=== PATIENT | male | born 1955 | race Caucasian/White ===

== ENCOUNTER 2016-12-28 14:21 | Emergency (ER) | payer OTHER, MEDICARE ==
[~2016-12-28] VITALS: Ht 177.8 cm; Wt 127.0 kg
[2016-12-28] MEDS ORDERED: HYCODAN/HYDROMET5 ML PO (16:47)
[2016-12-28] MEDS ORDERED: VIBRAMYCIN100 MG PO (16:47)
[2016-12-28] MEDS ORDERED: MUCINEX1200 M1 PO (16:48)
[2016-12-28] MEDS ORDERED: ZOFRAN ODT4 MG SL (16:51)
== END 2016-12-28 17:02 | disposition home or self-care (01) ==
LOC: ED 14:21
DX: J01.90 Acute sinusitis, unspecified (principal); J40 Bronchitis, not specified as acute or chronic; F17.200 Nicotine dependence, unspecified, uncomplicated; J44.9 Chronic obstructive pulmonary disease, unspecified; I25.2 Old myocardial infarction; Z95.5 Presence of coronary angioplasty implant and graft

== ENCOUNTER 2017-03-11 13:45 | Emergency (ER) | payer OTHER, MEDICARE ==
[~2017-03-11] VITALS: Ht 182.8 cm; Wt 145.1 kg
[~2017-03-11 13:45] MED LIST: HYCODAN/HYDROMET5 ML PO; MUCINEX1200 M1 PO; VIBRAMYCIN100 MG PO; ZOFRAN ODT4 MG SL
[2017-03-11 14:01] LABS: ABG BASE EXCESS -1.3 mmol/L (-2.0-2.0); ABG CO2 CONTENT 23.9 mmol/L (23-27); ABG HCO3 22.7 mmol/l (22-26); ABG TEMPERATURE 97.5 F (98.0-99.0); ARTERIAL BLOOD GAS PH 7.405 (7.35-7.45); ARTERIAL BLOOD GAS PO2 81.5 mmHg (80-90)
[2017-03-11] MEDS ORDERED: TOPROL XL100 MG PO (14:08)
[2017-03-11] MEDS ORDERED: ATORVASTATIN CA20 M1 PO (14:08)
[2017-03-11] MEDS ORDERED: TAMSULOSIN HCL0.4 MG PO (14:09)
[2017-03-11] MEDS ORDERED: OMEPRAZOLE20 M2 PO (14:09)
[2017-03-11] MEDS ORDERED: ZESTRIL40 MG PO (14:09)
[2017-03-11] MEDS ORDERED: NATURE'S BLEND F1 MG PO (14:10)
[2017-03-11] MEDS ORDERED: B12100 MC1 PO (14:10)
[2017-03-11] MEDS ORDERED: MULTI VITAMINS1 TAB PO (14:10)
[2017-03-11 14:11] LABS: BASO % 0.3 % (0.0-1.0); EOS # 0.2 10*3/uL (0.0-0.4); EOS % 1.9 % (1.0-4.0); HEMATOCRIT 41.1 % (42.0-52.0); LYMPH # 2.5 10*3/uL (1.3-4.4); LYMPH % 29.2 % (27.0-41.0); MEAN CELL VOLUME 93.8 fl (80.0-94.0); MEAN CORPUSCULAR HGB CONC 34.1 g/dl (33.0-37.0); MEAN PLATELET VOLUME 8.9 fl (9.6-12.3); MONO # 0.9 10*3/uL (0.1-1.0); MONO % 10.2 % (3.0-9.0); NEUT % 57.9 % (47.0-73.0); PLATELET COUNT AUTOMATED 472 10*3/uL (130-400); RED BLOOD COUNT 4.38 10*6/uL (4.50-5.90); RED CELL DISTRI WIDTH 13.2 % (0-14.5); WHITE BLOOD COUNT 8.6 10*3/uL (4.8-10.8)
[2017-03-11] MEDS ORDERED: ASPIR LOW81 MG PO (14:11)
[2017-03-11] MEDS ORDERED: SINGULAIR10 M1 PO (14:11)
[2017-03-11] MEDS ORDERED: TRAZODONE50 MG PO (14:11)
[2017-03-11 14:32] LABS: TROPONIN I < 0.015 ng/ml (<0.045)
[2017-03-11 14:35] LABS: INTERNATIONAL NORM RATIO 0.9 (2.0-3.5)
[2017-03-11 14:45] LABS: ALKALINE PHOSPHATASE 72 U/L (45-117); BILIRUBIN, TOTAL 0.2 mg/dl (0.2-1.0); BUN 7 mg/dl (7-24); CARBON DIOXIDE 25 mmol/L (21-32); CHLORIDE 94 mmol/L (98-107); EST GLOM FILT AFRICAN AMERICAN > 60 ml/min; GLUCOSE 102 mg/dL (65-99); MAGNESIUM 1.8 mg/dL (1.5-2.1); POTASSIUM 4.4 mmol/L (3.5-5.1); SGOT/AST 24 IU/L (3-35); SGPT/ALT 32 U/L (12-78); SODIUM 129 mmol/L (136-145); TOTAL PROTEIN 6.4 gm/dL (6.4-8.2)
[2017-03-11 14:48] LABS: C-REACTIVE PROTEIN < 0.29 MG/DL (0-0.3)
== END 2017-03-11 15:32 | disposition short-term general hospital (02) ==
LOC: ED 13:45
PROVIDERS: Emergency Medicine
DX: I21.3 ST elevation (STEMI) myocardial infarction of unspecified site (principal); R50.9 Fever, unspecified; J44.9 Chronic obstructive pulmonary disease, unspecified; M54.2 Cervicalgia; Z95.5 Presence of coronary angioplasty implant and graft; Z79.82 Long term (current) use of aspirin; F17.200 Nicotine dependence, unspecified, uncomplicated

== ENCOUNTER 2017-09-09 20:19 | Inpatient (IN) | payer MEDICARE, MEDICAID ==
[~2017-09-09] VITALS: Ht 177.8 cm; Wt 113.6 kg
[~2017-09-09 20:19] MED LIST changes: +ASPIR LOW81 MG PO; +ATORVASTATIN CA20 M1 PO; +B12100 MC1 PO; +MULTI VITAMINS1 TAB PO; +NATURE'S BLEND F1 MG PO; +OMEPRAZOLE20 M2 PO; +SINGULAIR10 M1 PO; +TAMSULOSIN HCL0.4 MG PO; +TOPROL XL100 MG PO; +TRAZODONE50 MG PO; +ZESTRIL40 MG PO
[2017-09-09 20:22] VITALS: BP 130/64
[2017-09-09] MEDS ORDERED: NEURONTIN300 MG PO (20:32)
[2017-09-09] MEDS ORDERED: DEPAKOTE DR500 MG PO (20:33)
[2017-09-09] MEDS ORDERED: LIPITOR80 MG PO (20:34)
[2017-09-09] MEDS ORDERED: THIAMINE HCL100 MG PO (20:34)
[2017-09-09 21:04] LABS: BASO # 0.1 10*3/uL (0.0-0.1); BASO % 0.7 % (0.0-1.0); EOS # 0.4 10*3/uL (0.0-0.4); EOS % 5.1 % (1.0-4.0); HEMATOCRIT 39.5 % (42.0-52.0); HEMOGLOBIN 13.8 g/dl (14.0-18.0); LYMPH # 2.1 10*3/uL (1.3-4.4); LYMPH % 27.6 % (27.0-41.0); MEAN CELL VOLUME 89.4 fl (80.0-94.0); MEAN CORPUSCULAR HGB 31.2 pg (27.0-31.0); MEAN CORPUSCULAR HGB CONC 34.9 g/dl (33.0-37.0); MEAN PLATELET VOLUME 9.3 fl (9.6-12.3); MONO # 1.1 10*3/uL (0.1-1.0); MONO % 14.1 % (3.0-9.0); NEUT % 52.2 % (47.0-73.0); PLATELET COUNT AUTOMATED 259 10*3/uL (130-400); RED BLOOD COUNT 4.42 10*6/uL (4.50-5.90); RED CELL DISTRI WIDTH 13.9 % (0-14.5); WHITE BLOOD COUNT 7.6 10*3/uL (4.8-10.8)
[2017-09-09 21:20] LABS: ALBUMIN 3.5 gm/dl (3.1-4.5); ALKALINE PHOSPHATASE 91 U/L (45-117); BUN 10 mg/dl (7-24); CHLORIDE 95 mmol/L (98-107); CREATININE 1.24 mg/dL (0.70-1.30); LIPASE 120 U/L (73-393); SGOT/AST 22 IU/L (3-35); SGPT/ALT 26 U/L (12-78); SODIUM 129 mmol/L (136-145); TOTAL PROTEIN 6.8 gm/dL (6.4-8.2)
[2017-09-09 21:21] LABS: TROPONIN I < 0.015 ng/ml (<0.045)
[2017-09-09 21:26] LABS: ETHYL ALCOHOL < 3.0 mg/dl (<3)
[2017-09-09 23:00] VITALS: BP 137/78
[2017-09-10] VITALS: BP 153/96
[2017-09-10 04:00] VITALS: BP 126/73
[2017-09-10 05:19] LABS: BASO % 0.6 % (0.0-1.0); EOS # 0.4 10*3/uL (0.0-0.4); EOS % 5.4 % (1.0-4.0); HEMATOCRIT 37.8 % (42.0-52.0); HEMOGLOBIN 12.8 g/dl (14.0-18.0); LYMPH # 1.7 10*3/uL (1.3-4.4); LYMPH % 26.1 % (27.0-41.0); MEAN CELL VOLUME 90.6 fl (80.0-94.0); MEAN CORPUSCULAR HGB 30.7 pg (27.0-31.0); MEAN CORPUSCULAR HGB CONC 33.9 g/dl (33.0-37.0); MEAN PLATELET VOLUME 9.3 fl (9.6-12.3); MONO % 14.7 % (3.0-9.0); NEUT # 3.5 10*3/uL (2.3-7.9); PLATELET COUNT AUTOMATED 226 10*3/uL (130-400); RED BLOOD COUNT 4.17 10*6/uL (4.50-5.90); WHITE BLOOD COUNT 6.7 10*3/uL (4.8-10.8)
[2017-09-10 05:37] LABS: ALBUMIN 3.2 gm/dl (3.1-4.5); BUN 8 mg/dl (7-24); CHLORIDE 99 mmol/L (98-107); CHOLESTEROL 103 mg/dL (<200); CREATININE 0.99 mg/dL (0.70-1.30); PHOSPHOROUS 3.6 mg/dL (2.5-4.9); POTASSIUM 4.1 mmol/L (3.5-5.1); SGOT/AST 19 IU/L (3-35); SGPT/ALT 22 U/L (12-78); SODIUM 133 mmol/L (136-145); TRIGLYCERIDES 130 mg/dl (<150); VLDL CHOLESTEROL 26 mg/dL (6-40)
[2017-09-10 05:39] LABS: ALKALINE PHOSPHATASE 78 U/L (45-117); HDL CHOLESTEROL 41 mg/dl (40-60); LDL CHOLESTEROL 36 mg/dL (9-159); TOTAL PROTEIN 5.9 gm/dL (6.4-8.2)
[2017-09-10 08:00] VITALS: BP 127/74
[2017-09-10 08:05] LABS: VITAMIN D, 25-HYDROXY 23.4 ng/mL (30-100)
[2017-09-10 11:30] LABS: URINE AMPHETAMINES < 1000 (1000ng/ml); URINE BARBITURATES < 200 (200ng/ml); URINE BENZODIAZEPINES < 200 (200ng/ml); URINE CANNABINOIDS (THC) < 50 (50ng/ml); URINE COCAINE > 300 (300ng/ml); URINE METHADONE < 300 (300ng/ml); URINE OPIATES < 300 (300ng/ml)
[2017-09-10 11:34] LABS: URINE PHENCYCLIDINE < 25 (25ng/ml)
[2017-09-10 12:00] VITALS: BP 99/62
[2017-09-10 16:00] VITALS: BP 109/71
[2017-09-10 20:00] VITALS: BP 106/67
[2017-09-11] VITALS: BP 139/69
[2017-09-11 04:00] VITALS: BP 137/60
[2017-09-11 05:33] LABS: ALBUMIN 2.9 gm/dl (3.1-4.5); BUN 10 mg/dl (7-24); CHLORIDE 108 mmol/L (98-107); LIPASE 132 U/L (73-393); POTASSIUM 4.4 mmol/L (3.5-5.1); SGOT/AST 14 IU/L (3-35); SODIUM 142 mmol/L (136-145)
[2017-09-11 05:37] LABS: ALKALINE PHOSPHATASE 73 U/L (45-117); CREATININE 0.99 mg/dL (0.70-1.30); PHOSPHOROUS 3.9 mg/dL (2.5-4.9); SGPT/ALT 21 U/L (12-78); TOTAL PROTEIN 5.6 gm/dL (6.4-8.2)
[2017-09-11 06:22] LABS: BASO % 0.5 % (0.0-1.0); EOS # 0.4 10*3/uL (0.0-0.4); EOS % 5.8 % (1.0-4.0); HEMATOCRIT 36.8 % (42.0-52.0); HEMOGLOBIN 12.4 g/dl (14.0-18.0); MEAN CORPUSCULAR HGB CONC 33.7 g/dl (33.0-37.0); MEAN PLATELET VOLUME 10.1 fl (9.6-12.3); MONO # 0.8 10*3/uL (0.1-1.0); MONO % 12.7 % (3.0-9.0); NEUT # 3.3 10*3/uL (2.3-7.9); NEUT % 50.8 % (47.0-73.0); PLATELET COUNT AUTOMATED 239 10*3/uL (130-400); RED BLOOD COUNT 3.87 10*6/uL (4.50-5.90); RED CELL DISTRI WIDTH 14.6 % (0-14.5); WHITE BLOOD COUNT 6.5 10*3/uL (4.8-10.8)
[2017-09-11 06:26] LABS: MEAN CELL VOLUME 95.1 fl (80.0-94.0)
[2017-09-11 08:00] VITALS: BP 138/70
[2017-09-11] MEDS ORDERED: PEPCID20 MG PO (11:52)
[2017-09-11] MEDS ORDERED: ZOFRAN ODT4 MG SL (11:52)
[2017-09-11 12:00] VITALS: BP 136/72
== END 2017-09-11 13:58 | disposition home or self-care (01) | DRG 897 ==
LOC: ED 20:19 → ICCU 22:31 → EDHOLD 22:31 → ICCU 22:34
PROVIDERS: Emergency Medicine; Hospitalist; Student in an Organized Health Care Education/Training Program
DX: F10.239 Alcohol dependence with withdrawal, unspecified (principal); E87.2 Acidosis; E87.8 Other disorders of electrolyte and fluid balance, not elsewhere classified; E44.0 Moderate protein-calorie malnutrition; E87.1 Hypo-osmolality and hyponatremia; G62.9 Polyneuropathy, unspecified; D64.9 Anemia, unspecified; K21.9 Gastro-esophageal reflux disease without esophagitis; N40.0 Benign prostatic hyperplasia without lower urinary tract symptoms; J44.9 Chronic obstructive pulmonary disease, unspecified; E78.2 Mixed hyperlipidemia; I25.10 Atherosclerotic heart disease of native coronary artery without angina pectoris; I10 Essential (primary) hypertension; R79.89 Other specified abnormal findings of blood chemistry; F31.9 Bipolar disorder, unspecified; Z79.82 Long term (current) use of aspirin; Z68.35 Body mass index [BMI] 35.0-35.9, adult; Z98.52 Vasectomy status; Z95.5 Presence of coronary angioplasty implant and graft; Z79.899 Other long term (current) drug therapy; Z71.6 Tobacco abuse counseling; F17.210 Nicotine dependence, cigarettes, uncomplicated; Z85.46 Personal history of malignant neoplasm of prostate; I25.2 Old myocardial infarction; Z66 Do not resuscitate; Z51.5 Encounter for palliative care

== ENCOUNTER → 2017-10-08 | Outpatient (CLI) | payer OTHER ==
[~2017-10-08] MED LIST changes: +DEPAKOTE DR500 MG PO; +LIPITOR80 MG PO; +NEURONTIN300 MG PO; +PEPCID20 MG PO; +THIAMINE HCL100 MG PO
== END | disposition home or self-care (01) ==
LOC: RAD 10:54
DX: M17.12 Unilateral primary osteoarthritis, left knee (principal); M17.11 Unilateral primary osteoarthritis, right knee

== ENCOUNTER 2017-11-19 10:29 | Inpatient (IN) | payer MEDICARE, MEDICAID ==
[~2017-11-19] VITALS: Ht 177.8 cm; Wt 128.8 kg
[~2017-11-19 10:29] MED LIST changes: +LOPRESSOR25 MG PO; -TOPROL XL100 MG PO
[2017-11-19 10:41] VITALS: BP 105/66
[2017-11-19 10:50] LABS: BASO # 0.1 10*3/uL (0.0-0.1); BASO % 0.4 % (0.0-1.0); EOS # 0.7 10*3/uL (0.0-0.4); EOS % 5.7 % (1.0-4.0); HEMATOCRIT 33.9 % (42.0-52.0); HEMOGLOBIN 11.5 g/dl (14.0-18.0); LYMPH # 2.8 10*3/uL (1.3-4.4); LYMPH % 23.5 % (27.0-41.0); MEAN CELL VOLUME 93.9 fl (80.0-94.0); MEAN CORPUSCULAR HGB 31.9 pg (27.0-31.0); MEAN CORPUSCULAR HGB CONC 33.9 g/dl (33.0-37.0); MEAN PLATELET VOLUME 8.3 fl (9.6-12.3); MONO # 1.4 10*3/uL (0.1-1.0); MONO % 11.7 % (3.0-9.0); NEUT # 6.9 10*3/uL (2.3-7.9); NEUT % 58.2 % (47.0-73.0); PLATELET COUNT AUTOMATED 230 10*3/uL (130-400); RED BLOOD COUNT 3.61 10*6/uL (4.50-5.90); RED CELL DISTRI WIDTH 13.4 % (0-14.5); WHITE BLOOD COUNT 11.9 10*3/uL (4.8-10.8)
[2017-11-19 11:06] LABS: ALBUMIN 3.1 gm/dl (3.1-4.5); ALKALINE PHOSPHATASE 109 U/L (45-117); BUN 9 mg/dl (7-24); CHLORIDE 94 mmol/L (98-107); CREATININE 0.97 mg/dL (0.70-1.30); SGOT/AST 22 IU/L (3-35); SGPT/ALT 23 U/L (12-78); SODIUM 130 mmol/L (136-145); TOTAL PROTEIN 6.6 gm/dL (6.4-8.2)
[2017-11-19 11:07] LABS: ACT PARTIAL THROMBO TIME 25.2 SECONDS (20.8-31.5); INTERNATIONAL NORM RATIO 0.9 (2.0-3.5)
[2017-11-19 11:14] LABS: TROPONIN I < 0.015 ng/ml (<0.045)
[2017-11-19 11:19] LABS: BILIRUBIN NEGATIVE (NEGATIVE); BLOOD NEGATIVE (NEGATIVE); CLARITY SL CLOUDY (CLEAR); COLOR YELLOW (YELLOW); GLUCOSE NEGATIVE (NEGATIVE); KETONE NEGATIVE (NEGATIVE); LEUKO ESTERASE NEGATIVE (NEGATIVE); NITRITE NEGATIVE (NEGATIVE); PH 5.5 (5.0-9.0); SPECIFIC GRAVITY <= 1.005 (1.005-1.030); UROBILINOGEN 0.2 E.U./dl (0.2-1.0)
[2017-11-19 11:37] LABS: BACTERIA 1+; RBC 0-2 rbc/hpf (0-2); WBC 0-2 wbc/hpf (0-5)
[2017-11-19 12:06] LABS: URINE AMPHETAMINES < 1000 (1000ng/ml); URINE BARBITURATES < 200 (200ng/ml); URINE BENZODIAZEPINES < 200 (200ng/ml); URINE CANNABINOIDS (THC) < 50 (50ng/ml); URINE COCAINE < 300 (300ng/ml); URINE METHADONE < 300 (300ng/ml); URINE OPIATES < 300 (300ng/ml); URINE PHENCYCLIDINE < 25 (25ng/ml)
[2017-11-19] MEDS ORDERED: MELATONIN3 MG PO (14:06)
[2017-11-19] MEDS ORDERED: CYMBALTA30 MG PO (14:06)
[2017-11-19] MEDS ORDERED: CLARITIN10 MG PO (14:09)
[2017-11-19 14:10] VITALS: BP 131/85
[2017-11-19 14:13] VITALS: BP 101/67
[2017-11-19] MEDS ORDERED: MULTIPLE VITAM1 EAC1 PO (15:46)
[2017-11-19 16:00] VITALS: BP 128/80
[2017-11-19 20:05] VITALS: BP 117/49
[2017-11-20] VITALS: BP 150/54
[2017-11-20 08:00] VITALS: BP 148/71
[2017-11-20 08:08] LABS: HEMATOCRIT 36.6 % (42.0-52.0); HEMOGLOBIN 12.2 g/dl (14.0-18.0); MEAN CELL VOLUME 94.3 fl (80.0-94.0); MEAN CORPUSCULAR HGB 31.4 pg (27.0-31.0); MEAN CORPUSCULAR HGB CONC 33.3 g/dl (33.0-37.0); MEAN PLATELET VOLUME 9.5 fl (9.6-12.3); PLATELET COUNT AUTOMATED 285 10*3/uL (130-400); RED BLOOD COUNT 3.88 10*6/uL (4.50-5.90); RED CELL DISTRI WIDTH 13.7 % (0-14.5); WHITE BLOOD COUNT 12.2 10*3/uL (4.8-10.8)
[2017-11-20 08:28] LABS: PLATELET SUFFICIENCY NORMAL (NORMAL); TOTAL CELLS COUNTED 100 #CELLS
[2017-11-20 08:30] LABS: BUN 11 mg/dl (7-24); CHLORIDE 99 mmol/L (98-107); CHOLESTEROL 146 mg/dL (<200); CREATININE 1.19 mg/dL (0.70-1.30); FREE T4 0.93 ng/dl (0.76-1.46); PHOSPHOROUS 3.7 mg/dL (2.5-4.9); POTASSIUM 4.1 mmol/L (3.5-5.1); SGOT/AST 20 IU/L (3-35); SGPT/ALT 23 U/L (12-78); SODIUM 136 mmol/L (136-145); TRIGLYCERIDES 60 mg/dl (<150); VLDL CHOLESTEROL 12 mg/dL (6-40)
[2017-11-20 08:34] LABS: ALKALINE PHOSPHATASE 100 U/L (45-117); HDL CHOLESTEROL 53 mg/dl (40-60); LDL CHOLESTEROL 81 mg/dL (9-159); THYROID STIM HORMONE (HS) 0.222 uIU/ml (0.358-4.75); TOTAL PROTEIN 6.7 gm/dL (6.4-8.2)
[2017-11-20 08:52] LABS: VITAMIN D, 25-HYDROXY 22.6 ng/mL (30-100)
[2017-11-20 12:00] VITALS: BP 144/72
[2017-11-20 16:00] VITALS: BP 123/51
[2017-11-20 20:00] VITALS: BP 135/59
[2017-11-21] VITALS: BP 135/64
[2017-11-21 06:38] LABS: HEMATOCRIT 34.2 % (42.0-52.0); HEMOGLOBIN 11.3 g/dl (14.0-18.0); MEAN CELL VOLUME 95.5 fl (80.0-94.0); MEAN CORPUSCULAR HGB 31.6 pg (27.0-31.0); MEAN PLATELET VOLUME 9.3 fl (9.6-12.3); PLATELET COUNT AUTOMATED 313 10*3/uL (130-400); RED BLOOD COUNT 3.58 10*6/uL (4.50-5.90); RED CELL DISTRI WIDTH 14.2 % (0-14.5); WHITE BLOOD COUNT 19.1 10*3/uL (4.8-10.8)
[2017-11-21 07:37] LABS: PLATELET SUFFICIENCY NORMAL (NORMAL); TOTAL CELLS COUNTED 100 #CELLS
[2017-11-21 08:00] VITALS: BP 128/82
[2017-11-21] MEDS ORDERED: HYDROCODONE-AC1 EAC1 PO (10:57)
[2017-11-21] MEDS ORDERED: LEVAQUIN500 M2 PO (10:57)
[2017-11-21] MEDS ORDERED: PREDNISONE50 MG PO (10:57)
[2017-11-21] MEDS ORDERED: VITAMIN D31000 UNIT PO (10:57)
[2017-11-21 12:00] VITALS: BP 139/60
== END 2017-11-21 13:50 | disposition home or self-care (01) | DRG 871 ==
LOC: ED 10:29 → EDHOLD 13:31 → 4E 13:31
PROVIDERS: Emergency Medicine; Internal Medicine Hospice and Palliative Medicine
DX: A41.9 Sepsis, unspecified organism (principal); J18.9 Pneumonia, unspecified organism; E87.8 Other disorders of electrolyte and fluid balance, not elsewhere classified; E44.0 Moderate protein-calorie malnutrition; E87.1 Hypo-osmolality and hyponatremia; E66.01 Morbid (severe) obesity due to excess calories; S30.1XXA Contusion of abdominal wall, initial encounter; D64.9 Anemia, unspecified; J44.0 Chronic obstructive pulmonary disease with (acute) lower respiratory infection; Z68.41 Body mass index [BMI] 40.0-44.9, adult; J44.1 Chronic obstructive pulmonary disease with (acute) exacerbation; G62.9 Polyneuropathy, unspecified; D72.810 Lymphocytopenia; F10.220 Alcohol dependence with intoxication, uncomplicated; Z66 Do not resuscitate; Z51.5 Encounter for palliative care; R65.20 Severe sepsis without septic shock; T14.8XXA Other injury of unspecified body region, initial encounter; I71.4 Abdominal aortic aneurysm, without rupture; K57.30 Diverticulosis of large intestine without perforation or abscess without bleeding; F17.210 Nicotine dependence, cigarettes, uncomplicated; R07.89 Other chest pain; I25.119 Atherosclerotic heart disease of native coronary artery with unspecified angina pectoris; I10 Essential (primary) hypertension; E78.2 Mixed hyperlipidemia; K21.9 Gastro-esophageal reflux disease without esophagitis; N40.0 Benign prostatic hyperplasia without lower urinary tract symptoms; D32.9 Benign neoplasm of meninges, unspecified; R73.03 Prediabetes; E55.9 Vitamin D deficiency, unspecified; X58.XXXA Exposure to other specified factors, initial encounter; Y93.89 Activity, other specified; Y92.89 Other specified places as the place of occurrence of the external cause; Y99.8 Other external cause status; I25.2 Old myocardial infarction; Z85.46 Personal history of malignant neoplasm of prostate; Z98.61 Coronary angioplasty status; Z98.52 Vasectomy status; Z79.899 Other long term (current) drug therapy; Z71.6 Tobacco abuse counseling; Z79.82 Long term (current) use of aspirin

== ENCOUNTER → 2018-05-06 | Outpatient (CLI) | payer MEDICARE, MEDICAID ==
[~2018-05-06] MED LIST changes: +ASPIR 8181 MG PO; +AUGMENTIN 500500 MG PO; +B-121000 MCG PO; +CLARITIN10 MG PO; +COREG3.125 MG PO; +CYMBALTA30 MG PO; +DOXYCYCLINE100 M3 PO; +Flonase 0.05% 120 Me NAS; +GABAPENTIN TAB600 MG PO; +GLUCOSAMINE H1500 MG PO; +HYDRALAZINE HYD50 MG PO; +HYDROCODONE-AC1 EAC1 PO; +KLOR-CON M1010 ME1 PO; +LASIX20 MG PO; +LEVAQUIN500 M2 PO; +LEVAQUIN750 M1 PO; +LISINOPRIL40 MG PO; +LYRICA150 M1 PO; +MELATONIN3 MG PO; +METOPROLOL TART50 M1 PO; +MULTIPLE VITAM1 EAC1 PO; +MULTIVITAMINS1 EAC5 PO; +NATURE'S BLEND100 M2 PO; +NICOTINE PATCH1 EAC2 TD; +NORCO 10-325 T1 EACH PO; +PREDNISONE10 MG PO; +PREDNISONE50 MG PO; +PROAIR HFA8.5 GM INH; +TOPCARE OMEPRAZ20 MG PO; +VITAMIN D-32000 UNIT PO; +VITAMIN D31000 UNIT PO; +VITAMIN D32000 UNI1 PO; +WALKER; +Zestril,Prinivi40 MG PO
[2018-05-06 16:36] LABS: BASO % 0.1 % (0.0-1.0); HEMATOCRIT 38.2 % (42.0-52.0); HEMOGLOBIN 12.8 g/dl (14.0-18.0); LYMPH # 0.6 10*3/uL (1.3-4.4); MEAN CELL VOLUME 94.1 fl (80.0-94.0); MEAN CORPUSCULAR HGB 31.5 pg (27.0-31.0); MEAN CORPUSCULAR HGB CONC 33.5 g/dl (33.0-37.0); MEAN PLATELET VOLUME 9.2 fl (9.6-12.3); MONO # 0.5 10*3/uL (0.1-1.0); MONO % 4.7 % (3.0-9.0); NEUT # 8.8 10*3/uL (2.3-7.9); NEUT % 88.7 % (47.0-73.0); PLATELET COUNT AUTOMATED 237 10*3/uL (130-400); RED BLOOD COUNT 4.06 10*6/uL (4.50-5.90); RED CELL DISTRI WIDTH 15.9 % (0-14.5)
== END | disposition home or self-care (01) ==
LOC: LAB 16:22
PROVIDERS: Family Medicine
DX: J40 Bronchitis, not specified as acute or chronic (principal); D72.829 Elevated white blood cell count, unspecified; S81.802A Unspecified open wound, left lower leg, initial encounter; F17.210 Nicotine dependence, cigarettes, uncomplicated; X58.XXXA Exposure to other specified factors, initial encounter; Y93.89 Activity, other specified; Y92.89 Other specified places as the place of occurrence of the external cause; Y99.8 Other external cause status

== ENCOUNTER 2018-05-10 13:19 | Emergency (ER) | payer MEDICARE ==
[~2018-05-10] VITALS: Ht 177.8 cm; Wt 99.8 kg
--- NOTE | ~2018-05-10 | EKG ---
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
--- NOTE | ~2018-05-10 | EKG ---
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
[~2018-05-10 13:19] MED LIST changes: -COREG3.125 MG PO; -GABAPENTIN TAB600 MG PO; -LEVAQUIN750 M1 PO; -LYRICA150 M1 PO; -NORCO 10-325 T1 EACH PO
[2018-05-10 14:13] LABS: BASO % 0.1 % (0.0-1.0); EOS # 0.1 10*3/uL (0.0-0.4); EOS % 0.6 % (1.0-4.0); HEMATOCRIT 36.9 % (42.0-52.0); HEMOGLOBIN 12.7 g/dl (14.0-18.0); LYMPH # 0.9 10*3/uL (1.3-4.4); MEAN CELL VOLUME 93.9 fl (80.0-94.0); MEAN CORPUSCULAR HGB 32.3 pg (27.0-31.0); MEAN CORPUSCULAR HGB CONC 34.4 g/dl (33.0-37.0); MEAN PLATELET VOLUME 8.9 fl (9.6-12.3); MONO # 0.7 10*3/uL (0.1-1.0); MONO % 4.7 % (3.0-9.0); NEUT # 13.3 10*3/uL (2.3-7.9); NEUT % 87.7 % (47.0-73.0); PLATELET COUNT AUTOMATED 236 10*3/uL (130-400); RED BLOOD COUNT 3.93 10*6/uL (4.50-5.90); RED CELL DISTRI WIDTH 15.8 % (0-14.5); WHITE BLOOD COUNT 15.2 10*3/uL (4.8-10.8)
[2018-05-10 14:18] LABS: ACT PARTIAL THROMBO TIME 19.5 SECONDS (20.8-31.5); INTERNATIONAL NORM RATIO 0.9 (2.0-3.5)
[2018-05-10 14:35] LABS: ALBUMIN 3.4 gm/dl (3.1-4.5); ALKALINE PHOSPHATASE 55 U/L (45-117); BUN 32 mg/dl (7-24); CHLORIDE 92 mmol/L (98-107); CREATININE 1.84 mg/dL (0.70-1.30); POTASSIUM 5.7 mmol/L (3.5-5.1); SGOT/AST 23 IU/L (3-35); SGPT/ALT 41 U/L (12-78); SODIUM 123 mmol/L (136-145); TOTAL PROTEIN 6.4 gm/dL (6.4-8.2)
[2018-05-10 14:48] LABS: TROPONIN I < 0.015 ng/ml (<0.045)
[2018-05-10 15:43] LABS: ABG HCO3 16.3 mmol/l (22-26); ABG O2 SATURATION 97.1 % (95-97); ARTERIAL BLOOD GAS PCO2 30.5 mmHg (35-45); ARTERIAL BLOOD GAS PH 7.346 (7.35-7.45); ARTERIAL BLOOD GAS PO2 89.4 mmHg (80-90)
[2018-08-11] MEDS ORDERED: COREG3.125 MG PO (16:17)
[2018-08-11] MEDS ORDERED: LYRICA150 M1 PO (16:18)
[2018-08-17] MEDS ORDERED: PREDNISONE10 MG PO (14:29)
[2018-08-17] MEDS ORDERED: HYDROCODONE-AC1 EAC1 PO (14:29)
[2018-08-17] MEDS ORDERED: LEVAQUIN750 M1 PO (14:29)
== END 2018-05-10 17:59 | disposition short-term general hospital (02) ==
LOC: ED 13:19
PROVIDERS: Emergency Medicine
DX: S37.009A Unspecified injury of unspecified kidney, initial encounter (principal); A41.9 Sepsis, unspecified organism; R65.21 Severe sepsis with septic shock; F10.129 Alcohol abuse with intoxication, unspecified; R00.1 Bradycardia, unspecified; E87.5 Hyperkalemia; E87.1 Hypo-osmolality and hyponatremia; I95.9 Hypotension, unspecified; J98.2 Interstitial emphysema; F19.10 Other psychoactive substance abuse, uncomplicated; I25.10 Atherosclerotic heart disease of native coronary artery without angina pectoris; J44.9 Chronic obstructive pulmonary disease, unspecified; I10 Essential (primary) hypertension; K21.9 Gastro-esophageal reflux disease without esophagitis; E78.2 Mixed hyperlipidemia; E66.01 Morbid (severe) obesity due to excess calories; I25.2 Old myocardial infarction; G62.9 Polyneuropathy, unspecified; F17.200 Nicotine dependence, unspecified, uncomplicated; Z79.899 Other long term (current) drug therapy; Z79.82 Long term (current) use of aspirin; Z98.890 Other specified postprocedural states; X58.XXXA Exposure to other specified factors, initial encounter; Y93.89 Activity, other specified; Y92.89 Other specified places as the place of occurrence of the external cause; Y99.8 Other external cause status

== ENCOUNTER 2018-06-30 08:05 | Emergency (ER) | payer MEDICARE ==
[~2018-06-30] VITALS: Ht 182.8 cm; Wt 136.1 kg
--- NOTE | ~2018-06-30 | EKG ---
[place], [place] ELECTROCARDIOGRAM REPORT NAME: RAFAEL RATLIFF UNIT #: [id number] ROOM: DOCTOR: JP DRAFT REPORT BIRTHDATE: [birth year] [facility] Test Date: 2018-06-30 Test Time: 08:52:58 Pat Name: RAFAEL RATLIFF Department: Room: Gender: Marzipan Molder: : 1955 Requested By: FRANC HARVEY Order Number: [id number] Reading MD: Lenny Jacob MD Measurements Intervals [place] Rate: 78 P: 31 MI: 148 QRS: 76 QRSD: 86 T: 71 QT: 380 QTc: 433 Interpretive Statements Sinus rhythm Atrial premature complex Probable left atrial enlargement ST elevation, consider inferior injury Baseline wander in lead(s) V2 Compared to ECG 05/10/2018 15:59:05 Atrial premature complex(es) now present Junctional rhythm no longer present T-wave abnormality no longer present ST (T wave) deviation still present Myocardial infarct finding still present Electronically Signed On 07-03-2018 12:05:58 PDT by Lenny Jacob MD CM:EKGRPT:ELECTROCARDIOGRAM REPORT [id number] 1205 FRANC TRAMMELL DRAFT REPORT FRANC HARVEY M.D.
[2018-06-30 08:45] LABS: BILIRUBIN NEGATIVE (NEGATIVE); BLOOD NEGATIVE (NEGATIVE); CLARITY SL CLOUDY (CLEAR); COLOR YELLOW (YELLOW); GLUCOSE NEGATIVE (NEGATIVE); KETONE NEGATIVE (NEGATIVE); LEUKO ESTERASE NEGATIVE (NEGATIVE); NITRITE NEGATIVE (NEGATIVE); PH 6.5 (5.0-9.0); SPECIFIC GRAVITY <= 1.005 (1.005-1.030); UROBILINOGEN 0.2 E.U./dl (0.2-1.0)
[2018-06-30 08:55] LABS: BASO % 0.4 % (0.0-1.0); EOS # 0.3 10*3/uL (0.0-0.4); EOS % 2.7 % (1.0-4.0); HEMATOCRIT 36.1 % (42.0-52.0); HEMOGLOBIN 12.3 g/dl (14.0-18.0); LYMPH # 1.4 10*3/uL (1.3-4.4); LYMPH % 13.9 % (27.0-41.0); MEAN CELL VOLUME 93.3 fl (80.0-94.0); MEAN CORPUSCULAR HGB 31.8 pg (27.0-31.0); MEAN CORPUSCULAR HGB CONC 34.1 g/dl (33.0-37.0); MEAN PLATELET VOLUME 8.6 fl (9.6-12.3); MONO # 1.1 10*3/uL (0.1-1.0); MONO % 10.6 % (3.0-9.0); NEUT # 7.2 10*3/uL (2.3-7.9); PLATELET COUNT AUTOMATED 324 10*3/uL (130-400); RED BLOOD COUNT 3.87 10*6/uL (4.50-5.90); RED CELL DISTRI WIDTH 13.7 % (0-14.5)
[2018-06-30 08:56] LABS: BACTERIA 1+; WBC 0-2 wbc/hpf (0-5)
[2018-06-30 09:12] LABS: ALBUMIN 3.5 gm/dl (3.1-4.5); ALKALINE PHOSPHATASE 93 U/L (45-117); BUN 5 mg/dl (7-24); CHLORIDE 95 mmol/L (98-107); CREATININE 0.92 mg/dL (0.70-1.30); POTASSIUM 4.2 mmol/L (3.5-5.1); SGOT/AST 13 IU/L (3-35); SGPT/ALT 17 U/L (12-78); SODIUM 130 mmol/L (136-145)
[2018-06-30 09:13] LABS: TROPONIN I < 0.015 ng/ml (<0.045)
[2018-06-30] MEDS ORDERED: NEURONTIN300 MG PO ×2 (11:58→12:07)
[2018-06-30] MEDS ORDERED: NORCO 10-325 T1 EACH PO (11:58)
[2018-08-11] MEDS ORDERED: COREG3.125 MG PO (16:17)
[2018-08-11] MEDS ORDERED: LYRICA150 M1 PO (16:18)
[2018-08-17] MEDS ORDERED: LEVAQUIN750 M1 PO (14:29)
[2018-08-17] MEDS ORDERED: PREDNISONE10 MG PO (14:29)
[2018-08-17] MEDS ORDERED: HYDROCODONE-AC1 EAC1 PO (14:29)
== END 2018-06-30 13:57 | disposition home or self-care (01) ==
LOC: ED 08:05
PROVIDERS: Emergency Medicine
DX: M54.6 Pain in thoracic spine (principal); M54.5 Low back pain; R10.11 Right upper quadrant pain; R10.12 Left upper quadrant pain; J44.9 Chronic obstructive pulmonary disease, unspecified; I10 Essential (primary) hypertension; I25.2 Old myocardial infarction; I25.10 Atherosclerotic heart disease of native coronary artery without angina pectoris; K21.9 Gastro-esophageal reflux disease without esophagitis; E78.2 Mixed hyperlipidemia; E66.01 Morbid (severe) obesity due to excess calories; G62.9 Polyneuropathy, unspecified; F17.210 Nicotine dependence, cigarettes, uncomplicated; Z79.2 Long term (current) use of antibiotics; Z79.899 Other long term (current) drug therapy; Z79.82 Long term (current) use of aspirin; Z98.890 Other specified postprocedural states

== ENCOUNTER → 2018-07-16 | Outpatient (CLI) | payer MEDICARE ==
[~2018-07-16] MED LIST changes: +COREG3.125 MG PO; +GABAPENTIN TAB600 MG PO; +LEVAQUIN750 M1 PO; +LYRICA150 M1 PO; +NORCO 10-325 T1 EACH PO
== END | disposition home or self-care (01) ==
LOC: RAD 13:21
DX: J44.9 Chronic obstructive pulmonary disease, unspecified (principal)

== ENCOUNTER 2018-07-20 02:03 | Inpatient (IN) | payer OTHER ==
[~2018-07-20] VITALS: Ht 177.8 cm; Wt 125.4 kg
[2018-07-20] VITALS (10 sets, daily range): BP systolic 125–201; BP diastolic 58–160
--- NOTE | ~2018-07-20 | EKG ---
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 Marketing: Twin Singh : 1955 Requested By: CHAVEZ TAVERA Order Number: [id number] Reading MD: Derek Lemons MD Measurements Intervals [place] Rate: 49 P: 41 MN: 120 QRS: 69 QRSD: 104 T: 67 QT: 411 QTc: 371 Interpretive Statements Sinus bradycardia Baseline wander in lead(s) V1 Mild ST elevation in multiple leads, possible early repolarization Compared to ECG 06/30/2018 08:52:58 Rate is slower Atrial premature complex(es) no longer present No other significant changes Electronically Signed On 07-20-2018 12:37:56 PST by Derek Lemons MD CM:EKGRPT:ELECTROCARDIOGRAM REPORT 1237 CHAVEZ ESTES DRAFT REPORT CHAVEZ TAVERA DO
[~2018-07-20 02:03] MED LIST changes: -COREG3.125 MG PO; -GABAPENTIN TAB600 MG PO; -LEVAQUIN750 M1 PO; -LYRICA150 M1 PO
[2018-07-20 02:18] LABS: ABG BASE EXCESS -6.2 mmol/L (-2.0-2.0); ABG HCO3 18.8 mmol/l (22-26); ABG O2 SATURATION 99.1 % (95-97); ARTERIAL BLOOD GAS PCO2 37.1 mmHg (35-45); ARTERIAL BLOOD GAS PH 7.324 (7.35-7.45)
[2018-07-20 02:29] LABS: BASO % 0.2 % (0.0-1.0); EOS # 0.1 10*3/uL (0.0-0.4); EOS % 1.1 % (1.0-4.0); HEMATOCRIT 33.3 % (42.0-52.0); HEMOGLOBIN 11.9 g/dl (14.0-18.0); LYMPH % 10.5 % (27.0-41.0); MEAN CELL VOLUME 90.2 fl (80.0-94.0); MEAN CORPUSCULAR HGB 32.2 pg (27.0-31.0); MEAN CORPUSCULAR HGB CONC 35.7 g/dl (33.0-37.0); MEAN PLATELET VOLUME 8.5 fl (9.6-12.3); MONO # 0.6 10*3/uL (0.1-1.0); MONO % 5.6 % (3.0-9.0); NEUT # 8.2 10*3/uL (2.3-7.9); NEUT % 82.4 % (47.0-73.0); PLATELET COUNT AUTOMATED 278 10*3/uL (130-400); RED BLOOD COUNT 3.69 10*6/uL (4.50-5.90); RED CELL DISTRI WIDTH 13.3 % (0-14.5); WHITE BLOOD COUNT 9.9 10*3/uL (4.8-10.8)
[2018-07-20 02:39] LABS: ACT PARTIAL THROMBO TIME 27.2 SECONDS (20.8-31.5); INTERNATIONAL NORM RATIO 0.9 (2.0-3.5)
[2018-07-20 02:43] LABS: ALBUMIN 3.5 gm/dl (3.1-4.5); ALKALINE PHOSPHATASE 105 U/L (45-117); BUN 10 mg/dl (7-24); CHLORIDE 78 mmol/L (98-107); POTASSIUM 5.3 mmol/L (3.5-5.1); SGOT/AST 20 IU/L (3-35); SGPT/ALT 21 U/L (12-78); TOTAL PROTEIN 6.9 gm/dL (6.4-8.2)
[2018-07-20 02:46] LABS: SODIUM 113 mmol/L (136-145)
[2018-07-20 03:16] LABS: BILIRUBIN NEGATIVE (NEGATIVE); BLOOD NEGATIVE (NEGATIVE); CLARITY CLEAR (CLEAR); COLOR YELLOW (YELLOW); GLUCOSE NEGATIVE (NEGATIVE); KETONE NEGATIVE (NEGATIVE); LEUKO ESTERASE NEGATIVE (NEGATIVE); NITRITE NEGATIVE (NEGATIVE); SPECIFIC GRAVITY 1.025 (1.005-1.030); UROBILINOGEN 0.2 E.U./dl (0.2-1.0)
[2018-07-20 03:25] LABS: FINE GRANULAR CAST 20-25
[2018-07-20] MEDS ORDERED: GABAPENTIN TAB600 MG PO (05:34)
[2018-07-20 09:47] LABS: ALBUMIN 3.6 gm/dl (3.1-4.5); BUN 10 mg/dl (7-24); CHLORIDE 78 mmol/L (98-107); CREATININE 0.81 mg/dL (0.70-1.30); POTASSIUM 5.4 mmol/L (3.5-5.1)
[2018-07-20 09:48] LABS: PHOSPHOROUS 2.9 mg/dL (2.5-4.9)
[2018-07-20 09:50] LABS: SODIUM 113 mmol/L (136-145)
[2018-07-20 17:01] LABS: BUN 13 mg/dl (7-24); CHLORIDE 84 mmol/L (98-107); POTASSIUM 5.3 mmol/L (3.5-5.1)
[2018-07-20 17:14] LABS: SODIUM 118 mmol/L (136-145)
[2018-07-21] VITALS: BP 154/89
[2018-07-21 04:00] VITALS: BP 148/50
[2018-07-21 06:14] LABS: HEMATOCRIT 34.3 % (42.0-52.0); HEMOGLOBIN 11.7 g/dl (14.0-18.0); MEAN CELL VOLUME 91.5 fl (80.0-94.0); MEAN CORPUSCULAR HGB 31.2 pg (27.0-31.0); MEAN CORPUSCULAR HGB CONC 34.1 g/dl (33.0-37.0); MEAN PLATELET VOLUME 8.9 fl (9.6-12.3); PLATELET COUNT AUTOMATED 286 10*3/uL (130-400); RED BLOOD COUNT 3.75 10*6/uL (4.50-5.90); RED CELL DISTRI WIDTH 13.2 % (0-14.5)
[2018-07-21 06:25] LABS: BUN 14 mg/dl (7-24); CHLORIDE 87 mmol/L (98-107); CREATININE 0.86 mg/dL (0.70-1.30); PHOSPHOROUS 3.3 mg/dL (2.5-4.9); POTASSIUM 4.8 mmol/L (3.5-5.1); SODIUM 123 mmol/L (136-145)
[2018-07-21 07:03] LABS: PLATELET SUFFICIENCY NORMAL (NORMAL); TOTAL CELLS COUNTED 100 #CELLS
[2018-07-21 08:00] VITALS: BP 148/90
[2018-07-21 08:32] LABS: VITAMIN D, 25-HYDROXY 26.9 ng/mL (30-100)
[2018-07-21 12:00] VITALS: BP 171/78
[2018-07-21 16:00] VITALS: BP 150/76
[2018-07-21 20:00] VITALS: BP 149/61
[2018-07-22] VITALS: BP 139/67
[2018-07-22 07:46] LABS: BASO % 0.1 % (0.0-1.0); HEMATOCRIT 31.9 % (42.0-52.0); HEMOGLOBIN 10.8 g/dl (14.0-18.0); LYMPH # 0.5 10*3/uL (1.3-4.4); LYMPH % 3.2 % (27.0-41.0); MEAN CELL VOLUME 93.5 fl (80.0-94.0); MEAN CORPUSCULAR HGB 31.7 pg (27.0-31.0); MEAN CORPUSCULAR HGB CONC 33.9 g/dl (33.0-37.0); MEAN PLATELET VOLUME 7.9 fl (9.6-12.3); MONO # 1.1 10*3/uL (0.1-1.0); MONO % 7.8 % (3.0-9.0); NEUT # 12.8 10*3/uL (2.3-7.9); NEUT % 88.3 % (47.0-73.0); PLATELET COUNT AUTOMATED 231 10*3/uL (130-400); RED BLOOD COUNT 3.41 10*6/uL (4.50-5.90); RED CELL DISTRI WIDTH 13.9 % (0-14.5); WHITE BLOOD COUNT 14.5 10*3/uL (4.8-10.8)
[2018-07-22 08:00] VITALS: BP 136/75
[2018-07-22 08:15] LABS: BUN 14 mg/dl (7-24); CHLORIDE 94 mmol/L (98-107); CREATININE 0.83 mg/dL (0.70-1.30); POTASSIUM 4.2 mmol/L (3.5-5.1); SODIUM 129 mmol/L (136-145)
[2018-07-22 12:00] VITALS: BP 127/63
[2018-07-22 16:00] VITALS: BP 122/74
[2018-07-22 20:00] VITALS: BP 130/60
[2018-07-23] VITALS: BP 130/61
[2018-07-23 07:04] LABS: BASO % 0.1 % (0.0-1.0); EOS % 0.1 % (1.0-4.0); HEMATOCRIT 32.5 % (42.0-52.0); HEMOGLOBIN 10.6 g/dl (14.0-18.0); LYMPH # 1.5 10*3/uL (1.3-4.4); LYMPH % 11.2 % (27.0-41.0); MEAN CELL VOLUME 96.4 fl (80.0-94.0); MEAN CORPUSCULAR HGB 31.5 pg (27.0-31.0); MEAN CORPUSCULAR HGB CONC 32.6 g/dl (33.0-37.0); MEAN PLATELET VOLUME 9.4 fl (9.6-12.3); MONO # 1.3 10*3/uL (0.1-1.0); MONO % 9.7 % (3.0-9.0); NEUT # 10.2 10*3/uL (2.3-7.9); NEUT % 78.6 % (47.0-73.0); PLATELET COUNT AUTOMATED 275 10*3/uL (130-400); RED BLOOD COUNT 3.37 10*6/uL (4.50-5.90); RED CELL DISTRI WIDTH 14.3 % (0-14.5)
[2018-07-23 08:00] VITALS: BP 118/58
[2018-07-23 11:23] LABS: BUN 15 mg/dl (7-24); CHLORIDE 97 mmol/L (98-107); CREATININE 0.88 mg/dL (0.70-1.30); POTASSIUM 4.2 mmol/L (3.5-5.1); SODIUM 135 mmol/L (136-145)
[2018-07-23 12:00] VITALS: BP 102/60
[2018-07-23] MEDS ORDERED: LEVAQUIN750 M1 PO (14:23)
[2018-07-23] MEDS ORDERED: PREDNISONE10 MG PO (14:23)
[2018-08-11] MEDS ORDERED: COREG3.125 MG PO (16:17)
[2018-08-11] MEDS ORDERED: LYRICA150 M1 PO (16:18)
[2018-08-17] MEDS ORDERED: LEVAQUIN750 M1 PO (14:29)
[2018-08-17] MEDS ORDERED: PREDNISONE10 MG PO (14:29)
[2018-08-17] MEDS ORDERED: HYDROCODONE-AC1 EAC1 PO (14:29)
== END 2018-07-23 14:30 | disposition home health service (06) | DRG 640 ==
LOC: ED 02:03 → 4E 03:39 → EDHOLD 03:39 → ICCU 03:39 → 4E 07-21 15:16
PROVIDERS: Internal Medicine; Internal Medicine Nephrology; Student in an Organized Health Care Education/Training Program
PROC: 5A09357 Assistance with Respiratory Ventilation, Less than 24 Consecutive Hours, Continuous Positive Airway Pressure (ICD-10-PCS; principal; 2018-07-20)
DX: E87.1 Hypo-osmolality and hyponatremia (principal); J18.1 Lobar pneumonia, unspecified organism; E87.2 Acidosis; J43.9 Emphysema, unspecified; E87.6 Hypokalemia; E87.8 Other disorders of electrolyte and fluid balance, not elsewhere classified; D64.9 Anemia, unspecified; I25.10 Atherosclerotic heart disease of native coronary artery without angina pectoris; N40.0 Benign prostatic hyperplasia without lower urinary tract symptoms; G62.9 Polyneuropathy, unspecified; K21.9 Gastro-esophageal reflux disease without esophagitis; I10 Essential (primary) hypertension; F32.9 Major depressive disorder, single episode, unspecified; K57.90 Diverticulosis of intestine, part unspecified, without perforation or abscess without bleeding; E78.2 Mixed hyperlipidemia; E66.01 Morbid (severe) obesity due to excess calories; M54.5 Low back pain; G89.29 Other chronic pain; F10.20 Alcohol dependence, uncomplicated; I71.4 Abdominal aortic aneurysm, without rupture; F17.210 Nicotine dependence, cigarettes, uncomplicated; Z71.6 Tobacco abuse counseling; Z85.46 Personal history of malignant neoplasm of prostate; I25.2 Old myocardial infarction; Z87.01 Personal history of pneumonia (recurrent); Z92.3 Personal history of irradiation; Z98.61 Coronary angioplasty status; Z98.52 Vasectomy status; Z79.899 Other long term (current) drug therapy; Z79.82 Long term (current) use of aspirin; Z68.39 Body mass index [BMI] 39.0-39.9, adult

== ENCOUNTER 2018-09-16 14:23 | Inpatient (IN) | payer OTHER ==
[~2018-09-16] VITALS: Ht 177.8 cm; Wt 122.0 kg
[2018-09-16] VITALS (8 sets, daily range): BP systolic 122–156; BP diastolic 75–98
--- NOTE | ~2018-09-16 | PR ---
[place], [place] PROGRESS NOTE NAME: RAFAEL RATLIFF [facility] [id number] UNIT #: [id number] ROOM: 503 DOCTOR: EFRAIN GARY MD,AHSAN BIRTHDATE: [birth year] DOS: 09/19/2018 PULMONARY PROGRESS NOTE SUBJECTIVE: The patient was noted comfortable at this time, resting on the bed, has not been noted with any symptoms of fever or chills. Denies symptoms of hemoptysis. The patient has been noted with mild cough without any sputum expectoration. Transfer to the medical Telemetry floor. OBJECTIVE: VITAL SIGNS: Normal temperature, respiratory rate 20, heart rate 94, blood pressure 136/70. Pulse oxygen saturation on 3 liters nasal cannula 96% saturation. HEENT: Head was atraumatic. Eyes nonicterus. NECK: Supple. CARDIOVASCULAR: S1, S2 is audible. LUNGS: The patient was noted without any crackle, rhonchi, or wheezing. ABDOMEN: Soft, nontender. Bowel sounds present. EXTREMITIES: Without any acute edema. LABORATORY DATA: Culture of the sputum noted light growth of E. coli and ESBL species. CBC this morning; WBC count 13.4, hemoglobin 11.5 and hematocrit 35.5, platelet count were normal. BMP this morning; normal BUN and creatinine, sodium was improved to 135. CO2 was 34. IMPRESSION: 1. Resolving acute respiratory failure with acute exacerbation of chronic obstructive pulmonary disease. 2. Acute tracheobronchitis versus colonization with ESBL producing species. 3. Obstructive sleep apnea disorder, nonadherence with the treatment. 4. Nicotine dependence. 5. Chronic obesity. PLAN OF TREATMENT: The patient has used the BiPAP for last several hours at nighttime. This morning, using oxygen supplementation via nasal cannula. The hyponatremia noted on this patient to be resolving. PLAN OF THERAPY: Decrease the Solu-Medrol dose to 40 mg b.i.d. ESBL species with IV Zosyn would be continued. Other therapy, plan of management at this time as previously in progress. Other additional treatment changes will be made based on progression of the illness. Supportive care, other therapy, plan of management, treatment and care. Usual medical management and other therapies. Further change in treatment will be made based on progression of the illness. The patient would as advised continue the use of BiPAP as ordered intermittently today for any respiratory distress and continue to use at nighttime. Titrate oxygen supplementation, maintain pulse ox 92% or greater. [place], [place] PROGRESS NOTE NAME: RAFAEL RATLIFF [place] UNIT #: [id number] ROOM: [facility] DOCTOR: AHSAN DELGADO MD BIRTHDATE: [birth year] AHSAN ZUNIGA MD CM:PNTRANS 1527 AHSAN GARY MD 09/20/18 0047 interface
--- NOTE | ~2018-09-16 | PR ---
[place], [place] PROGRESS NOTE NAME[id number] UNIT #: [id number] ROOM: 503 DOCTOR: EFRAIN GARY MD,AHSAN BIRTHDATE: [birth year] DOS: 09/24/2018 SUBJECTIVE: The patient was noted comfortable at this time, resting in the bed without any acute distress, has not been noted any symptoms of fever, chills, or hemoptysis. Coughing and other symptoms continued, gradually resolved. He has been reported some diarrhea, but there was no abdominal pain. Denies symptoms of hematemesis or melena. Denies any pain of the lower extremities. The patient was still noted with general weakness and fatigue, which has been gradually improving. OBJECTIVE: VITAL SIGNS: For the patient which were recorded showed the temperature noted as normal. The respiratory rate of 18, heart rate of 60, blood pressure 147/80 this morning. HEENT: No new change. NECK: Supple. CARDIOVASCULAR: S1, S2 audible. LUNGS: The patient was noted without any wheezing or crackles this morning. ABDOMEN: Soft and obese. EXTREMITIES: Without any acute edema. MUSCULOSKELETAL: Without any acute deformities. IMPRESSION: The patient with resolving acute severe tracheobronchitis, gram-negative infection. The patient is responding to treatment very well with reduction of respiratory symptoms. Diarrhea may be related to the antibiotic, Zosyn. Clostridium difficile colitis. Improving acute on chronic hypercapnic hypoxemic respiratory failure. PLAN OF MANAGEMENT: Order the stool for C. diff toxin. No other change in treatment at this time will be done, otherwise. Any additional treatment changes will be done based on progression of the illness. AHSAN ZUNIGA MD CM:PNTRANS [id number] 1348 AHSAN GARY MD 09/24/18 1349 interface
--- NOTE | ~2018-09-16 | PR ---
[place], [place] PROGRESS NOTE NAME: RAFAEL RATLIFF UNIT #: [id number] ROOM: 503 DOCTOR: EFRAIN GARY MD,AHSAN BIRTHDATE: [birth year] DOS: 09/22/2018 SUBJECTIVE: He has been comfortably resting in the bed, continued to show reduction in symptoms of shortness of breath, coughing at present time. Denies symptoms of chest pain or hemoptysis. Denies symptom fever or chills. OBJECTIVE: VITAL SIGNS: Normal temperature, respiratory rate 20, heart rate of 54, blood pressure 167/87. Pulse oxygen saturation on 3 liters nasal cannula 98% saturation. HEENT: No acute change. NECK: Supple. CARDIOVASCULAR: S1, S2 is audible. LUNGS: Noted without any wheeze or crackle this morning. ABDOMEN: Soft and obese. EXTREMITIES: Chronic changes. LABORATORY DATA: BMP today: BUN 32, creatinine was normal. CBC this morning, hemoglobin 11.4. IMPRESSION: 1. The patient with resolving acute on chronic hypercapnic hypoxic respiratory failure with acute exacerbation of chronic obstructive pulmonary disease and acute bronchitis. The patient with ESBL species. 2. Obstructive sleep apnea disorder, nonadherence with the treatment. PLAN OF MANAGEMENT: The patient is refusing [facility] facility placement. The alternative would be to have a PICC line or midline inserted. IV antibiotic as IV Zosyn. Continue 6 days the patient in the home setting. coordinator of library services has been informed about that. In the meantime, continue with therapy, plan of management until that occurs. AHSAN ZUNIGA MD CM:PNTRANS 1131 1425 AHSAN GARY MD 10/05/18 0847 interface
--- NOTE | ~2018-09-16 | PR ---
[place], [place] PROGRESS NOTE NAME[id number] UNIT #: [id number] ROOM: [facility] DOCTOR: AHSAN DELGADO MD BIRTHDATE: [birth year] DOS: 09/18/2018 SUBJECTIVE: The patient was noted more awake, complaining of symptoms of shortness of breath. Denies symptoms of chest pain. He has used the BiPAP only a short period of time. The patient denies any symptoms of fever or chills. He has been currently using oxygen supplementation nasal cannula. Denies symptoms of acute chest pain. Cough has been noted intermittent with small amount of sputum expectoration. Denies symptoms of abdominal pain. Denies symptoms of nausea or vomiting. The patient did not report any pain of the lower extremities, any lesions or edema. Denies symptoms of headache or diplopia. Remaining systems reviewed were noted all negative. OBJECTIVE: VITAL SIGNS: Low-grade fever yesterday noted at noon at 100 degrees Fahrenheit noted afebrile, respiratory rate of 16-21, heart rate of 84-104, blood pressure 118/73-138/72. Pulse oxygen saturation was noted on 3 liters nasal cannula 93% saturation and an 88%, later on. HEENT: Examination shows chronic severe obesity. Head was atraumatic NECK: Supple and obese. CARDIOVASCULAR: S1, S2 is audible. LUNGS: Moderate decreased breath sounds, scattered wheezing. There were no crackles. ABDOMEN: Soft and obese. EXTREMITIES: The patient was noted with chronic changes without any significant severe edema. VISIBLE SKIN: No lesions or rashes. MUSCULOSKELETAL: Without acute deformities. CENTRAL NERVOUS SYSTEM: In general intact. LABORATORY DATA: Culture of the sputum from yesterday, light growth of gram-negative bacilli noted. Gram stain many white blood cells, moderate gram-positive cocci in pairs, chains and clusters. CBC was done on 09/18/2018; WBC count 14.6, hemoglobin 12.4, hematocrit 37.0, platelet count was normal. BMP of this morning, normal BUN and creatinine. Glucose 147, sodium 128, chloride of 89. The echocardiogram that was done yesterday on 09/17/[address] Lemons was noted with normal left ventricular ejection fraction. Grade 1 diastolic dysfunction was noted. IMPRESSION: 1. The patient will be currently admitted to the hospital noted with acute on chronic hypercapnic and hypoxic respiratory failure. 2. Acute tracheobronchitis. The patient with a gram-negative infection. 3. Morbid obesity. 4. Severe hyponatremia, multiple causes, the patient has been improving gradually without any problem. 5. Morbid obesity. 6. Obstructive sleep apnea disorder, nonadherence with the treatment. The patient would be considered very likely. 7. Nicotine dependence. [place], [place] PROGRESS NOTE NAME: RAFAEL RATLIFF UNIT #: [id number] ROOM: [facility] DOCTOR: EFRAIN GARY MD,AHSAN BIRTHDATE: [birth year] PLAN OF MANAGEMENT: Continue current dose of Solu-Medrol, bronchodilators, oxygen supplementation. Encouraged use the BiPAP. Consider antibiotic, the patient with gram-negative infection until the culture results will be available. The patient has been getting Levaquin previously. Start the patient on meropenem intravenously until the culture results will be available. Other supportive therapy, plan of management. Further treatment changes will be done based on progression of illness. AHSAN ZUNIGA MD CM:PNTRANS 1140 1323 AHSAN GARY MD 09/18/18 1324 interface
--- NOTE | ~2018-09-16 | CON ---
[place], [place] REPORT OF CONSULTATION NAME: RAFAEL RATLIFF [facility] #: [id number] UNIT #: [id number] ROOM: 503 DOCTOR: EFRAIN GARY MDAHSAN BIRTHDATE: [birth year] DOS: 09/17/2018 PULMONARY CONSULTATION, EVALUATION AND MANAGEMENT CONSULTATION REQUESTED BY: Hospitalist services. REASON FOR CONSULTATION: To assess the patient for increased respiratory symptoms with respiratory failure. HISTORY OF PRESENT ILLNESS: A 62-year-old white male patient admitted to the hospital because of increased symptoms of shortness of breath. The patient stated he fell down at home, hit on the coffee table in the upper portion of the abdomen, complaining of pain in that area came to the hospital for further medical management. The patient presented to the Emergency Room, noted in the respiratory distress as well. He has been started on the BiPAP. The patient does have symptoms of mild cough without any sputum expectoration. He reported symptoms of wheezing at times. Denies symptoms of hemoptysis. There was no chest pain reported at this time. He has been noted with significant abnormal arterial blood gas. The patient reported chronic hypercapnia, hypoxic respiratory failure, treated in Intensive Care Unit. REVIEW OF SYSTEMS: CONSTITUTIONAL SYMPTOMS: The patient is a noted poor historian; however, reported symptoms of fatigue and tiredness. Denies symptoms of fever or chills. EYES: Denies burning, redness, or tenderness. EARS, NOSE, THROAT SYMPTOMS: Denies sore throat, hoarseness, or otalgia. CARDIOVASCULAR: Denies angina pain. LUNGS: Noted with edema and chronic changes in lower extremity, but there was no pain reported with recent syncopal episode and angina pain. GENITOURINARY SYMPTOMS: Denies dysuria, suprapubic urinary incontinence, hematuria or flank pain. GASTROINTESTINAL: The patient with upper abdominal pain. The patient was reported with symptoms of hematemesis, melena, hematochezia, or any abnormal weight loss. SKIN: Denies lesions or rashes. CENTRAL NERVOUS SYSTEM: No dizziness, headache, or diplopia. General weakness reported. Remaining systems were reviewed. They were noted all negative. PAST MEDICAL HISTORY: 1. End-stage chronic obstructive pulmonary disease. 2. Chronic hypercapnic respiratory failure. 3. Benign prostatic hypertrophy. 4. Intervertebral disk disease. 5. Coronary artery disease. 6. General anxiety disorder and depression. 7. Major depression. 8. Abdominal aortic aneurysm, 5 cm in size. 9. Diverticulosis. [place], [place] REPORT OF CONSULTATION NAME: RAFAEL RATLIFF UNIT #: [id number] ROOM: [facility] DOCTOR: AHSAN DELGADO MD BIRTHDATE: [birth year] 10. Essential hypertension. 11. Hepatic steatosis. 12. Morbid obesity. 13. History of polysubstance abuse and acute thyroid nodule. 14. Vitamin D deficiency. 15. Gastroesophageal reflux. 16. Poor peripheral venous access. 17. Type 2 diabetes mellitus. 18. Obstructive sleep apnea disorder. The patient stated the use of CPAP or BiPAP at home. SOCIAL HISTORY: The patient lives at home by himself. There was no history of alcohol use or illicit drug use. Tobacco use reported 1 pack of cigarettes, active use. Also, drinks beer. Smoking was started as a teenager. PAST SURGICAL HISTORY: 1. Cardiac catheterization and coronary artery angioplasty. 2. 10 stents insertion. 3. Knee surgery. 4. Vasectomy. 5. T6 compression fracture, status post vertebroplasty. FAMILY HISTORY: The patient's father at 80 years of unknown medical illnesses. Mother 80-year-old, unknown medical illnesses. CURRENT MEDICATIONS: Administered during this hospitalization. Use of Lipitor, Flomax, vitamin D, aspirin, omeprazole, lisinopril, folic acid, thiamine, multivitamin, Lovenox, Mucinex 1200 mg b.i.d., Solu-Medrol 40 mg q.8 hours, trazodone, albuterol sulfate, nicotine replacement patches, hydroxyzine, Bentyl, Robaxin, Levaquin, and other p.r.n. medications administration as well for different symptoms. DRUG ALLERGIES: No known drug allergies. PHYSICAL EXAMINATION: GENERAL: This is a 62-year-old white male patient currently resting on his bed without any distress. Height of 5 feet 10 inches, weight of 269 pounds, BMI 38.5. VITAL SIGNS: Normal temperature, respiratory rate 16-20, heart rate of 102-98. Blood pressure ranging between 147/98-129/93. The pulse oxygen saturation recorded on 3 liters nasal cannula 95% saturation. This morning, BiPAP 60%, as 96% saturation recorded earlier. HEENT: Chronic obesity. Head was atraumatic. Eyes nonicterus. Severe reduction in breath. The posterior pharyngeal space noted, high tongue base and crowding soft tissue structures. CARDIOVASCULAR: S1, S2 is audible. LUNGS: The patient was noted general reduction in breath sounds with expiratory wheezing without any crackles. ABDOMEN: Soft, obese, and nontender. Bowel sounds present. EXTREMITIES: The patient was noted with mild edema without any evidence of [place], [place] REPORT OF CONSULTATION NAME: RAFAEL RATLIFF UNIT #: [id number] ROOM: [facility] DOCTOR: EFRAIN GARY MD,[facility] BIRTHDATE: [birth year] clubbing or cyanosis. MUSCULOSKELETAL: Noted without any acute deformities. CENTRAL NERVOUS SYSTEM: The patient without any gross focal neurologic deficit. SKIN: No lesions or rashes. LABORATORY DATA: The lactic acid yesterday on admission 1.2. CBC yesterday on admission, WBC count normal, hemoglobin 12.6, hematocrit normal. PT/PTT yesterday was normal. CMP that was done yesterday, BUN 4, creatinine was normal, sodium 120, chloride of 82. Lipase normal at 123. Troponin normal. Serum osmolality was noted low at 253. Ethyl alcohol level less than 3. Urine osmolality, which was repeated yesterday was also noted as low. BUN and creatinine this morning was normal. CMP that was done this morning normal BUN and creatinine. Sodium 124, chloride of 84. The arterial blood gas of the patient, which were done yesterday on admission and later on, arterial blood gas of the BiPAP 50% oxygen, pH 7.35, pCO2 of 52, pO2 117 at 50% oxygen at that time. ABG that was done later on, pH of 7.38, pCO2 of 54, pO2 68 on 30% oxygen. Urine drug screen was noted for benzodiazepine. Influenza A and B and nasal washing antigens were negative. The patient had a CT scan of the chest, abdomen and pelvis that was done yesterday in the Emergency Room was reviewed. CT scan of the chest was noted without any acute abnormalities, changes of centrilobular emphysema, 5 cm stable abdominal aortic aneurysm noted. Chronic diverticulosis without radiologic evidence of diverticulitis reported by the radiology services. IMPRESSION: 1. The patient will be coming to the hospital [id number] hypercapnic respiratory failure. 2. Chronic hypoxic respiratory failure. 3. Acute exacerbation of chronic obstructive pulmonary disease. 4. Chronic nicotine dependence and alcohol dependence. 5. Hyponatremia appeared to be chronic with hyperkalemia. 6. The patient with morbid obesity. 7. Obstructive sleep apnea disorder. 8. The patient with chronic moderate obesity. 9. Nicotine dependence and alcohol dependence as well. 10. Possibility of nonadherence to the treatment would be considered. The patient does follow a physician, Dr. Chung and also in the [facility] as well. 11. Current fall. There was no abdominal injury or chest injury noted. Heating the abdomen to coffee table. PLAN OF TREATMENT: Continue the Solu-Medrol. Continue the BiPAP at current setting, minimizing oxygen to maintain pulse oxygen 90% or greater. Solu-Medrol will be continued same dose 40 mg q. 8 hours and DuoNeb to albuterol sulfate every 4 hours. Nicotine replacement patches to be continued. There was no evidence of infection at this time noted or suspected. The antibiotic could be discontinued. The patient has been already assessed by the Nephrology. I asked the patient to currently managed for the patient's severe rather moderate hyponatremia. Follow the sodium level including rapid correction to prevent injury to the brain of moderate demyelinating injury, rapid correction of the sodium. Supportive therapy, plan of management and care plan and other medical [place], [place] REPORT OF CONSULTATION NAME: RAFAEL RATLIFF UNIT #: [id number] ROOM: [facility] DOCTOR: AHSAN DELGADO MD BIRTHDATE: [birth year] management. Treatment will be ordered and changed for the patient accordingly. Thanks for allowing me to participate in the care of this patient. AHSAN ZUNIGA MD CM:CONSTR:REPORT OF CONSULTATION 1413 10/05/18 0845 interface
--- NOTE | ~2018-09-16 | PR ---
[place], [place] PROGRESS NOTE NAME: RAFAEL RATLIFF UNIT #: [id number] ROOM: 503 DOCTOR: EFRAIN GARY MD,AHSAN BIRTHDATE: [birth year] DOS: 09/23/2018 PULMONARY PROGRESS NOTE SUBJECTIVE: The patient was noted comfortable at this time, receiving antibiotic. Reduction of symptoms of coughing, wheezing, shortness breath was noted, use of the BiPAP noted intermittently. There were no symptoms of chest pain or fever. OBJECTIVE: VITAL SIGNS: Normal temperature, respiratory rate 16, heart rate 64, blood pressure 156/88. Pulse oxygen saturation on 3 liters nasal cannula 97% saturation on the BiPAP 99% saturation. HEENT: No acute change. NECK: Supple and obese. CARDIOVASCULAR: S1, S2 audible. LUNGS: There was no wheezing or crackles noted today. ABDOMEN: Soft, nontender, bowel sounds present. EXTREMITIES: No acute edema. LABORATORY DATA: CBC today: WBC count 16.6, CK-MB 11.5, platelet count were normal. BMP this morning; BUN 31, creatinine was normal, CO2 of 33. IMPRESSION: The patient with gradual improvement noted with severe acute exacerbation of chronic obstructive pulmonary disease, acute on chronic hypercapnic and hypoxic respiratory failure, acute bronchitis with gram-negative organisms. PLAN OF THERAPY: No changes in the plan of care. Discharge planning has been noted in progress with consultation for [facility] facility versus home antibiotics administration. No new changes in treatment at this time will be continued. Continue the BiPAP, oxygen and other treatments as in progress. AHSAN ZUNIGA MD CM:PNTRANS [phone] AHSAN GARY MD 09/23/18 2353 interface
--- NOTE | ~2018-09-16 | PR ---
[place], [place] PROGRESS NOTE [id number] #: [id number] ROOM: 503 DOCTOR: EFRAIN GARY MD,AHSAN BIRTHDATE: [birth year] DOS: 09/21/2018 PULMONARY PROGRESS NOTE SUBJECTIVE: The patient was noted comfortable at this time stating reduction in symptoms of shortness of breath and cough at this time. The wheezing has been improving. Denies symptoms of fever or chills. OBJECTIVE: VITAL SIGNS: For the patient which has been recorded shows a temperature noted as normal. Respiratory rate recorded as 17, heart rate 60, blood pressure 144/78. The pulse oxygen saturation recorded as 100% on 3 liters nasal cannula. HEENT: Chronic obesity. NECK: Supple. CARDIOVASCULAR: S1, S2 is audible. LUNGS: The patient was noted without any wheezing or crackle. Breaths are noted mildly diminished bilaterally. ABDOMEN: Soft, nontender. EXTREMITIES: No new changes. LABORATORY DATA: CBC today, WBC count 12.3, hemoglobin 11.9, platelet count normal. BMP this morning, BUN 27, creatinine normal, CO2 is 35. IMPRESSION: 1. The patient with resolving acute tracheobronchitis with exacerbation of chronic obstructive pulmonary disease progressively and gradually. 2. Chronic obesity. 3. Obstructive sleep apnea, nonadherent to the treatment. PLAN OF THERAPY: The patient could be assessed for home antibiotic administration with recurrent ESBL. Continuation of bronchodilators, oxygen supplementation therapy, plan of management, and care plan. AHSAN ZUNIGA MD CM:PNTRANS [phone] AHSAN GARY MD 09/21/18 2244 interface
--- NOTE | ~2018-09-16 | EKG ---
[place], [place] ELECTROCARDIOGRAM REPORT NAME: RAFAEL RATLIFF UNIT #: [id number] ROOM: 503 DOCTOR: JP DRAFT REPORT BIRTHDATE: [birth year] [facility] Test Date: 2018-09-16 Test Time: 18:01:39 Pat Name: RAFAEL RATLIFF Department: Room: 503 Gender: M Entry Tech: Ketty Cook : 1955 Requested By: DINORA CHOWDHURY Order Number: [id number] Reading MD: Deacon Hannah MD Measurements Intervals [place] Rate: 84 P: [place]: QRS: 79 QRSD: 95 T: 75 QT: 377 QTc: 446 Interpretive Statements NSR Borderline ST elevation, lateral leads Compared to ECG 08/15/2018 08:27:00 Electronically Signed On 09-20-2018 13:10:05 PST by Deacon Hannah MD CM:EKGRPT:ELECTROCARDIOGRAM REPORT 1801 1310 DINORA ESTES DRAFT REPORT DINORA CHOWDHURY DO
--- NOTE | ~2018-09-16 | EKG ---
[place], [place] ELECTROCARDIOGRAM REPORT NAME: RAFAEL RATLIFF UNIT #: [id number] ROOM: 503 DOCTOR: JP DRAFT REPORT BIRTHDATE: [birth year] [facility] Test Date: 2018-09-16 Test Time: 14:27:47 Pat Name: RAFAEL RATLIFF Department: Room: 503 Gender: M [employer] Manager: Ketty Cook : 1955 Requested By: DINORA CHOWDHURY Order Number: [id number] Reading MD: Deacon Hannah MD Measurements Intervals [place] Rate: 110 P: [place]: QRS: 67 QRSD: 113 T: 55 QT: 325 QTc: 440 Interpretive Statements Atrial flutter with predominant 2:1 AV block Artifact in lead(s) I,II,III,aVR,aVL,aVF,V3,V4 Compared to ECG 08/15/2018 08:27:00 Sinus rhythm no longer presentST (T wave) deviation no longer present Myocardial infarct finding still present Electronically Signed On 09-20-2018 13:09:09 PST by Deacon Hannah MD CM:EKGRPT:ELECTROCARDIOGRAM REPORT 1427 1309 DINORA ESTES DRAFT REPORT DINORA CHOWDHURY DO
--- NOTE | ~2018-09-16 | EKG ---
[place], [place] ELECTROCARDIOGRAM REPORT NAME: RAFAEL RATLIFF UNIT #: [id number] ROOM: 503 DOCTOR: JP DRAFT REPORT BIRTHDATE: [birth year] [facility] Test Date: 2018-09-16 Test Time: 21:06:23 Pat Name: RAFAEL RATLIFF Department: Room: 503 Gender: M Legal Entity Controller: : 1955 Requested By: DINORA CHOWDHURY Order Number: [id number] Reading MD: Deacon Hannah MD Measurements Intervals [place] Rate: 81 P: 50 [place]: 151 QRS: 79 QRSD: 81 T: 72 QT: 349 QTc: 405 Interpretive Statements Sinus rhythm Inferior infarct, acute Baseline wander in lead(s) II,III,aVF Compared to ECG 08/15/2018 08:27:00 No significant changes Electronically Signed On 09-20-2018 13:10:29 PST by Deacon Hannah MD CM:EKGRPT:ELECTROCARDIOGRAM REPORT 05 1310 DINORA ESTES DRAFT REPORT DINORA CHOWDHURY DO
--- NOTE | ~2018-09-16 | PR ---
[place], [place] PROGRESS NOTE NAME: RAFAEL RATLIFF UNIT #: [id number] ROOM: 503 DOCTOR: EFRAIN GARY MD,AHSAN BIRTHDATE: [birth year] DOS: 09/25/2018 SUBJECTIVE: He continues to do well, arrangement has been made for outpatient, antibiotic administration. The patient denies symptoms of chest pain, fever, chills or hemoptysis using the BiPAP. OBJECTIVE: VITAL SIGNS: Normal temperature, respiratory rate 20, heart rate 81, blood pressure 160/80. The pulse oxygen saturation 3 liters nasal cannula 97% saturation. HEENT: Examination shows head was atraumatic. Eyes nonicterus. NECK: Supple. CARDIOVASCULAR: S1, S2 is audible. LUNGS: No wheeze or crackles. ABDOMEN: Soft, obese, nontender. EXTREMITIES: Chronic changes. IMPRESSION: 1. Resolving acute chronic hypercapnic hypoxic respiratory failure. 2. Resolving acute severe bronchitis. The patient with gram-negative infection, responding to treatment effective. 3. Obstructive sleep apnea disorder. PLAN OF MANAGEMENT: No changes in the plan for the patient at this time. Continue the patient's current therapy, arrangement has already made for discharge planing, outpatient assessment next week was planned. AHSAN ZUNIGA MD CM:PNTRANS [id number] AHSAN GARY MD 09/25/18 1908 interface
--- NOTE | ~2018-09-16 | PR ---
[place], [place] PROGRESS NOTE [id number] UN[facility] #: [id number] ROOM: 503 DOCTOR: EFRAIN GARY MD,AHSAN BIRTHDATE: [birth year] DOS: 09/20/2018 PULMONARY PROGRESS NOTE SUBJECTIVE: The patient remains comfortable at this time, sitting on the side of the bed, using oxygen supplementation with nasal cannula. Denies symptoms of chest pain. Coughing has been gradually subsiding. There were no symptoms of fever or chills. The patient denies symptoms of hemoptysis. OBJECTIVE: VITAL SIGNS: This morning, normal temperature, respiratory rate 16, heart rate 62, blood pressure 50/80. The pulse oxygen saturation with the patient on 3 liters nasal cannula was 99% saturation, with BiPAP 98% saturation. HEENT: Showed no acute change. Chronic obesity. NECK: Supple. Head was atraumatic. CARDIOVASCULAR: S1 and S2 audible. LUNGS: Scattered expiratory wheezing. No crackles. ABDOMEN: Soft, nontender. Bowel sounds present. EXTREMITIES: Chronic obesity. IMPRESSION: 1. The patient with gradual resolution of acute tracheobronchitis and acute pneumonia with extended spectrum beta-lactamase species noted. 2. Resolving acute exacerbation of chronic obstructive pulmonary disease as well and the respiratory failure. PLAN OF THERAPY: Continue antibiotics, bronchodilators, oxygen supplementation, and use of BiPAP as tolerated. AHSAN ZUNIGA MD CM:PNTRANS [phone] AHSAN GARY MD 09/20/18 2329 interface
[~2018-09-16 14:23] MED LIST changes: +COREG3.125 MG PO; +GABAPENTIN TAB600 MG PO; +LEVAQUIN750 M1 PO; +LYRICA150 M1 PO
[2018-09-16 14:49] LABS: BASO % 0.5 % (0.0-1.0); EOS # 0.4 10*3/uL (0.0-0.4); EOS % 4.2 % (1.0-4.0); HEMATOCRIT 36.9 % (42.0-52.0); HEMOGLOBIN 12.6 g/dl (14.0-18.0); LYMPH % 22.9 % (27.0-41.0); MEAN CELL VOLUME 90.2 fl (80.0-94.0); MEAN CORPUSCULAR HGB 30.8 pg (27.0-31.0); MEAN CORPUSCULAR HGB CONC 34.1 g/dl (33.0-37.0); MONO # 0.8 10*3/uL (0.1-1.0); MONO % 9.2 % (3.0-9.0); NEUT # 5.5 10*3/uL (2.3-7.9); PLATELET COUNT AUTOMATED 224 10*3/uL (130-400); RED BLOOD COUNT 4.09 10*6/uL (4.50-5.90); RED CELL DISTRI WIDTH 14.5 % (0-14.5); WHITE BLOOD COUNT 8.8 10*3/uL (4.8-10.8)
--- NOTE | 2018-09-16 14:49 | NUR ---
PATIENT STATES THAT HE IS IN PAIN FROM HIS FALL. MOW POINTING TO THE MID TO UPPER ABDOMINAL R & L AREA WELL STERNUM.
[2018-09-16 15:04] LABS: ACT PARTIAL THROMBO TIME 25.2 SECONDS (20.8-31.5); INTERNATIONAL NORM RATIO 0.9 (2.0-3.5)
[2018-09-16 15:06] LABS: ALBUMIN 3.8 gm/dl (3.1-4.5); ALKALINE PHOSPHATASE 96 U/L (45-117); BUN 4 mg/dl (7-24); CHLORIDE 82 mmol/L (98-107); POTASSIUM 4.1 mmol/L (3.5-5.1); SGOT/AST 19 IU/L (3-35); SGPT/ALT 26 U/L (12-78); SODIUM 120 mmol/L (136-145); TOTAL PROTEIN 6.7 gm/dL (6.4-8.2)
[2018-09-16 15:07] LABS: TROPONIN I < 0.015 ng/ml (<0.045)
--- NOTE | 2018-09-16 15:10 | NUR ---
X RAY IN ROOM
--- NOTE | 2018-09-16 15:35 | NUR ---
NEW ORDERS RECIEVED. RESPITORY NEEDED BECAUSE PATIENT ISNT INPROVING AND STILL USING ACCESSORY MUSCLES TO BREATH. BI-PAP ORDERED. 60% SAT 14/8 SETTINGS. BLOOD GASES ORDERED. ADMIT TO ICU IS PLAN.
--- NOTE | 2018-09-16 15:38 | NUR ---
RESIDENT IN THE ROOM.
--- NOTE | 2018-09-16 15:46 | NUR ---
RESPITORY ADVISED PATIENT DROPPED FROM 60% TO 50%.
[2018-09-16 15:51] LABS: ABG BASE EXCESS 2.4 mmol/L (-2.0-2.0); ABG HCO3 28.7 mmol/l (22-26); ABG O2 SATURATION 99.3 % (95-97); ARTERIAL BLOOD GAS PCO2 52.8 mmHg (35-45); ARTERIAL BLOOD GAS PH 7.35 (7.35-7.45)
--- NOTE | 2018-09-16 16:44 | NUR ---
PATIENT RESTING. BREATHING OBSERVED LESS ACCESSORY EFFORT.
--- NOTE | 2018-09-16 16:51 | NUR ---
LAB AT BEDSIDE
--- NOTE | 2018-09-16 16:59 | NUR ---
ICU READY FOR PATIENT. RESPITORY CALLED FOR ASSIST
--- NOTE | 2018-09-16 18:02 | NUR ---
PLACED PT ON BIPAP. CHANGED SETTINGS TO 16/10, 30% FIO2 PER DR ZUNIGA
[2018-09-16 18:25] LABS: BILIRUBIN NEGATIVE (NEGATIVE); CLARITY SL CLOUDY (CLEAR); COLOR YELLOW (YELLOW); GLUCOSE NEGATIVE (NEGATIVE)
[2018-09-16 18:26] LABS: BACTERIA TRACE; BLOOD NEGATIVE (NEGATIVE); EPITHELIAL CELLS 0-2; KETONE NEGATIVE (NEGATIVE); LEUKO ESTERASE NEGATIVE (NEGATIVE); NITRITE NEGATIVE (NEGATIVE); RBC 0-2 rbc/hpf (0-2); SPECIFIC GRAVITY 1.025 (1.005-1.030); UROBILINOGEN 0.2 E.U./dl (0.2-1.0); WBC 0-2 wbc/hpf (0-5)
[2018-09-16 18:47] LABS: URINE AMPHETAMINES < 1000 (1000ng/ml); URINE BARBITURATES < 200 (200ng/ml); URINE BENZODIAZEPINES > 200 (200ng/ml); URINE CANNABINOIDS (THC) < 50 (50ng/ml); URINE COCAINE < 300 (300ng/ml); URINE METHADONE < 300 (300ng/ml); URINE OPIATES < 300 (300ng/ml)
[2018-09-16 18:50] LABS: URINE PHENCYCLIDINE < 25 (25ng/ml)
--- NOTE | 2018-09-16 19:15 | NUR ---
CHART CHECK COMPLETE.
--- NOTE | 2018-09-16 19:35 | NUR ---
DR CARROLL WAS PAGED THROUGH ANSWERING SERVICE AT [id number]. AWAITING RETURN PHONE CALL.
--- NOTE | 2018-09-16 19:58 | NUR ---
DR DISLA CALLS IN REGARDING CONSULT. UPDATED ON PT CONDITION, LABS, MEDICATIONS GIVEN, VS, URINE OUTPUT. ORDERS RECEIVED FOR STAT BMP NOW AND TO CALL WITH RESULTS, ALSO TO CANCEL BMP ORDERED FOR MIDNIGHT.
[2018-09-16 20:13] LABS: ABG HCO3 31.9 mmol/l (22-26); ABG O2 SATURATION 93.4 % (95-97); ARTERIAL BLOOD GAS PCO2 54.7 mmHg (35-45); ARTERIAL BLOOD GAS PH 7.384 (7.35-7.45); ARTERIAL BLOOD GAS PO2 68.5 mmHg (80-90)
--- NOTE | 2018-09-16 20:25 | NUR ---
DR ZUNIGA WAS NOTIFIED OF ABG'S BY RESP DEPT...NO NEW CHANGES.
[2018-09-16 20:27] LABS: BUN 5 mg/dl (7-24); CHLORIDE 82 mmol/L (98-107); CREATININE 0.77 mg/dL (0.70-1.30); SODIUM 121 mmol/L (136-145)
--- NOTE | 2018-09-16 20:41 | NUR ---
DR DISLA NOTIFIED OF STAT BMP RESULTS (NA+ 121). NO NEW ORDERS RECEIVED. LABS IN AM.
--- NOTE | 2018-09-16 23:27 | NUR ---
PT OFF OF BIPAP SINCE 2199 AND ON NC3. HE IS WITHOUT ACUTE DISTRESS, IS ALERT & ORIENTED X 3, AND HAS A PULSE OX 94%.
[2018-09-17] VITALS: BP 129/93
[2018-09-17 04:00] VITALS: BP 128/80
[2018-09-17 05:31] LABS: ALBUMIN 3.3 gm/dl (3.1-4.5); BUN 6 mg/dl (7-24); CHLORIDE 84 mmol/L (98-107); CREATININE 0.83 mg/dL (0.70-1.30); PHOSPHOROUS 3.7 mg/dL (2.5-4.9); SGOT/AST 14 IU/L (3-35); SGPT/ALT 24 U/L (12-78); SODIUM 124 mmol/L (136-145); TOTAL PROTEIN 6.2 gm/dL (6.4-8.2)
[2018-09-17 05:38] LABS: ALKALINE PHOSPHATASE 87 U/L (45-117); FREE T4 1.25 ng/dl (0.76-1.46); THYROID STIM HORMONE (HS) 0.152 uIU/ml (0.358-4.75)
[2018-09-17 05:41] LABS: HEMATOCRIT 35.1 % (42.0-52.0); HEMOGLOBIN 12.3 g/dl (14.0-18.0); LYMPH # 0.4 10*3/uL (1.3-4.4); LYMPH % 9.3 % (27.0-41.0); MEAN CELL VOLUME 89.5 fl (80.0-94.0); MEAN CORPUSCULAR HGB 31.4 pg (27.0-31.0); MEAN PLATELET VOLUME 9.5 fl (9.6-12.3); MONO # 0.1 10*3/uL (0.1-1.0); MONO % 1.6 % (3.0-9.0); NEUT # 3.4 10*3/uL (2.3-7.9); NEUT % 88.8 % (47.0-73.0); PLATELET COUNT AUTOMATED 210 10*3/uL (130-400); RED BLOOD COUNT 3.92 10*6/uL (4.50-5.90); RED CELL DISTRI WIDTH 14.2 % (0-14.5); WHITE BLOOD COUNT 3.8 10*3/uL (4.8-10.8)
--- NOTE | 2018-09-17 07:24 | NUR ---
YESENIA COLEMAN MEAL DELIVERY NOTIFIED OF PT REQUEST TO CANCEL HIS DELIVERY HE WAS IN HOSPITAL. I SPOKE WITH BALTA.
[2018-09-17 08:00] VITALS: BP 126/80
--- NOTE | 2018-09-17 09:00 | NUR ---
Fertilizer Applicator in to talk to patient. Patient states lives at home alone with family occasionally checking in on him. He is currently working on Assisted Living for himself. He states all of the paperwork has been completed, he is just waiting to hear something back. There are 0 steps in the home. Physician: Dr. Sergio Chung Pharmacy: [place] or [facility] Patient's level of ADLs: minimal assistance Patient has working utilities: yes DME: cane, walker, seated walker, O2 @ 3L nc at , nebulizer, O2 supplier [facility] Follow-up physician's appointment after d/c: will be made by the hospitalist nurse director upon discharge Does patient want to access PORTAL?: no Discharge plan discussed with patient. He lives at home alone with his family occasionally checking in on him. He is independent in his ADLs and uses a walker or a cane for ambulation. Discussed home health care services and he denies any home needs at this time. When medically stable he will be discharged to home. ROGELIO EVERETT
[2018-09-17 11:47] LABS: BUN 8 mg/dl (7-24); CHLORIDE 84 mmol/L (98-107); CREATININE 1.04 mg/dL (0.70-1.30); SODIUM 122 mmol/L (136-145)
--- NOTE | 2018-09-17 11:49 | NUR ---
PATIENT C/O RIB,CHEST, AND BACK PAIN. MEDICATED WITH MOTRIN PER PRN ORDER. WILL CONTINUE TO MONITOR.
[2018-09-17 12:00] VITALS: BP 126/77
[2018-09-17 12:54] LABS: BILIRUBIN NEGATIVE (NEGATIVE); BLOOD 3+ (NEGATIVE); CLARITY CLOUDY (CLEAR); COLOR YELLOW (YELLOW); GLUCOSE NEGATIVE (NEGATIVE); KETONE NEGATIVE (NEGATIVE); LEUKO ESTERASE NEGATIVE (NEGATIVE); NITRITE NEGATIVE (NEGATIVE); SPECIFIC GRAVITY <= 1.005 (1.005-1.030); UROBILINOGEN 0.2 E.U./dl (0.2-1.0)
--- NOTE | 2018-09-17 13:00 | NUR ---
PATIENT RESTING QUIETLY. NO FURTHER C/O PAIN AT THIS TIME. MOTRIN EFFECTIVE. WILL CONTINUE TO MONITOR.
[2018-09-17 13:21] LABS: URINE CREATININE RANDOM 59.9 mg/dL
[2018-09-17 13:56] LABS: RBC TNTC rbc/hpf (0-2)
[2018-09-17 16:00] VITALS: BP 132/72
[2018-09-17 16:12] LABS: BUN 12 mg/dl (7-24); CHLORIDE 85 mmol/L (98-107); CREATININE 0.99 mg/dL (0.70-1.30); POTASSIUM 4.4 mmol/L (3.5-5.1); SODIUM 123 mmol/L (136-145)
[2018-09-17 20:00] VITALS: BP 125/74
--- NOTE | 2018-09-17 22:00 | NUR ---
MOTRIN FOR PAIN AND TRAZADONE GIVEN EFFECTIVE...PT DOZING/WATCHING TV AT INTERVALS. REMAINS FLUSHED AND HAD TOLD JOHNNY FARIAS AND ZACK OF HIS FLUSHED APPEARANCE.... SHE REQUESTED AN ORAL TEMP AND IT RECORDERED AT 98.2.... SHE WAS NOTIFIED OF THIS.
[2018-09-17 22:18] LABS: BUN 14 mg/dl (7-24); CHLORIDE 89 mmol/L (98-107); CREATININE 1.08 mg/dL (0.70-1.30); POTASSIUM 4.1 mmol/L (3.5-5.1); SODIUM 128 mmol/L (136-145)
--- NOTE | 2018-09-17 22:29 | NUR ---
PAGED DR DISLA THROUGH HIS ANSWERING SERVICE TO GIVE LAB VALUES OF 2200 BMP.
--- NOTE | 2018-09-17 22:57 | NUR ---
NO RETURN CALL FROM DR DISLA. AGAIN, PAGED THROUGH ANSWERING SERVICE.
--- NOTE | 2018-09-17 23:19 | NUR ---
DR DISLA CALLS BACK AND WAS NOTIFIED OF 2200 BMP RESULTS.
--- NOTE | 2018-09-17 23:30 | NUR ---
PT PLACED ON BIPAP
--- NOTE | 2018-09-17 23:35 | NUR ---
ON BIPAP AT THIS TIME. PT WAS AWAKENED FOR BIPAP AND ASSESSMENT AND AWAKENED EASILY ....REMAINS APPROPRIATE AND COOPERATIVE.
[2018-09-18] VITALS: BP 117/69
--- NOTE | 2018-09-18 01:00 | NUR ---
OFF OF BIPAP PER PT REQUEST.... TO NC3.
[2018-09-18 04:00] VITALS: BP 138/72
--- NOTE | 2018-09-18 05:26 | NUR ---
ASSISTED UP TO BSC FOR VERY LG AMT OF BROWN SOFTLY FORMED STOOL .... THEN UP TO RECLINER CHAIR. CALL LIGHT IN REACH.
[2018-09-18 06:11] LABS: HEMOGLOBIN 12.4 g/dl (14.0-18.0); MEAN CORPUSCULAR HGB 30.8 pg (27.0-31.0); MEAN CORPUSCULAR HGB CONC 33.5 g/dl (33.0-37.0); MEAN PLATELET VOLUME 9.4 fl (9.6-12.3); RED BLOOD COUNT 4.02 10*6/uL (4.50-5.90); RED CELL DISTRI WIDTH 14.7 % (0-14.5); WHITE BLOOD COUNT 14.6 10*3/uL (4.8-10.8)
[2018-09-18 06:24] LABS: PLATELET COUNT AUTOMATED 277 10*3/uL (130-400)
[2018-09-18 06:27] LABS: ALBUMIN 3.3 gm/dl (3.1-4.5); BUN 14 mg/dl (7-24); CHLORIDE 89 mmol/L (98-107); CREATININE 1.04 mg/dL (0.70-1.30); PHOSPHOROUS 4.1 mg/dL (2.5-4.9); SODIUM 128 mmol/L (136-145)
[2018-09-18 06:55] LABS: TOTAL CELLS COUNTED 100 #CELLS
[2018-09-18 06:56] LABS: PLATELET SUFFICIENCY NORMAL (NORMAL)
[2018-09-18 08:00] VITALS: BP 118/73
--- NOTE | 2018-09-18 08:30 | NUR ---
SITTING IN CHAIR AT BEDSIDE. COMPLAINS OF PAIN IN BACK WHEN COUGHING. INSP WHEEZES HEARD IN LUNG PEREZ. RIGHT LEG > LEFT LEG. BILLY DRAINING CLEAR YELLOW URINE. PO 88% ON 3L NASAL CANNULA. AFEBRILE.
--- NOTE | 2018-09-18 09:00 | NUR ---
Fish Farm Laborer in to see patient. he is sitting up in his bedside chair eating breakfast without distress noted. No new needs or request at this time. He denies any home needs. When medically stable he will be discharged to home.
--- NOTE | 2018-09-18 09:01 | NUR ---
DR. DISLA CALLED IN AND UPDATED ON PATIENT'S CONDITION
[2018-09-18 09:25] LABS: ABG BASE EXCESS 5.3 mmol/L (-2.0-2.0); ABG O2 SATURATION 96.9 % (95-97); ARTERIAL BLOOD GAS PH 7.391 (7.35-7.45); ARTERIAL BLOOD GAS PO2 75.7 mmHg (80-90)
[2018-09-18 12:00] VITALS: BP 110/65
[2018-09-18 12:09] LABS: BUN 12 mg/dl (7-24); CHLORIDE 91 mmol/L (98-107); POTASSIUM 3.6 mmol/L (3.5-5.1); SODIUM 128 mmol/L (136-145)
--- NOTE | 2018-09-18 13:00 | NUR ---
PHYSICAL THERAPY PAtient with doctor at this time. Elke Mcpherson,PT
--- NOTE | 2018-09-18 13:10 | NUR ---
Patient not available for Occupational Therapy evaluation as he was with physicians. Madeline Hedrick OTR/L
--- NOTE | 2018-09-18 15:13 | NUR ---
TRANSFERRED TO ROOM 503-2 VIA BED. REPORT GIVEN TO ALICE PICKARD
--- NOTE | 2018-09-18 15:27 | NUR ---
CONTINUE IN PATIENT CARE FROM ICU TO THE FLOOR. THE PATIENT AT THIS TIME IS STABLE, DENIES PAIN AND SOB. THE PATIENT IS ON THE BIPAP AND STATES HE IS COMFORTABLE. NO CONCERNS NOTED AT THIS TIME FROM THE PATIENT.
[2018-09-18 16:00] VITALS: BP 118/61
--- NOTE | 2018-09-18 19:18 | NUR ---
patients royal was removed. patient tolerated well. no concerns at this time.
--- NOTE | 2018-09-18 19:19 | NUR ---
24 HR chart check completed.
[2018-09-18 19:41] LABS: BILIRUBIN NEGATIVE (NEGATIVE); BLOOD 3+ (NEGATIVE); CLARITY SL CLOUDY (CLEAR); COLOR YELLOW (YELLOW); GLUCOSE NEGATIVE (NEGATIVE); KETONE TRACE (NEGATIVE); LEUKO ESTERASE NEGATIVE (NEGATIVE); NITRITE NEGATIVE (NEGATIVE); UROBILINOGEN 0.2 E.U./dl (0.2-1.0)
[2018-09-18 19:53] LABS: BACTERIA TRACE; RBC TNTC rbc/hpf (0-2)
[2018-09-18 20:00] VITALS: BP 132/79
[2018-09-18 21:12] LABS: URINE AMPHETAMINES < 1000 (1000ng/ml); URINE BARBITURATES < 200 (200ng/ml); URINE BENZODIAZEPINES > 200 (200ng/ml); URINE CANNABINOIDS (THC) < 50 (50ng/ml); URINE COCAINE < 300 (300ng/ml); URINE METHADONE < 300 (300ng/ml); URINE OPIATES > 300 (300ng/ml)
[2018-09-18 21:18] LABS: URINE CHLORIDE, RANDOM < 10 mmol/L; URINE PHENCYCLIDINE < 25 (25ng/ml)
--- NOTE | 2018-09-18 21:52 | NUR ---
MOTRIN GIVEN PER ORDER FOR BACK PAIN. PER PT. RATED "5-6"
--- NOTE | 2018-09-18 22:50 | NUR ---
MOTRIN EFFECTIVE FOR PAIN PER PT.
[2018-09-19] VITALS: BP 139/59
--- NOTE | 2018-09-19 04:00 | NUR ---
PT. AWAKE AND DIDN'T WANT BIPAP ON ANYMORE. O2 VIA NC 3L IN USE.
[2018-09-19 06:45] LABS: HEMATOCRIT 35.5 % (42.0-52.0); HEMOGLOBIN 11.5 g/dl (14.0-18.0); MEAN CELL VOLUME 93.9 fl (80.0-94.0); MEAN CORPUSCULAR HGB 30.4 pg (27.0-31.0); MEAN CORPUSCULAR HGB CONC 32.4 g/dl (33.0-37.0); PLATELET COUNT AUTOMATED 263 10*3/uL (130-400); RED BLOOD COUNT 3.78 10*6/uL (4.50-5.90); RED CELL DISTRI WIDTH 14.9 % (0-14.5); WHITE BLOOD COUNT 13.4 10*3/uL (4.8-10.8)
[2018-09-19 07:03] LABS: BUN 20 mg/dl (7-24); CHLORIDE 96 mmol/L (98-107); CREATININE 0.97 mg/dL (0.70-1.30); PHOSPHOROUS 3.8 mg/dL (2.5-4.9); POTASSIUM 3.9 mmol/L (3.5-5.1); SODIUM 135 mmol/L (136-145)
[2018-09-19 07:14] LABS: PLATELET SUFFICIENCY NORMAL (NORMAL); TOTAL CELLS COUNTED 100 #CELLS
[2018-09-19 08:30] VITALS: BP 136/70
[2018-09-19 12:00] VITALS: BP 133/73
[2018-09-19 16:00] VITALS: BP 143/82
[2018-09-19 20:00] VITALS: BP 137/68
--- NOTE | 2018-09-19 21:45 | NUR ---
PT. PLACED BACK ON BIPAP. VISTARIL GIVEN PER ORDER FOR ANXIETY AND MOTRIN GIVEN PER ORDER FOR BACK PAIN RATED "6". SEE MAR.
[2018-09-20] VITALS: BP 131/59
--- NOTE | 2018-09-20 03:29 | NUR ---
24 HR chart check completed.
[2018-09-20 06:27] LABS: HEMATOCRIT 35.1 % (42.0-52.0); HEMOGLOBIN 11.7 g/dl (14.0-18.0); MEAN CELL VOLUME 94.1 fl (80.0-94.0); MEAN CORPUSCULAR HGB 31.4 pg (27.0-31.0); MEAN CORPUSCULAR HGB CONC 33.3 g/dl (33.0-37.0); PLATELET COUNT AUTOMATED 265 10*3/uL (130-400); RED BLOOD COUNT 3.73 10*6/uL (4.50-5.90); RED CELL DISTRI WIDTH 14.9 % (0-14.5); WHITE BLOOD COUNT 9.7 10*3/uL (4.8-10.8)
[2018-09-20 06:37] LABS: BUN 28 mg/dl (7-24); CHLORIDE 98 mmol/L (98-107); POTASSIUM 4.1 mmol/L (3.5-5.1); SODIUM 136 mmol/L (136-145)
[2018-09-20 07:50] LABS: PLATELET SUFFICIENCY NORMAL (NORMAL); TOTAL CELLS COUNTED 100 #CELLS
[2018-09-20 08:00] VITALS: BP 122/102; BP 150/80
[2018-09-20 12:00] VITALS: BP 144/77
[2018-09-20 16:00] VITALS: BP 140/67
--- NOTE | 2018-09-20 19:00 | NUR ---
PT AWAKE IN BED DURING BEDSIDE SHIFT REPORT. NO C/O VOICED AT PRESENT. CALL LIGHT IN REACH.
[2018-09-20 20:00] VITALS: BP 111/86
--- NOTE | 2018-09-20 20:35 | NUR ---
PT MEDICATED W/ROBAXIN AND MOTRIN FOR C/O CHRONIC BACK PAIN 06/17 DESCRIBES ACHY/THROBBING. REQUESTING TO BE PLACED ON BIPAP AT THIS TIME. RESPIRATORY NOTIFIED. PT REMINDED OF FLUID RESTRICTION AND PT TEACHING GIVEN ON LIMITING SALT INTACT. PT HAS 3 CUPS OF FLUIDS AND EATING SALT PRETZELS. CALL LIGHT IN REACH.
--- NOTE | 2018-09-20 21:06 | NUR ---
PT PLACED ON BIPAP
--- NOTE | 2018-09-20 21:06 | NUR ---
PT PLACED ON BIPAP
--- NOTE | 2018-09-20 22:00 | NUR ---
PT STATES PRN PAIN MED EFFECTIVE FOR BACK PAIN RELIEF. CALL LIGHT IN REACH.
--- NOTE | 2018-09-20 23:40 | NUR ---
PT TAKEN OFF BIPAP
[2018-09-21] VITALS: BP 118/65
--- NOTE | 2018-09-21 01:00 | NUR ---
PT PLACED BACK ON BIPAP
[2018-09-21 06:28] LABS: HEMATOCRIT 37.3 % (42.0-52.0); HEMOGLOBIN 11.9 g/dl (14.0-18.0); MEAN CELL VOLUME 95.4 fl (80.0-94.0); MEAN CORPUSCULAR HGB 30.4 pg (27.0-31.0); MEAN CORPUSCULAR HGB CONC 31.9 g/dl (33.0-37.0); PLATELET COUNT AUTOMATED 325 10*3/uL (130-400); RED BLOOD COUNT 3.91 10*6/uL (4.50-5.90); RED CELL DISTRI WIDTH 14.9 % (0-14.5); WHITE BLOOD COUNT 12.3 10*3/uL (4.8-10.8)
[2018-09-21 06:39] LABS: BUN 27 mg/dl (7-24); CHLORIDE 99 mmol/L (98-107); POTASSIUM 4.1 mmol/L (3.5-5.1); SODIUM 138 mmol/L (136-145)
[2018-09-21 06:54] LABS: TOTAL CELLS COUNTED 100 #CELLS
[2018-09-21 06:55] LABS: PLATELET SUFFICIENCY NORMAL (NORMAL)
[2018-09-21 08:00] VITALS: BP 144/78
--- NOTE | 2018-09-21 08:00 | NUR ---
VS STABLE, A&O X3, DARYL, CAP REFILL <3, HEART SOUNDS NORMAL, LUNGS SOUND CLEAR BILATERALLY, DYSPNEA ON EXERTION, N/C 3 LITERS OXYGEN, ABDOMEN SOFT/NON-TENDER/NON-DISTENDED, +1 PITTING EDEMA IN BOTH LOWER LEGS, PATIENT STATED, "THE ONLY PAIN I HAVE RIGHT NOW IS IN MY BACK, AND ON MY SIDES." ON THE PAIN SCALE OF 0-10, PATIENT NOTED A "5" IN PAIN. SKIN TURGOR NON-TENTING, DRY, PINK, AND WARM. TIFFANI BARAHONA SPNR[facility]
--- NOTE | 2018-09-21 09:00 | NUR ---
Lead Systems Analyst in to see patient. Discussed short term SNF and he refuses. He asks what will it take to get a bipap at home. Explained he would have to have a sleep study. When medically stable he will be discharged to home.
--- NOTE | 2018-09-21 09:47 | NUR ---
PATIENT STATED, "MY BACK HURTS, I NEED SOMETHING FOR PAIN." ON THE PAIN SCALE OF 0-10, PATIENT STATED A "5" IN PAIN. ADMINISTERED 650 MG OF TYLENOL FOR PAIN AT 0947. WILL CONTINUE TO MONITOR AND ASSESS. TIFFANI MCPHERSON
--- NOTE | 2018-09-21 10:30 | NUR ---
FOLLOW UP ON THE TYLENOL ADMINISTRATION FOR PATIENTS BACK PAIN, PATIENT STATED, "IT HELPED A LITTLE BIT." USING THE PAIN SCALE 0-10, PATIENT STATED A "3" IN PAIN AT THIS TIME. PLACED A KPAD ON PATIENTS BACK PER ORDER FOR BACK PAIN. WILL CONTINUE TO MONITOR AND ASSESS. TIFFANI BARAHONA [facility]
--- NOTE | 2018-09-21 11:00 | NUR ---
ASSESSED SKIN AT SITE OF KPAD APPLICATION, NO REDNESS NOTED AT THIS TIME, PATIENT DOES NOT COMPLAIN OF ANY BURNING OR PAIN AT SITE DURING THIS TIME. WILL CONTINUE TO ASSESS. TIFFANI MCPHERSON
[2018-09-21 12:00] VITALS: BP 140/80
[2018-09-21 16:00] VITALS: BP 148/80
--- NOTE | 2018-09-21 16:08 | NUR ---
PT RESTING IN BED NO DISTRESS NOTED. WILL MONITOR
--- NOTE | 2018-09-21 19:00 | NUR ---
PT AWAKE IN BED DURING BEDSIDE SHIFT REPORT. PT C/O PAIN TO RUE. IV APPEARS TO BE INFILTRATED ARM IS EDEMATOUS. WILL ATTEMPT TO FLUSH AFTER REPORT IS FINISHED. CALL LIGHT IN REACH.
[2018-09-21 20:00] VITALS: BP 154/87
--- NOTE | 2018-09-21 21:25 | NUR ---
PT MEDICATED W/ROBAXIN, MOTRIN, AND VISTARIL FOR C/O CHRONIC BACK PAIN AND RESTLESSNESS. UNABLE TO FLUSH IV IN RAC AND PT C/O PAIN TO AREA. WILL ATTEMPT TO RESTART NEW IV.
[2018-09-22] VITALS: BP 146/64
--- NOTE | 2018-09-22 04:47 | NUR ---
PATIENT REQUESTING TO BE TAKEN OFF BIPAP AT THIS TIME. BIPAP REMOVED. RESPIRATORY THERAPY NOTIFIED. O2 REAPPLIED AT 3L NC. PATIENT REPOSITIONED IN BED AND NEW LINENS PROVIDED. PATIENT ALSO MEDICATED WITH PO IBUPROFEN PER PRN ORDER FOR C/O PAIN IN R LOWER BACK RATED 7/10. WILL MONITOR EFFECTIVENESS. CALL LIGHT LEFT IN REACH.
[2018-09-22 08:00] VITALS: BP 165/87
[2018-09-22 08:11] LABS: HEMATOCRIT 35.9 % (42.0-52.0); HEMOGLOBIN 11.4 g/dl (14.0-18.0); LYMPH # 0.5 10*3/uL (1.3-4.4); LYMPH % 5.2 % (27.0-41.0); MEAN CELL VOLUME 93.7 fl (80.0-94.0); MEAN CORPUSCULAR HGB 29.8 pg (27.0-31.0); MEAN CORPUSCULAR HGB CONC 31.8 g/dl (33.0-37.0); MEAN PLATELET VOLUME 8.8 fl (9.6-12.3); MONO # 0.6 10*3/uL (0.1-1.0); MONO % 6.3 % (3.0-9.0); NEUT # 7.8 10*3/uL (2.3-7.9); NEUT % 87.7 % (47.0-73.0); PLATELET COUNT AUTOMATED 291 10*3/uL (130-400); RED BLOOD COUNT 3.83 10*6/uL (4.50-5.90); RED CELL DISTRI WIDTH 14.7 % (0-14.5); WHITE BLOOD COUNT 8.9 10*3/uL (4.8-10.8)
[2018-09-22 08:15] LABS: BUN 32 mg/dl (7-24); CHLORIDE 101 mmol/L (98-107); CREATININE 0.99 mg/dL (0.70-1.30); POTASSIUM 4.7 mmol/L (3.5-5.1); SODIUM 138 mmol/L (136-145)
--- NOTE | 2018-09-22 09:00 | NUR ---
Core Stripper in to see patient. Patient states Dr. Hannah wants him to continue home IV antibiotics for 5-[address] Elizondo of need for prescription to check insurance benefits. Awaiting prescription.
--- NOTE | 2018-09-22 09:06 | NUR ---
Dr Hannah called and stated this patient will need home IV ATB, Zosyn 3 times/day for 5 or 6 days. will notify community case manager Daly.
[2018-09-22 12:00] VITALS: BP 152/74
--- NOTE | 2018-09-22 13:22 | NUR ---
PER PT REQUEST PT PLACED BACK ON BIPAP 16/10 35% O2 PROTECTIVE GEL ON PT TOLERATING AT THIS TIME
[2018-09-22] MEDS ORDERED: ZOSYN 4/0.5 44.5 GM IV (14:31)
--- NOTE | 2018-09-22 14:43 | NUR ---
Faxed Zosyn prescription to [facility] for insurance determination. Awaiting return call.
[2018-09-22 16:00] VITALS: BP 152/73
--- NOTE | 2018-09-22 16:22 | NUR ---
[facility] RETURNED CALL AND THEY CAN NOT ACCEPT PT FOR HOME IV ANTIBIOTICS. REFERRAL FAXED TO [facility]. AWAITING RETURN CALL.
--- NOTE | 2018-09-22 19:30 | NUR ---
HERE. NEW MIDLINE PLACED IN LAC.
--- NOTE | 2018-09-22 19:56 | NUR ---
PT MEDICATED WITH PO MAALOX PER PRN ORDER FOR C/O INDIGESTION/UPSET STOMACH. WILL MONITOR. CALL LIGHT LEFT IN REACH.
[2018-09-22 20:00] VITALS: BP 143/92
--- NOTE | 2018-09-22 23:16 | NUR ---
PATIENT NO LONGER C/O UPSET STOMACH/INDIGESTION. HAD A LARGE BOWEL MOVEMENT AND STATES MAALOX WAS EFFECTIVE.
[2018-09-23] VITALS: BP 146/71
--- NOTE | 2018-09-23 03:14 | NUR ---
PATIENT TAKEN OFF BIPAP BY RESPIRATORY THERAPY. O2 IN USE VIA 3L.
--- NOTE | 2018-09-23 04:30 | NUR ---
PATIENT CLEANED SELF UP AND IS C/O STOMACH CRAMPING AND DIARRHEA. PO BENTYL AND IMMODIUM ADMINISTERED PER PRN ORDER. PO MOTRIN ALSO ADMINISTERED FOR C/O R LOWER BACK PAIN 02/15. WILL MONITOR EFFECTIVENESS. CALL LIGHT LEFT IN REACH.
--- NOTE | 2018-09-23 05:59 | NUR ---
EARLIER MEDICATIONS EFFECTIVE PER PT. WILL MONITOR.
[2018-09-23 07:29] LABS: BASO % 0.1 % (0.0-1.0); HEMATOCRIT 36.3 % (42.0-52.0); HEMOGLOBIN 11.5 g/dl (14.0-18.0); LYMPH # 0.3 10*3/uL (1.3-4.4); LYMPH % 1.9 % (27.0-41.0); MEAN CELL VOLUME 95.3 fl (80.0-94.0); MEAN CORPUSCULAR HGB 30.2 pg (27.0-31.0); MEAN CORPUSCULAR HGB CONC 31.7 g/dl (33.0-37.0); MEAN PLATELET VOLUME 8.7 fl (9.6-12.3); MONO # 1.4 10*3/uL (0.1-1.0); MONO % 8.1 % (3.0-9.0); NEUT # 14.8 10*3/uL (2.3-7.9); NEUT % 89.1 % (47.0-73.0); PLATELET COUNT AUTOMATED 300 10*3/uL (130-400); RED BLOOD COUNT 3.81 10*6/uL (4.50-5.90); RED CELL DISTRI WIDTH 14.8 % (0-14.5); WHITE BLOOD COUNT 16.6 10*3/uL (4.8-10.8)
[2018-09-23 07:59] LABS: BUN 31 mg/dl (7-24); CHLORIDE 101 mmol/L (98-107); CREATININE 0.89 mg/dL (0.70-1.30); POTASSIUM 4.3 mmol/L (3.5-5.1); SODIUM 138 mmol/L (136-145)
[2018-09-23 08:00] VITALS: BP 156/88
--- NOTE | 2018-09-23 08:38 | NUR ---
In to see patient to discuss discharge planning for IV ATB. SNF VS Home health IV ATB. Patient stated he would rather go home and do the ATB by himself, but if he had to go somewhere he just wants to stay close to home. Stated it would depend on his insurance, but we would work on both. Will follow
--- NOTE | 2018-09-23 08:47 | NUR ---
PER [facility]LE[facility] PT INSURANCE IS OUT OF NETWORK FOR THEM. FAXED REFERRAL TO [facility]. WILL AWAIT RETURN CALL.
--- NOTE | 2018-09-23 09:30 | NUR ---
Occupational Therapy evaluation completed on 5 with full eval to follow. PRecautions include droplet isolation precautions, IV UE, no BP LUE,O2 dep. Patient is moderate complexity level [id number] via eval, chart review and testing. Recommend OT per POC. Patient may benefit from SNF to enable safe return home alone at independent level. Thank you for this referral. Madeline Hedrick Otr/L
--- NOTE | 2018-09-23 09:31 | NUR ---
PHYSICAL THERAPY PAtient evaluated on 5, full evaluation to follow. Continue with PT as per plan of care with fall and droplt precautions. MAy require SNF. PAtient is moderat complexity via chart review, tests and evaluation: [id number]. Thank you for this referral. Elke Mcpherson,PT
--- NOTE | 2018-09-23 11:25 | NUR ---
CALLED [facility] FOR REFERRAL THEY STATE THEY CAN NOT TAKE PT. REFERAL FOR HOME HEALTH FAXED TO [facility]. AWAITING RETURN CALL FROM THEM.
[2018-09-23 12:00] VITALS: BP 151/87
--- NOTE | 2018-09-23 15:55 | NUR ---
CALLED [facility] TO SEE HOW THE PROCESS FOR IV ANTIBIOTICS WAS. PER MALINA THE ANTIBIOTICS WILL HAVE A $3.40 A WEEK COPAY WITH SUPPLIES COVERED 100%, BUT THEY HAVE NOT BEEN ABLE TO GET STAFF COVERAGE FOR HOME HEALTH. MALINA WILL CALL WHEN SHE GETS STAFF.
[2018-09-23 16:00] VITALS: BP 160/90
[2018-09-23 19:35] VITALS: BP 150/75
--- NOTE | 2018-09-23 20:40 | NUR ---
up to the bathroom x3 with diarrhea. pt. eating yogurt.
--- NOTE | 2018-09-23 21:55 | NUR ---
BENTYL GIVEN FOR STOMACH CRAMP. MOTRIN GIVEN FOR BACK PAIN RATED "5". VISTARIL GIVEN PER ORDER FOR MILD ANXIETY TO HELP HIM SLEEP. SEE MAR.
--- NOTE | 2018-09-23 22:55 | NUR ---
24 HR chart check completed.
--- NOTE | 2018-09-23 23:06 | NUR ---
PT PLACED ON BIPAP
[2018-09-24] VITALS: BP 132/86
--- NOTE | 2018-09-24 03:52 | NUR ---
pt taken off bipap
[2018-09-24 07:40] LABS: HEMATOCRIT 37.2 % (42.0-52.0); HEMOGLOBIN 11.8 g/dl (14.0-18.0); LYMPH # 0.5 10*3/uL (1.3-4.4); LYMPH % 5.1 % (27.0-41.0); MEAN CELL VOLUME 95.9 fl (80.0-94.0); MEAN CORPUSCULAR HGB 30.4 pg (27.0-31.0); MEAN CORPUSCULAR HGB CONC 31.7 g/dl (33.0-37.0); MONO # 0.4 10*3/uL (0.1-1.0); MONO % 4.8 % (3.0-9.0); NEUT # 8.1 10*3/uL (2.3-7.9); NEUT % 88.2 % (47.0-73.0); PLATELET COUNT AUTOMATED 306 10*3/uL (130-400); RED BLOOD COUNT 3.88 10*6/uL (4.50-5.90); RED CELL DISTRI WIDTH 15.1 % (0-14.5); WHITE BLOOD COUNT 9.1 10*3/uL (4.8-10.8)
[2018-09-24 08:00] VITALS: BP 147/80
[2018-09-24 08:00] LABS: ALBUMIN 2.8 gm/dl (3.1-4.5); ALKALINE PHOSPHATASE 48 U/L (45-117); BUN 27 mg/dl (7-24); CHLORIDE 103 mmol/L (98-107); POTASSIUM 4.5 mmol/L (3.5-5.1); SGOT/AST 12 IU/L (3-35); SGPT/ALT 30 U/L (12-78); SODIUM 141 mmol/L (136-145); TOTAL PROTEIN 5.5 gm/dL (6.4-8.2)
--- NOTE | 2018-09-24 08:32 | NUR ---
Received call from Kierra at [facility]. They are still working on finding a home health company to administer the IV antibiotics.
--- NOTE | 2018-09-24 09:02 | NUR ---
[facility] infusion company unable to find any home health nurses available to start IV ATB for patient at home. Contacted [facility] [employer], faxed updates, asked to start precert. Waiting for auth.
--- NOTE | 2018-09-24 09:45 | NUR ---
PHYSICAL THERAPY Patient seen this am 1:1 for therapy visit and was supine in bed upon therapist arrival. Patient presents with continuous O2-3L via NC, IV treatment and reports c/o R side LBP, 03/17. Patient transfers supine to sit EOB with Supervision, performing seated B LE therex, all planes, x 20 reps each to increase LE strength without c/o. Patient also completed multiple sit to stand transfers with Supervision to improve standing activity tolerance and remained seated EOB following all treatment with call light, tray table and telephone. Will continue per POC as tolerated, total treatment time 17 minutes. Brando Franz, MELTER OPERATOR
[2018-09-24 12:00] VITALS: BP 151/103
--- NOTE | 2018-09-24 12:10 | NUR ---
Patient unable to go to [facility] as his insurance is out of network; [facility] contacted CM and stated they will be accepting this patient for home health and IV ATB. Notified CM samuel Remy.
--- NOTE | 2018-09-24 12:11 | NUR ---
Faxed referral to [facility] for home IV antibiotics. Message left for Kierra at [facility], , regarding [facility] able to take the patient. Awaiting return call.
--- NOTE | 2018-09-24 13:01 | NUR ---
OT NOTE Attempted to see pt this P.M. for OT session and upon arrival pt was eating his lunch. Will check back at a later time/date. HELGA Sales/Khurram
--- NOTE | 2018-09-24 14:24 | NUR ---
Spoke to Megan at [facility] regarding referral. [facility] is willing to accept the patient. Spoke to Kierra at [facility] and notified of [facility] willing to accept patient. Spoke to Anthony in respiratory patient has to have a sleep study in order to get a bipap at home but could have a trilogy if there is documentation for it.
--- NOTE | 2018-09-24 15:58 | NUR ---
PATIENT RESTING COMFORTABLY IN HIS BED AT THIS TIME. RESP EASY, NO S/S OF DISTRESS. CALL LIGHT WITHIN REACH.
[2018-09-24 16:00] VITALS: BP 157/86
--- NOTE | 2018-09-24 19:55 | NUR ---
UP TO BATHROOM HAD LARGE LIQUID STOOL. PT. HAD ANOTHER LIQUID STOOL AT 1830 THAT WAS CLEANED UP BY AIDS.
[2018-09-24 20:00] VITALS: BP 149/77
--- NOTE | 2018-09-24 20:36 | NUR ---
UP TO BATHROOM AGAIN AND HAD LARGE LIQUID STOOL. C-DIFF SENT TO LAB FOR TESTING.
--- NOTE | 2018-09-24 21:32 | NUR ---
MOTRIN GIVEN PER ORDER FOR BACK PAIN RATED"5-6" SE NOV. VISTARIL GIVEN PER ORDER FOR ANXIETY. SEE MAR.
--- NOTE | 2018-09-24 21:52 | NUR ---
24 HR chart check completed.
--- NOTE | 2018-09-24 22:30 | NUR ---
MOTRIN AND VISTARIL EFFECTIVE FOR DISCOMFORT AND ANXIETY.
[2018-09-25 01:20] VITALS: BP 190/96
--- NOTE | 2018-09-25 02:05 | NUR ---
CALLED [facility] TO HAVE IV APRESOLINE VERIFIED.
--- NOTE | 2018-09-25 02:45 | NUR ---
IV APRESOLINE GIVEN PER ORDER FOR ELEVATED BP. WILL RECHECK BP I HOUR
[2018-09-25 04:00] VITALS: BP 158/78
--- NOTE | 2018-09-25 04:15 | NUR ---
NOTIFIED DR. VALLES OF BP 158/78 AFTER IV MEDICATION. NO NEW ORDERS RECEIVED
[2018-09-25 06:54] LABS: HEMATOCRIT 36.4 % (42.0-52.0); HEMOGLOBIN 11.4 g/dl (14.0-18.0); MEAN CELL VOLUME 95.8 fl (80.0-94.0); MEAN CORPUSCULAR HGB CONC 31.3 g/dl (33.0-37.0); MEAN PLATELET VOLUME 8.6 fl (9.6-12.3); PLATELET COUNT AUTOMATED 287 10*3/uL (130-400); RED CELL DISTRI WIDTH 14.9 % (0-14.5); WHITE BLOOD COUNT 11.4 10*3/uL (4.8-10.8)
[2018-09-25 07:14] LABS: CHLORIDE 104 mmol/L (98-107); SODIUM 140 mmol/L (136-145)
[2018-09-25 07:15] LABS: BURR CELLS FEW; PLATELET SUFFICIENCY NORMAL (NORMAL); TOTAL CELLS COUNTED 100 #CELLS
[2018-09-25 07:27] LABS: BUN 29 mg/dl (7-24); CREATININE 0.92 mg/dL (0.70-1.30)
[2018-09-25 08:00] VITALS: BP 160/80
--- NOTE | 2018-09-25 09:12 | NUR ---
Received prescription for non-invasive ventilator from Dr. Cid. Prescription given to respiratory.
[2018-09-25] MEDS ORDERED: MUCINEX ER600 MG PO (09:38)
[2018-09-25] MEDS ORDERED: PREDNISONE10 MG PO (09:38)
[2018-09-25] MEDS ORDERED: VITAMIN D32000 UNI1 PO (09:38)
--- NOTE | 2018-09-25 11:00 | NUR ---
Discharge instructions reviewed with patient/family. Patient receptive and verbalizes understanding. Follow-up care arranged. Written instructions given to patient/family. Patient was educated on new medications. He was also directed to follow up with Dr. Hannah and . He was wheeled from by staff member with his medications and personal belongings. STACIE GAITAN
--- NOTE | 2018-09-25 12:00 | NUR ---
Notified Dr. Elizondo of need of documentation for NIV to send to DME.
--- NOTE | 2018-09-28 07:55 | NUR ---
OCCUPATIONAL THERAPY CO-SIGN I approve of the Occupational Therapy notes written above. CORDELIA KIM
--- NOTE | 2018-10-05 08:13 | NUR ---
PHYSICAL THERAPY CO-SIGN I approve of the Phyical Therapy notes written above. CHICHI LEAL PT
[2018-12-30] MEDS ORDERED: Ipratropium Brom3 ML INH (14:43)
[2019-02-16] MEDS ORDERED: VITAMIN B-121000 MC2 PO (09:05)
[2019-02-16] MEDS ORDERED: HYDRALAZINE HYD50 MG PO (09:13)
[2019-02-16] MEDS ORDERED: MEN'S ONE DAIL1 EACH PO (09:15)
[2019-02-16] MEDS ORDERED: NATURE'S BLEND F1 MG PO (09:18)
[2019-02-16] MEDS ORDERED: LIPITOR80 MG PO (09:20)
[2019-02-16] MEDS ORDERED: LYRICA150 M1 PO (09:59)
[2019-02-16] MEDS ORDERED: TOPROL XL25 MG PO (10:00)
[2019-02-16] MEDS ORDERED: VIAGRA100 MG PO (10:01)
[2019-02-16] MEDS ORDERED: SYMB160 INH (10:02)
[2019-02-19] MEDS ORDERED: SEPTDS PO (12:45)
== END 2018-09-25 11:00 | disposition home or self-care (01) | DRG 871 ==
LOC: ED 14:23 → EDHOLD 15:37 → ICCU 15:37 → 5E 09-18 15:20
PROVIDERS: Emergency Medicine; Family Medicine; Internal Medicine; Internal Medicine Critical Care Medicine; Internal Medicine Nephrology; Surgery; ADMIT Internal Medicine
PROC: 5A09357 Assistance with Respiratory Ventilation, Less than 24 Consecutive Hours, Continuous Positive Airway Pressure (ICD-10-PCS; principal; 2018-09-16)
PROC: 5A09357 Assistance with Respiratory Ventilation, Less than 24 Consecutive Hours, Continuous Positive Airway Pressure (ICD-10-PCS; 2018-09-17)
PROC: 5A09357 Assistance with Respiratory Ventilation, Less than 24 Consecutive Hours, Continuous Positive Airway Pressure (ICD-10-PCS; 2018-09-18)
PROC: 5A09357 Assistance with Respiratory Ventilation, Less than 24 Consecutive Hours, Continuous Positive Airway Pressure (ICD-10-PCS; 2018-09-19)
PROC: 5A09357 Assistance with Respiratory Ventilation, Less than 24 Consecutive Hours, Continuous Positive Airway Pressure (ICD-10-PCS; 2018-09-20)
PROC: 5A09357 Assistance with Respiratory Ventilation, Less than 24 Consecutive Hours, Continuous Positive Airway Pressure (ICD-10-PCS; 2018-09-21)
PROC: 5A09357 Assistance with Respiratory Ventilation, Less than 24 Consecutive Hours, Continuous Positive Airway Pressure (ICD-10-PCS; 2018-09-22)
PROC: 5A09357 Assistance with Respiratory Ventilation, Less than 24 Consecutive Hours, Continuous Positive Airway Pressure (ICD-10-PCS; 2018-09-23)
PROC: 5A09357 Assistance with Respiratory Ventilation, Less than 24 Consecutive Hours, Continuous Positive Airway Pressure (ICD-10-PCS; 2018-09-24)
PROC: 5A09357 Assistance with Respiratory Ventilation, Less than 24 Consecutive Hours, Continuous Positive Airway Pressure (ICD-10-PCS; 2018-09-25)
DX: A41.9 Sepsis, unspecified organism (principal); J18.9 Pneumonia, unspecified organism; J96.21 Acute and chronic respiratory failure with hypoxia; J96.22 Acute and chronic respiratory failure with hypercapnia; E87.1 Hypo-osmolality and hyponatremia; A04.72 Enterocolitis due to Clostridium difficile, not specified as recurrent; W19.XXXA Unspecified fall, initial encounter; F17.210 Nicotine dependence, cigarettes, uncomplicated; D72.810 Lymphocytopenia; D64.9 Anemia, unspecified; E87.8 Other disorders of electrolyte and fluid balance, not elsewhere classified; R73.9 Hyperglycemia, unspecified; I25.10 Atherosclerotic heart disease of native coronary artery without angina pectoris; N40.0 Benign prostatic hyperplasia without lower urinary tract symptoms; G62.9 Polyneuropathy, unspecified; K21.9 Gastro-esophageal reflux disease without esophagitis; E78.2 Mixed hyperlipidemia; K76.0 Fatty (change of) liver, not elsewhere classified; E66.01 Morbid (severe) obesity due to excess calories; F32.9 Major depressive disorder, single episode, unspecified; K57.30 Diverticulosis of large intestine without perforation or abscess without bleeding; I71.4 Abdominal aortic aneurysm, without rupture; M54.9 Dorsalgia, unspecified; S20.219A Contusion of unspecified front wall of thorax, initial encounter; I50.9 Heart failure, unspecified; I11.0 Hypertensive heart disease with heart failure; R65.20 Severe sepsis without septic shock; F10.20 Alcohol dependence, uncomplicated; Y90.9 Presence of alcohol in blood, level not specified; G47.33 Obstructive sleep apnea (adult) (pediatric); Z16.12 Extended spectrum beta lactamase (ESBL) resistance; G89.29 Other chronic pain; E55.9 Vitamin D deficiency, unspecified; J43.9 Emphysema, unspecified; Z99.81 Dependence on supplemental oxygen; Z71.6 Tobacco abuse counseling; Y93.89 Activity, other specified; Y92.89 Other specified places as the place of occurrence of the external cause; Y99.8 Other external cause status; Z68.38 Body mass index [BMI] 38.0-38.9, adult; I25.2 Old myocardial infarction; Z79.82 Long term (current) use of aspirin; Z79.899 Other long term (current) drug therapy; J20.8 Acute bronchitis due to other specified organisms

== ENCOUNTER 2018-12-10 18:58 | Inpatient (IN) | payer OTHER, MEDICAID ==
[~2018-12-10] VITALS: Ht 177.8 cm; Wt 126.2 kg
--- NOTE | ~2018-12-10 | WRIGHTHP ---
[place], [place] PATIENT HISTORY AND PHYSICAL EXAM NAME: RAFAEL RATLIFF [facility] #: [id number] UNIT #: [id number] ROOM: 530 DOCTOR: LEROY SAXENA MD BIRTHDATE: [birth year] DOS: 12/10/2018 HISTORY OF PRESENT ILLNESS: The patient is 63-year-old. The patient has had multiple admissions to the hospital, last time was in September of 2018 under the hospitalist service. The patient has longstanding history of COPD with chronic respiratory failure, who continues to smoke and drink heavily, comes in with complaints of shortness of breath. The patient denies having any chest pains, but he has aches and pains all over his body, anywhere you touch him, he complains of pain. He has had increasing shortness of breath for the last 3 days, so he decided to come into the Emergency Room. He denies having any chest pains, palpitations, does not have any fever or chills, does not have any abdominal pain, nausea, any emesis. PAST MEDICAL HISTORY: Significant for: 1. Last hospitalization in September 2017 with respiratory failure. 2. COPD with chronic respiratory failure. 3. Hyponatremia, chronic. 4. Heavy alcohol abuse, drinks a case a day. 5. Moderate cigarette smoker. 6. Coronary artery disease. 7. Benign prostatic hypertrophy. 8. History of peripheral neuropathy, unknown etiology. 9. Benign hypertension. 10. Major depression. 11. Chronic back pain. MEDICATIONS: That he is on are atorvastatin 80 daily, aspirin 81 daily, vitamin D 2000 units daily, B12 1000 mcg daily, duloxetine 30 daily, folic acid 1 mg daily, hydralazine 50 t.i.d., lisinopril 40 daily, loratadine 10 daily, melatonin 3 mg at bedtime, multivitamin 1 tablet daily, omeprazole 20 daily, Lyrica 150 q. 8 hours, Viagra 100 at bedtime p.r.n., tamsulosin 0.4 mg daily, trazodone 50 at bedtime. SOCIAL HISTORY: Again, heavy alcohol abuse, about 1 case per day, also smokes about 2 packs of cigarettes a day even while he is on oxygen. PHYSICAL EXAMINATION: GENERAL: He is awake and alert and oriented, complaints of pain and yells out continuously even when you touch him to examine him. VITAL SIGNS: Blood pressure is 132/67, pulse of 86, respirations 20, temperature 98.0. LUNGS: Diminished breath sounds, scattered wheezes. HEART: Regular. ABDOMEN: Obese, soft. EXTREMITIES: Show trace edema bilaterally this morning. LABORATORY DATA: White cell count is 9.8, hemoglobin 11.5. Rapid flu is negative. Electrocardiogram shows sinus tachy. Lactic acid 1.9. Blood gas: 7.3, pCO2 of 51, pO2 of 518, bicarbonate 28.3. Protime is 9.6. Chest x-ray shows no pathology. Comprehensive shows sodium of 124. [place], [place] PATIENT HISTORY AND PHYSICAL EXAM NAME: RAFAEL RATLIFF UNIT #: [id number] ROOM: 530 DOCTOR: LEROY SAXENA MD BIRTHDATE: [birth year] ASSESSMENT AND PLAN: 1. Acute exacerbation of chronic obstructive pulmonary disease, on maximal treatment. Plan, IV steroids, antibiotics have been added along with breathing treatments and consult Dr. Hannah. 2. Hyponatremia, chronic, possibly from heavy alcohol abuse. The patient is ordered hypertonic saline for 24 hours. Repeat labs in the morning. 3. Heavy alcohol usage with possible withdrawals, none so far. To avoid withdrawals, the patient will be started on thiamine IM and Librium. 4. Coronary artery disease. Check echocardiogram. LEROY SAXENA MD CM:HISPHYS:PATIENT HISTORY AND PHYSICAL EXAMINATION 7 LEROY SAXENA MD 12/11/18937 interface
--- NOTE | ~2018-12-10 | PR ---
[place], [place] PROGRESS NOTE NAME: RAFAEL RATLIFF UNIT #: [id number] ROOM: 530 DOCTOR: EFRAIN GARY MD,AHSAN BIRTHDATE: [birth year] DOS: 12/13/2018 SUBJECTIVE: He has been comfortably resting at this time on the bed was noted without any acute distress, pleasant symptoms of chest pain, fever or chills. The BiPAP had been used last night. This morning, using oxygen supplementation nasal cannula. OBJECTIVE: VITAL SIGNS: Normal temperature, respiratory rate 20, heart rate 102, blood pressure 145/68. The pulse oxygen saturation on 3 liters nasal cannula 98% saturation recorded. HEENT: Chronic obesity. Head was atraumatic. NECK: Supple. CARDIOVASCULAR: S1, S2 audible. LUNGS: Moderate reduction in the breath sounds was noted this morning. There is no wheezing. ABDOMEN: Soft and obese. EXTREMITIES: Noted without any acute new changes. MUSCULOSKELETAL: Noted without any acute deformities. IMPRESSION: 1. Resolving acute exacerbation of chronic obstructive pulmonary disease, acute bronchitis, gradually and progressively. 2. Morbid obesity. 3. Suspected obstructive sleep apnea disorder. 4. Resolving hyponatremia. Current sodium level noted 132. PLAN OF MANAGEMENT: Continuation of bronchodilators and BiPAP use with oxygen supplementation intermittently. Discharge planning, possible home discharge in the morning depending on further improvement in the respiratory status and stability of the sodium level. AHSAN ZUNIGA MD CM:PNTRANS [id number] 1 AHSAN GARY MD 12/14/18210 interface
--- NOTE | ~2018-12-10 | PR ---
[place], [place] PROGRESS NOTE NAME: RAFAEL RATLIFF UNIT #: [id number] ROOM: 530 DOCTOR: LEROY SAXENA MD BIRTHDATE: [birth year] DOS: 12/14/2018 SUBJECTIVE: The patient is sitting up in a chair, doing well, is about to eat his breakfast, does not have any complaints. OBJECTIVE: VITAL SIGNS: Graphic trend shows a pressure of 107/47, pulse of 88, respirations 20, temperature 97.7. LUNGS: Clear. HEART: Regular. ABDOMEN: Obese. EXTREMITIES: Without any edema. ASSESSMENT AND PLAN: 1. Acute exacerbation of chronic obstructive pulmonary disease, stable. 2. Moderate cigarette smoker, counseled. 3. Chronic respiratory failure, oxygen dependent. 4. Heavy alcohol abuse with delirium tremens controlled. The patient is stable. The plan is to discharge him to home today. LEROY SAXENA MD CM:PNTRANS [id number] LEROY SAXENA MD 12/15/18 0022 interface
--- NOTE | ~2018-12-10 | PR ---
[place], [place] PROGRESS NOTE NAME: RAFAEL RATLIFF UNIT #: [id number] ROOM: 530 DOCTOR: AHSAN DELGADO MD BIRTHDATE: [birth year] DOS: 12/12/2018 PULMONARY PROGRESS NOTE SUBJECTIVE: The patient is noted comfortable at this time, resting on the bed, without any acute distress this morning of assessment. Reduction in symptoms of shortness of breath and others reported. Using oxygen supplementation this morning via nasal cannula. Denies any chest pain, fever, or chills. OBJECTIVE: VITAL SIGNS: Normal temperature, respiratory rate 20, heart rate 95, blood pressure 127/62. The pulse ox saturation on three liters nasal cannula is 97% saturation recorded. HEENT: Head is atraumatic. Eyes nonicterus. NECK: Supple. CARDIOVASCULAR: S1 and S2 audible. LUNGS: Noted with moderate decreased breath sounds in the lungs bilaterally. ABDOMEN: Soft. EXTREMITIES: Chronic changes. VISIBLE SKIN: No lesions or rashes. LABORATORY DATA: Blood culture was noted as no bacterial growth. CBC this morning noted as normal WBC count and platelet count. CMP that was done this morning with normal BUN and creatinine, sodium 130, CO2 of 33. IMPRESSION: 1. 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 2. The patient with acute exacerbation of chronic obstructive pulmonary disease as well. PLAN OF TREATMENT: Continue fluid restriction to 1500 mL a day. Monitoring of the sodium level. Bronchodilators, oxygen and other therapy to be continued. Consideration for home discharge probably in the next 24-48 hours was expected. [place], [place] PROGRESS NOTE NAME: RAFAEL RATLIFF UNIT #: [id number] ROOM: 530 DOCTOR: AHSAN DELGADO MD BIRTHDATE: [birth year] AHSAN ZUNIGA MD CM:PNTRANS [id number] AHSAN GARY MD 12/13/18 0618 interface
--- NOTE | ~2018-12-10 | DS ---
[place], [place] DISCHARGE SUMMARY NAME: RAFAEL RATLIFF UNIT #: [id number] ROOM: 530 DOCTOR: HEMANTH WHITELEROY BIRTHDATE: [birth year] DOS: 12/14/2018 DIAGNOSES: 1. Acute exacerbation of chronic obstructive pulmonary disease. 2. Acute tracheobronchitis. 3. Chronic hyponatremia. 4. Heavy alcohol abuse with delirium tremens. 5. Moderate cigarette smoker. 6. Chronic pain. 7. Benign prostatic hypertrophy. 8. Coronary artery disease. 9. History of peripheral neuropathy. 10. Major depression. 11. Chronic back pain. DISCHARGE MEDICATIONS: This patient's medications on discharge will be; tapering dose of prednisone, doxycycline 100 b.i.d. for 7 days. Breathing treatments of DuoNeb 3 times a day, loratadine 10 daily, vitamin B12 1000 mcg p.o. daily, lisinopril 40 daily, tamsulosin 0.4 daily, omeprazole 20 daily, folic acid 1 mg daily, multivitamin 1 tablet daily, thiamine 100 daily, atorvastatin 80 daily, aspirin 81 daily, melatonin 3 mg at bedtime, Lyrica 150 q. 8 hours, vitamin D 2000 units daily, duloxetine 30 daily, hydralazine 50 t.i.d., sildenafil 100 at bedtime, trazodone 50 at bedtime. HOSPITAL COURSE: This patient is not known to me, 63 years old who comes in with complaints of difficulty breathing. Please refer to H and P for details. He was admitted to the hospital. He was placed on steroids, antibiotics, breathing treatments. He is a heavy alcohol abuser, placed on delirium tremens. The dosage was increased because he did start developing some early DTs. The patient was seen in consultation with Dr. Hannah, continued on his home medications. IV steroids and breathing treatments did help. The bronchospasm has now resolved and therefore, the patient is being discharged home. His DTs have also resolved. The patient is counseled against both smoking and drinking. The patient is overall stable and improved. He has achieved maximum benefit from a stay here, so the plan is to discharge him to home today to follow up with Dr. Chung as an outpatient. [place], [place] DISCHARGE SUMMARY NAME: RAFAEL RATLIFF UNIT #: [id number] ROOM: 530 DOCTOR: LEROY SAXENA MD BIRTHDATE: [birth year] LEROY SAXENA MD CM:MU [id number] LEROY SAXENA MD 12/14/18 1846 interface
--- NOTE | ~2018-12-10 | EKG ---
[place], [place] ELECTROCARDIOGRAM REPORT NAME: RAFAEL RATLIFF UNIT #: [id number] ROOM: 530 DOCTOR: JP DRAFT REPORT BIRTHDATE: [birth year] [facility] Test Date: 2018-12-10 Test Time: 19:07:38 Pat Name: RAFAEL RATLIFF Department: Room: 530 Gender: M Franchise Manager: Ketty Cook : 1955 Requested By: BENNY BROWN Order Number: [id number] Reading MD: Wayne Muñoz MD Measurements Intervals [place] Rate: 77 P: OR: QRS: 72 QRSD: 97 T: 61 QT: 360 QTc: 408 Interpretive Statements NSR Borderline ST elevation, lateral leads, early repolarization changes. Baseline wander in lead(s) V2,V6 Compared to ECG 09/16/2018 21:06:23 T (T wave) deviation now present Myocardial infarct finding no longer present Electronically Signed On 12-11-2018 15:34:08 PDT by Wayne Muñoz MD CM:EKGRPT:ELECTROCARDIOGRAM REPORT [id number] BENNY BROWN EPIPHEJ DRAFT REPORT BENNY BROWN
--- NOTE | ~2018-12-10 | CON ---
[place], [place] REPORT OF CONSULTATION NAME: RAFAEL RATLIFF [facility] #: [id number] UNIT #: [id number] ROOM: 530 DOCTOR: EFRAIN GARY MD,AHSAN BIRTHDATE: [birth year] DOS: 12/11/2018 CONSULTATION REQUESTED BY: Ness Odell MD REASON FOR CONSULTATION: To assess the patient for the increased respiratory symptom with acute exacerbation of chronic obstructive pulmonary disease. HISTORY OF PRESENT ILLNESS: A 63-year-old white male patient who has been known to me, has been seen in the office first time on 11/18/2018 for the assessment of chronic obstructive pulmonary disease and suspected obstructive sleep apnea disorder. Assessment was completed on this patient. The patient was ordered the diagnostic sleep study, which was pending. His FEV1 was only noted at 23% during his office assessment. He has been taking medications of chronic obstructive pulmonary disease. The patient presented to the Emergency Room as he has been experiencing increased symptoms of shortness breath that was noted in the last few days. He was also complaining of symptoms of body and ache as well. The cough has been reported nonproductive. Symptoms of headache or diplopia. The patient denies symptoms of hemoptysis. He does complain of some pain as well. The symptom has been noted for 3-4 days with gradual increase occurred. The patient was seen in the Emergency Room and being hospitalized and currently admitted to the hospital under care of Dr. Ness Odell on 12/10/2018 for the management of acute exacerbation of chronic obstructive pulmonary disease. This morning as the patient was seen in the room for assessment, still complaining of symptoms of shortness of breath with all other symptoms with partial improvement in the symptom, but still complains of significant ongoing respiratory symptoms. REVIEW OF SYSTEMS: CONSTITUTIONAL: Fatigue and tiredness reported. There were no symptoms of fever or chills. Body aches; however, was reported. EYES: Denies any burning, redness, or tenderness. EARS, NOSE, THROAT SYMPTOMS: Denies sore throat, hoarseness, otalgia, postnasal drainage or epistaxis. CARDIOVASCULAR: Denies anginal pain. Noted with edema of the lower extremity. Denies palpitation. GASTROINTESTINAL: Denies dysphagia, nausea, vomiting, diarrhea, abdominal pain, hematemesis, melena, or hematochezia. SKIN: Denies any symptoms of any lesions or rashes. MUSCULOSKELETAL: Denies any joint pain for deformities, muscle aches ____ were reported. CENTRAL NERVOUS SYSTEM: Denies dizziness, headache, diplopia, or syncopal episodes. Remaining systems were reviewed. They were noted all negative. PAST MEDICAL HISTORY: Reported: 1. End-stage chronic obstructive pulmonary disease. 2. Chronic hypoxic respiratory failure. 3. Chronic hypercapnic respiratory failure. 4. History of prostate cancer, treated in 2013. [place], [place] REPORT OF CONSULTATION NAME: RAFAEL RATLIFF UNIT #: [id number] ROOM: [facility] DOCTOR: EFRAIN GARY MD,[facility] BIRTHDATE: [birth year] 5. Congestive heart failure with diastolic dysfunction. 6. Essential hypertension. 7. Morbid obesity. 8. Suspected obstructive sleep apnea disorder. 9. Abdominal aortic aneurysm of 5 cm in size. SOCIAL HISTORY: The patient is , has 2 children, lives at home. Denies any history of illicit drug use. The patient drinks about 10 beers per week. Tobacco use was noted from the age of [age] years old, started smoking cigarettes 1-1/2 pack of cigarettes per day with active tobacco use reported. PAST SURGICAL HISTORY: 1. Circumcision. 2. Arthroscopy of the left knee. 3. Prostate surgery for this patient. 4. Therapeutic bronchoscopy. FAMILY HISTORY: The patient's father at 80 years old, unknown medical illnesses. Mother at 80 years old of unknown medical illnesses. MEDICATIONS: Which were administered for the patient in this hospitalization were trazodone, Flomax, Lipitor, Cymbalta, multivitamin, loratadine, lisinopril, hydralazine, folic acid, vitamin D, aspirin, Protonix, IV Solu-Medrol 30 mg b.i.d., DuoNeb q.4h., Lyrica, Librium 25 mg p.o. b.i.d. and IM thiamine. DRUG ALLERGIES: The patient was noted no known drug allergies. PHYSICAL EXAMINATION: GENERAL: This is a 63-year-old male currently noted without any acute distress. Height of 5 feet 10 inches, weight of 278 pounds, BMI 39.9. VITAL SIGNS: Normal temperature, respiratory rate 17-20, heart rate 88-72, blood pressure 100/56-142-64 with pulse oxygen saturation on 4 liters nasal cannula to maintain 98% saturation from admission at rest. HEENT: Head was atraumatic. Eyes nonicterus. Chronic obesity. Decreased posterior pharyngeal space, high tongue base, and crowding of soft tissue structures. CARDIOVASCULAR: S1, S2 is audible. LUNGS: The patient was noted with moderate decreased breath sounds, expiratory wheezing, no crackles. ABDOMEN: Soft with morbid obesity. Bowel sounds present. EXTREMITIES: Mild edema. MUSCULOSKELETAL: Without any acute deformities. CENTRAL NERVOUS SYSTEM: Cranial nerves 2-12 intact. LABORATORY DATA: Influenza A and B, nasal washing antigen yesterday were noted negative. CBC of 12/10/2018, WBC count normal, hemoglobin 11.5, hematocrit 35.6, and platelet count as normal. The MCV of 94. Lactic acid yesterday was normal. Arterial blood gases 100% nonrebreather mask, pH of 7.35, pCO2 of 51, pO2 of 118. CMP on 12/10/2018, normal BUN and creatinine. Sodium 124, chloride of 87. LFTs were normal. BMP this morning, glucose 123, BUN and creatinine [place], [place] REPORT OF CONSULTATION NAME: RAFAEL RATLIFF UNIT #: [id number] ROOM: [facility] DOCTOR: EFRAIN [facility] BIRTH[facility]: [birth year] normal, sodium 123, chloride of 86. Chest x-ray one-view without any acute pulmonary infiltration. IMPRESSION: 1. The patient has been currently admitted to the hospital, noted with current acute recurrent exacerbation of chronic obstructive pulmonary disease and acute bronchitis. 2. Hyponatremia secondary to dilutional hyponatremia ____ as well. 3. The patient with suspected obstructive sleep apnea disorder, chronic hypercapnic and hypoxic respiratory failure. 4. Morbid obesity as well. PLAN OF MANAGEMENT: The patient has been started on Solu-Medrol, the dose will be changed to 40 mg b.i.d. Fluid restriction should be done. Avoid further infusion of the saline for the patient on hypertonic saline is not needed. Bronchodilator to be continued. Fluid restriction should result in resolution of the hyponatremia gradually. Bronchodilator will be changed to albuterol sulfate from the DuoNeb for the management of chronic obstructive pulmonary disease exacerbation. Other additional treatment changes will be ordered based on the progression of the illness. There were no signs of active bacterial infection at this time. Monitoring will be continued. Watch for any alcohol withdrawal for the patient's symptoms as well and manage them accordingly. BiPAP will be ordered the patient to be used at nighttime. Other therapy, plan of management, additional treatment changes will be ordered based on the progression of illness. Sputum for Gram stain culture will be ordered. Urine for sodium level will be obtained as well. Other medical management therapy, plan of care and treatment. Supportive care. Thank you for allowing me to participate in the care of this patient. AHSAN ZUNIGA MD CM:CONSTR:REPORT OF CONSULTATION 1305 12/12/18 0542 interface
--- NOTE | ~2018-12-10 | PR ---
[place], [place] PROGRESS NOTE [id number] UNIT #: [id number] ROOM: 530 DOCTOR: EFRAIN GARY MD,AHSAN BIRTHDATE: [birth year] DOS: 12/14/2018 PULMONARY PROGRESS NOTE SUBJECTIVE: The patient noted comfortable at this time, resting on the bed, has been noted significant reduction and improvement in respiratory symptoms. Denies symptoms of chest pain, shortness of breath improved. The coughing was improving. Wheezing was improving as well. OBJECTIVE: VITAL SIGNS: Normal temperature, respiratory rate 20, heart rate of 70, blood pressure 140/68. The pulse oxygen saturation recorded on 3 liters nasal cannula 100% saturation. HEENT: Examination shows head was atraumatic. Eyes: No icterus. NECK: Supple. CARDIOVASCULAR: S1, S2 heard. LUNGS: Decreased breath sounds noted in the lungs bilaterally. ABDOMEN: Soft and obese, nontender. EXTREMITIES: No acute edema. LABORATORY DATA: CMP today, sodium 132. CO2 was 36. IMPRESSION: The patient with resolving hyponatremia including improving acute exacerbation of chronic obstructive pulmonary disease and bronchitis. PLAN OF MANAGEMENT: No changes in the plan of care at this time. Continue current therapy, plan of management, care plan of treatments. AHSAN ZUNIGA MD CM:PNTRANS 1158 1407 AHSAN GARY MD 12/14/18 1406 interface
--- NOTE | ~2018-12-10 | PR ---
[place], [place] PROGRESS NOTE NAME[id number] #: [id number] ROOM: 530 DOCTOR: WISAM WHITE,SUKH Kang BIRTHDATE: [birth year] DOS: 12/13/2018 SUBJECTIVE: The patient again is complaining of a bad headache today and requesting treatment. OBJECTIVE: VITAL SIGNS: Blood pressure 134/69, heart rate of 98 beats per minute, breathing normally, afebrile, morbidly obese with generalized weakness. IMPRESSION: 1. The patient with acute exacerbation of COPD, continues to improve with treatment. Dr. Hannah, the net developer software engineer c is following and treating him with corticosteroids, antibiotics, and oxygen. 2. Recurrent migraine type headaches, again severe today. I will give him one dose of Toradol intravenously. 3. History of alcohol dependence. The patient remains on thiamine and increased dose of Librium to avoid delirium tremens. The patient was starting to have withdrawal symptoms of DTs yesterday. The patient was starting to get agitated. 4. Coronary artery disease of the [place] vessels without chest pains. 5. Hyponatremia related to heavy alcohol abuse. SUKH JOEL MD CM:PNTRANS [id number] SUKH JOEL MD 12/14/18 0417 interface
--- NOTE | ~2018-12-10 | PR ---
[place], [place] PROGRESS NOTE [id number] #: [id number] ROOM: 530 DOCTOR: WISAM WHITE,SUKH Kang BIRTHDATE: [birth year] DOS: 12/12/2018 SUBJECTIVE: The patient is complaining of significant headaches and Tylenol has not helped so far. The patient says he gets recurrent headaches. OBJECTIVE: VITAL SIGNS: Blood pressure 125/63, heart rate of 98 beats per minute, breathing 20 times per minute, afebrile, morbidly obese with a BMI of 40. Decreased breath sounds all over. The patient is wearing oxygen. He is morbidly obese. IMPRESSION: 1. Acute exacerbation of chronic obstructive pulmonary disease, being treated with corticosteroids, antibiotic, oxygen. Dr. Hannah, the professor of radiology, is following. 2. Recurrent migraine type headaches bothering him significantly and not improved with Tylenol. I will give him one dose of IV Dilaudid. 3. History of alcohol dependence. The patient already on thiamine and Librium given by Dr. Odell. The patient with some mild symptoms of DTs. He is getting agitated, so I will increase his Librium to 3 times a day instead of 2 times a day. 4. Coronary artery disease of the [place] vessels without chest pains. 5. Hyponatremia related to heavy alcohol abuse. SUKH JOEL MD CM:PNTRANS [id number] SUKH JOEL MD 12/13/18 1341 interface
[~2018-12-10 18:58] MED LIST changes: +MUCINEX ER600 MG PO; +ZOSYN 4/0.5 44.5 GM IV
[2018-12-10 19:03] VITALS: BP 134/69
[2018-12-10 20:14] LABS: BASO % 0.3 % (0.0-1.0); EOS # 0.2 10*3/uL (0.0-0.4); EOS % 1.5 % (1.0-4.0); HEMATOCRIT 35.6 % (42.0-52.0); HEMOGLOBIN 11.5 g/dl (14.0-18.0); LYMPH # 1.2 10*3/uL (1.3-4.4); LYMPH % 12.4 % (27.0-41.0); MEAN CELL VOLUME 94.2 fl (80.0-94.0); MEAN CORPUSCULAR HGB 30.4 pg (27.0-31.0); MEAN CORPUSCULAR HGB CONC 32.3 g/dl (33.0-37.0); MONO # 0.4 10*3/uL (0.1-1.0); MONO % 4.2 % (3.0-9.0); NEUT # 7.9 10*3/uL (2.3-7.9); NEUT % 81.3 % (47.0-73.0); PLATELET COUNT AUTOMATED 289 10*3/uL (130-400); RED BLOOD COUNT 3.78 10*6/uL (4.50-5.90); RED CELL DISTRI WIDTH 15.1 % (0-14.5); WHITE BLOOD COUNT 9.8 10*3/uL (4.8-10.8)
[2018-12-10 20:17] LABS: ABG BASE EXCESS 2.5 mmol/L (-2.0-2.0); ABG HCO3 28.4 mmol/l (22-26); ARTERIAL BLOOD GAS PCO2 51.8 mmHg (35-45); ARTERIAL BLOOD GAS PH 7.356 (7.35-7.45)
[2018-12-10 20:18] LABS: ABG O2 SATURATION 100.1 % (95-97)
[2018-12-10 20:26] LABS: INTERNATIONAL NORM RATIO 0.9 (2.0-3.5)
[2018-12-10 20:36] LABS: ALBUMIN 3.3 gm/dl (3.1-4.5); ALKALINE PHOSPHATASE 87 U/L (45-117); BUN 7 mg/dl (7-24); CHLORIDE 87 mmol/L (98-107); CREATININE 0.64 mg/dL (0.70-1.30); LIPASE 98 U/L (73-393); POTASSIUM 4.7 mmol/L (3.5-5.1); SGOT/AST 18 IU/L (3-35); SGPT/ALT 23 U/L (12-78); SODIUM 124 mmol/L (136-145); TOTAL PROTEIN 6.5 gm/dL (6.4-8.2)
[2018-12-10 20:46] LABS: TROPONIN I < 0.015 ng/ml (<0.045)
[2018-12-10 20:47] VITALS: BP 113/50
[2018-12-10] MEDS ORDERED: CYMBALTA30 MG PO (20:51)
[2018-12-10 22:50] VITALS: BP 101/56; BP 132/67
[2018-12-10] MEDS ORDERED: HYDRALAZINE HYD50 MG PO (23:51)
[2018-12-10] MEDS ORDERED: VIAGRA100 MG PO (23:57)
[2018-12-10] MEDS ORDERED: TRAZODONE50 MG PO (23:59)
[2018-12-11 03:51] LABS: BILIRUBIN NEGATIVE (NEGATIVE); BLOOD NEGATIVE (NEGATIVE); CLARITY CLEAR (CLEAR); COLOR YELLOW (YELLOW); GLUCOSE NEGATIVE (NEGATIVE); KETONE NEGATIVE (NEGATIVE); LEUKO ESTERASE NEGATIVE (NEGATIVE); NITRITE NEGATIVE (NEGATIVE); UROBILINOGEN 0.2 E.U./dl (0.2-1.0)
[2018-12-11 04:03] LABS: EPITHELIAL CELLS 0-5
[2018-12-11 04:49] VITALS: BP 132/67
[2018-12-11 06:52] LABS: BUN 7 mg/dl (7-24); CHLORIDE 86 mmol/L (98-107); CREATININE 0.65 mg/dL (0.70-1.30); SODIUM 123 mmol/L (136-145)
[2018-12-11 08:00] VITALS: BP 142/64
[2018-12-11 12:00] VITALS: BP 127/70
[2018-12-11 13:50] LABS: POTASSIUM 4.5 mmol/L (3.5-5.1)
[2018-12-11 16:00] VITALS: BP 136/75
[2018-12-11 20:00] VITALS: BP 136/75; BP 141/76
[2018-12-12] VITALS: BP 131/74
[2018-12-12 06:39] LABS: BASO % 0.1 % (0.0-1.0); HEMATOCRIT 35.5 % (42.0-52.0); HEMOGLOBIN 11.6 g/dl (14.0-18.0); LYMPH # 0.6 10*3/uL (1.3-4.4); LYMPH % 6.8 % (27.0-41.0); MEAN CELL VOLUME 93.9 fl (80.0-94.0); MEAN CORPUSCULAR HGB 30.7 pg (27.0-31.0); MEAN CORPUSCULAR HGB CONC 32.7 g/dl (33.0-37.0); MONO # 0.6 10*3/uL (0.1-1.0); MONO % 6.9 % (3.0-9.0); NEUT # 7.7 10*3/uL (2.3-7.9); NEUT % 85.8 % (47.0-73.0); PLATELET COUNT AUTOMATED 297 10*3/uL (130-400); RED BLOOD COUNT 3.78 10*6/uL (4.50-5.90); RED CELL DISTRI WIDTH 15.3 % (0-14.5)
[2018-12-12 07:03] LABS: ALBUMIN 3.2 gm/dl (3.1-4.5); ALKALINE PHOSPHATASE 79 U/L (45-117); BUN 11 mg/dl (7-24); CHLORIDE 92 mmol/L (98-107); CREATININE 0.79 mg/dL (0.70-1.30); POTASSIUM 4.4 mmol/L (3.5-5.1); SGOT/AST 12 IU/L (3-35); SGPT/ALT 18 U/L (12-78); SODIUM 130 mmol/L (136-145); TOTAL PROTEIN 6.5 gm/dL (6.4-8.2)
[2018-12-12 08:00] VITALS: BP 134/62
[2018-12-12 12:00] VITALS: BP 127/62
[2018-12-12 16:00] VITALS: BP 125/63
[2018-12-12 20:00] VITALS: BP 129/69
[2018-12-13] VITALS: BP 108/52
[2018-12-13 08:00] VITALS: BP 146/73
[2018-12-13 08:37] LABS: ALBUMIN 3.3 gm/dl (3.1-4.5); BUN 13 mg/dl (7-24); CHLORIDE 95 mmol/L (98-107); CREATININE 0.78 mg/dL (0.70-1.30); POTASSIUM 4.4 mmol/L (3.5-5.1); SGOT/AST 17 IU/L (3-35); SGPT/ALT 24 U/L (12-78); SODIUM 132 mmol/L (136-145)
[2018-12-13 08:40] LABS: ALKALINE PHOSPHATASE 74 U/L (45-117); TOTAL PROTEIN 6.4 gm/dL (6.4-8.2)
[2018-12-13 12:00] VITALS: BP 145/68
[2018-12-13 16:00] VITALS: BP 134/69
[2018-12-13 20:00] VITALS: BP 123/82
[2018-12-14] VITALS: BP 107/47
[2018-12-14 08:00] VITALS: BP 140/68
[2018-12-14] MEDS ORDERED: Ipratropium Brom3 ML NEB (08:20)
[2018-12-14] MEDS ORDERED: PREDNISONE5 MG PO (08:20)
[2018-12-14] MEDS ORDERED: DOXYCYCLINE100 M3 PO (08:20)
[2018-12-14 08:30] LABS: ALBUMIN 3.2 gm/dl (3.1-4.5); ALKALINE PHOSPHATASE 65 U/L (45-117); BUN 19 mg/dl (7-24); CHLORIDE 93 mmol/L (98-107); CREATININE 0.84 mg/dL (0.70-1.30); POTASSIUM 4.7 mmol/L (3.5-5.1); SGOT/AST 18 IU/L (3-35); SGPT/ALT 26 U/L (12-78); SODIUM 132 mmol/L (136-145); TOTAL PROTEIN 5.9 gm/dL (6.4-8.2)
[2018-12-16 00:07] LABS: ADENOVIRUS Negative (Negative); INFLUENZA A Negative (Negative); INFLUENZA B Negative (Negative); METAPNEUMOVIRUS Negative (Negative); PARAINFLUENZA 1 Negative (Negative); PARAINFLUENZA 2 Negative (Negative); PARAINFLUENZA 3 Negative (Negative); RHINOVIRUS Negative (Negative); RSV A Negative (Negative); RSV B Negative (Negative)
[2018-12-30] MEDS ORDERED: Ipratropium Brom3 ML INH (14:43)
[2019-02-16] MEDS ORDERED: VITAMIN B-121000 MC2 PO (09:05)
[2019-02-16] MEDS ORDERED: HYDRALAZINE HYD50 MG PO (09:13)
[2019-02-16] MEDS ORDERED: MEN'S ONE DAIL1 EACH PO (09:15)
[2019-02-16] MEDS ORDERED: NATURE'S BLEND F1 MG PO (09:18)
[2019-02-16] MEDS ORDERED: LIPITOR80 MG PO (09:20)
[2019-02-16] MEDS ORDERED: LYRICA150 M1 PO (09:59)
[2019-02-16] MEDS ORDERED: TOPROL XL25 MG PO (10:00)
[2019-02-16] MEDS ORDERED: VIAGRA100 MG PO (10:01)
[2019-02-16] MEDS ORDERED: SYMB160 INH (10:02)
[2019-02-19] MEDS ORDERED: SEPTDS PO (12:45)
== END 2018-12-14 10:36 | disposition home or self-care (01) | DRG 189 ==
LOC: ED 18:58 → EDHOLD 21:41 → 5E 21:41
PROVIDERS: Emergency Medicine Emergency Medical Services; Internal Medicine Critical Care Medicine; ADMIT Internal Medicine
PROC: 5A09357 Assistance with Respiratory Ventilation, Less than 24 Consecutive Hours, Continuous Positive Airway Pressure (ICD-10-PCS; principal; 2018-12-10)
PROC: 5A09357 Assistance with Respiratory Ventilation, Less than 24 Consecutive Hours, Continuous Positive Airway Pressure (ICD-10-PCS; 2018-12-12)
PROC: 5A09357 Assistance with Respiratory Ventilation, Less than 24 Consecutive Hours, Continuous Positive Airway Pressure (ICD-10-PCS; 2018-12-13)
DX: J96.22 Acute and chronic respiratory failure with hypercapnia (principal); E87.1 Hypo-osmolality and hyponatremia; F10.231 Alcohol dependence with withdrawal delirium; I50.32 Chronic diastolic (congestive) heart failure; J96.21 Acute and chronic respiratory failure with hypoxia; J20.9 Acute bronchitis, unspecified; F17.210 Nicotine dependence, cigarettes, uncomplicated; N40.0 Benign prostatic hyperplasia without lower urinary tract symptoms; I25.10 Atherosclerotic heart disease of native coronary artery without angina pectoris; G89.29 Other chronic pain; E66.01 Morbid (severe) obesity due to excess calories; K21.9 Gastro-esophageal reflux disease without esophagitis; E78.2 Mixed hyperlipidemia; I11.0 Hypertensive heart disease with heart failure; F32.9 Major depressive disorder, single episode, unspecified; M54.9 Dorsalgia, unspecified; G62.9 Polyneuropathy, unspecified; K57.90 Diverticulosis of intestine, part unspecified, without perforation or abscess without bleeding; J43.9 Emphysema, unspecified; G43.909 Migraine, unspecified, not intractable, without status migrainosus; T51.91XA Toxic effect of unspecified alcohol, accidental (unintentional), initial encounter; Y92.89 Other specified places as the place of occurrence of the external cause; Z91.81 History of falling; Z86.711 Personal history of pulmonary embolism; I25.2 Old myocardial infarction; Z99.81 Dependence on supplemental oxygen; Z85.46 Personal history of malignant neoplasm of prostate; Z92.3 Personal history of irradiation; Z87.01 Personal history of pneumonia (recurrent); Z98.52 Vasectomy status; Z71.41 Alcohol abuse counseling and surveillance of alcoholic; Z71.6 Tobacco abuse counseling

== ENCOUNTER 2018-12-15 15:37 | Inpatient (IN) | payer OTHER, MEDICAID ==
[~2018-12-15] VITALS: Ht 177.8 cm; Wt 138.0 kg
--- NOTE | ~2018-12-15 | PR ---
[place], [place] PROGRESS NOTE NAME: RAFAEL RATLIFF UNIT #: [id number] ROOM: 520 DOCTOR: SUKH JOEL MD BIRTHDATE: [birth year] DOS: 12/21/2018 SUBJECTIVE: The patient's breathing has improved. OBJECTIVE: VITAL SIGNS: Blood pressure 148/73, heart rate of 83 beats per minute, breathing 20 times per minute, temperature 98.2 degrees Fahrenheit, morbidly obese. GENERAL APPEARANCE: Generalized weakness. HEENT AND NECK: Exam within normal limits. CARDIOVASCULAR SYSTEM: Heart rate is regular in rate and rhythm. S1 and S2 normally audible. LUNGS: Decreased breath sounds all over and expiratory wheezing on lung auscultation. ABDOMEN: Soft, nontender. No obvious organomegaly. Bowel sounds are present. EXTREMITIES: 2+ leg and pedal edema. IMPRESSION: 1. The patient with acute over chronic respiratory failure, already being followed by polysilicon preparation worker, Dr. Hannah, for acute over chronic respiratory failure, has severe underlying disease, and I recommended [facility] facility for continued rehabilitation, but the patient is refusing, and wants to go home. The patient was told that his life is at risk because he may stop breathing, because of his severe lung disease and the patient says he understands that he can if he leaves the hospital against medical advice. I also offered the patient hospice care and he seemed to partly agreeing to it, but he is in a hurry to go home. Acute exacerbation of chronic obstructive pulmonary disease treated with bronchodilators, oxygen, corticosteroids, and antibiotics. The patient remains on IV Zosyn. 2. Recent acute respiratory failure, which required intubation and mechanical ventilation. 3. Morbid obesity. The patient working with dietary. 4. Advance disability and the patient working with physical therapy. 5. History of significant alcohol abuse. The patient treated with Librium in recent past and now he is on thiamine. 6. Coronary artery disease of the benton vessels without chest pains. 7. Moderate protein-calorie malnutrition. The patient is working with dietary. [place], [place] PROGRESS NOTE NAME: RAFAEL RATLIFF UNIT #: [id number] ROOM: 520 DOCTOR: SUKH JOEL MD BIRTHDATE: [birth year] SUKH JOEL MD CM:PNARACELI [id number] SUKH JOEL MD 12/22/18 0055 interface
--- NOTE | ~2018-12-15 | CON ---
[place], [place] REPORT OF CONSULTATION NAME: RAFAEL RATLIFF UNIT #: [id number] ROOM: [facility] DOCTOR: LADY ZAMORA MD BIRTHDATE: [birth year] DOS: 12/16/2018 CARDIOLOGY CONSULTATION REASON FOR CONSULTATION: Elevated troponin. HISTORY OF PRESENT ILLNESS: The patient is a 63-year-old gentleman was admitted for progressive shortness of breath and hypoxia and requiring intubation due to respiratory failure and he noted to have elevated troponin and a Cardiology consulted. Apparently, he has no chest pains at home. The patient was recently discharged from the hospital. History was obtained from the chart since the patient is on ventilator and sedated and there is no the family at bedside. Per ER documentation, there are no chest pains, palpitations, or syncope. REVIEW OF SYSTEMS: Review of systems are limited due to the patient was on ventilator and sedated and no family at bedside. PAST MEDICAL HISTORY: 1. COPD. 2. Morbid obesity. 3. Chronic pain syndrome. 4. History of coronary artery disease. 5. Peripheral neuropathy. 6. Benign prostatic hypertrophy. PAST SURGICAL HISTORY: Noncontributory. SOCIAL HISTORY: The patient does smoke, does drink significant alcohol, but no illicit drugs. FAMILY HISTORY: Noncontributory. ALLERGIES: No known drug allergies. HOME MEDICATIONS: Reviewed. PHYSICAL EXAMINATION: VITAL SIGNS: Blood pressure 140/83, pulse 84, respiration is 20. Weight 137.9 kilos, BMI 43.6. GENERAL: The patient was on ventilator and sedated. NECK: Supple, no distended neck veins. No carotid bruit. CHEST: Symmetrical. LUNGS: Few scattered rhonchi, diminished at bases. HEART: Regular rhythm, no S3. ABDOMEN: Morbidly obese, nontender. Bowel sounds normal. EXTREMITIES: Showed 2+ edema. Distal pulses are fair. SKIN: Warm and dry. No cyanosis, no clubbing. RECTAL: Deferred. GENITOURINARY: Deferred. NEUROLOGIC: Unable to assess since the patient was sedated and on ventilator. [place], [place] REPORT OF CONSULTATION NAME: RAFAEL RATLIFF UNIT #: [id number] ROOM: [facility] DOCTOR: LADY ZAMORA MD BIRTHDATE: [birth year] MEDICATIONS AND EKG: Reviewed. 2D echo from 12/11/2018 showed EF of 65-70%, technically good study. LABORATORY DATA: Pertinent labs include hemoglobin 10.5. Cardiac troponins are slightly elevated at 0.031, 0.065, 0.062, 0.11, and 0.10. His lipid profile from November showed total cholesterol 146, LDL 81, and HDL 53. IMPRESSION: 1. Borderline elevation in troponin due to demand ischemia from mild respiratory failure, and hypoxia. 2. Respiratory failure, on mechanical ventilation. 3. Acute on chronic heart failure with preserved ejection fraction, EF 65-70% by echo 12/11/2018. 4. Hypertension. 5. Morbid obesity. 6. Anemia. 7. Alcohol use. RECOMMENDATIONS: 1. Continue diuretics and monitor daily weights and ins and outs. 2. Continue aspirin and resume his home statin when he can tolerate p.o. medications. 3. Monitor heart rate, blood pressure, and hemoglobin. 4. I would recommend Lexiscan stress test when he is clinically stable. 5. No family at bedside at the time of examination. LADY ZAMORA MD CM:CONSTR:REPORT OF CONSULTATION [id number] 12/17/18 0143 interface
--- NOTE | ~2018-12-15 | PR ---
[place], [place] PROGRESS NOTE NAME: [facility]FF [id number] UNIT #: [id number] ROOM: 520 DOCTOR: EFRAIN GARY MD,AHSAN BIRTHDATE: [birth year] DOS: 12/20/2018 SUBJECTIVE: The patient noted comfortable at this time, sitting on the chair this morning of assessment in his room, transferred from intensive care unit to telemetry floor. Denies symptoms of chest pain, fever or chills. Respiratory symptoms had been continued to be resolving. OBJECTIVE: VITAL SIGNS: Normal temperature, respiratory rate 20, heart rate of 97, blood pressure 142/77, pulse oxygen saturation recorded as 95% saturation on 4 liters nasal cannula at rest. HEENT: Head was atraumatic, chronic obesity. NECK: Supple. CARDIOVASCULAR: S1, S2 audible. LUNGS: Without any crackles. Scattered expiratory wheezing. ABDOMEN: Soft, obese, nontender. Bowel sounds present. EXTREMITIES: No acute change. LABORATORY DATA: CMP done on 12/20/2018 normal BUN and creatinine. CBC, WBC count normal, hemoglobin 10.5. IMPRESSION: 1. Resolving acute exacerbation of chronic obstructive pulmonary disease, [id number] hypercapnic and hypoxic respiratory failure. 2. Suspected obstructive sleep apnea disorder. Acute tracheobronchitis with ESBL. PLAN OF MANAGEMENT: Continue antibiotics, bronchodilators, physical therapy, other plan of management including the BiPAP. AHSAN ZUNIGA MD CM:PNTRANS [id number] AHSAN GARY MD 12/20/18 1540 interface
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
--- NOTE | ~2018-12-15 | CON ---
[place], [place] REPORT OF CONSULTATION NAME: [id number] UNIT #: [id number] ROOM: [facility] DOCTOR: AHSAN DELGADO MD BIRTHDATE: [birth year] DOS: 12/16/2018 PULMONARY CRITICAL CARE, EVALUATION, AND MANAGEMENT CONSULTATION REQUESTED BY: Dr. Fragoso REASON FOR CONSULTATION: Management of current acute respiratory failure, on mechanical ventilator. HISTORY OF PRESENT ILLNESS: A 63-year-old white male patient, known to me, with history of chronic hypoxic respiratory failure and COPD. The patient is also currently suspected sleep apnea disorder, in the process of getting assessment, the assessment has not been completed. The patient had been to this hospital recently on 12/11/2018 and discharged home with significant improvement in respiratory symptoms noted. The patient had a culture of the sputum that was done prior to the discharge, which was reported yesterday as ESBL producing heavy growth of gram-negative bacilli. The patient was noted with psychogenic polydipsia with hyponatremia and also alcohol use resulting in hyponatremia. The patient has been brought to the hospital because of change in mental status. Somehow, the patient has pressed his Lifeline and it was activated. He was seen by EMS, noted with oxygen desaturation at 80% with decreased responsiveness. The patient was not noted verbal. He has been brought to the hospital where he has been assessed with arterial blood gases. The patient has been intubated and started on mechanical ventilation in the Emergency Room and currently admitted to the hospital for further care. He has been noted with moderate amount of secretion, which has been produced orally and also suctioned out from the endotracheal tube by nursing staff. The patient has been noted on bronchodilator and mechanical ventilation continued on the night of admission. He has not required any vasopressor therapy. The patient has not required any vasopressor support or intravenous fluids. REVIEW OF SYSTEMS: Certainly cannot be completed since the patient is currently intubated on mechanical ventilation. PAST MEDICAL HISTORY: Known as: 1. End-stage chronic obstructive pulmonary disease. 2. Chronic hypoxic respiratory failure. 3. Chronic hypercapnic respiratory failure. 4. Prostate cancer, treated in 2013. 5. Suspected obstructive sleep apnea disorder. 6. Abdominal aortic aneurysm of 5 cm, untreated. 7. Congestive heart failure, diastolic dysfunction. 8. Essential hypertension. 9. Severe morbid obesity. SOCIAL HISTORY: The patient is . He has 2 children. He lives at home. Denies history of alcohol use or illicit drug use. Drinks 10 beers per week at home, not sure if he was drinking this time or not after discharge from the hospital. Smoking was also noted as one-half pack of cigarettes per day, has been not smoking cigarettes from previous admission. [place], [place] REPORT OF CONSULTATION NAME: RAFAEL RATLIFF UNIT #: [id number] ROOM: [facility] DOCTOR: KENNETH DELGADO MDM BIRTHDATE: [birth year] PAST SURGICAL HISTORY: 1. Circumcision. 2. Arthroscopy of left knee. 3. Prostate surgery. 4. Therapeutic bronchoscopy. FAMILY HISTORY: Father at 80 years old, unknown medical illnesses. Mother at 85 years old, unknown medical illnesses. MEDICATIONS: Current medications administered are thiamine, loratadine, lisinopril, Cymbalta, DuoNeb, Flomax, hydralazine, and Lyrica. DRUG ALLERGIES: Noted as no known drug allergies. PHYSICAL EXAMINATION: GENERAL: This is a 63-year-old male patient, who has been currently noted awake and alert without any distress. Height of 5 feet 10 inches, weight of 304 pounds, BMI 43.6. VITAL SIGNS: Normal temperature since admission, respiratory rate of 13-20, heart rate 67-93, blood pressure of 147/78 to 148/69. HEENT: The patient is currently intubated. Endotracheal tube is in place. NECK: Supple. Head was atraumatic. CARDIOVASCULAR: S1 and S2 audible. LUNGS: Generally decreased breath sounds with expiratory wheezing. No crackles. ABDOMEN: Soft. Chronic obesity. Bowel sounds present. EXTREMITIES: Chronic changes with mild edema. VISIBLE SKIN: No lesions or rashes. MUSCULOSKELETAL: Without any obvious deformities. CENTRAL NERVOUS SYSTEM: Could not be done since the patient is currently intubated and sedated. LABORATORY AND DIAGNOSTIC DATA: CBC that was done yesterday in the Emergency Room, WBC count of 13.3, hemoglobin 12.6, platelet count normal. PT/PTT yesterday in the Emergency Room was normal. CMP in the Emergency Room yesterday, normal BUN and creatinine, sodium 128, CO2 was 35. Troponin is noted minimally elevated, ranging from 0.119 to 0.109. CBC this morning, WBC count normal, hemoglobin 10.8, platelet count was normal. BMP this morning, normal BUN and creatinine, sodium 131, chloride 93. Blood culture from the previous admission on 12/10/2018 with no bacterial growth. The heavy growth was noted on the culture of the sputum on 12/13/2018 as ESBL. Arterial blood gas that was done yesterday in the evening as the patient was admitted to Intensive Care Unit, pH of 7.31, pCO2 65, pO2 80 on 30% oxygen. Arterial blood gas that was done this morning, pH of 7.45, pCO2 47, pO2 71.4 on 30% oxygen. Endotracheal aspirate culture taken today for Gram stain, a few epithelial cells, moderate gram-positive cocci in pairs, chains and clusters, moderate white blood cell, a few gram-positive bacilli, pending culture results. Respiratory virus panel on previous admission on 12/11/2018 was negative. Chest x-ray that was done was noted with endotracheal tube in appropriate position; there was no visible area [place], [place] REPORT OF CONSULTATION NAME: RAFAEL RATLIFF UNIT #: [id number] ROOM: [facility] DOCTOR: EFRAIN GARY MD,[facility] BIRTHDATE: [birth year] of consolidation, infiltration, or finding of congestive heart failure; NG tube in the stomach, ET tube 4 cm above the nelly level. IMPRESSION: 1. The patient has been admitted to the hospital with unresponsiveness secondary to acute hypercapnic and hypoxemic respiratory failure. 2. Recurrent mild hyponatremia. Whether alcohol intake is continued by the patient is unknown. 3. The patient with acute exacerbation of chronic obstructive pulmonary disease with ESBL tracheobronchitis with excessive secretion productions. 4. Morbid obesity. 5. Suspected obstructive sleep apnea disorder. 6. Chronic heavy nicotine abuse as well. PLAN OF MANAGEMENT: All the ventilator bundle management has been initiated. The patient is started on Lovenox as well as chlorhexidine solution. He was also ordered midazolam 5 mg q. hour p.r.n. for additional sedation with continuation of Diprivan. Therapeutic bronchoscopy is planned to be done in the morning. He was started on IV Zosyn extended infusions. Continuation of bronchodilator and they were changed from DuoNeb to albuterol sulfate for the management of COPD exacerbation. Pulmicort Respules were also started. The patient, at this time, would not require corticosteroids unless he is noted with worsening of wheezing. Some change in mechanical ventilation to be done with followup arterial blood gases. Nutrition support will be started with Pulmocare at 20 mL an hour, closely monitor for refeeding syndrome because of history of COPD and alcohol, administration is at high risk for that. Other therapy, plan of management with additional treatment change will be ordered based on progression of the illness. Total time in pulmonary critical care, evaluation, and management was 42 minutes. AHSAN ZUNIGA MD CM:CONSTR:REPORT OF CONSULTATION 1514 12/17/18 0441 interface
--- NOTE | ~2018-12-15 | EKG ---
[place], [place] ELECTROCARDIOGRAM REPORT NAME: RAFAEL RATLIFF UNIT #: [id number] ROOM: [facility] DOCTOR: JP DRAFT REPORT BIRTHDATE: [birth year] [facility] Test Date: 2018-12-16 Test Time: 10:03:49 Pat Name: RAFAEL RATLIFF Department: Room: [place] [address] Gender: [facility] Attendant: Barbara Carrizales : 1955 Requested By: AHSAN GARY Order Number: [id number] Reading MD: Ahsan Hannah MD Measurements Intervals [place] Rate: 67 P: 1 OR: 138 QRS: 66 QRSD: 90 T: 62 QT: 413 QTc: 436 Interpretive Statements Sinus rhythm Abnormal R-wave progression, early transition Minimal ST elevation, inferior leads Compared to ECG 12/10/2018 19:07:38 No significant changes Electronically Signed On 12-17-2018 11:49:29 PDT by Ahsan Hannah MD CM:EKGRPT:ELECTROCARDIOGRAM REPORT [id number] AHSAN GARY MD EPIPHANY DRAFT REPORT AHSAN GARY MD
--- NOTE | ~2018-12-15 | PR ---
[place], [place] PROGRESS NOTE NAME: [facility]LIFF [id number] UNIT #: [id number] ROOM: [facility] DOCTOR: EFRAIN GARY MD,AHSAN BIRTHDATE: [birth year] DOS: 12/19/2018 PULMONARY PROGRESS NOTE SUBJECTIVE: The patient is noted comfortable at this time, without any acute distress. He was liberated from mechanical ventilator yesterday, the patient was noted extremely agitated yesterday at times. BiPAP had been used for a short period of time by the patient. He was pulling it off. He was given Haldol and Ativan. Later on, BiPAP was applied for a few hours. This morning, the patient is noted awake, alert and oriented, cooperative on examination and apologizing about his behavior yesterday. He stated that he could not remember all the episodes but he has been told how agitated he was. He has been sitting on the chair this morning. The coughing has been decreasing. There were no symptoms of chest pain reported by the patient. Denied any symptoms of fever or chills. Denies symptoms of headache or diplopia. Denies any pain of the lower extremities. Remaining systems were reviewed with the patient, they were noted all negative. OBJECTIVE: VITAL SIGNS: Which were recorded showed the temperature recorded as normal, respiratory rate recorded as 14-16, heart rate 67-75, blood pressure 134/50-150/55. The pulse oxygen saturation recorded as 97% saturation with BiPAP, with Optiflow about 50% oxygen 98% saturation recorded this morning. HEENT: Chronic severe obesity. Head is atraumatic. Eyes nonicterus. NECK: Supple. CARDIOVASCULAR: S1 and S2 audible. LUNGS: Noted decreased breath sounds, scattered wheezing. No crackles. ABDOMEN: Soft, obese. EXTREMITIES: Chronic changes. MUSCULOSKELETAL: Without acute deformities. CENTRAL NERVOUS SYSTEM: At this time fully intact. No focal deficit. LABORATORY DATA: Culture of the bronchial washings noted as normal gary at this time. Arterial blood gas that was done yesterday noted a pH of 7.43, pCO2 of 48, pO2 of 65 on 4 liters nasal cannula. Arterial blood gas was attempted this morning, was clotted. Further attempts were not made and they were discontinued. CMP that was done yesterday noted normal BUN and creatinine, CO2 of 34. Total protein 5.1, albumin 2.4. DIAGNOSTIC DATA: Chest x-ray from yesterday does not show an acute pulmonary infiltration at that time. IMPRESSION: 1. Acute severe tracheobronchitis, [id number] hypercapnic and hypoxic respiratory failure. 2. Severe morbid obesity as well. 3. Agitated behavior, improved at the present time. 4. The patient with obstructive sleep apnea disorder diagnosis in progress, requires diagnostic sleep study. 5. Mild anemia. [place], [place] PROGRESS NOTE NAME: RA[facility]EL RATLIFF [facility]: [id number] UNIT #: [id number] ROOM: [facility] DOCTOR: EFRAIN GARY MD,AHSAN BIRTHDATE: [birth year] 6. ESBL tracheobronchitis. Culture of the bronchial washings noted as normal gary. PLAN OF MANAGEMENT: Continue IV Zosyn, extended infusion. Continue steroids and bronchodilators. BiPAP, use as tolerated. Other therapy plan of management. Other treatment changes will be made based on progression of the illnesses. His all psychiatric medications have been also ordered and started. The patient was also ordered a consultation from Dr. Pineda by Dr. Fragoso. The patient will be kept in the Intensive Care Unit for the next 24 hours and then will be transferred to the telemetry floor depending on further stability and improvement. Past family, social, surgical history all reviewed and noted unchanged since my last initial assessment on this hospitalization. AHSAN ZUNIGA MD CM:PNTRANS [id number] AHSAN GARY MD 12/20/18 0235 interface
--- NOTE | ~2018-12-15 | EKG ---
[place], [place] ELECTROCARDIOGRAM REPORT NAME: RAFAEL RATLIFF UNIT #: [id number] ROOM: [facility] DOCTOR: JP DRAFT REPORT BIRTHDATE: [birth year] [facility] Test Date: 2018-12-15 Test Time: 16:18:23 Pat Name: RAFAEL RATLIFF Department: Room: 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: Ketty Cook : 1955 Requested By: DARLENE SANTIAGO DNP Order Number: [id number] Reading MD: Emily Satnacruz Measurements Intervals [place] Rate: 82 P: 71 ID: [id number] QRS: 90 QRSD: 102 T: 55 QT: 359 QTc: 420 Interpretive Statements Sinus rhythm Ventricular premature complex Borderline right axis deviation Compared to ECG 12/10/2018 19:07:38 Ventricular premature complex(es) now present ST (T wave) deviation no longer present Electronically Signed On 12-16-2018 11:00:16 PDT by Emily Santacruz CM:EKGRPT:ELECTROCARDIOGRAM REPORT [id number] 1100 DARLENE TRAMMELL DRAFT REPORT DARLENE SANTIAGO DNP
--- NOTE | ~2018-12-15 | PR ---
[place], [place] PROGRESS NOTE NAME: RAFAEL RATLIFF [facility] #: [id number] UNIT #: [id number] ROOM: 520 DOCTOR: EFRAIN GARY MD,AHSAN BIRTHDATE: [birth year] DOS: 12/18/2018 PULMONARY CONSULTATION, EVALUATION AND MANAGEMENT SUBJECTIVE: The patient remains on mechanical ventilator, had bronchoscopy completed yesterday, and continuing with feeding as well. He has not been noted with any electrolyte imbalance or evidence of refeeding syndrome. The patient's potassium was checked yesterday and this morning as well. Feeding was well tolerated with PulmoCare. He was continued on intravenous antibiotics for medical management of ESBL infection which was only noted as tracheobronchitis, pneumonia was excluded with CT scan of the chest that was completed yesterday. There was no evidence of pulmonary embolism as well. CT scan was done with CTA protocol. At this time, the patient has been sedated with intravenous Diprivan, comfortable mental status noted, opening his eyes with reduction of the sedation. Sedation was not discontinued because of the patient's agitated behavior. He has been continuing with assist control and volume control mechanical ventilation. OBJECTIVE: VITAL SIGNS: Normal temperature - 99.4 degrees Fahrenheit, respirations 21-20, heart rate 79-67, blood pressure 108/40-138/65. The pulse oxygen saturation was recorded as 95% saturation on 30% oxygen supplementation, assist control and volume control mechanical ventilation. HEENT: The patient is currently intubated orally. Orogastric tube is in place. NECK: Supple and obese. CARDIOVASCULAR: S1 and S2 audible. LUNGS: General reduction in breath sounds. Mild expiratory wheezing. No crackles. ABDOMEN: Soft with chronic severe obesity. EXTREMITIES: Mild edema. VISIBLE SKIN: No new lesions or rashes. MUSCULOSKELETAL: Without any deformity. CENTRAL NERVOUS SYSTEM: Apparently in general grossly intact. Exam is limited. LABORATORY DATA: Arterial blood gas this morning - pH is 7.46, pCO2 of 45, pO2 of 74 on 30% oxygen. Endotracheal aspirate - moderate growth of Gram-negative bacilli. Respiratory culture - no bacterial growth preliminarily; final culture results were pending. DIAGNOSTIC DATA: CT scan of chest which was done shows small bilateral pleural fluid, without any acute pulmonary infiltration, evidence of pneumonia, consolidation or any pulmonary nodules. Small areas of atelectasis in the lower lungs were noted. IMPRESSION: The patient who has been currently noted with: 1. Acute severe respiratory failure with acute exacerbation of chronic obstructive pulmonary disease, on intubation with mechanical ventilation, hypercarbia as well. 2. Morbid obesity. 3. Acute exacerbation of chronic obstructive pulmonary disease as well. [place], [place] PROGRESS NOTE NAME: RAFAEL RATLIFF UNIT #: [id number] ROOM: [facility] DOCTOR: EFRAIN GARY MD,AHSAN BIRTHDATE: [birth year] 4. Abnormal troponin, significance remains unknown. 5. Obstructive sleep apnea disorder suspected with pending diagnostic sleep study. PLAN OF THERAPY: Continuation of bronchodilators and oxygen supplementation. Discontinue sedation. Start the patient on CPAP at 5, pressure support of 10 for two hours with arterial blood gases to be assessed. If noted adequate ventilation and oxygenation, the patient will be considered for liberation from mechanical ventilation; post liberation, BiPAP will be used. Continue antibiotics, extended infusion. Continue ventilator bundle management, current nutritional support. Other therapy plan of management. DVT prophylaxis. Additional treatment changes will be ordered based on the progression of his illness. Total time in pulmonary/critical care evaluation and management was 36 minutes. AHSAN ZUNIGA MD CM:PNTRANS [id number] AHSAN GARY MD 01/01/19 0824 interface
--- NOTE | ~2018-12-15 | PR ---
[place], [place] PROGRESS NOTE NAME: RAFAEL RATLIFF UNIT #: [id number] ROOM: [facility] DOCTOR: SUKH JOEL MD BIRTHDATE: [birth year] DOS: 12/16/2018 SUBJECTIVE: The patient intubated and on mechanical ventilation, sedated. OBJECTIVE: VITAL SIGNS: Blood pressure 152/65, heart rate 87 beats per minute, breathing 20 times per minute, temperature of 98.2 degrees Fahrenheit. GENERAL APPEARANCE: The patient is alert and oriented x 3, in no visible distress. Morbid obesity. Intubation and mechanical ventilation. HEENT AND NECK: Exam within normal limits. CARDIOVASCULAR SYSTEM: Heart rate is regular in rate and rhythm. S1 and S2 normally audible. LUNGS: Clear to auscultation. ABDOMEN: Soft, nontender. No obvious organomegaly. Bowel sounds are present. EXTREMITIES: Without significant cyanosis or edema. IMPRESSION: 1. Acute respiratory failure. The patient intubated and remains on mechanical ventilation in the ICU, being treated with corticosteroids, antibiotics, oxygen and being followed closely by precision lens grinder apprentice, Dr. Hannah. 2. Minimally elevated cardiac enzymes are normalizing probably secondary to hypoxemic respiratory failure. Cardiology on consult. 3. Morbid obesity. Dietary to follow. The patient to be fed with NG tube feedings, which will also be used for medications. We will keep head end elevated at 30 degrees. 4. Acute exacerbation of chronic obstructive pulmonary disease leading to respiratory failure, being treated as mentioned above. 5. History of alcohol abuse. The patient remains on thiamine, recently treated with Librium. 6. Coronary artery disease of the [place] vessels without chest pains. Minimal elevation of troponin I levels normalizing now. 7. Advance disability and adult failure to thrive and morbid obesity. We are taking bedsore precautions. The patient to work with physical therapy and dietary. [place], [place] PROGRESS NOTE NAME: RAFAEL RATLIFF UNIT #: [id number] ROOM: [facility] DOCTOR: SUKH JOEL MD BIRTHDATE: [birth year] SUKH JOEL MD CM:DAVIS Jackson: 12/16/18 [id number] SUKH JOEL MD 12/16/18 1046 interface
--- NOTE | ~2018-12-15 | PR ---
[place], [place] PROGRESS NOTE [id number] UNIT #: [id number] ROOM: 520 DOCTOR: EFRAIN GARY MD,AHSAN BIRTHDATE: [birth year] DOS: 12/21/2018 PULMONARY PROGRESS NOTE SUBJECTIVE: The patient was noted comfortable at this time, resting on the bed without any acute distress. He has been denying any symptoms of chest pain. The coughing has been gradually subsiding, but not completely resolved. OBJECTIVE: VITAL SIGNS: Normal temperature, respiratory rate 18, heart rate 78, blood pressure 160/80. The pulse oxygen saturation recorded as 97% saturation. HEENT: Examination shows head was atraumatic. Eyes nonicterus. NECK: Supple. CARDIOVASCULAR: S1, S2 is audible. LUNGS: The patient with decreased breath sounds, questionable wheezing. There were no crackles. ABDOMEN: Soft, obese, nontender. Bowel sounds present. EXTREMITIES: Without any acute edema. IMPRESSION: 1. The patient's extended-spectrum beta-lactamase, tracheobronchitis, acute exacerbation of chronic obstructive pulmonary disease, currently responding to treatment. 2. Improving acute on chronic hypercapnic hypoxic respiratory failure. PLAN OF MANAGEMENT: 1. Continue IV Zosyn for this patient on IV Zosyn administration. 2. 24 hours home discharge could be made. In the meantime, continue current therapy, plan of management as in progress. Usual care. AHSAN ZUNIGA MD CM:PNTRANS [id number] AHSAN GARY MD 01/01/19 0825 interface
--- NOTE | ~2018-12-15 | PR ---
[place], [place] PROGRESS NOTE NAME: RAFAEL RATLIFF [facility] #: [id number] UNIT #: [id number] ROOM: [facility] DOCTOR: EFRAIN GARY MD,AHSAN BIRTHDATE: [birth year] DOS: 12/17/2018 PULMONARY CRITICAL CARE EVALUATION AND MANAGEMENT SUBJECTIVE: The patient remains on mechanical ventilator, sedated with a combination of Diprivan and Versed. The patient states it was noted adequate. He has been continued on intravenous extended Zosyn infusion for Klebsiella pneumoniae, which was ESBL species. He has been started on feeding as well, which he tolerated until midnight the feeding. The patient remains on hold for bronchoscopy to be done today in the OR. He has not been noted any acute hemodynamic instability. The patient remains afebrile as well. He was still noted copious secretion, which has been suctioned out from the endobronchial tree by the respiratory and nursing staff. The requirement of mechanical ventilation remains unchanged from yesterday as well as the same amount of oxygen supplementation use as previously. REVIEW OF SYSTEMS: Could not be completed. OBJECTIVE: VITAL SIGNS: Normal temperature, respiratory rate 20-16, heart 79-84, blood pressure 140/62-153/75. Pulse oxygen saturation recorded on 20% oxygen as 94% saturation. HEENT: The patient remains orally intubated. Endotracheal tube in place. NECK: Supple and obese. CARDIOVASCULAR: S1, S2 audible. LUNGS: Noted moderate decreased breath sounds in the lungs was noted bilaterally. ABDOMEN: Soft, nontender, and obese. EXTREMITIES: The patient was noted with chronic obesity finding. SKIN: Visible skin, no lesions or rashes. MUSCULOSKELETAL: Without any acute deformities. CENTRAL NERVOUS SYSTEM: The patient was currently sedated, but noted with improvement in mental status. The patient is opening his eyes with reduced sedation. LABORATORY DATA: Arterial blood gas this morning, pH of 7.48, pCO2 of 47, pO2 of 93.4, 30% oxygen. The blood culture showed no bacterial growth on 12/15/2018. BMP this morning has normal BUN and creatinine. Glucose was normal. CO2 of 35. CBC, WBC count normal, hemoglobin 10.5 and hematocrit 31.9, platelet count 152,000. The phosphorus level was pending. Chest x-ray this morning, the patient's endotracheal tube about 4.5 cm above the nelly level. NG tube in the stomach. No gross visible pulmonary infiltration. Endotracheal aspiration on admission on 12/15/2018 was showing moderate growth of gram-negative bacilli. IMPRESSION: 1. The patient will be currently admitted to the hospital. The patient noted with extended-spectrum beta-lactamase, tracheobronchitis, rule out pneumonia. 2. Acute hypercapnic-hypoxemic respiratory failure. 3. Respiratory alkalosis noted with current mechanical ventilation as well. [place], [place] PROGRESS NOTE NAME: RAFAEL RATLIFF UNIT #: [id number] ROOM: [facility] DOCTOR: EFRAIN GARY MD,AHSAN BIRTHDATE: [birth year] 4. Morbid obesity as well. 5. History of obstructive sleep apnea disorder suggested as well. PLAN OF MANAGEMENT: Continue current IV Zosyn as well as the bronchodilators. Steroids will not be needed. There was no significant bronchospasm. The treatment with bronchodilator will suffice. Proceed with fiberoptic bronchoscopy. Nutrition support will be resumed. Obtain the phosphorus level to assess possibility of refeeding syndrome. CT scan of the chest will be done with IV contrast as well to assess the pulmonary artery and lung parenchyma as well. Other therapy changes in the treatment will be ordered based on the progression of his illness. Total time in pulmonary critical care evaluation and management was 34 minutes. AHSAN ZUNIGA MD CM:PNARACELI [id number] AHSAN GARY MD 12/18/18 0029 interface
--- NOTE | ~2018-12-15 | PR ---
[place], [place] PROGRESS NOTE NAME: RAFAEL RATLIFF UNIT #: [id number] ROOM: [facility] DOCTOR: SUKH JOEL MD BIRTHDATE: [birth year] DOS: 12/18/2018 SUBJECTIVE: The patient is on CPAP, now still intubated and on mechanical ventilation. OBJECTIVE: GENERAL APPEARANCE: The patient is alert and oriented x 3, in no visible distress. Morbid obesity. The patient sedated because of agitation, intubation, and on mechanical ventilation. VITAL SIGNS: Blood pressure 175/79, heart rate of 79 beats per minute, breathing 21 times per minute, afebrile, 98.8 degrees rectal temperature today. HEENT AND NECK: Exam within normal limits. CARDIOVASCULAR SYSTEM: Heart rate is regular in rate and rhythm. S1 and S2 normally audible. LUNGS: Clear to auscultation. ABDOMEN: Soft, nontender. No obvious organomegaly. Bowel sounds are present. EXTREMITIES: Without significant cyanosis or edema. IMPRESSION: 1. Acute exacerbation of chronic obstructive pulmonary disease with acute over chronic respiratory failure. The patient is on CPAP now by Dr. Hannah and he became very agitated when taken off sedation, so he is being sedated again. 2. Morbid obesity. The patient worked with dietary and he is on NG tube feedings right now. 3. Advanced disability, morbid obesity and adult failure to thrive. The patient is working with physical therapy and dietary. 4. History of significant alcohol abuse, treated with Librium recently. No signs of delirium tremens. 5. Coronary artery disease of the [place] vessels without chest pains, evaluated by Cardiology. 6. Moderate protein-calorie malnutrition. SUKH JOEL MD CM:PNTRANS 1131 [id number] SUKH JOEL MD 12/18/18 1214 interface
--- NOTE | ~2018-12-15 | CON ---
[place], [place] REPORT OF CONSULTATION NAME: [facility]ATLIFF [id number] UNIT #: [id number] ROOM: 520 DOCTOR: BENNY GAFFNEY DPM BIRTHDATE: [birth year] DOS: 12/21/2018 PODIATRY CONSULTATION SUBJECTIVE: This patient is seen for care of thickened, painful toenails on both feet. He states he has had several of his toenails removed in the past. He denies being diabetic. PAST MEDICAL HISTORY: Positive for COPD, neuropathy, bipolar disorder, respiratory disease and hypertension. CURRENT MEDICATIONS: Include Librium, Seroquel, Lipitor, Lovenox, thiamine, Zosyn, Claritin, Ventolin, Flomax, Lyrica, and Apresoline. ALLERGIES: The patient has no known drug allergies. OBJECTIVE: Upon lower extremity physical examination, DP pedal pulses are palpable and PT pedal pulses mildly decreased. Skin temperature is cool to toes. CFT is 2 seconds to all digits. Dependent edema is seen bilaterally with some varicosities and pigment changes noted. There is decreased hair growth noted bilaterally. Sensation is diminished bilaterally. Muscle strength appears full without any deficits. Nails 2 through 5 on the left foot and 4 and 5 on the right foot are extremely elongated, thick, brittle, dystrophic with subungual debris present. No ulcerations are seen on either foot. No blisters or macerations. ASSESSMENT: Venous insufficiency with edema, onychomycosis 2 through 5 left, 4 and 5 right, mild peripheral arterial disease. PLAN: Consult is performed. Continue with Tubigrip for peripheral edema. Manual debridement of mycotic nails bilaterally in length and thickness to the level of the nailbed to reduce hazards such as infection. FOLLOWUP: With the patient in 9 weeks as an outpatient for continued foot care. Thank you for the opportunity to take part in care of this patient. BENNY GAFFNEY DPM CM:CONSTR:REPORT OF CONSULTATION 1151 12/22/18 0620 interface
--- NOTE | ~2018-12-15 | CON ---
[place], [place] REPORT OF CONSULTATION NAME: RAFAEL RATLIFF UNIT #: [id number] [facility]OM: [facility] DOCTOR: JACOBO FRANKLIN MD BIRTHDATE: [birth year] DOS: 12/19/2018 CHIEF COMPLAINT: "I am all messed up." HISTORY OF PRESENT ILLNESS: This is a 63-year-old white male with a lengthy history of COPD, admitted now to the ICU due to elevated troponin 1 and metabolic encephalopathy as well as an exacerbation of his COPD. Per the patient's report, he has a lengthy history of bipolar disorder as well as significant alcohol dependence. He reports severe mood swings and irritability, poor sleep and only sleeps when he was absolutely drunk. He wakes up; however, tired without energy and with increased irritability. He does admit to having severe anger issues. He has not been taking care of his ADLs at home and his drinking has spiraled out of control. He does report being on multiple psychiatric medications, but for the most part reports that they have either been ineffective or he has been noncompliant. He is, however, willing to try something now while he remains in the hospital. MENTAL STATUS: He is alert and oriented. Mood does seem to be somewhat labile, but he was redirectable with me. There was no agitation or aggression directed towards me. There was no hypomania or marco. He did not endorse any suicidal thoughts, homicidal thoughts, or self-injurious thoughts and memory for the most part was relatively fully intact. DIAGNOSIS: Bipolar type 2, rule out type 1. PLAN: I will discontinue his current psychotropic regimen, which includes Cymbalta and trazodone in lieu of Seroquel 50 mg twice daily and 100 mg at night. I would recommend that once he is medically stable that he seeks psychiatric followup somewhere in the community to remain on these medications and to improve his quality of life. JACOBO FRANKLIN MD CM:CONSTR:REPORT OF CONSULTATION 0914 12/19/18 1612 interface
--- NOTE | ~2018-12-15 | PR ---
[place], [place] PROGRESS NOTE NAME[id number] #: [id number] ROOM: [facility] DOCTOR: SUKH JOEL MD BIRTHDATE: [birth year] DOS: 12/17/2018 SUBJECTIVE: The patient is sedated in respiratory failure, intubated, and on mechanical ventilation. Dr. Hannah is following. OBJECTIVE: VITAL SIGNS: Blood pressure 122/54, heart rate of 79 beats per minute, breathing 20 times per minute, temperature of 99.4 degrees Fahrenheit. GENERAL APPEARANCE: The patient is deeply sedated on physical examination, intubated, and on mechanical ventilation, morbidly obese. HEENT AND NECK: Exam within normal limits. CARDIOVASCULAR SYSTEM: Heart rate is regular in rate and rhythm. S1 and S2 normally audible. LUNGS: Clear to auscultation. ABDOMEN: Soft, nontender. No obvious organomegaly. Bowel sounds are present. EXTREMITIES: Without significant cyanosis or edema. IMPRESSION: 1. The patient with acute exacerbation of chronic obstructive pulmonary disease and acute over chronic respiratory failure, status post bronchoscopy by Dr. Hannah today. CT angiogram of the chest was negative for pulmonary embolism. 2. Morbid obesity. The patient is to work with dietary, presently on NG tube feedings. 3. Advanced disability and adult failure to thrive with morbid obesity. The patient is working with physical therapy and dietary. We are taking bedsore precautions. 4. History of alcohol abuse, already treated with Librium during a recent admission. 5. Coronary artery disease of the [place] vessels without chest pains. The patient evaluated by Cardiology. SUKH JOEL MD CM:PNTRANS [id number] SUKH JOEL MD 12/18/18 0301 interface
--- NOTE | ~2018-12-15 | DS ---
[place], [place] DISCHARGE SUMMARY NAME: RAFAEL RATLIFF UNIT #: [id number] ROOM: 520 DOCTOR: SUKH JOEL MD BIRTHDATE: [birth year] DOS: 12/21/2018 DISCHARGE DIAGNOSES: 1. The patient left against medical advice. 2. Acute over chronic respiratory failure. 3. Morbid obesity. 4. Adult failure to thrive. 5. Coronary artery disease of the [place] vessels. 6. Moderate protein calorie malnutrition. 7. Major depression, recurrent, moderate. 8. Peripheral polyneuropathy. 9. Benign prostatic hypertrophy and urine retention. 10. Chronic pain syndrome. 11. Nicotine smoke dependence. 12. History of severe and alcohol abuse and delirium tremens. 13. Chronic hyponatremia. 14. COPD. HOSPITAL COURSE: The patient was admitted with acute respiratory failure and required intubation and mechanical ventilation and was treated in the ICU. The patient had significantly improved and was to be sent to rehab, but he left against medical advice before he completed treatment. The patient was running a risk for acute respiratory failure again because he left without appropriate discharge and appropriate treatment. 1. Morbid obesity. The patient is working with [employer] for help with weight loss. 2. Acute exacerbation of chronic obstructive pulmonary disease and acute over chronic respiratory failure, treated with bronchodilators, corticosteroids, oxygen, antibiotics. 3. Coronary artery disease of the [place] vessels without chest pains with elevation of troponin I levels, were evaluated by Cardiology. 4. Advanced adult failure to thrive and generalized weakness. The patient worked with physical therapy. 5. Suspected obstructive sleep apnea disorder to be followed by Dr. Hannah, the patient's management at the time of discharge against medical advice was Cymbalta, Zestril, Apresoline Flomax, thiamine, Desyrel, Claritin, and Lyrica. [place], [place] DISCHARGE SUMMARY NAME: RAFAEL RATLIFF UNIT #: [id number] ROOM: 520 DOCTOR: SUKH JOEL MD BIRTHDATE: [birth year] SUKH JOEL MD CM:DISCHARG [id number] SUKH JOEL MD 01/04/19 2463 interface
--- NOTE | ~2018-12-15 | WRIGHTHP ---
[place], [place] PATIENT HISTORY AND PHYSICAL EXAM NAME: RAFAEL RATLIFF [facility] #: [id number] UNIT #: [id number] ROOM: [facility] DOCTOR: SUKH JOEL MD BIRTHDATE: [birth year] DOS: 12/15/2018 HISTORY OF PRESENT ILLNESS: The patient is a 63-year-old gentleman with a past medical history of: 1. Morbid obesity. 2. COPD. 3. Chronic hyponatremia. 4. History of severe alcohol abuse and delirium tremens. 5. Nicotine smoke dependence. 6. Chronic pain syndrome. 7. BPH. 8. Coronary artery disease of the andreafski vessels. 9. Peripheral polyneuropathy. 10. Major depression, recurrent, moderate. The patient was discharged to home by Dr. Ness Odell yesterday and he presented with acute respiratory failure, shortness of breath and hypoxemia today to the Emergency Department when he pushed his life line alert. The patient was unable to provide any history and was started on BiPAP, which improved his pulse ox to 98% from 80% at presentation. No complaints of any chest pain, no GI or urinary symptoms, but his troponin levels were found to be elevated. The patient does have history of coronary artery disease. The patient is to be admitted to ICU for further management. Blood gases showed pH of 7.2, pCO2 of 75. The patient appears to be a good candidate for intubation and mechanical ventilation and Dr. Hannah has been consulted. REVIEW OF SYSTEMS: RESPIRATORY: Increasing shortness of breath. GASTROINTESTINAL: No nausea, vomiting, diarrhea constipation. CARDIOVASCULAR: No chest pain. No palpitations. FAMILY HISTORY: Noncontributory. HOME MEDICATIONS: At this time loratadine, lisinopril, Cymbalta, trazodone, Flomax, hydralazine, Lyrica. ALLERGIES: No known drug allergies. PHYSICAL EXAMINATION: GENERAL: The patient is morbidly obese, except for obesity, generalized weakness. The patient is lethargic. VITAL SIGNS: Blood pressure 128/74, heart rate 65 beats per minute, breathing 13 times per minute, afebrile. HEENT AND NECK: Extraocular movements are intact. Sclerae are anicteric. Oral mucosa is moist and clean. No obvious facial weakness. Neck is supple without any lymphadenopathy. No thyromegaly. No JVD. No carotid arterial bruits. LUNGS: Clear to auscultation. No wheezing. No rhonchi. CARDIOVASCULAR SYSTEM: Heart rate is regular in rate and rhythm. S1 and S2 normally audible. No significant murmur or any other abnormal cardiac sounds. ABDOMEN: Soft, nontender. No obvious organomegaly. Bowel sounds are present. [place], [place] PATIENT HISTORY AND PHYSICAL EXAM NAME: RAFAEL RATLIFF UNIT #: [id number] ROOM: [facility] DOCTOR: SUKH JOEL MD BIRTHDATE: [birth year] No obvious herniation. EXTREMITIES: Without significant cyanosis or edema. Warm to touch. CENTRAL NERVOUS SYSTEM: Alert and oriented x 3. Cranial nerves II-XII are intact. Speech is normal. The patient is able to move all extremities. Normal muscle strength. Deep tendon reflexes are equal on both sides. Plantars were downgoing. LABORATORY DATA: White cell count of 13,000, hemoglobin 12.6. CT of the head without acute abnormality. IMPRESSION AND PLAN: 1. The patient with acute respiratory failure, to be admitted to ICU. The patient may require intubation and mechanical ventilation. Dr. Hannah, the collection support specialist has been consulted and the patient is presently on BiPAP and nebulizer treatments. The patient would require corticosteroids, antibiotics and followed closely. 2. Morbid obesity. The patient to work with Dietary. 3. Acute exacerbation of chronic obstructive pulmonary disease and acute over chronic respiratory failure, to be treated as mentioned above. 4. History of alcohol abuse. The patient continued on thiamine and he was recently kept on Librium. 5. Coronary artery disease of andreafski vessel with elevation of troponin I levels. Cardiology consulted to follow and manage. No chest pains. 6. Advance disability and adult failure to thrive with morbid obesity. The patient to work with Dietary and Physical Therapy. SUKH JOEL MD CM:HISPHYS:PATIENT HISTORY AND PHYSICAL EXAMINATION 03 18 SUKH JOEL MD 12/15/18 2018 interface
--- NOTE | ~2018-12-15 | PROC NOTE ---
[place], [place] PROCEDURE NOTE NAME: RAFAEL RATLIFF UNIT #: [id number] ROOM: 520 DOCTOR: EFRAIN GARY MD,AHSAN BIRTHDATE: [birth year] DOS: 12/17/2018 PROCEDURE: Fibrobronchoscopy completed on 12/17/2018. PREOPERATIVE DIAGNOSES: Extended spectrum beta-lactamases oscillation from the endobronchial tree as well with current respiratory failure, exacerbation of chronic obstructive pulmonary disease. POSTOPERATIVE DIAGNOSES: Moderate amount of secretion present in endobronchial tree bilaterally, greater then the left than the right side with some mucus impaction. Bronchial obstructive lesions. PROCEDURE DESCRIPTION: Informed consent obtained from the patient's family members. The patient brought to the OR from the Intensive Care Unit. The video fiberoptic bronchoscope advanced endotracheal intubation under general anesthesia. The lobe of the trachea noted with small amount of secretion appeared to be purulent suctioned out at nelly level. Endotracheal tube was noted about 5 cm above the nelly level, which was adjusted to appropriate level by advancement x 2 cm. Right upper, right middle, right lower, left upper, lingular lower bronchial of the patient all examined. All the secretion with impaction and mucus plugs scattered bronchial tree bilateral subsegments without difficulty. Postoperative finding will be discussed with the patient once the patient recovers the effects of acute sedation. No immediate changes at this time in the treatment will be needed. AHSAN ZUNIGA MD CM:PROCNOTE:PROCEDURE NOTE [id number] AHSAN GARY MD
--- NOTE | ~2018-12-15 | PR ---
[place], [place] PROGRESS NOTE [id number] #: [id number] [facility] DOCTOR: LEROY SAXENA MD BIRTHDATE: [birth year] DOS: SUBJECTIVE: The patient was taken off the ventilator, stays on a BiPAP. I removed it and spoke to him, which was slightly emotional, said that he was tired. He did not have any complaints of chest pains or palpitations. He did complain of some pain in the left rib cage when he coughs. OBJECTIVE: VITAL SIGNS: Blood pressure is 131/65, pulse of 84, respirations 14, temperature 97.7. LUNGS: Diminished breath sounds, a few scattered wheezes and rales heard. HEART: Regular. ABDOMEN: Obese. EXTREMITIES: Without any edema. ASSESSMENT AND PLAN: 1. Acute respiratory failure, now off the ventilator. 2. Sputum culture with Klebsiella pneumoniae on IV Zosyn. 3. Adult failure to thrive. The patient may benefit from short-term placement. Social Service will be consulted. LEROY SAXENA MD CM:PNARACELI [id number] LEROY SAXENA MD 12/19/18 1512 interface
[~2018-12-15 15:37] MED LIST changes: +Ipratropium Brom3 ML NEB; +PREDNISONE5 MG PO; +VIAGRA100 MG PO
[2018-12-15 15:45] VITALS: BP 124/82
--- NOTE | 2018-12-15 15:45 | NUR ---
BILLY CATH PLACED BY ELLIOTT PICKARD. AVA FRASER AT BEDSIDE. PATIENT TOLERATED WELL. 150 OUTPUT OF URINE.
[2018-12-15 16:03] LABS: ABG BASE EXCESS 2.8 mmol/L (-2.0-2.0); ABG HCO3 31.9 mmol/l (22-26); ABG O2 SATURATION 95.1 % (95-97); ARTERIAL BLOOD GAS PH 7.245 (7.35-7.45); ARTERIAL BLOOD GAS PO2 81.4 mmHg (80-90)
[2018-12-15 16:07] LABS: ARTERIAL BLOOD GAS PCO2 75.6 mmHg (35-45)
--- NOTE | 2018-12-15 16:15 | NUR ---
Pt placed on NIV - 16/8 30% O2 for respiratory distress. Pt PO2 is 81 on current settings with a SPO2 of 95%. RR - 15 with a VT of 650 for a MVE of 10.0 HR - 79, BP - 119/69 - Pt is tolerating well.
[2018-12-15 16:35] LABS: BILIRUBIN NEGATIVE (NEGATIVE); BLOOD NEGATIVE (NEGATIVE); CLARITY CLEAR (CLEAR); COLOR YELLOW (YELLOW); GLUCOSE NEGATIVE (NEGATIVE); KETONE TRACE (NEGATIVE); LEUKO ESTERASE NEGATIVE (NEGATIVE); NITRITE NEGATIVE (NEGATIVE); SPECIFIC GRAVITY >= 1.030 (1.005-1.030); UROBILINOGEN 0.2 E.U./dl (0.2-1.0)
[2018-12-15 16:39] LABS: URINE AMPHETAMINES < 1000 (1000ng/ml); URINE BARBITURATES < 200 (200ng/ml); URINE BENZODIAZEPINES > 200 (200ng/ml); URINE CANNABINOIDS (THC) < 50 (50ng/ml); URINE COCAINE < 300 (300ng/ml); URINE METHADONE < 300 (300ng/ml); URINE OPIATES < 300 (300ng/ml); URINE PHENCYCLIDINE < 25 (25ng/ml)
[2018-12-15 16:46] LABS: HEMATOCRIT 39.4 % (42.0-52.0); HEMOGLOBIN 12.6 g/dl (14.0-18.0); MEAN CELL VOLUME 97.3 fl (80.0-94.0); MEAN CORPUSCULAR HGB 31.1 pg (27.0-31.0); MEAN PLATELET VOLUME 9.1 fl (9.6-12.3); PLATELET COUNT AUTOMATED 387 10*3/uL (130-400); RED BLOOD COUNT 4.05 10*6/uL (4.50-5.90); RED CELL DISTRI WIDTH 15.3 % (0-14.5); WHITE BLOOD COUNT 13.3 10*3/uL (4.8-10.8)
[2018-12-15 16:54] LABS: BACTERIA 1+; FINE GRANULAR CAST 0-2; HYALINE CAST 21-30
[2018-12-15 16:58] LABS: ALBUMIN 3.7 gm/dl (3.1-4.5); ALKALINE PHOSPHATASE 67 U/L (45-117); BUN 16 mg/dl (7-24); CHLORIDE 90 mmol/L (98-107); CREATININE 0.73 mg/dL (0.70-1.30); LIPASE 91 U/L (73-393); POTASSIUM 4.6 mmol/L (3.5-5.1); SGOT/AST 14 IU/L (3-35); SGPT/ALT 29 U/L (12-78); SODIUM 128 mmol/L (136-145); TOTAL PROTEIN 6.8 gm/dL (6.4-8.2)
[2018-12-15 17:03] LABS: TROPONIN I 0.071 ng/ml (<0.045)
--- NOTE | 2018-12-15 17:04 | NUR ---
lab called troponin 0.071 donita campos notified
[2018-12-15 17:19] LABS: PLATELET SUFFICIENCY NORMAL (NORMAL); TOTAL CELLS COUNTED 100 #CELLS
--- NOTE | 2018-12-15 17:23 | NUR ---
PATIENT TAKEN TO CT SCAN BY THIS NURSE BAG SEWER AND RESPIRATORY. PATIENT PLACED ON NASAL CANNULA FOR TOLERATION OFF THE BI PAP. PATIENT O2 STAT AT 86% WHILE AT CT SCAN, PATIENT WAS PLACED INTO NON REBREATHER AND STAT IMMEADIATELY WENT TO 100% ON 15L NON REBREATHER WHILE IN CT SCAN.
[2018-12-15 17:24] LABS: ACT PARTIAL THROMBO TIME 22.3 SECONDS (20.8-31.5); INTERNATIONAL NORM RATIO 0.9 (2.0-3.5)
[2018-12-15 17:35] VITALS: BP 147/78
[2018-12-15 18:27] VITALS: BP 128/74
--- NOTE | 2018-12-15 19:27 | NUR ---
CRITICAL LAB VALUE GIVEN TO DARLENE SANTIAGO NP AND ARI MUNOZ RN
[2018-12-15 20:20] LABS: ABG BASE EXCESS 5.2 mmol/L (-2.0-2.0); ABG HCO3 32.8 mmol/l (22-26); ABG O2 SATURATION 97.5 % (95-97); ARTERIAL BLOOD GAS PCO2 65.3 mmHg (35-45); ARTERIAL BLOOD GAS PH 7.318 (7.35-7.45); ARTERIAL BLOOD GAS PO2 88.5 mmHg (80-90)
--- NOTE | 2018-12-15 21:07 | NUR ---
INTUBATED AT 2042 HRS
--- NOTE | 2018-12-15 21:25 | NUR ---
Pt intubated by this [facility] with Dr. Núñez and nursing present. 8.[address] 25cm at the lip. Vent settings based off of ABG on NIV before intubation to achieve PCO2 of 50. Rate - 20, Vt - 550, PEEP - 7, Fio2 - 30%. PEEP increased to 7 from 5 based off of iPEEP value of 10 from expiratory hold manuever. Plateau Pressure - 21 Patient tolerating well.
[2018-12-15 21:40] VITALS: BP 130/65
--- NOTE | 2018-12-15 21:40 | NUR ---
A 63, admitted to [facility], under the services of Dr. WISAM WHITE,SUKH Kang with a diagnosis of elevated troponin and metabolic encephalopathy. Chief complaint is respiratory distress and lethargy. Intubated in emergency dept.. Patient arrived via stretcher from ER. Monitor applied. Initial assessment completed. Vital signs taken and recorded. DR. WISAM WHITE,SUKH Kang notified of admission to the unit. Orders received. See assessment for past medical history, medications and allergies. No family present upon admission. Clothing/patient valuable form completed. CHELSEA MONTENEGRO
--- NOTE | 2018-12-15 21:45 | NUR ---
PATIENT ARRIVED FROM ER VIA CART WITH 3 RNS AND RESPIRATORY AT THE BEDSIDE. PATIENT CONNECTED TO THE VENTILATOR ONCE IN ROOM. PATIENT HAS EYES OPEN, AND IS LOOKING AROUND ROOM. IV FLUIDS FROM ER, CONTINUE TO INFUSE. DIPROVAN INFUSING AT 15MCG. TITRATED UP TO 30MCG. PATIENT ORALLY SUCTIONED FOR CLEAR THIN SPUTUM, AND ET SUCTIONED FOR VERY THICK YELLOW SPUTUM.
--- NOTE | 2018-12-15 22:00 | NUR ---
DIPROVAN TITRATED UP TO 25MCG DUE TO PATIENT AGITATION AND PULLING AT RESTRAINTS. RN WILL CONTINUE TO MONITOR
--- NOTE | 2018-12-15 22:18 | NUR ---
DAUGHTER, PRINCE, CALLS TO CHECK ON PT CONDITION. PASSWORD WAS GIVEN IN ER. PHONE NUMBER OBTAINED [phone]
--- NOTE | 2018-12-15 22:35 | NUR ---
CONSULT CALLED TO DR ZUNIGA AT THIS TIME. ORDER RECIEVED FOR ABG'S IN THE MORNING.
--- NOTE | 2018-12-15 22:38 | NUR ---
DR SULLIVAN'S ANSWERING SERVICE NOTIFIED OF CONSULT.
--- NOTE | 2018-12-15 23:45 | NUR ---
DIPROVAN TITRATED DOWN FROM 4OMCG TO 35MCG. RN WILL MONITOR
[2018-12-16] VITALS (12 sets, daily range): BP systolic 90–160; BP diastolic 56–85
--- NOTE | 2018-12-16 00:58 | NUR ---
SPUTUM SENT AT THIS TIME.
--- NOTE | 2018-12-16 01:29 | NUR ---
Shift chart check completed.24 HR chart check completed.
--- NOTE | 2018-12-16 01:31 | NUR ---
DIPROVAN TITRATED TO 25MCG AT THIS TIME. RN WILL MONITOR
--- NOTE | 2018-12-16 02:19 | NUR ---
PATIENT RESTING IN BED WITH EYES CLOSED, DIPROVAN CONTINUES AT 30MCG OR 29ML/HR. PATIENT APPEARS COMFORTABLE, NO SIGNS OR SYMPTOMS OF DISTRESS. BILATERAL WRIST RESTRAINTS IN PLACE TO PREVENT SELF EXTUBATION. RN WILL CONTINUE TO MONITOR.
[2018-12-16 03:48] LABS: EOS # 0.2 10*3/uL (0.0-0.4); EOS % 1.9 % (1.0-4.0); HEMOGLOBIN 10.8 g/dl (14.0-18.0); MEAN PLATELET VOLUME 9.4 fl (9.6-12.3)
[2018-12-16 03:59] LABS: BASO % 0.1 % (0.0-1.0); LYMPH # 1.4 10*3/uL (1.3-4.4); LYMPH % 15.7 % (27.0-41.0); MEAN CELL VOLUME 95.1 fl (80.0-94.0); MEAN CORPUSCULAR HGB 31.1 pg (27.0-31.0); MEAN CORPUSCULAR HGB CONC 32.7 g/dl (33.0-37.0); MONO % 11.3 % (3.0-9.0); NEUT # 6.3 10*3/uL (2.3-7.9); NEUT % 70.3 % (47.0-73.0); RED BLOOD COUNT 3.47 10*6/uL (4.50-5.90); RED CELL DISTRI WIDTH 15.1 % (0-14.5); WHITE BLOOD COUNT 8.9 10*3/uL (4.8-10.8)
[2018-12-16 04:01] LABS: BUN 20 mg/dl (7-24); CHLORIDE 93 mmol/L (98-107); CREATININE 0.75 mg/dL (0.70-1.30); POTASSIUM 4.5 mmol/L (3.5-5.1); SODIUM 131 mmol/L (136-145)
[2018-12-16 04:02] LABS: PLATELET COUNT AUTOMATED 248 10*3/uL (130-400)
--- NOTE | 2018-12-16 05:13 | NUR ---
PATIENT BATHED AT THIS TIME, TOLERATED WELL. NO SIGNS OR SYMPTOMS OF DISTRESS. DIPROVAN CONTINUES TO INFUSE AT 40MCG.
--- NOTE | 2018-12-16 05:47 | NUR ---
PRINCE AYON IN TO SEE PATIENT AT THIS TIME
--- NOTE | 2018-12-16 05:48 | NUR ---
EVYRAFAEL Glenroy [id number] Please refer to the physician's history and physical for past medical history, comorbid conditions, and allergies. Diagnosis: ELEVATEE TROPONIN I LEVELM METABLOIC ENCEPHALOPATH Mp Score: 12,HIGH RISK WOUND DESCRIPTIONS: Periarea have slight red areas noted. No odor at time of assessment. Pt unable to state how this happened. Surface the patient is resting on: Isoflex SKIN PREVENTION RECOMMENDATION: 1. Pressure redistribution support surface as appropriate 2. Elevate heels 3. Remove boots/TEDS every shift and reapply 4. Head of bed 30 degrees as tolerated 5. Assess nutrition and hydration 6. Manage moisture 7. Avoid the use of containment devices while in bed 8. Use absorptive products on surfaces limit layers of linens on bed 9. Turn and reposition every 1-2 hours in bed and every 1 hour in chair as tolerated 10. Weight shifts every 15 minutes while up in chair 11. Offloading with pillows or device to keep heels elevated off bed 12. Monitor skin at least every shift 13. Inspect under medical devices twice a day WOUND TREATMENT RECOMMENDATIONS: Cleanse bilateral groins with soap and water pat areas dry then apply nystatin powder every 12 hours.
[2018-12-16 07:22] LABS: ABG BASE EXCESS 7.7 mmol/L (-2.0-2.0); ABG HCO3 32.4 mmol/l (22-26); ABG O2 SATURATION 95.4 % (95-97); ARTERIAL BLOOD GAS PCO2 47.3 mmHg (35-45); ARTERIAL BLOOD GAS PH 7.451 (7.35-7.45); ARTERIAL BLOOD GAS PO2 71.4 mmHg (80-90)
--- NOTE | 2018-12-16 08:51 | NUR ---
PHYSICAL THERAPY PT orders received. Patient vented. Thank you for this referral. Elke Mcpherson,PT
--- NOTE | 2018-12-16 09:15 | NUR ---
0800 fULL aSSESSMENT. Awakens to tactile stimuli. , Jerking at restraint. Propofol increased to assure sedation during mid line placement. #20 /10cm powerglide placed to JOSE. OGT secure placement verified w/ air bolus. ETT secure. Oral mucosa moist. Oral care and suctioning complete. Copious oral and ET secretions .Villar cath patent and secure. 0915 dR. Tamayo IN TO EVAULATE. Sedation off briefly, Pt. wide awake w/i minutes and expelling copious amt oral and ET secretions. Re-placed to VENT same settings per. Dr. Tamayo . Labs evaulated. Aware of ESBL Sputum. Orders recieved. Sedation resumed.
--- NOTE | 2018-12-16 10:56 | NUR ---
[facility]
--- NOTE | 2018-12-16 11:00 | NUR ---
Ivf Embryologist in to see patient. He is currently intubated. Discharge plan undecided at this time.
--- NOTE | 2018-12-16 12:34 | NUR ---
REpositioned/ ACCUcath placed to LA. OPens eyes spontaneously, not sustained. Dr. Santacruz in to [facility].
--- NOTE | 2018-12-16 13:21 | NUR ---
Versed was given prior to suction and reposition . Effective to sedate.
--- NOTE | 2018-12-16 22:04 | NUR ---
VERSED GIVEN FOR INCREASED RESTLESSNESS. PATIENT PULLING ON RESTRAINTS TO REACH FOR ET TUBE. MEDICATION EFFECTIVE WILL CONTINUE TO MONITOR AND REASSESS.
[2018-12-17] VITALS (12 sets, daily range): BP systolic 105–150; BP diastolic 45–65
[2018-12-17 05:55] LABS: EOS # 0.2 10*3/uL (0.0-0.4); HEMATOCRIT 31.9 % (42.0-52.0); HEMOGLOBIN 10.5 g/dl (14.0-18.0); LYMPH # 1.2 10*3/uL (1.3-4.4); LYMPH % 15.6 % (27.0-41.0); MEAN CELL VOLUME 93.3 fl (80.0-94.0); MEAN CORPUSCULAR HGB 30.7 pg (27.0-31.0); MEAN CORPUSCULAR HGB CONC 32.9 g/dl (33.0-37.0); MONO # 0.7 10*3/uL (0.1-1.0); MONO % 9.9 % (3.0-9.0); NEUT # 5.4 10*3/uL (2.3-7.9); NEUT % 71.8 % (47.0-73.0); PLATELET COUNT AUTOMATED 253 10*3/uL (130-400); RED BLOOD COUNT 3.42 10*6/uL (4.50-5.90); RED CELL DISTRI WIDTH 15.2 % (0-14.5); WHITE BLOOD COUNT 7.5 10*3/uL (4.8-10.8)
--- NOTE | 2018-12-17 06:15 | NUR ---
PATIENT GIVEN VERSED FOR RESTLESSNESS. MEDICATION EFFECTIVE. PATIENT RELAXED AND PATIENT SHOWED NO S/S OF RESTLESSNESS.
[2018-12-17 06:19] LABS: BUN 13 mg/dl (7-24); CHLORIDE 97 mmol/L (98-107); POTASSIUM 3.6 mmol/L (3.5-5.1); SODIUM 136 mmol/L (136-145)
[2018-12-17 06:20] LABS: CREATININE 0.73 mg/dL (0.70-1.30)
[2018-12-17 07:33] LABS: ABG BASE EXCESS 10.4 mmol/L (-2.0-2.0); ABG HCO3 35.1 mmol/l (22-26); ABG O2 SATURATION 97.5 % (95-97); ARTERIAL BLOOD GAS PCO2 47.1 mmHg (35-45); ARTERIAL BLOOD GAS PH 7.484 (7.35-7.45); ARTERIAL BLOOD GAS PO2 93.4 mmHg (80-90)
--- NOTE | 2018-12-17 08:00 | NUR ---
PHYSICAL THERAPY PAtient continues to be vented. Elke Mcpherson,PT
--- NOTE | 2018-12-17 08:41 | NUR ---
Awake and alert. Full assessment. Oral mucosa moist. Less secretions today. Opens eyes spontaneously. Dr. Munoz in , Anesthesia permit obtained. To OR via bed.
--- NOTE | 2018-12-17 11:00 | NUR ---
Spoke to daughter, Irma, who is in the room with the patient regarding discharge planning. She would like the patient to go to [place] for rehab on discharge as that is where her mother is. Patient remains intubated at this time. order planner following.
--- NOTE | 2018-12-17 11:40 | NUR ---
Broncoscopy complete returned to room @ 0900 , Stable on arrival. Dr. Hannah in post [facility]. . To RAD for CTA complete and returned to room. Dtr in to visit.
--- NOTE | 2018-12-17 15:02 | NUR ---
Medicated for restlessness , effective.
--- NOTE | 2018-12-17 16:23 | NUR ---
rESTLESS , WIDE AWAKE, PULLING AT RESTRAINT, mEDICATED, full assessment and re-positioned. Dr. Hannah called in and orders were recieved. Lab drw from [facility].
--- NOTE | 2018-12-17 17:42 | NUR ---
Dr. Hannah was notified of CTA and Phos result.
[2018-12-18] VITALS (9 sets, daily range): BP systolic 108–175; BP diastolic 34–79
--- NOTE | 2018-12-18 05:30 | NUR ---
VERSED GIVEN FOR INCREASED RESTLESSNESS. PATIENT KICKING LEGS AT NURSING STAFF AND PULLING AT RESTRAINTS. MEDICATIONS EFFECTIVE AND PATIENT RESTING IN BED CALMLY NOW. WILL CONTINUE TO MONITOR AND REASSESS.
--- NOTE | 2018-12-18 05:39 | NUR ---
Upon discharge recommend patient to follow up for wound care in outpatient setting continue current wound care orders at discharging facility.
[2018-12-18 06:20] LABS: EOS # 0.3 10*3/uL (0.0-0.4); EOS % 3.3 % (1.0-4.0); HEMATOCRIT 32.2 % (42.0-52.0); HEMOGLOBIN 10.4 g/dl (14.0-18.0); LYMPH # 1.1 10*3/uL (1.3-4.4); MEAN CELL VOLUME 93.6 fl (80.0-94.0); MEAN CORPUSCULAR HGB 30.2 pg (27.0-31.0); MEAN CORPUSCULAR HGB CONC 32.3 g/dl (33.0-37.0); MEAN PLATELET VOLUME 8.8 fl (9.6-12.3); MONO # 0.9 10*3/uL (0.1-1.0); MONO % 11.4 % (3.0-9.0); NEUT # 5.5 10*3/uL (2.3-7.9); NEUT % 70.9 % (47.0-73.0); PLATELET COUNT AUTOMATED 239 10*3/uL (130-400); RED BLOOD COUNT 3.44 10*6/uL (4.50-5.90); RED CELL DISTRI WIDTH 15.3 % (0-14.5); WHITE BLOOD COUNT 7.8 10*3/uL (4.8-10.8)
[2018-12-18 06:32] LABS: ALBUMIN 2.4 gm/dl (3.1-4.5); ALKALINE PHOSPHATASE 59 U/L (45-117); BUN 12 mg/dl (7-24); CHLORIDE 99 mmol/L (98-107); PHOSPHOROUS 4.6 mg/dL (2.5-4.9); POTASSIUM 3.7 mmol/L (3.5-5.1); SGOT/AST 7 IU/L (3-35); SGPT/ALT 15 U/L (12-78); SODIUM 137 mmol/L (136-145); TOTAL PROTEIN 5.1 gm/dL (6.4-8.2)
[2018-12-18 07:59] LABS: ABG HCO3 32.5 mmol/l (22-26); ABG O2 SATURATION 95.1 % (95-97); ARTERIAL BLOOD GAS PCO2 45.6 mmHg (35-45); ARTERIAL BLOOD GAS PH 7.465 (7.35-7.45); ARTERIAL BLOOD GAS PO2 74.9 mmHg (80-90)
--- NOTE | 2018-12-18 08:00 | NUR ---
PHYSICAL THERAPY Continues on vent. Elke Mcpherson,PT
--- NOTE | 2018-12-18 09:00 | NUR ---
Associate Embalmer/Funeral Director in to see patient. He is intubated. Discharge plan undecided at this time.
--- NOTE | 2018-12-18 10:15 | NUR ---
SAEDATION TURNED OFF, PT FULLY AWAKE AND PLACED ON BIPAP
--- NOTE | 2018-12-18 11:20 | NUR ---
pt has been maintaining well on bipap, and then suddenly became violent,tore restraints off bed and tried to punch and kick staff...diprovan resumed and pt returned to vent dr fuentes updated and wants to try on cpap again, when awakened from the diprovan, and is "ok" if pt pulls out his ETT
--- NOTE | 2018-12-18 11:20 | NUR ---
PATIENT PLACED BACK IN CMV WITH PREVIOUS SETTINGS.
--- NOTE | 2018-12-18 12:14 | NUR ---
BACK ON CPAP, PT IS FULLY AWAKE AND UNCOOPERATIVE, HAS TORN OFF ONE RESTRAINT AND IS HOLDING ONTO ETT AND "FLIPPING OFF" STAFF, RN IN ROOM BUT OUT OF PATIENTS REACH, APPEARS TO BE TOLERATING CPAP, POX 96, UNBALE TO GET BP, HR 80N WITH RESP RATE OF 20-26
[2018-12-18 13:07] LABS: ACID FAST SPEC PROCESSING Concentration (.)
[2018-12-18 13:28] LABS: ABG BASE EXCESS 7.4 mmol/L (-2.0-2.0); ABG HCO3 31.8 mmol/l (22-26); ABG O2 SATURATION 96.6 % (95-97); ARTERIAL BLOOD GAS PCO2 45.5 mmHg (35-45); ARTERIAL BLOOD GAS PH 7.459 (7.35-7.45); ARTERIAL BLOOD GAS PO2 78.9 mmHg (80-90)
--- NOTE | 2018-12-18 14:30 | NUR ---
Pt. was extubated per physicians order and placed on bipap per order of 23/04. Pt. tolerated the procedure well, bipap was on in place. Pt. appeared to be comfortable and will continue to be monitored.
--- NOTE | 2018-12-18 15:30 | NUR ---
PA IN ROOM AND YELLING FOR HELP, UPON ENTERING ROOM, PT HAD PULLED THE BIPAP MACHINE OVER ON TOP OF HISSELF, THE MASK WAS STILL OF BUT THE TUBING DISCONNECTED, LIBERTY I TRIED TO RECONNECT THE TUBING, PT TRIED TO BITE MY WRIST, IN THE MEANTIME THE PA WAS STRUGGLING TO KEEP THE BIPAP MACHINE FROM FROM HITTING PT, AND PT HAD BOTH OF HIS ARMS WRAPPED AROUND THE MACHINE, PULLING IT TOWARDS HIM, OTHER STAFF CALLED FOR HELP AND A SHELDON VOGEL WAS CALLED.
--- NOTE | 2018-12-18 15:35 | NUR ---
HALDOL 2.5 +2 ATIVAN+[id number]+5 MORE HALDOL GIVEN 10 MALE STAFF TRY TO RESTRAIN PT WHO CONTINUES TO YELL, KICK, HIT AND SPIT
--- NOTE | 2018-12-18 16:05 | NUR ---
PT HAS CALMED AND CODE LELA HAS BEEN CLEARED, 5 SKIN TEARS ON LEFT ARM NOTED AND PICS TAKEN AND WOUNDS DRESSED, BILAT SOFT WRIST RESTRAINTS APPLIED
--- NOTE | 2018-12-18 17:10 | NUR ---
[facility] NOTIFIED OF CONSULT
--- NOTE | 2018-12-18 18:00 | NUR ---
CONTIUES TO SLEEP, RESTRAINED, SQUIRMS IN BED A LITTLE BIT
--- NOTE | 2018-12-18 18:00 | NUR ---
ALL NEW SKIN TEARS TO LEFT ARM HAVE BEEN DRESSED
--- NOTE | 2018-12-18 18:57 | NUR ---
DR ZUNIGA UPDATED ON CODE LELA, AWAITING RESP FOR ABGS-WHO ARE STUCK IN THE ELEVATOR
[2018-12-18 19:50] LABS: ABG BASE EXCESS 7.2 mmol/L (-2.0-2.0); ABG HCO3 32.2 mmol/l (22-26); ABG O2 SATURATION 93.2 % (95-97); ARTERIAL BLOOD GAS PCO2 48.9 mmHg (35-45); ARTERIAL BLOOD GAS PH 7.433 (7.35-7.45); ARTERIAL BLOOD GAS PO2 65.2 mmHg (80-90)
--- NOTE | 2018-12-18 20:02 | NUR ---
DR. ZUNIGA NOTIFIED OF BLOOD GAS RESULTS. PATIENT CONDITION REVIEWED. NEW ORDERS RECEIVED.
--- NOTE | 2018-12-18 20:08 | NUR ---
PATIENT OFFERED WATER AND POPSICLE UPON ASSESSMENT AND REFUSED SEVERAL TIMES. PATIENT IS AWAKE, ALERT AND ORIENTS. PATIENT HAS SOFT WRIST RESTRAINTS TO PREVENT HARM TO SELF AND OTHERS. PATIENT IS ON BIPAP CURRENTLY. PATIENT REFUSES TO ANSWER ASSESSMENT QUESTIONS AT THIS TIME AND IS USING VULGAR LANGUAGE WITH STAFF. CALL LIGHT WITHIN REACH.
--- NOTE | 2018-12-18 20:58 | NUR ---
PT PLACED ON MAX VENTURI SETTINGS OF 35%/30L. SATS MAINTAINING 95%. WILL CONTINUE TO REASSESS PT NEEDED.
--- NOTE | 2018-12-18 21:08 | NUR ---
PT DESATURATION TO 88%. PT SETTINGS TITRATED TO 48%/40L. SATS MAINTAINING 95%. WILL CONTINUE TO REASSESS.
--- NOTE | 2018-12-18 23:30 | NUR ---
PATIENT TOLERATED WATER, POSICLES AND ANNA SHY WITHOUT ANY DIFFICULTIES. PATIENT REPEATEDLY ASKING FOR FOOD.
[2018-12-19] VITALS: BP 134/50
--- NOTE | 2018-12-19 01:00 | NUR ---
PATIENT GIVEN HALF A SANDWICH, APPLESAUCE AND EMILEE CRACKERS. PATIENT ATE EVERYTHING WITHOUT COMPLICATION AND ASKED FOR MORE REPEATEDLY.
[2018-12-19 04:00] VITALS: BP 131/65
--- NOTE | 2018-12-19 04:09 | NUR ---
PT NOTED TO BE OFF BIPAP. PT ON MAX VENTURI 40L/55%. SATS MAINTAINING 93-95%. NO DISTRESS OR SOB.
--- NOTE | 2018-12-19 04:48 | NUR ---
BOX LUNCH GIVEN TO PATIENT AFTER MULTIPLE REQUESTS FROM THE PATIENT FOR MORE FOOD.PATIENT EATING W/O ANY DIFFICULTIES, CALL LIGHT WITHIN REACH.
[2018-12-19 06:37] LABS: BASO % 0.1 % (0.0-1.0); EOS # 0.3 10*3/uL (0.0-0.4); EOS % 4.4 % (1.0-4.0); HEMATOCRIT 33.2 % (42.0-52.0); HEMOGLOBIN 10.5 g/dl (14.0-18.0); LYMPH # 0.9 10*3/uL (1.3-4.4); LYMPH % 11.6 % (27.0-41.0); MEAN CELL VOLUME 95.4 fl (80.0-94.0); MEAN CORPUSCULAR HGB 30.2 pg (27.0-31.0); MEAN CORPUSCULAR HGB CONC 31.6 g/dl (33.0-37.0); MEAN PLATELET VOLUME 9.2 fl (9.6-12.3); MONO # 0.9 10*3/uL (0.1-1.0); MONO % 12.6 % (3.0-9.0); NEUT # 5.3 10*3/uL (2.3-7.9); NEUT % 70.9 % (47.0-73.0); PLATELET COUNT AUTOMATED 253 10*3/uL (130-400); RED BLOOD COUNT 3.48 10*6/uL (4.50-5.90); RED CELL DISTRI WIDTH 15.4 % (0-14.5); WHITE BLOOD COUNT 7.5 10*3/uL (4.8-10.8)
--- NOTE | 2018-12-19 06:37 | NUR ---
DR. SAXENA IN TO SEE PATIENT AND DISCUSS PLAN OF CARE.
--- NOTE | 2018-12-19 07:14 | NUR ---
Shift chart check completed.
[2018-12-19 08:00] VITALS: BP 125/67
--- NOTE | 2018-12-19 09:03 | NUR ---
DR FRANKLIN ON FLOOR ON TO SEE PATIENT AT THIS TIME
--- NOTE | 2018-12-19 10:05 | NUR ---
NOTE ON ABG: ABG DRAWN AT APPROX 08:00 AM POST DA AND BIAPAP CHECK. FIRST ATTEMPT WAS AT RT RADIAL WITH NO SUCCESS. RT BRACHIAL ATTEMPTED. SAMPLE OBTAINED AND SENT TO LAB. LAB CALLED AND STATED THE SAMPLE HAD CLOTTED. WILL NEED TO MAKE EFFORTS TO OBTAIN ANOTHER BLOOD SAMPLE.
--- NOTE | 2018-12-19 10:54 | NUR ---
DISCUSSED ABG WITH DR ZUNIGA. INFORMED HIM THE BLOOD SAMPLE HAD CLOTTED.. HE STATED I DO NOT HAVE TO REPEAT THE ABG. PT IS FINE AT THIS TIME; AAO X 3. PT CURRENTLY ON HFNC AT 40%. PT OOB IN CHAIR. RESPIRATIONS UNLABORED. VENT PULLED FROM THE ROOM. BIPAP ON S/B. PT IS TO USE BIPAP QHS PER DR ZUNIGA.
--- NOTE | 2018-12-19 11:30 | NUR ---
PATIENT VERY AGITATED AT THIS TIME, PATIENT REPEATEDLY TRIES TO CALL DAUGHTER BUT LINE RINGS BUSY. PATIENT SWEARING AND BEING LOUD. PATIENT EDUCATED TO CALM DOWN AND THAT WE WOULD TRY TO CANTACT HER AGAIN LATER. PATIENT VERBALIZED UNDERSTANDING. RN WILL CONTINUE TO MONITOR
[2018-12-19 12:00] VITALS: BP 141/61
--- NOTE | 2018-12-19 12:30 | NUR ---
PATIENT AGITATED, PULLING AT OPTIFLOW. STATES HE "CAN NO LONGER TAKE IT" RESPIRATORY MADE AWARE.
--- NOTE | 2018-12-19 13:10 | NUR ---
RESPIRATORY IN WITH PATIENT, OXYGEN LEVEL TITRATED TO 6 LITERS VIA NASAL CANNULA. PATIENT DENIES SOB AT REST. PATIENT PO2 LEVEL HAS REMAINED 98% AND ABOVE.
--- NOTE | 2018-12-19 13:58 | NUR ---
PATIENT PROVIDED WITH GLASSES AND CELL PHONE AT THIS TIME. PATIENT WAS UNAWARE HE HAD ANY BELONGINGS HERE AT THE HOSPITAL. DENIES OTHER NEEDS AT THIS TIME. CALL LIGHT WITHIN REACH. RNW ILL CONTINUE TO MONITOR
--- NOTE | 2018-12-19 15:31 | NUR ---
01:15 PM PT REFUSING TO CONTINUE TO WEAR HFNC. SPO2 DROPPED TO 85% NO DISTRESS. PT PLACED ON 6 L NC. SPO2 MAINTAINING AT 95%. RESPS EASY AND UNLABORED.
--- NOTE | 2018-12-19 15:49 | NUR ---
PATIENT UP SITTING IN THE CHAIR AT THE BEDSIDE, CURRENTLY WEARING 6 LITERS NASAL CANNULA, AND TOLERATING WELL. PO2 LEVEL REMAINS 95% AND ABOVE. DENIES SOB AT REST BUT IS SHORT OF BREATH WITH ANY EXERTION. PATIENT APPEARS CONFUSED AT TIMES AND IS AT TIMES AGGRESIVE AND VULGAR AND AT OTHER TIMES, RESPECTFUL. PATIENT DENIES ANY NEEDS AT THIS TIME. CALL LIGHT WITHIN REACH, AND CELL PHONE IN HANDS OF PATIENT
[2018-12-19 16:00] VITALS: BP 116/50
--- NOTE | 2018-12-19 16:45 | NUR ---
PATIENT URINATED 300ML OF DARK MERVAT URINE USING THE URINAL WHILE LAYING IN BED. DENIES BURNING, HESITANCY OR FREQUENCY CURRENTLY. RN WILL CONTINUE TO MONITOR
--- NOTE | 2018-12-19 17:06 | NUR ---
1540 ; SPO2 96% ON 6L NC. O2 DECREASED TO 4 L NC.
--- NOTE | 2018-12-19 18:28 | NUR ---
PATIENT CONTINUES TO BE VULGAR AND YELLING OUT TO NURSE. RN INFORMED PATIENT TO USE CALL LIGHT BUT PATIENT DOES NOT VERBALIZE UNDERSTANDING. RN PROVIDED PHONE TO CALL FOR DINNER.
--- NOTE | 2018-12-19 19:16 | NUR ---
CHART CHECK COMPLETE.
[2018-12-19 20:00] VITALS: BP 172/80
--- NOTE | 2018-12-19 20:57 | NUR ---
EATING PM SNACK. NO ACUTE DISTRESS.
--- NOTE | 2018-12-19 21:41 | NUR ---
BIPAP ON SINCE 2119... TOLERATING WELL.
--- NOTE | 2018-12-19 22:22 | NUR ---
DOZING. HR MID 70'S. BIPAP REMAINS INTACT.
[2018-12-20] VITALS: BP 146/66
--- NOTE | 2018-12-20 02:22 | NUR ---
CONTINUES TO SLEEP WHILE ON BIPAP.
[2018-12-20 04:00] VITALS: BP 132/96
--- NOTE | 2018-12-20 05:57 | NUR ---
PT AWAKE, PULLING BIPAP OFF. YELLING AT ME "COFFEE! I WANT COFFEE AND I KNOW THERE HAS TO BE SOME ON THIS FLOOR!" DOES TAKE HIS MEDICINE WITHOUT DIFFICULTY WITH HIS FRESH WATER AT BEDSIDE. I EXPLAINED TO HIM THAT I WOULD GET COFFEE FOR HIM SOON I COULD... PT THROWING PILLOWS AROUND IN HIS BED AND MUMBLING UNDER HIS BREATH WITHOUT MAKING EYE CONTACT.
--- NOTE | 2018-12-20 06:21 | NUR ---
PT UP IN ROOM WITH WALKER. HE HAD ALSO VOIDED IN URINAL. HE STATES "I'M GOING LOOKING FOR COFFEE!" I UNTANGLED HIM AND EXPLAINED TO HIM THAT I WOULD BEGIN CALLING [facility] AT ABOUT 0645 WITH HIS ORDER. HE CHUCKLED AND SAID "I'M GOING OVER TO THAT CHAIR!" ALL BELONGINGS AND CALL LIGHT IN REACH.
[2018-12-20 06:40] LABS: BASO % 0.1 % (0.0-1.0); EOS # 0.4 10*3/uL (0.0-0.4); EOS % 4.1 % (1.0-4.0); HEMATOCRIT 33.6 % (42.0-52.0); HEMOGLOBIN 10.5 g/dl (14.0-18.0); LYMPH # 1.3 10*3/uL (1.3-4.4); LYMPH % 13.9 % (27.0-41.0); MEAN CELL VOLUME 96.8 fl (80.0-94.0); MEAN CORPUSCULAR HGB 30.3 pg (27.0-31.0); MEAN CORPUSCULAR HGB CONC 31.3 g/dl (33.0-37.0); MEAN PLATELET VOLUME 8.7 fl (9.6-12.3); NEUT # 6.6 10*3/uL (2.3-7.9); NEUT % 70.5 % (47.0-73.0); PLATELET COUNT AUTOMATED 245 10*3/uL (130-400); RED BLOOD COUNT 3.47 10*6/uL (4.50-5.90); RED CELL DISTRI WIDTH 15.5 % (0-14.5); WHITE BLOOD COUNT 9.3 10*3/uL (4.8-10.8)
[2018-12-20 06:57] LABS: ALBUMIN 2.9 gm/dl (3.1-4.5); ALKALINE PHOSPHATASE 59 U/L (45-117); BUN 13 mg/dl (7-24); CHLORIDE 107 mmol/L (98-107); CREATININE 0.84 mg/dL (0.70-1.30); POTASSIUM 3.7 mmol/L (3.5-5.1); SGOT/AST 12 IU/L (3-35); SGPT/ALT 18 U/L (12-78); SODIUM 143 mmol/L (136-145); TOTAL PROTEIN 6.1 gm/dL (6.4-8.2)
--- NOTE | 2018-12-20 07:34 | NUR ---
PATIENT UPSET DURING REPORT THAT HE DID NOT HAVE HIS BREAKFAST YET. RN AT 0704 EXPLAINED TO HIM THAT WE HAD JUST ORDERED IT THEY DO NOT START TAKING ORDERS UNTIL 0700. GRUNTED RESPONSE, SITTING UP IN CHAIR. THEN NURSES DOING REPORT ON ANOTHER PATIENT AND HEARD NOISES COMING FROM HIS ROOM. UPON ENTERING THE ROOM THE NURSES (MYSELF & CHELSEA MONTENEGRO) SAW THE PATIENT ON THE OTHER SIDE OF THE BED WITH HIS WALKER & THE MONITOR WAS PULLED APART. I ASKED HIM WHAT HE WAS DOING AND HE RESPONDED THAT HE WAS MOVING THE GARBAGE CAN WHICH WAS SITTING ON THE FLOOR BETWEEN HIM & THE NURSE. I SAID WE WOULD HELP & PICKED UP THE CAN & MOVED IT SO HE COLD WALK PAST & HE NAZ BACK HIS ARM IN A MOTION THAT HE WAS GOING TO HIT ME AND BEGAN YELLING & CURSING THAT HE DIDN'T NEED MY FING HELP AND TO PUT THAT CAN OVER THERE. THIS NURSE TOLD HIM YOU DO NOT NEED TO SCREAM AT ME & CURSING IN UNACCEPTABLE. I WAS TRYING TO HELP & WAS GOING TO MOVE THE CAN WHERE HE WANTED IT BUT WAS CURRENT;Y JUST GETTING IT OUT OF HIS WAY SO HE HAD ROOM. PATIENT AGAIN THREATENED THE NURSE VERBALLLY & CONTINUED TO CURSE AT US. NURSE CONTINUED TO INFORM THE PATIENT, WHILE MOVING THE GARBAGE CAN, THAT THIS BEHAVIOR IS UNACCEPTABLE & WOULD NOT BE TOLERATED & THAT [facility] WOULD BE CALLED IF HE DIDN'T STOP THEN HE SAID HE WOULD FING TELL THEM TO GET THE HL OUT TOO. [facility] WAS CALLED TO COME TO ICU. THEY DID AND SPOKE WITH THE PATIENT WHO INITIALLY STARTED CURSING/YELLING AT THEM. COUNT TEAM CLERK GABBIE NOTIFIED OF [facility] CALLED AND PATIENT THREAT TO NURSE. GIO STAYED IN ROOM WHILE LORI GOT VITALS & WHILE DR SAXENA SPOKE WITH THE PATIENT.
--- NOTE | 2018-12-20 07:44 | NUR ---
07:30 AM PT CURRENTLY OOB IN CHAIR. ON 4 L NV. PT TAKEN OFF OF BIPAP AT 5:55 AM BY NURSING STAFF. PT TOLERATED BIPAP T/O THE NIGHT ; 9 PM TO 5:55 AM.
[2018-12-20 08:00] VITALS: BP 142/77
--- NOTE | 2018-12-20 09:32 | NUR ---
TRANSFERRED TO 520 VIA CHAIR
--- NOTE | 2018-12-20 11:24 | NUR ---
PHYSICAL THERAPY PT EVAL COMPLETED TODAY ON LEVEL 5: FULL EVALUATION TO FOLLOW; RECOMMEND PT WHILE HERE TO ADDRESS DECREASED STRENGTH AND FUNCTIONAL MOBILITY. PT EVAL IS MODERATE COMPLEXITY BASED ON CHART REVIEW, TEST RESULTS AND EVALUATION: 25410 D/C RECOMMENDATIONS ARE HOME WITH HOME PT SERVICES BASED ON TODAY'S EVALUATION. HE DOES LIVE ALONE AND IF HE DOES NOT PROGRESS WELL OVER THE NEXT COUPLE DAYS MAY BENEFIT FROM SHORT TERM SNF. THANK YOU FOR REFERRAL KERRY [facility] PT
[2018-12-20 12:00] VITALS: BP 150/69
[2018-12-20 16:00] VITALS: BP 145/56
[2018-12-20 20:06] VITALS: BP 160/80; BP 173/82
--- NOTE | 2018-12-20 23:15 | NUR ---
PATIENT REQUESTING TO TAKE BIPAP OFF AT THIS TIME. PLACED ON 4LNC BY RESPIRATORY. PATIENT STATES HE DOES NOT WANT TO WEAR THE MASK AT THIS TIME. NO DISTRESS NOTED. WILL MONITOR.
--- NOTE | 2018-12-20 23:22 | NUR ---
PATIENT OFF BIPAP BACK ON 4 L/M NC.
--- NOTE | 2018-12-21 00:50 | NUR ---
Shift chart check completed.
--- NOTE | 2018-12-21 01:00 | NUR ---
24 HR chart check completed.
--- NOTE | 2018-12-21 02:00 | NUR ---
PATIENT AWAKE REQUESTING A SNACK. PATIENT REFUSING TO WEAR BIPAP AT THIS TIME.
--- NOTE | 2018-12-21 04:00 | NUR ---
PATIENT RESTING QUIETLY AT THIS TIME ON BIPAP. NO DISTRESS NOTED. CALL LIGHT WITHIN REACH. WILL CONTINUE TO MONITOR.
--- NOTE | 2018-12-21 06:20 | NUR ---
PATIENT TAKEN OFF BIPAP AT THIS TIME AND PLACED ON 4LNC. NO DISTRESS NOTED. MORNING MEDICATIONS ADMINISTERED PRESCRIBED. PATIENT HAS NO COMPLAINTS AT THIS TIME. CALL CHAVEZ WITHIN REACH.
[2018-12-21 08:00] VITALS: BP 140/88
--- NOTE | 2018-12-21 08:35 | NUR ---
Occupational Therapy evaluation completed on the 5th floor with full eval to follow. Moderate complexity level 80969. Precautions: fall risk, IV site, O2, decreased endurance. Work on dynamic standing balance during ADLs, increase safety and independence with ADLs. Recommend SNF if agreeable; OT if refuses.Thank you for this referral, Cynthia Phillips OTR/L
--- NOTE | 2018-12-21 09:00 | NUR ---
Quality Assurance Auditor in to see patient. Discussed short term SNF and he refuses. Discussed home health care services and he is agreeable. When given a list of agencies he chose [facility]. When medically stable he will be discharged to home with [facility] services. He states he has [employer] aides twice a week that come in and clean. He would like podiatry to come in and cut his toes nails. Dr. Fragoso notified.
--- NOTE | 2018-12-21 09:55 | NUR ---
PHYSICAL THERAPY checked on pt at 955am, pt was in bathroom washing up, will check back at a later time. SHADE CALDERA TRACK FITTER
--- NOTE | 2018-12-21 09:55 | NUR ---
RAFAEL RATLIFF [id number] Please refer to the physician's history and physical for past medical history, comorbid conditions, and allergies. Diagnosis: ELEVATEE TROPONIN I LEVELM METABLOIC ENCEPHALOPATH Mp Score: 19,LOW OR NO RISK WOUND DESCRIPTIONS: Location of the wound: left elbow Type of wound: skin tear Thickness: Partial Size: 0.6cm x 0.6cm x 0.1cm Tunneling: none Undermining: none Sinus Tract: none Presence of Exudate: Serosanguineous Amount: Light Color: Red Odor: None Periwound Skin Appearance: Normal Wound edges: approximated Pain (associated with wound): none at time of assessment How does patient state this happened? pt stated this happened when they were holding him down Location of the wound: left arm under forearm Type of wound: skin tear Thickness: Partial Size: 1.5cm x 1.5cm x 0.1cm Tunneling: none Undermining: none Sinus Tract: none Presence of Exudate: Serosanguineous Amount: Light Color: Red Odor: None Periwound Skin Appearance: Normal Wound edges: approximated Pain (associated with wound): none at time of assessment How does patient state this happened? pt stated this happened when they were holding him down Location of the wound: left back of arm Type of wound: skin tear Thickness: Partial Size: 0.4cm x 0.6cm x 0.1cm Tunneling: none Undermining: none Sinus Tract: none Presence of Exudate: Serosanguineous Amount: Light Color: Red Odor: None Periwound Skin Appearance: Normal Wound edges: approximated Pain (associated with wound): none at time of assessment How does patient state this happened? pt stated this happened when they were holding him down Location of the wound: top of left wrist Type of wound: skin tear Thickness: Partial Size: 0.4cm x 0.6cm x 0.1cm Tunneling: none Undermining: none Sinus Tract: none Presence of Exudate: Serosanguineous Amount: Light Color: Red Odor: None Periwound Skin Appearance: Normal Wound edges: approximated Pain (associated with wound): none at time of assessment How does patient state this happened? pt stated this happened when they were holding him down Location of the wound: top of left forearm Type of wound: skin tear Thickness: Partial Size: 0.4cm x 0.6cm x 0.1cm Tunneling: none Undermining: none Sinus Tract: none Presence of Exudate: Serosanguineous Amount: Light Color: Red Odor: None Periwound Skin Appearance: Normal Wound edges: approximated Pain (associated with wound): none at time of assessment How does patient state this happened? pt stated this happened when they were holding him down Surface the patient is resting on: Isoflex SKIN PREVENTION RECOMMENDATION: 1. Pressure redistribution support surface as appropriate 2. Elevate heels 3. Remove boots/TEDS every shift and reapply 4. Head of bed 30 degrees as tolerated 5. Assess nutrition and hydration 6. Manage moisture 7. Avoid the use of containment devices while in bed 8. Use absorptive products on surfaces limit layers of linens on bed 9. Turn and reposition every 1-2 hours in bed and every 1 hour in chair as tolerated 10. Weight shifts every 15 minutes while up in chair 11. Offloading with pillows or device to keep heels elevated off bed 12. Monitor skin at least every shift 13. Inspect under medical devices twice a day WOUND TREATMENT RECOMMENDATIONS: Continue current skin tear orders.
--- NOTE | 2018-12-21 11:09 | NUR ---
SW faxed over a referral for pt to [facility] for [facility] went medically stable. ROYER Snider PRODUCTION COORDINATOR,ISOTOPE TECHNICIAN
--- NOTE | 2018-12-21 11:11 | NUR ---
ROS Toussaint at [facility] to let her know that a referral was faxed to her for pt. CM [place] ASSEMBLING FABRICATOR,SUPERVISOR PREPRESS
--- NOTE | 2018-12-21 11:12 | NUR ---
ROS Toussaint that pt has changed his mind regarding [facility] and is going home. ROYER Snider LIVERY CAR DRIVER,MANUFACTURING OPERATIONS MANAGER
[2018-12-21 12:00] VITALS: BP 153/73
--- NOTE | 2018-12-21 13:58 | NUR ---
PHYSICAL THERAPY informed consent given, pt identified by name and . pt presented sitting in chair spO2 97% 4L. STS and stand to sit CGA. walked 120ft x5 CGA standing rests in between. at one rest pulse 110bpm, spO2 90% 4L, standing rest 30seconds until pulse lowered to 98bpm, and spO2 reached 94% 4L. Ended treatment pt sitting in chair pulse 88bpm, spO2 97% 4L, call light and belongings in reach.1:1 treatment with UNDERGROUND BOLTING MACHINE OPERATOR 10min. SHADE CALDERA UNDERGROUND BOLTING MACHINE OPERATOR
[2018-12-21 16:00] VITALS: BP 148/73
--- NOTE | 2018-12-21 17:38 | NUR ---
PATIENT BELLIGERENT TO STAFF TELLING US TO GET THE F OUT OF HIS ROOM, CALL THE F--ING DOCTOR. PATIENT CALLED SWITCH BOARD, [employer] INTEGRATION ENGINEER PRASANTH LYN. PATIENT STATES HE IS LEAVING.
--- NOTE | 2018-12-21 17:45 | NUR ---
DR. JOEL AWARE PATIENT WANTING TO LEAVE.
--- NOTE | 2018-12-21 18:48 | NUR ---
DESPITE CONVERSTATIONS WITH BOARD LINER OPERATOR PATIENT IS LEAVING AMA. DR. JOEL AWARE.
--- NOTE | 2018-12-21 18:50 | NUR ---
REMOVED MIDLINE. PATIENT IS CALLING CAB AND HAS BELONGINGS.
--- NOTE | 2018-12-22 08:14 | NUR ---
PHYSICAL THERAPY CO-SIGN I approve of the Phyical Therapy notes written above. CHICHI LEAL PT
--- NOTE | 2018-12-22 10:17 | NUR ---
Daughter called asking if her father could be placed in a nursing facility as he is now agreeable. Informed daughter ROYER was not able to place in nursing facility as his insurance would require an authorization and he is no longer in the hospital. Gave daughter Kori, liaison at [facility], phone number of [phone] to speak with about getting him placed in [facility]. Daughter verbalized an understanding.
[2018-12-30] MEDS ORDERED: Ipratropium Brom3 ML INH (14:43)
[2019-01-28 09:11] LABS: ACID FAST CULTURE Negative (.)
[2019-02-16] MEDS ORDERED: VITAMIN B-121000 MC2 PO (09:05)
[2019-02-16] MEDS ORDERED: HYDRALAZINE HYD50 MG PO (09:13)
[2019-02-16] MEDS ORDERED: MEN'S ONE DAIL1 EACH PO (09:15)
[2019-02-16] MEDS ORDERED: NATURE'S BLEND F1 MG PO (09:18)
[2019-02-16] MEDS ORDERED: LIPITOR80 MG PO (09:20)
[2019-02-16] MEDS ORDERED: LYRICA150 M1 PO (09:59)
[2019-02-16] MEDS ORDERED: TOPROL XL25 MG PO (10:00)
[2019-02-16] MEDS ORDERED: VIAGRA100 MG PO (10:01)
[2019-02-16] MEDS ORDERED: SYMB160 INH (10:02)
[2019-02-19] MEDS ORDERED: SEPTDS PO (12:45)
== END 2018-12-21 18:50 | disposition left against medical advice (07) | DRG 871 ==
LOC: ED 15:37 → EDHOLD 18:23 → ICCU 18:23 → 5E 12-20 09:50
PROVIDERS: Emergency Medicine; Internal Medicine; Internal Medicine Critical Care Medicine; Nurse Practitioner Family; Student in an Organized Health Care Education/Training Program; ADMIT Internal Medicine
PROC: 5A1945Z Respiratory Ventilation, 24-96 Consecutive Hours (ICD-10-PCS; principal; 2018-12-15)
PROC: 0BH17EZ Insertion of Endotracheal Airway into Trachea, Via Natural or Artificial Opening (ICD-10-PCS; principal; 2018-12-15)
PROC: 5A09357 Assistance with Respiratory Ventilation, Less than 24 Consecutive Hours, Continuous Positive Airway Pressure (ICD-10-PCS; 2018-12-15)
PROC: 0BC78ZZ Extirpation of Matter from Left Main Bronchus, Via Natural or Artificial Opening Endoscopic (ICD-10-PCS; 2018-12-17)
PROC: 0BC98ZZ Extirpation of Matter from Lingula Bronchus, Via Natural or Artificial Opening Endoscopic (ICD-10-PCS; 2018-12-17)
PROC: 0BC68ZZ Extirpation of Matter from Right Lower Lobe Bronchus, Via Natural or Artificial Opening Endoscopic (ICD-10-PCS; 2018-12-17)
PROC: 0BC48ZZ Extirpation of Matter from Right Upper Lobe Bronchus, Via Natural or Artificial Opening Endoscopic (ICD-10-PCS; 2018-12-17)
PROC: 0BC88ZZ Extirpation of Matter from Left Upper Lobe Bronchus, Via Natural or Artificial Opening Endoscopic (ICD-10-PCS; 2018-12-17)
PROC: 0BCB8ZZ Extirpation of Matter from Left Lower Lobe Bronchus, Via Natural or Artificial Opening Endoscopic (ICD-10-PCS; 2018-12-17)
PROC: 0BC38ZZ Extirpation of Matter from Right Main Bronchus, Via Natural or Artificial Opening Endoscopic (ICD-10-PCS; 2018-12-17)
PROC: 0BC58ZZ Extirpation of Matter from Right Middle Lobe Bronchus, Via Natural or Artificial Opening Endoscopic (ICD-10-PCS; 2018-12-17)
PROC: 5A09357 Assistance with Respiratory Ventilation, Less than 24 Consecutive Hours, Continuous Positive Airway Pressure (ICD-10-PCS; 2018-12-18)
PROC: 5A09357 Assistance with Respiratory Ventilation, Less than 24 Consecutive Hours, Continuous Positive Airway Pressure (ICD-10-PCS; 2018-12-19)
PROC: 5A09357 Assistance with Respiratory Ventilation, Less than 24 Consecutive Hours, Continuous Positive Airway Pressure (ICD-10-PCS; 2018-12-20)
PROC: 0HBRXZZ Excision of Toe Nail, External Approach (ICD-10-PCS; 2018-12-21)
PROC: 5A09357 Assistance with Respiratory Ventilation, Less than 24 Consecutive Hours, Continuous Positive Airway Pressure (ICD-10-PCS; 2018-12-21)
DX: A41.9 Sepsis, unspecified organism (principal); G93.41 Metabolic encephalopathy; J18.9 Pneumonia, unspecified organism; I50.33 Acute on chronic diastolic (congestive) heart failure; J96.21 Acute and chronic respiratory failure with hypoxia; J96.22 Acute and chronic respiratory failure with hypercapnia; J44.1 Chronic obstructive pulmonary disease with (acute) exacerbation; E44.0 Moderate protein-calorie malnutrition; J44.0 Chronic obstructive pulmonary disease with (acute) lower respiratory infection; F31.81 Bipolar II disorder; E87.1 Hypo-osmolality and hyponatremia; I24.8 Other forms of acute ischemic heart disease; Z68.41 Body mass index [BMI] 40.0-44.9, adult; Z98.61 Coronary angioplasty status; I11.0 Hypertensive heart disease with heart failure; E66.01 Morbid (severe) obesity due to excess calories; I25.10 Atherosclerotic heart disease of native coronary artery without angina pectoris; B96.1 Klebsiella pneumoniae [K. pneumoniae] as the cause of diseases classified elsewhere; G89.4 Chronic pain syndrome; N40.0 Benign prostatic hyperplasia without lower urinary tract symptoms; F17.210 Nicotine dependence, cigarettes, uncomplicated; J20.9 Acute bronchitis, unspecified; D64.9 Anemia, unspecified; G47.33 Obstructive sleep apnea (adult) (pediatric); R62.7 Adult failure to thrive; B35.1 Tinea unguium; I73.9 Peripheral vascular disease, unspecified; I87.2 Venous insufficiency (chronic) (peripheral); Z53.29 Procedure and treatment not carried out because of patient's decision for other reasons; Z85.46 Personal history of malignant neoplasm of prostate; Z72.89 Other problems related to lifestyle; Z98.52 Vasectomy status

== ENCOUNTER 2018-12-24 16:30 | Inpatient (IN) | payer OTHER, MEDICAID ==
[~2018-12-24] VITALS: Ht 177.8 cm; Wt 125.6 kg
--- NOTE | ~2018-12-24 | EKG ---
[place], [place] ELECTROCARDIOGRAM REPORT NAME: RAFAEL RATLIFF UNIT #: [id number] ROOM: 419 DOCTOR: JP DRAFT REPORT BIRTHDATE: [birth year] [facility] Test Date: 2018-12-24 Test Time: 23:11:30 Pat Name: RAFAEL RATLIFF Department: Room: 419 Gender: M Technology Development Intern: Michelle Urbina : 1955 Requested By: MARLY EDWARDS PA-C Order Number: [id number] Reading MD: Emily Santacruz Measurements Intervals [place] Rate: 95 P: 48 CA: 137 QRS: 79 QRSD: 98 T: 62 QT: 353 QTc: 444 Interpretive Statements Sinus rhythm Probable left atrial enlargement Baseline wander in lead(s) V6 Compared to ECG 12/16/2018 10:03:49 ST (T wave) deviation no longer present Electronically Signed On 12-27-2018 8:58:48 PDT by Emily Santacruz CM:EKGRPT:ELECTROCARDIOGRAM REPORT [id number] MARLY EDWARDS PA-C EPIPHANY DRAFT REPORT MARLY EDWARDS PA-C
--- NOTE | ~2018-12-24 | PR ---
[place], [place] PROGRESS NOTE NAME[id number] UNIT #: [id number] ROOM: 419 DOCTOR: EFRAIN GARY MD,AHSAN BIRTHDATE: [birth year] DOS: 12/26/2018 PULMONARY PROGRESS NOTE SUBJECTIVE: The patient is noted comfortable at this time. He is noted with coughing, which has been subsiding. Shortness of breath is improving. There were no symptoms of chest pain, fever or chills, or any hemoptysis. OBJECTIVE: VITAL SIGNS: Which were recorded as normal temperature, respiratory rate 20, heart rate 88, blood pressure 140/69. The pulse ox saturation on 4 liters nasal cannula was 98% saturation. HEENT: Head was atraumatic, eyes nonicterus. NECK: Supple. CARDIOVASCULAR: S1 and S2 audible. LUNGS: Without any wheezing or crackles. ABDOMEN: Soft, obese, nontender. Bowel sounds present. EXTREMITIES: No acute change. IMPRESSION: Resolving acute tracheobronchitis with exacerbation of chronic obstructive pulmonary disease gradually and progressively. PLAN OF TREATMENT: Continue antibiotics. Discharge the patient tomorrow evening or Friday morning, this will complete the antibiotic course. AHSAN ZUNIGA MD CM:PNTRANS [id number] AHSAN AGRY MD 12/27/18 0546 interface
--- NOTE | ~2018-12-24 | EKG ---
[place], [place] ELECTROCARDIOGRAM REPORT NAME: RAFAEL RATLIFF UNIT #: [id number] ROOM: 419 DOCTOR: JP DRAFT REPORT BIRTHDATE: [birth year] [facility] Test Date: 2018-12-24 Test Time: 16:42:12 Pat Name: RAFAEL RATLIFF Department: Room: 419 Gender: M Fifth Hand: : 1955 Requested By: MARLY EDWARDS PA-C Order Number: [id number] Reading MD: Emily Santacruz Measurements Intervals [place] Rate: 88 P: 40 IN: 137 QRS: 76 QRSD: 102 T: 56 QT: 358 QTc: 434 Interpretive Statements Sinus rhythm Ventricular premature complex Compared to ECG 12/16/2018 10:03:49 Ventricular premature complex(es) now present ST (T wave) deviation no longer present Electronically Signed On 12-27-2018 8:57:08 PDT by Emily Santacruz CM:EKGRPT:ELECTROCARDIOGRAM REPORT [id number] MARLY EDWARDS PA-C EPIPHANY DRAFT REPORT MARLY EDWARDS PA-C
--- NOTE | ~2018-12-24 | PR ---
[place], [place] PROGRESS NOTE NAME: [facility]EL [facility]LIFF [facility] [id number] UNIT #: [id number] ROOM: 419 DOCTOR: SUKH JOEL MD BIRTHDATE: [birth year] DOS: 12/25/2018 SUBJECTIVE: The patient has acute over chronic respiratory failure. OBJECTIVE: GENERAL APPEARANCE: The patient is alert and oriented x 3, in no visible distress. Generalized weakness, morbid obesity. VITAL SIGNS: Blood pressure 121/77, breathing 22 times per minute, heart rate of 92 beats per minute, 98 degrees Fahrenheit temperature. HEENT AND NECK: Exam within normal limits. CARDIOVASCULAR SYSTEM: Heart rate is regular in rate and rhythm. S1 and S2 normally audible. LUNGS: Decreased breath sounds all over. ABDOMEN: Soft, nontender. No obvious organomegaly. Bowel sounds are present. EXTREMITIES: Chronic leg and pedal edema with chronic stasis dermatitis changes. IMPRESSION: 1. Acute exacerbation of chronic obstructive pulmonary disease. The patient is being treated with corticosteroids and DuoNeb, BiPAP, and IV Zosyn. Dr. Hannah, his tape fastener machine operator has recommended the patient should stay until Friday for the treatment. 2. Advance adult failure to thrive and ambulatory dysfunction. The patient is working with physical therapy, but does not qualify for half-way. 3. Coronary artery disease of the [place] vessels without chest pain. 4. Poor compliance with treatment. 5. The patient did not qualify for half-way placement for physical therapy. 6. The patient is alcoholic with elevated alcohol levels at admission, is being treated with Thiamine. No signs of delirium tremens. SUKH JOEL MD CM:PNTRANS [id number] SUKH JOEL MD 12/25/18 175 interface
--- NOTE | ~2018-12-24 | EKG ---
[place], [place] ELECTROCARDIOGRAM REPORT NAME: RAFAEL RATLIFF UNIT #: [id number] ROOM: 419 DOCTOR: JP DRAFT REPORT BIRTHDATE: [birth year] [facility] Test Date: 2018-12-24 Test Time: 18:58:53 Pat Name: RAFAEL RATLIFF Department: Room: 419 Gender: M Post Tronic Machine Operator: Ketty Cook : 1955 Requested By: MARLY EDWARDS PA-C Order Number: [id number] Reading MD: Emily Santacruz Measurements Intervals [place] Rate: 85 P: 60 ND: 151 QRS: 78 QRSD: 101 T: 59 QT: 371 QTc: 442 Interpretive Statements Sinus rhythm Compared to ECG 12/16/2018 10:03:49 ST (T wave) deviation no longer present Electronically Signed On 12-27-2018 8:57:19 PDT by Emily Santacruz CM:EKGRPT:ELECTROCARDIOGRAM REPORT [id number] MARLY EDWARDS PA-C EPIPHANY DRAFT REPORT MARLY EDWARDS PA-C
--- NOTE | ~2018-12-24 | PR ---
[place], [place] PROGRESS NOTE NAME: RAFAEL RATLIFF UNIT #: [id number] ROOM: 419 DOCTOR: EFRAIN GARY MD,AHSAN BIRTHDATE: [birth year] DOS: 12/27/2018 SUBJECTIVE: The patient was noted comfortable at this time without any acute distress, has been receiving intravenous antibiotic. The patient is on IV Zosyn. He would like to be discharged home today. Denies symptoms of fever or chills. Coughing has been resolving. Was noted mild peripheral edema. OBJECTIVE: VITAL SIGNS: Normal temperature, respiratory rate 20, heart rate 79, blood pressure 153/75. Pulse oxygen saturation on 4 liters nasal cannula 99% saturation. HEENT: Examination shows chronic obesity. NECK: Supple. CARDIOVASCULAR: S1, S2 is audible. LUNGS: Without any wheeze or crackles. ABDOMEN: Soft and nontender. Bowel sounds are present. EXTREMITIES: No clubbing or cyanosis. Mild peripheral edema. LABORATORY DATA: Culture of the sputum, which was sent on the 12/26/2018 was still growing as light growth of gram-negative bacilli, pending identification sensitivities. IMPRESSION: Acute tracheobronchitis with ESBL, which has been gradually improving. The acute exacerbation of chronic obstructive pulmonary disease resolving. PLAN OF MANAGEMENT: Completion of antibiotic, last dose at 6:00 today and discharge the patient home because of his insistence. Continue other therapy, plan of management. Outpatient assessment already planned that will be kept. AHSAN ZUNIGA MD CM:PNTRANS [id number] AHSAN GARY MD 12/27/18 1643 interface
--- NOTE | ~2018-12-24 | WRIGHTHP ---
[place], [place] PATIENT HISTORY AND PHYSICAL EXAM NAME: RAFAEL RATLIFF UNIT #: [id number] ROOM: 419 DOCTOR: SUKH JOEL MD BIRTHDATE: [birth year] DOS: 12/24/2018 HISTORY OF PRESENT ILLNESS: The patient is a 63-year-old gentleman with a past medical history of: 1. Morbid obesity. 2. Chronic respiratory failure and COPD. 3. Alcoholism. 4. Chronic hyponatremia. 5. Nicotine smoke dependence. 6. COPD end stage with chronic hypoxemia and oxygen dependence with chronic respiratory failure. 7. Chronic pain syndrome. 8. BPH and urine retention. 9. Coronary artery disease of the [place] vessels. 10. Peripheral polyneuropathy. 11. Major depression, recurrent, moderate. The patient recently left against medical advice and was being treated for acute over chronic respiratory failure and was taken off mechanical ventilation. The patient realized he was risking his life and risking when he left and finally after a few days, he decided to come back to the Emergency Department quite hypoxemic and short of breath and this time, he is agreeing to go to long-term facility and retirement placement, which he refused during last admission. Acute exacerbation of COPD and acute over chronic respiratory failure to be treated with BiPAP, DuoNeb, corticosteroids, steroids, antibiotics and Dr. Hannah, the line supervisor to be consulted. Morbid obesity, adult failure to thrive and ambulatory dysfunction. The patient to work with Physical Therapy. Coronary artery disease of [place] vessels without chest pains, presently asymptomatic. Continue home meds. Advance disability, adult failure to thrive, and morbid obesity. The patient working with physical therapy and with dietary. Case management consulted for placement to a nursing facility. [place], [place] PATIENT HISTORY AND PHYSICAL EXAM NAME: RAFAEL RATLIFF UNIT #: [id number] ROOM: 419 DOCTOR: SUKH JOEL MD BIRTHDATE: [birth year] SUKH JOEL MD CM:HISPHYS:PATIENT HISTORY AND PHYSICAL EXAMINATION 32 57 SUKH JOEL MD 12/24/18 2257 interface
--- NOTE | ~2018-12-24 | PR ---
[place], [place] PROGRESS NOTE NAME: RAFAEL RATLIFF UNIT #: [id number] ROOM: 419 DOCTOR: EFRAIN GARY MD,AHSAN BIRTHDATE: [birth year] DOS: 12/28/2018 SUBJECTIVE: The patient noted comfortable at this time, resting in the bed without any distress. He has not been discharged yesterday. The patient states, he has a broken foot on the left side and will be seen by the aquatics specialist today. The respiratory symptom has been improving including coughing and wheezing. OBJECTIVE: VITAL SIGNS: Normal temperature, respiratory rate 20, heart rate 91, blood pressure 145/82. Pulse ox saturation on 4 liters 97% saturation at rest. HEENT: Chronic obesity. Head was atraumatic. Eye nonicterus. NECK: Supple. CARDIOVASCULAR: S1, S2 audible. LUNGS: The patient without any wheezing or crackles. ABDOMEN: Soft, nontender. Bowel sounds present. EXTREMITIES: No acute change. IMPRESSION: 1. The patient with resolving acute tracheobronchitis with extended-spectrum beta-lactamase. 2. The patient with resolving acute exacerbation of chronic obstructive pulmonary disease as well. 3. Chronic obesity. 4. Fracture of the fourth and fifth metatarsal bones. PLAN OF TREATMENT: No changes in the plan of care at this time will be needed. Other treatment as previously ongoing will be continued. Following the recommended aquatics specialist. AHSAN ZUNIGA MD CM:PNTRANS [id number] AHSAN GARY MD 01/11/19 1207 interface
--- NOTE | ~2018-12-24 | CON ---
[place], [place] REPORT OF CONSULTATION NAME: RAFAEL RATLIFF [facility] #: [id number] UNIT #: [id number] ROOM: 419 DOCTOR: LADY ZAMORA MD BIRTHDATE: [birth year] DOS: 12/26/2018 CARDIOLOGY CONSULT REASON FOR CONSULTATION: Nonsustained VTach. HISTORY OF PRESENT ILLNESS: The patient is a 63-year-old gentleman with a history of COPD, end-stage morbid obesity, prostate cancer, was presented to the hospital for progressive shortness of breath on exertion as well as a nonproductive cough for the past several days. He was admitted for acute on chronic respiratory failure and he noted to have a 14-beat wide complex tachycardia, asymptomatic and Cardiology consulted. He had a 2D echo on 12/11/2018, which showed normal LV function. He did have moderate LV hypertrophy. He denies any chest pain or palpitations. His again main complaint is exertional dyspnea and nonproductive cough, but no PND, no orthopnea. No nausea, vomiting, diarrhea. No fever and chills. No neurologic symptoms. No genitourinary symptoms. No bladder or bowel symptoms. REVIEW OF SYSTEMS: Review of 10 systems negative except as mentioned above. PAST MEDICAL HISTORY: 1. End-stage COPD. 2. Diastolic heart failure. 3. Hypertension. 4. Morbid obesity. 5. Aortic aneurysm. 6. Chronic pain syndrome. 7. History of prostate cancer. 8. Depression. SURGICAL HISTORY: Reviewed. SOCIAL HISTORY: Reviewed. HOME MEDICATIONS: Reviewed. ALLERGIES: Reviewed. PHYSICAL EXAMINATION: VITAL SIGNS: Blood pressure 137/75, pulse 72, respiratory rate 20. Weight 124i.6 kilos, BMI 40.0. GENERAL: Alert, comfortable, in no acute distress. HEAD AND NECK: Pupils round, equal. No jaundice. Tongue was moist. Pharynx clear. Neck supple, no distended neck veins, no carotid bruit. CHEST: Symmetrical, nontender. LUNGS: A few scattered rhonchi and diminished at bases. HEART: Regular rhythm, no S3, no palpable thrills. No significant murmurs. ABDOMEN: Morbidly obese, nontender. Bowel sounds normal. EXTREMITIES: Showed 1+ to 2+ edema. Distal pulses are palpable. SKIN: Warm and dry. No cyanosis, no clubbing. [place], [place] REPORT OF CONSULTATION NAME: RAFAEL RATLIFF UNIT #: [id number] ROOM: 419 DOCTOR: SERA WHITE,LADY BIRTHDATE: [birth year] RECTAL: Deferred. GENITOURINARY: Deferred. NEUROLOGIC: Alert and oriented. No focal neurologic deficit. REVIEW OF DIAGNOSTIC TESTS: His labs and EKG reviewed. EKG shows sinus rhythm with normal QT interval. A 2D Echo on 12/11/2018 reviewed. Hemoglobin 10.1, potassium 3.9, magnesium 2.3 and cardiac troponins are negative x 3. Creatinine 0.6. Rhythm strip showed a 14-beat wide complex tachycardia. IMPRESSION: 1. Brief wide complex tachycardia, 14 beats, asymptomatic, possible nonsustained ventricular tachycardia, possibly due to his left ventricular hypertrophy. His ejection fraction is 65-70% with moderate left ventricular hypertrophy by echo 12/11/2018. 2. Acute on chronic respiratory failure. 3. Anemia. 4. Abdominal aortic aneurysm, without rupture. 5. Morbid obesity. 6. Hypertension. 7. History of prostate cancer. RECOMMENDATIONS: 1. Start low-dose beta blockers and watch her heart rate and blood pressure. 2. If her blood pressure gets low, then I would decrease his hydralazine. 3. Risks factor modification discussed. 4. No further cardiac testing at this time. 5. Cardiology will see as needed. 6. The patient can be discharged home from the cardiac standpoint. 7. Per Dr. Hannah's notes, the patient is willing to go to a senior living facility. 8. No family at bedside at the time of examination. LADY ZAMORA MD CM:CONSTR:REPORT OF CONSULTATION 1602 12/27/18 1247 interface
--- NOTE | ~2018-12-24 | PR ---
[place], [place] PROGRESS NOTE NAME: RAFAEL RATLIFF UNIT #: [id number] ROOM: 419 DOCTOR: SUKH JOEL MD BIRTHDATE: [birth year] DOS: 12/27/2018 SUBJECTIVE: The patient with swelling and pain in his left foot, complaining since yesterday. OBJECTIVE: GENERAL APPEARANCE: The patient is alert and oriented x 3, in no visible distress. Morbid obesity. VITAL SIGNS: Blood pressure 153/75, heart rate of 79 beats per minute, breathing 20 times per minute, temperature 98 degrees Fahrenheit. HEENT AND NECK: Exam within normal limits. CARDIOVASCULAR SYSTEM: Heart rate is regular in rate and rhythm. S1 and S2 normally audible. LUNGS: Clear to auscultation. ABDOMEN: Soft, nontender. No obvious organomegaly. Bowel sounds are present. EXTREMITIES: Swelling in his left foot with blackened area on the outside. IMPRESSION: 1. The patient's fracture deformity of the fourth and the fifth metatarsals of the left foot. Dr. Recinos consulted, although the patient is thinking about signing out against medical advice again. 2. Nonsustained ventricular tachycardia, evaluated by curriculum development coordinator, asymptomatic and considered to be related to his left ventricular hypertrophy. The patient was started on low-dose beta yary. No further cardiology workup recommended. 3. Acute exacerbation of chronic obstructive pulmonary disease, being treated by Dr. Hannah with Zosyn intravenously. 4. Morbid obesity, adult failure to thrive and ambulatory dysfunction, especially now with the foot fracture. 5. Coronary artery disease of [place] vessels without chest pain. 6. Poor compliance with treatment. The patient frequently signs out against medical advice despite of risking . 7. History of alcoholism. [place], [place] PROGRESS NOTE NAME: RAFAEL RATLIFF UNIT #: [id number] ROOM: 419 DOCTOR: SUKH JOEL MD BIRTHDATE: [birth year] SUKH JOEL MD CM:PNTRANS [phone] SUKH JOEL MD 12/28/18 1627 interface
--- NOTE | ~2018-12-24 | PR ---
[place], [place] PROGRESS NOTE [id number] UNIT #: [id number] ROOM: 419 DOCTOR: SUKH JOEL MD BIRTHDATE: [birth year] DOS: 12/26/2018 SUBJECTIVE: The patient is a 63-year-old gentleman with increased shortness of breath, cough, chest congestion and acute exacerbation of COPD which is being treated by Dr. Hannah. OBJECTIVE: VITAL SIGNS: Blood pressure 140/69, heart rate of 105 beats per minute, breathing 20 times per minute, temperature of 98 degrees Fahrenheit. GENERAL APPEARANCE: The patient is alert and oriented x 3, in no visible distress. Morbidly obese. Generalized weakness. HEENT AND NECK: Exam within normal limits. CARDIOVASCULAR SYSTEM: Heart rate is regular in rate and rhythm. S1 and S2 normally audible. LUNGS: Decreased breath sounds all over with some expiratory wheezing. ABDOMEN: Soft, nontender. No obvious organomegaly. Bowel sounds are present. EXTREMITIES: Without significant cyanosis or edema. IMPRESSION: 1. Acute exacerbation of chronic obstructive pulmonary disease with acute over chronic respiratory failure, being treated with BiPAP, DuoNeb, corticosteroids. Dr. Hannah, the product handler is following and I may be able to discharge him to home tomorrow. The patient is insisting on going home tomorrow. 2. Adult failure to thrive, ambulatory dysfunction, morbid obesity. The patient did not qualify on physical therapy basis for rehabilitation, so he will end up going home. 3. Coronary artery disease of [place] vessels without chest pain. 4. Poor compliance with treatment and diet. 5. History of alcoholism. SUKH JOEL MD CM:PNTRANS [id number] SUKH JOEL MD 12/27/18 1547 interface
--- NOTE | ~2018-12-24 | CON ---
[place], [place] REPORT OF CONSULTATION NAME: [facility]LIFF [facility] [id number] UNIT #: [id number] ROOM: 419 DOCTOR: AHSAN DELGADO MD BIRTHDATE: [birth year] DOS: 12/25/2018 PULMONARY CONSULTATION, EVALUATION, AND MANAGEMENT CONSULTATION REQUESTED BY: Hospitalist Service. REASON FOR CONSULTATION: Assessment of current hospitalization, and the patient left against medical advice recently, for the medical management of acute on chronic respiratory failure at that time. HISTORY OF PRESENT ILLNESS: This is a 63-year-old white male patient, who has been admitted to this hospital. Recently, the patient was noted with acute on chronic hypercapnic hypoxic respiratory failure and severe acute infection with ESBL. The patient has been treated with antibiotic, incomplete course of treatment, and signed against medical advice on 12/22/2018. The patient stated that he went home and was encouraged by his daughter to come back to the hospital for readmission. The patient has been readmitted to the hospital. The patient returned to the Emergency Room after 2 days on 12/24/2018. He was still complaining of symptoms of shortness of breath that occurs with exertion with nonproductive cough, which has been decreased, but not resolved. Denies symptoms of wheezing. Denies symptoms of chest pain or hemoptysis. The patient currently is agreeing for transfer to a nursing facility, group home, as we advised previously on the last admission. REVIEW OF SYSTEMS: CONSTITUTIONAL: Fatigue and tiredness noted. Denies symptoms of fever or chills. EYES: Denies burning, redness, or tenderness. EARS, NOSE, THROAT: Denies sore throat, hoarseness, otalgia, postnasal drip, or epistaxis. CARDIOVASCULAR: Denies anginal pain, edema, or pain of the lower extremities. GASTROINTESTINAL: Denies dysphagia, nausea, vomiting, diarrhea, abdominal pain, hematemesis, melena, or hematochezia. SKIN: Denies abnormal lesions or rashes. MUSCULOSKELETAL: Denies acute joint pain, redness, or tenderness. SKIN: No lesions or rashes reported. Remaining systems reviewed were noted all negative. PAST MEDICAL HISTORY: 1. End-stage COPD. 2. Chronic hypercapnic and hypoxic respiratory failure. 3. Prostate cancer treated in 2013. 4. Suspected obstructive sleep apnea disorder, requires further assessment. 5. Abdominal aortic aneurysm of 5 cm, untreated. 6. Congestive heart failure, diastolic dysfunction. 7. Essential hypertension. 8. Severe morbid obesity. 9. Recent infection with ESBL noted on this admission, treated for about 7 days of treatment during his last hospitalization. [place], [place] REPORT OF CONSULTATION NAME: RAFAEL RATLIFF UNIT #: [id number] ROOM: 419 DOCTOR: AHSAN DELGADO MD BIRTHDATE: [birth year] SOCIAL HISTORY, SURGICAL HISTORY, FAMILY HISTORY: All reviewed again and remain unchanged since my consultation, which was completed on 12/16/2018, refer to that document for any additional information as needed. MEDICATIONS: Current medications administered are thiamine, loratadine, lisinopril, Cymbalta, aspirin, omeprazole, trazodone, hydralazine, DuoNeb, prednisone as well as Lyrica. DRUG ALLERGIES: The patient was noted with no known drug allergies. PHYSICAL EXAMINATION: GENERAL: A 63-year-old male patient, currently noted awake and alert, sitting on the bed this morning of assessment. Height of 5 feet 10 inches, weight of 277 pounds, BMI 39. VITAL SIGNS: Normal temperature, respiratory rate 18-20, heart rate of 98-92, blood pressure 130/70 to 130/69. Pulse ox saturation on 4 liters nasal cannula was 96% saturation. HEENT: Head was atraumatic, eyes nonicterus. NECK: Supple. Decreased posterior pharyngeal space, high tongue base, and crowding of soft tissue structures. CARDIOVASCULAR: S1 and S2 audible. LUNGS: Decreased breath sounds. No wheezing. There were no crackles. ABDOMEN: Soft, nontender, obese. EXTREMITIES: No edema. MUSCULOSKELETAL: Without any deformity. CENTRAL NERVOUS SYSTEM: Cranial nerves 2-12 intact. LABORATORY AND DIAGNOSTIC DATA: Ethyl alcohol level was noted elevated at 156 on admission. PT and PTT yesterday were normal. CBC yesterday, normal WBC count, hemoglobin 11, platelet count was normal. CMP that was completed yesterday, normal BUN and creatinine and other electrolytes except CO2 33 which is mildly elevated. Chest x-ray, no acute cardiopulmonary disease. CBC of this morning essentially same as yesterday. IMPRESSION: 1. The patient with incomplete treatment of acute exacerbation of chronic obstructive pulmonary disease and acute tracheobronchitis with extended-spectrum beta-lactamase. 2. Alcohol use noted intermittently. 3. Morbid obesity. 4. Suspected obstructive sleep apnea disorder. 5. Chronic hypercapnic and hypoxic respiratory failure. 6. Overall debility, which is related to current acute illness with gradual improvement. 7. Metabolic alkalosis secondary to chronic hypercapnia. PLAN OF TREATMENT: The patient would be restarted on Zosyn to complete the total duration of treatment, minimum of 10 days completion. Continuation of bronchodilators. Continuation of usual home medications. BiPAP could be used [place], [place] REPORT OF CONSULTATION NAME: RAFAEL RATLIFF UNIT #: [id number] ROOM: [facility] DOCTOR: AHSAN DELGADO MD BIRTHDATE: [birth year] as necessary. We will titrate oxygen supplementation to maintain pulse ox 92% or greater. The patient is also noted with metabolic alkalosis related to chronic hypercapnia that needs to be monitored if intervention will be needed. AHSAN ZUNIGA MD CM:CONSTR:REPORT OF CONSULTATION 1336 12/26/18 0301 interface
--- NOTE | ~2018-12-24 | DS ---
[place], [place] DISCHARGE SUMMARY NAME: RAFAEL RATLIFF [facility] #: [id number] UNIT #: [id number] ROOM: 419 DOCTOR: SUKH JOEL MD BIRTHDATE: [birth year] DOS: 12/28/2018 DISCHARGE DIAGNOSES: 1. The patient is very poorly compliant with treatment and followup. 2. Morbid obesity. 3. Acute exacerbation of chronic obstructive pulmonary disease. 4. Left foot fourth and fifth metatarsal fractures, being followed by Podiatry. The patient refused to wait for full treatment. 5. History of alcoholism. 6. Coronary artery disease of [place] vessels. 7. Adult failure to thrive, ambulatory dysfunction. 8. Chronic respiratory failure and chronic obstructive pulmonary disease. 9. Chronic hyponatremia. 10. Nicotine smoke dependence, chronic pain syndrome. 11. Benign prostatic hypertrophy and urine retention. 12. Peripheral polyneuropathy. 13. Major depression, recurrent, moderate. HOSPITAL COURSE: The patient presented to the Emergency Department with increased shortness of breath and was found to have acute over chronic respiratory failure. The patient has had recently left [facility] against medical advice. The patient was also hurting in his both feet and later on, his left foot became swollen, so it was x-rayed and found to have fourth and fifth metatarsal fractures. The patient did not take the treatment recommended by Podiatry and said his foot has been wrapped and he is going home to follow up with Podiatry as an outpatient. 1. Acute exacerbation of COPD, treated with Zosyn by Dr. Hannah and he has been cleared for discharge. 2. Morbid obesity and ambulatory dysfunction. The patient worked with physical therapy. 3. Acute exacerbation of COPD, treated with Zosyn and Dr. Hannah, his custom bookbinder followed him and has been cleared for discharge. 4. Chronic hyponatremia from alcoholism. 5. Coronary artery disease of [place] vessels. 6. Peripheral polyneuropathy. 7. Major depression, recurrent, moderate. 8. Chronic pain syndrome. 9. BPH and urinary retention. 10. End-stage COPD with oxygen dependence. The patient was admitted soon after he left against medical advice and he came back for increased shortness of breath and this time, he wanted the shelter facility placement for rehabilitation. The patient is ambulating well, so he did not qualify. Later on, the patient developed acute swelling and pain in his left foot and he was found to have fracture of the fourth and fifth metatarsal bones of the left foot. The patient recommended treatment by Podiatry, which he refused and he is being sent home with temporary treatment to follow up with customer service voice. The patient may now have qualified for shelter, but he is too inpatient to wait. 11. Acute exacerbation of chronic obstructive pulmonary disease and acute over [place], [place] DISCHARGE SUMMARY NAME: RAFAEL RATLIFF [facility] #: [id number] UNIT #: [id number] ROOM: 419 DOCTOR: SUKH JOEL MD BIRTHDATE: [birth year] chronic respiratory failure, treated with IV Zosyn, BiPAP, DuoNeb, corticosteroids, and patient is breathing better. The patient has chronic end-stage lung disease and a poor long-term prognosis. 12. Morbid obesity. The patient worked with [facility]. 13. Coronary artery disease of the [place] vessels without chest pain. LABORATORY DATA: Hemoglobin 10, no leukocytosis, platelets normal, cultures grew E. coli resistant to most antibiotics, but sensitive to Zosyn, which the patient was getting, Dr. Hannah to decide about further management. Coronary artery disease of [place] vessels without chest pains. Advance adult failure to thrive and morbid obesity and ambulatory dysfunction. The patient worked very well with physical therapy and did not qualify for physical therapy at shelter. LABORATORY DATA: Sputum cultures grew E. coli, sensitive to Zosyn, and hemoglobin 10. No leukocytosis. DISCHARGE MANAGEMENT: Metoprolol 25 mg daily, metoprolol succinate 25 mg daily, Tylenol p.r.n., thiamine 100 mg daily, loratadine 10 mg a day, lisinopril 40 mg a day, Cymbalta 30 mg a day, aspirin 81 mg a day, omeprazole 20 mg daily, trazodone 50 mg at bedtime, Flomax 0.4 mg daily, hydralazine 50 mg t.i.d., DuoNebs every 4 hours as needed for shortness of breath. SUKH JOEL MD CM:DISCHARG [phone] SUKH JOEL MD 12/28/18 1551 interface
[2018-12-24 16:37] VITALS: BP 137/72
[2018-12-24 17:04] LABS: BASO % 0.4 % (0.0-1.0); EOS # 0.2 10*3/uL (0.0-0.4); EOS % 2.4 % (1.0-4.0); LYMPH # 1.5 10*3/uL (1.3-4.4); LYMPH % 14.7 % (27.0-41.0); MEAN CELL VOLUME 97.8 fl (80.0-94.0); MEAN CORPUSCULAR HGB 30.7 pg (27.0-31.0); MEAN CORPUSCULAR HGB CONC 31.4 g/dl (33.0-37.0); MEAN PLATELET VOLUME 8.5 fl (9.6-12.3); MONO # 0.7 10*3/uL (0.1-1.0); MONO % 7.3 % (3.0-9.0); NEUT # 7.6 10*3/uL (2.3-7.9); NEUT % 74.9 % (47.0-73.0); PLATELET COUNT AUTOMATED 242 10*3/uL (130-400); RED BLOOD COUNT 3.58 10*6/uL (4.50-5.90); RED CELL DISTRI WIDTH 14.5 % (0-14.5); WHITE BLOOD COUNT 10.2 10*3/uL (4.8-10.8)
[2018-12-24 17:12] LABS: ACT PARTIAL THROMBO TIME 23.7 SECONDS (20.8-31.5); INTERNATIONAL NORM RATIO 0.9 (2.0-3.5)
[2018-12-24 17:20] LABS: ALBUMIN 3.2 gm/dl (3.1-4.5); ALKALINE PHOSPHATASE 87 U/L (45-117); BUN 6 mg/dl (7-24); CHLORIDE 98 mmol/L (98-107); CREATININE 0.66 mg/dL (0.70-1.30); POTASSIUM 3.9 mmol/L (3.5-5.1); SGOT/AST 11 IU/L (3-35); SGPT/ALT 23 U/L (12-78); SODIUM 138 mmol/L (136-145); TOTAL PROTEIN 6.7 gm/dL (6.4-8.2)
[2018-12-24 17:21] LABS: TROPONIN I < 0.015 ng/ml (<0.045)
[2018-12-24 18:13] VITALS: BP 131/68
--- NOTE | 2018-12-24 18:43 | NUR ---
CCA 63, admitted to , under the services of Dr. WISAM WHITE,SUKH Kang with a diagnosis of RESPIRATORY FAILURE. Chief complaint is SOB. Patient arrived via bed from ER. Monitor applied. Initial assessment completed. Vital signs taken and recorded. DR. WISAM WHITE,SUKH Kang notified of admission to the unit. Orders received. See assessment for past medical history, medications and allergies. Patient and/or family oriented to unit. [facility] visitation policy reviewed. Clothing/patient valuable form completed. LISA GERARDO.
--- NOTE | 2018-12-24 18:49 | NUR ---
ATTEMPTED TO CALL DR JOEL FOR ADM/WOUND ORDERS BUT NO ANSWER.
--- NOTE | 2018-12-24 18:56 | NUR ---
CIGARETTES/ICT PROJECT MANAGER FOUND AND [facility] IN [facility].
--- NOTE | 2018-12-24 19:45 | NUR ---
MED REC UPDATED PER MEDICATIONS IN MED CLAIM HISTORY FROM THIS YEAR. DR. JOEL STATED THAT THE PATIENT WAS JUST HERE AND HE WILL USE THE REC THAT IS IN THERE.
[2018-12-24 20:00] VITALS: BP 121/72; BP 133/68
[2018-12-24] MEDS ORDERED: SPIRIVA RESPIMAT4 GM INH (20:28)
--- NOTE | 2018-12-24 20:35 | NUR ---
ASSESSMENT COMPLETED. SEE ASSESSMENT INTERVENTION. NO SIGNS OR SYMPTOMS OF DISTRESS. VOICES NO CONCERNS AT THIS TIME. RESPIRATIONS EASY NONLABOURED ON 4L VIA NC.
--- NOTE | 2018-12-24 22:54 | NUR ---
Pt placed on BiPap 16/8 and 40%. Alarms on and audible.
[2018-12-25] VITALS: BP 130/70
[2018-12-25 05:22] VITALS: BP 130/69
--- NOTE | 2018-12-25 06:38 | NUR ---
DR. ZUNIGA CONSULTED FOR SOB.
[2018-12-25 06:55] LABS: BASO % 0.3 % (0.0-1.0); EOS # 0.2 10*3/uL (0.0-0.4); EOS % 2.3 % (1.0-4.0); HEMATOCRIT 34.2 % (42.0-52.0); HEMOGLOBIN 10.6 g/dl (14.0-18.0); LYMPH # 1.3 10*3/uL (1.3-4.4); LYMPH % 13.9 % (27.0-41.0); MEAN CELL VOLUME 98.3 fl (80.0-94.0); MEAN CORPUSCULAR HGB 30.5 pg (27.0-31.0); MEAN PLATELET VOLUME 9.6 fl (9.6-12.3); MONO # 0.9 10*3/uL (0.1-1.0); NEUT # 6.8 10*3/uL (2.3-7.9); NEUT % 73.2 % (47.0-73.0); PLATELET COUNT AUTOMATED 265 10*3/uL (130-400); RED BLOOD COUNT 3.48 10*6/uL (4.50-5.90); RED CELL DISTRI WIDTH 14.7 % (0-14.5); WHITE BLOOD COUNT 9.3 10*3/uL (4.8-10.8)
--- NOTE | 2018-12-25 09:00 | NUR ---
Television Engineering Teacher in to talk to patient. Patient states lives at home alone with his daughter checking in on him. There are 0 steps in the home. Physician: Dr. Sergio Chung Pharmacy: [place] [facility] Home health services: [facility] previously Patient's level of ADLs: minimal assistance Patient has working utilities: yes DME: cane, walker, seated walker, O2 @ 3L nc at HS, nebulizer, O2 supplier [facility] Follow-up physician's appointment after d/c: he prefers to make his own follow up apt after discharge Does patient want to access PORTAL?: no Discharge plan discussed with patient. He lives at home alone with daughter checking in on him. He is independent in his ADLs and uses a walker or a cane for ambulation. Discussed short term SNF and he is agreeable. When provided with a list of facilities he chose [facility]. conservation planner notified. ROGELIO EVERETT
--- NOTE | 2018-12-25 09:27 | NUR ---
RAFAEL RATLIFF [id number] Please refer to the physician's history and physical for past medical history, comorbid conditions, and allergies. Diagnosis: RESPIRATORY FAILURE,ACUTE AND CHRONIC Mp Score: , WOUND DESCRIPTIONS: Location of the wound: RIGHT AC Type of wound: SKIN TEAR Thickness: Partial Size: 0.4CM X 2.5CM X 0.1CM Tunneling: NONE Undermining: NONE Sinus Tract: NONE Presence of Exudate: Serous Amount: Light Color: Red Odor: None Periwound Skin Appearance: Normal Wound edges: APPROXIMATED Pain (associated with wound): NONE AT TIME OF ASSESSMENT How does patient state this happened? PT STATED THIS HAPPENED DURING HIS LAST STAY LEFT FOREARM AND LEFT ELBOW HAVE INTACT SCABS. NO REDNESS NOTED. NO DRAINAGE NOTED. BILATERAL GROINS HAD RED SATELLITE AREAS NOTED. NO DRAINAGE NOTED. MUSTY SMELL NOTED. Surface the patient is resting on: Isoflex SKIN PREVENTION RECOMMENDATION: 1. Pressure redistribution support surface as appropriate 2. Elevate heels 3. Remove boots/TEDS every shift and reapply 4. Head of bed 30 degrees as tolerated 5. Assess nutrition and hydration 6. Manage moisture 7. Avoid the use of containment devices while in bed 8. Use absorptive products on surfaces limit layers of linens on bed 9. Turn and reposition every 1-2 hours in bed and every 1 hour in chair as tolerated 10. Weight shifts every 15 minutes while up in chair 11. Offloading with pillows or device to keep heels elevated off bed 12. Monitor skin at least every shift 13. Inspect under medical devices twice a day WOUND TREATMENT RECOMMENDATIONS: CLEANSE BILATERAL GROINS WITH SOAP AND WATER PAT DRY AND APPLY NYSTATIN POWDER EVERY 12 HOURS SKIN TEAR GUIDELINES: CLEANSE RIGHT AC WITH NSS AND APPLY SUREPREP AROUND THE WOUND THERAHONEY TO WOUND BED AND COVER WITH OPTIFOAM GENTLE DAILY.
--- NOTE | 2018-12-25 09:30 | NUR ---
Patient not available for Occupational Therapy as he is with wound care. OTR will recheck at a later time. Madeline Hedrick OTR/K[place]
--- NOTE | 2018-12-25 09:33 | NUR ---
PHYSICAL THERAPY Wound care with patient at this time. Elke Mcpherson,PT
--- NOTE | 2018-12-25 10:35 | NUR ---
Patient not available as he was getting into the shower independently. Madeline Hedrick OTR/l
--- NOTE | 2018-12-25 11:18 | NUR ---
Occupational Therapy evaluation completed on 4 with full eval to follow. Precautions include 4LPM O2 use, 4 wh walker,morbid obesity,chronic resp failure and SOB, low complexity level 43388 via chart review, testing and evaluation. Recommend no further OT as patient is able to perform indep shower, dressing, grooming and toileting including functional transfers for return home alone. Thank you for this referral. Madeline Hedrick OTR/L
--- NOTE | 2018-12-25 11:19 | NUR ---
PHYSICAL THERAPY PAtient evaluated on 4, full evaluation to follow. D/c PT after evaluation: patient 100 % (I) with all functional mobility including (I) showering, (I) don/doff clothes and socks, (I) lotioning own feet and ambulating entire lap around 4th floor with no need to stop/rest with 02 and TUG 13 seconds and (I). Encouraged to ambulate with 02 with nursing following with 02 tank several times a day. Recommend out patient pulmonary rehab. PAtient is moderate complexity via chart review, tests and evaluation: 90552.Thank you for this referral. Elke Swain,PT
[2018-12-25 12:00] VITALS: BP 121/77
--- NOTE | 2018-12-25 15:20 | NUR ---
Weighter in to see patient. Discussed him not qualifying for short term SNF. He states "I know I was showing off." He currently have passport services twice a week for 2 hours. They do his cleaning and laundry. He thinks having passport services 5 days a week would help him to stay out of the hospital. He did call and speak to his geriatric case manager, Namrata Waite, 3 weeks ago regarding increasing his service hours but has not heard back from her. He states his main obstacles at home are getting out to get his mail and he needs to have a garage sale. There are 3 steps down to the mailbox and he uses either his cane or holds onto the railing. Encouraged him to reach out to his geriatric case manager again as [facility] would have to reassess. He verbalized an understanding.
[2018-12-25 16:00] VITALS: BP 120/62
--- NOTE | 2018-12-25 19:00 | NUR ---
REPORT OBTAINE JOHANNA WEATHERS. PATIENT RESTING QUIETLY IN BED, EYES CLOSED. NO DISTRESS NOTED, RESP ARE ERND ON 4LPM NC. BED IS LOCKED IN LOWEST POSITION. CALL LIGHT LEFT WALTERHTIN REACH.
[2018-12-25 20:00] VITALS: BP 134/73
--- NOTE | 2018-12-25 20:55 | NUR ---
Hep Lock discontinued RIGHT ARM. Site symptomatic, PAINFUL. Pressure applied. Sterile dressing applied. CIERA PRETTY
[2018-12-26] VITALS: BP 137/74
--- NOTE | 2018-12-26 03:25 | NUR ---
24 HR chart check completed.
[2018-12-26 06:19] LABS: BASO # 0.1 10*3/uL (0.0-0.1); BASO % 0.8 % (0.0-1.0); EOS # 0.1 10*3/uL (0.0-0.4); EOS % 2.3 % (1.0-4.0); HEMOGLOBIN 10.1 g/dl (14.0-18.0); LYMPH # 1.4 10*3/uL (1.3-4.4); LYMPH % 22.4 % (27.0-41.0); MEAN CELL VOLUME 99.1 fl (80.0-94.0); MEAN CORPUSCULAR HGB 30.3 pg (27.0-31.0); MEAN CORPUSCULAR HGB CONC 30.6 g/dl (33.0-37.0); MEAN PLATELET VOLUME 9.2 fl (9.6-12.3); MONO # 0.7 10*3/uL (0.1-1.0); MONO % 12.3 % (3.0-9.0); NEUT # 3.7 10*3/uL (2.3-7.9); NEUT % 61.9 % (47.0-73.0); PLATELET COUNT AUTOMATED 230 10*3/uL (130-400); RED BLOOD COUNT 3.33 10*6/uL (4.50-5.90); RED CELL DISTRI WIDTH 14.9 % (0-14.5)
--- NOTE | 2018-12-26 09:19 | NUR ---
DR. JOEL NOTIFIED THAT PT HAD A 14 BEAT RUN OF V-TACH. NEW ORDERS GIVEN.
--- NOTE | 2018-12-26 09:20 | NUR ---
DR. SULLIVAN'S ANSWERING SERVICE NOTIFIED OF CONSULT.
[2018-12-26 12:00] VITALS: BP 140/69
[2018-12-26 16:00] VITALS: BP 159/63
[2018-12-26 20:00] VITALS: BP 146/73
[2018-12-27] VITALS: BP 130/68
--- NOTE | 2018-12-27 05:31 | NUR ---
24 HR chart check completed.
[2018-12-27 06:04] LABS: BASO % 0.6 % (0.0-1.0); EOS # 0.2 10*3/uL (0.0-0.4); EOS % 3.1 % (1.0-4.0); HEMATOCRIT 33.6 % (42.0-52.0); LYMPH # 1.5 10*3/uL (1.3-4.4); MEAN CELL VOLUME 99.4 fl (80.0-94.0); MEAN CORPUSCULAR HGB 29.6 pg (27.0-31.0); MEAN CORPUSCULAR HGB CONC 29.8 g/dl (33.0-37.0); MEAN PLATELET VOLUME 9.6 fl (9.6-12.3); MONO # 0.7 10*3/uL (0.1-1.0); MONO % 10.9 % (3.0-9.0); NEUT % 62.1 % (47.0-73.0); PLATELET COUNT AUTOMATED 231 10*3/uL (130-400); RED BLOOD COUNT 3.38 10*6/uL (4.50-5.90); RED CELL DISTRI WIDTH 14.8 % (0-14.5); WHITE BLOOD COUNT 6.4 10*3/uL (4.8-10.8)
[2018-12-27 12:00] VITALS: BP 153/75
--- NOTE | 2018-12-27 14:37 | NUR ---
TRIED TO REACH SR. GAFFNEY IN RE: CONSULT.
--- NOTE | 2018-12-27 14:40 | NUR ---
DR. RODGERS NOTIFIED OF CONSULT.
[2018-12-27 16:00] VITALS: BP 165/69
[2018-12-27 20:00] VITALS: BP 150/73
[2018-12-28] VITALS: BP 145/82
--- NOTE | 2018-12-28 02:22 | NUR ---
IV PULLED ON DAY SHIFT DUE TO IMMINENT DC. PT STATES HE "DONT WANNA GET STUCK AGAIN".
--- NOTE | 2018-12-28 06:45 | NUR ---
DR. GUIDO NOTIFIED OF NEW CONCULST THROUGH ANSWERING SERVICE. AWAITING CALLBACK.
[2018-12-28 08:00] VITALS: BP 165/79
--- NOTE | 2018-12-28 08:39 | NUR ---
PT UP TO THE BATHROOM INDEPENDENT. PT LOUD VOICE, CALLED RN ANTE [employer]UM AND NURSING STATION DESK WELL HAD CALL LIGHT ON REQUESTING TO TALK TO THE PODIATRY RESIDENT RIGHT NOW. CALLED AND SPOKE TO DR. FITZGERALD AND HE STATED RESIDENT WILL BE IN LATE MORNING AND ATTENDING WILL BE IN AFTER LUNCH TIME - LET PATIENT KNOW PLAN. HE CALMED DOWN AND STATES " I DON'T HAVE A CHOICE TO WAIT" PT HAS ORDERED IV ANTIBIOTICS HOWEVER IV WAS REMOVED YESTERDAY WHEN PATIENT WAS TO GO HOME, PT REFUSES ANOTHER IV PLACED STATING HE IS "GOING HOME TODAY NO MATTER WHAT".
--- NOTE | 2018-12-28 10:41 | NUR ---
PT YELLING OUT OBSINITIES, THEN YELLED OUT NURSE AND PA NAME, WENT IN TO SEE WHAT PATIENT NEEDED, HE STATED HE WANTED TO SIGN OUT AMA "F THOSE FOOT DOCTORS, I AM LEAVING" PT REQUESTED FOR NURSE TO CALL INSURANCE AND SET UP FOR TRANSPORT. EXPLAINED TO PATIENT THAT WHEN SIGNING OUT AMA, STAFF DOES NOT SET UP FOR TRANSPORT HOME. PT CALLED INURANCE COMPANY FOR TRANSPORT, HANDED PHONE TO NURSE. NURSE VARIFIED PATIENT NAME, INSURANCE NUMBER AND HOME ADDRESS. INFORMED INSURANCE TRANSPORT PERSON ON THE PHONE THAT PATIENT WAS SIGING HIMSELF OUT AMA AND NEEDED OXYGEN ON TRANSPORT WELL USES A WALKER, SHE STATED THAT PATIENT WILL REQUIRE AMBULANCE TRANSPORT DUE TO OXYGEN NEED. PT BECAME IRRATE AND STARTED YELLING AT NURSE AND PERSON ON PHONE THAT HE DOESN'T HAVE A PORTABLE TANK BECAUSE INSURANCE WILL NOT PAY FOR IT, PT AGREED TO TAKE AN AMBULANCE HOME. HOWEVER, HE DOES NOT WANT TO LEAVE UNTIL 1400 AND WILL SIGN THE AMA PAPER AT THAT TIME. INSURANCE TRANSPORT PERSON ON PHONE GIVEN CALL BACK NUMBER TO NURSING STATION IF NEED TO CALL BACK, EXPLAINED TO PERSON ON PHONE THAT I DO NOT HAVE TIME TO BE WAIT FOR THE PATIENT TO YELL BACK AND FORTH WITH RN AND THEM, SHE STATED SHE DID NOT NEED ANY MORE INFORMATION FROM RN AT THIS TIME, HANDED PATIENT CELL PHONE BACK TO PATIENT, PATIENT THEN HUNG UP THE PHONE WITH INSURANCE COMPANY.
--- NOTE | 2018-12-28 11:26 | NUR ---
DISCUSS WITH PATIENT HOME OXYGEN NEED, AWARE THAT WOULD NEED HOME OXYGEN ASSESSMENT TO HAVE PORTABLE TANK AND HOME OXYGEN AT ALL TIMES. OKAY WITH NOT SIGNING OUT AMA AT THIS TIME.
--- NOTE | 2018-12-28 11:51 | NUR ---
HOME O2 EVALUATION STARTING B/P - 152/83 HR - 77 SPO2 AT REST ON ROOM AIR - 95% SPO2 ON ROOM AIR DURING AMUBLATION - 80% PT PLACED ON 4L NASAL CANNULA. SPO2 REBOUNDED TO 94% ON 4L NASAL CANNULA. SPO2 ON 4L NASAL CANNULA ON AMBULATION 94-89% POST AMBULATION SPO2 94% ON 4L NASAL CANNULA. HR - 90
[2018-12-28 12:00] VITALS: BP 158/79
--- NOTE | 2018-12-28 14:30 | NUR ---
PT WALKED OFF UNIT WENT UP TO 6TH FLOOR ATTEMPT TO FIND ONE OF HIS DOCTORS, RN WENT AND FOUND PATIENT AND BROUGHT HIM BACK VIA WHEELCHAIR WITH OXYGEN.PT AWARE THAT HE IS NOT TO LEAVE THE UNIT.
[2018-12-28] MEDS ORDERED: OXYGEN NAS (14:49)
[2018-12-28] MEDS ORDERED: METOPROLOL SUCC25 M2 PO (14:53)
[2018-12-28 16:00] VITALS: BP 174/72
--- NOTE | 2018-12-28 17:30 | NUR ---
Discharge instructions reviewed with patient. Patient receptive and verbalizes understanding. Follow-up care understood. given podiatry phone number, aware to supervisor opening and picking rx, aware cardiology changed home medication doseage, written out on patients discharge papers. . Written instructions given to patient. pt waiting for oxygen to be delivered. pt has wound skin tear to right ac area that he did not want photographed prior to discharge. pt discharged home with walking boot on left foot and aware to continue to use walker JALIL GAYLE
--- NOTE | 2018-12-28 18:30 | NUR ---
HOME OXYGEN PORTABLE TANK DELIVERED,PT DISCHARGED VIA WHEELCHAIR
[2018-12-30] MEDS ORDERED: Ipratropium Brom3 ML INH (14:43)
[2019-02-16] MEDS ORDERED: VITAMIN B-121000 MC2 PO (09:05)
[2019-02-16] MEDS ORDERED: HYDRALAZINE HYD50 MG PO (09:13)
[2019-02-16] MEDS ORDERED: MEN'S ONE DAIL1 EACH PO (09:15)
[2019-02-16] MEDS ORDERED: NATURE'S BLEND F1 MG PO (09:18)
[2019-02-16] MEDS ORDERED: LIPITOR80 MG PO (09:20)
[2019-02-16] MEDS ORDERED: LYRICA150 M1 PO (09:59)
[2019-02-16] MEDS ORDERED: TOPROL XL25 MG PO (10:00)
[2019-02-16] MEDS ORDERED: VIAGRA100 MG PO (10:01)
[2019-02-16] MEDS ORDERED: SYMB160 INH (10:02)
[2019-02-19] MEDS ORDERED: SEPTDS PO (12:45)
== END 2018-12-28 18:30 | disposition home or self-care (01) | DRG 189 ==
LOC: ED 16:30 → 4E 17:48 → EDHOLD 17:48 → 4E 18:22
PROVIDERS: Physician Assistant; ADMIT Internal Medicine
PROC: 5A09357 Assistance with Respiratory Ventilation, Less than 24 Consecutive Hours, Continuous Positive Airway Pressure (ICD-10-PCS; principal; 2018-12-27)
DX: J96.21 Acute and chronic respiratory failure with hypoxia (principal); E87.3 Alkalosis; F33.1 Major depressive disorder, recurrent, moderate; E87.1 Hypo-osmolality and hyponatremia; I47.2 Ventricular tachycardia; I50.32 Chronic diastolic (congestive) heart failure; J43.9 Emphysema, unspecified; J96.22 Acute and chronic respiratory failure with hypercapnia; I25.10 Atherosclerotic heart disease of native coronary artery without angina pectoris; R62.7 Adult failure to thrive; M54.9 Dorsalgia, unspecified; K57.90 Diverticulosis of intestine, part unspecified, without perforation or abscess without bleeding; G89.4 Chronic pain syndrome; G62.9 Polyneuropathy, unspecified; I11.0 Hypertensive heart disease with heart failure; F17.210 Nicotine dependence, cigarettes, uncomplicated; N40.1 Benign prostatic hyperplasia with lower urinary tract symptoms; K21.9 Gastro-esophageal reflux disease without esophagitis; E78.2 Mixed hyperlipidemia; Z16.12 Extended spectrum beta lactamase (ESBL) resistance; F10.20 Alcohol dependence, uncomplicated; D64.9 Anemia, unspecified; I71.4 Abdominal aortic aneurysm, without rupture; R33.8 Other retention of urine; J20.9 Acute bronchitis, unspecified; E66.01 Morbid (severe) obesity due to excess calories; S92.342A Displaced fracture of fourth metatarsal bone, left foot, initial encounter for closed fracture; S92.352A Displaced fracture of fifth metatarsal bone, left foot, initial encounter for closed fracture; X58.XXXA Exposure to other specified factors, initial encounter; Y93.89 Activity, other specified; Y92.89 Other specified places as the place of occurrence of the external cause; Y99.8 Other external cause status; Z98.52 Vasectomy status; Z98.61 Coronary angioplasty status; Z85.46 Personal history of malignant neoplasm of prostate; Z91.81 History of falling; Z86.711 Personal history of pulmonary embolism; I25.2 Old myocardial infarction; Z92.3 Personal history of irradiation; Z87.01 Personal history of pneumonia (recurrent); Z79.899 Other long term (current) drug therapy; Z79.82 Long term (current) use of aspirin; Z99.81 Dependence on supplemental oxygen; Z68.39 Body mass index [BMI] 39.0-39.9, adult

== ENCOUNTER 2019-04-01 19:51 | Inpatient (IN) | payer MEDICARE ==
[~2019-04-01] VITALS: Ht 177.8 cm; Wt 123.5 kg
--- NOTE | ~2019-04-01 | DS ---
[place], [place] DISCHARGE SUMMARY NAME: RAFAEL RATLIFF [facility] #: [id number] UNIT #: [id number] ROOM: 520 DOCTOR: SUKH JOEL MD BIRTHDATE: [birth year] DOS: 04/08/2019 DISCHARGE DIAGNOSES: 1. Severe hyponatremia and syndrome of inappropriate antidiuretic hormone. 2. Benign essential hypertension. 3. Severe lumbar spondylosis and chronic lower back pains. 4. Chronic respiratory failure, oxygen dependence, advanced centrilobular emphysema, chronic obstructive pulmonary disease. 5. Morbid obesity. 6. Anemia of chronic disease. 7. Heavy alcoholism. 8. Pulmonary hypertension, right-sided heart failure. 9. Severe peripheral neuropathy. 10. Stasis dermatitis and skin changes in lower extremities, severe nicotine abuse. 11. Coronary artery disease of the tejon vessels. 12. Moderate protein-calorie malnutrition. 13. Advanced adult failure to thrive. 14. Chronic skin changes in lower extremities and stasis dermatitis. HOSPITAL COURSE: The patient presented to the Emergency Department with severe hyponatremia. Nephrology consulted. He was diagnosed as having SIADH. Sodium improved gradually with fluid restriction and treatment. He was finally discharged to long term facility after his sodium improved to 130 and above. Morbid obesity, advance failure to thrive. The patient worked with physical therapy. Acute over chronic respiratory failure with acute exacerbation of chronic obstructive pulmonary disease and continued nicotine abuse. The patient even tries to smoke cigarettes in the hospital when it is a nonsmoking facility. The patient treated with bronchodilators, oxygen, antibiotics and he was educated on not to smoke cigarettes. Moderate protein-calorie malnutrition. The patient followed by Dietary. Benign essential hypertension, treated and controlled. Sinus tachycardia, controlled with metoprolol. DISCHARGE MANAGEMENT: The patient is on DuoNebs every 4 hours. The patient is on Lasix, Solu-Medrol, aspirin 81 mg a day, Lipitor 80 mg a day, Zyrtec 10 mg a day, Cymbalta 60 mg a day, folic acid 1 mg a day, Toprol-XL 25 mg daily, Zestril 40 mg a day, Apresoline 50 mg every 8 hours, Protonix 40 mg a day, Lyrica 150 mg 3 times a day, Flomax 0.4 mg a day, thiamine 100 mg a day, [place] p.r.n., Vistaril p.r.n. 50 mg, Zofran p.r.n., Dilaudid p.r.n. [place], [place] DISCHARGE SUMMARY NAME: RAFAEL RATLIFF UNIT #: [id number] ROOM: 520 DOCTOR: SUKH JOEL MD BIRTHDATE: [birth year] SUKH JOEL MD CM:DISCHARG [id number] SUKH JOEL MD 04/15/19 1112 interface
--- NOTE | ~2019-04-01 | PR ---
[place], [place] PROGRESS NOTE [id number] UNIT #: [id number] ROOM: 520 DOCTOR: SUKH JOEL MD BIRTHDATE: [birth year] DOS: 04/05/2019 SUBJECTIVE: The patient is still complaining of generalized pains and lower back pains. He is chronically short of breath and on oxygen. OBJECTIVE: VITAL SIGNS: Blood pressure 107/53, heart rate of 97 beats per minute, breathing 20 times per minute, temperature of 98 degrees Fahrenheit. GENERAL APPEARANCE: The patient is alert and oriented x 3, in no visible distress. Morbid obesity. Generalized weakness. HEENT AND NECK: Exam within normal limits. CARDIOVASCULAR SYSTEM: Heart rate is regular in rate and rhythm. S1 and S2 normally audible. LUNGS: Decreased breath sounds all over. ABDOMEN: Soft, nontender. No obvious organomegaly. Bowel sounds are present. EXTREMITIES: Without significant cyanosis or edema. IMPRESSION: 1. Severe hyponatremia secondary to inappropriate antidiuretic hormone, improving with treatment. 2. Benign essential hypertension. Blood pressures are treated and controlled. 3. Anemia of chronic disease. 4. Morbid obesity, advance adult failure to thrive and generalized weakness. The patient working with physical therapy. 5. Chronic respiratory failure and advanced centrilobular emphysema. Treated with bronchodilators, oxygen. 6. Tachycardia, improved with metoprolol. 7. Severe lumbar spondylosis and chronic lower back pain, being treated and controlled with pain meds. SUKH JOEL MD CM:PNTRANS [phone] SUKH JOEL MD 04/06/197 interface
--- NOTE | ~2019-04-01 | PR ---
[place], [place] PROGRESS NOTE NAME[id number] UN[facility] #: [id number] ROOM: 520 DOCTOR: SUKH JOEL MD BIRTHDATE: [birth year] DOS: 04/04/2019 SUBJECTIVE: The patient is feeling better. His lower back pains and body aches have improved with use of Dilaudid as needed. OBJECTIVE: VITAL SIGNS: Blood pressure 126/49, heart rate of 75 beats per minute, breathing 13-18 times per minute, temperature 98 degrees Fahrenheit. GENERAL APPEARANCE: The patient is alert and oriented x 3, in no visible distress. Generalized weakness and morbid obesity. HEENT AND NECK: Exam within normal limits. CARDIOVASCULAR SYSTEM: Heart rate is regular in rate and rhythm. S1 and S2 normally audible. LUNGS: Clear to auscultation. ABDOMEN: Soft, nontender. No obvious organomegaly. Bowel sounds are present. EXTREMITIES: Without significant cyanosis or edema. IMPRESSION AND PLAN: 1. Advanced adult failure to thrive, generalized weakness, severe lower back pains and hyponatremia; all improving. The patient is waiting to be transferred to alf facility, [facility]. 2. Tachycardia, improved with metoprolol. 3. Benign essential hypertension, being treated and controlled. 4. Advanced centrilobular emphysema with chronic respiratory failure and oxygen dependence, remained stable. I will take him off prednisone. 5. The patient's hydralazine is being given very frequently and would be a problem at the assisted living facility, so I will switch the medicine. His blood pressure is very well controlled now. 6. Severe hyponatremia. Hyponatremia continues to improve. Sodium has improved to 124. I will continue to follow with. SUKH JOEL MD CM:PNTRANS [phone] SUKH JOEL MD 04/04/192250 interface
--- NOTE | ~2019-04-01 | WRIGHTHP ---
[place], [place] PATIENT HISTORY AND PHYSICAL EXAM NAME: RAFAEL RATLIFF [facility] #: [id number] UNIT #: [id number] ROOM: [facility] DOCTOR: LEROY SAXENA MD BIRTHDATE: [birth year] DOS: 04/01/2019 HISTORY OF PRESENT ILLNESS: The patient is 63 years old, known to us. He was last admitted to the hospital in 02/2019. He went to a rehab facility on 03/02. He was seen in the Emergency Room with complaints of severe acute chest pain with some ST-T wave changes. He was transferred to [facility]. The patient states that he did not undergo cardiac catheterization. From there he went back to [place]. He has been there for a month. Yesterday, [facility] Patient states he was there for a few hours. The room was extremely hot and he could not breathe at all, so he decided that he would like to go to the hospital. He was evaluated in the ER and had some hypoxemia which showed complaints of continued shortness of breath. Apparently was not using any oxygen at the [facility]. He also was found to have hyponatremia with a sodium of 118 and he was admitted. He denies having any complaints other than diffuse aches and pains and wanting more pain medications and states that he has not been drinking any alcohol at all since 03/02. He does not have any nausea and emesis. Does not have any chest pains or palpitations. PAST MEDICAL HISTORY: Significant for: 1. COPD. 2. Chronic respiratory failure. 3. Morbid obesity. 4. Chronic hyponatremia. 5. The last sodium we have on record is from the 25th, which was 125 on 03/02. 6. Heavy alcoholism. 7. Pulmonary hypertension with right heart failure. 8. Severe peripheral neuropathy. 9. Failure to thrive. 10. Protein-calorie malnutrition, moderate. 11. History of coronary artery disease. We requested records from [facility] from the last stay there on 03/02. 12. Heavy nicotine abuse. MEDICATIONS: That he is on are breathing treatments, Spiriva, Tylenol, aspirin, atorvastatin, Zyrtec, duloxetine, folic acid, hydralazine, hydroxyzine, lisinopril, metoprolol, multivitamin, omeprazole, Lyrica, tamsulosin, thiamine, miconazole and antifungal cream. SOCIAL HISTORY: Heavy smoker, heavy alcohol abuse, apparently has not been smoking or drinking for about a month. PHYSICAL EXAMINATION: VITAL SIGNS: Graphic trend shows a pressure of 145/82, pulse of 98, respirations 18, temperature 97.6. LUNGS: Diminished breath sounds. No wheezes heard this morning. HEART: Regular. ABDOMEN: Obese, soft, some diffuse tenderness all over body, he complains of pain anywhere you touch. [place], [place] PATIENT HISTORY AND PHYSICAL EXAM NAME: RAFAEL RATLIFF UNIT #: [id number] ROOM: [facility] DOCTOR: LEROY SAXENA MD BIRTHDATE: [birth year] LABORATORY DATA: Glucose 122, BUN 6, creatinine 0.72, sodium 118, potassium 4.4, chloride 82, bicarbonate 33, protein 6.2. Blood gas 7.353, pCO2 of 57, pO2 of 150. Alcohol level less than 0.3. Chest x-ray, no evidence of any cardiopulmonary disease. EKG, sinus rhythm. CT of the abdomen and pelvis unremarkable except for infrarenal aneurysm, which is about 5.1 cm. ASSESSMENT AND PLAN: 1. Severe hyponatremia. He has chronic hyponatremia. He does not take any medications, which can cause low sodium. He has not been drinking for a month. Hypertonic saline has been started. Dr. Roth from Nephrology has been consulted. 2. Chronic obstructive pulmonary disease with chronic respiratory failure. ABG shows normal oxygenation. He has been started on oxygen supplementation, breathing treatments. 3. Adult failure to thrive to go back to [facility] when stable. 4. Large abdominal aortic aneurysm, which is increased in size, may require further referral to a tertiary care facility, but overall patient is not a candidate right now to go because of his continued critical hyponatremia. 5. Protein-calorie malnutrition, moderate. Encouraged the patient needs more protein. 6. Benign hypertension, controlled. No evidence of congestive heart failure. LEROY SAXENA MD CM:HISPHYS:PATIENT HISTORY AND PHYSICAL EXAMINATION [phone] LEROY SAXENA MD 04/02/19 0853 interface
--- NOTE | ~2019-04-01 | EKG ---
[place], [place] ELECTROCARDIOGRAM REPORT NAME: RAFAEL RATLIFF UNIT #: [id number] ROOM: [facility] DOCTOR: SONYANY DRAFT REPORT BIRTHDATE: [birth year] [facility] [place] [facility] Test Date: 2019-04-01 Test Time: 19:55:24 Pat Name: RAFAEL RATLIFF Department: Room: [facility] Gender: M Licensed Architect: : 1955 Requested By: AMANDA FOSTER Order Number: [id number] Reading MD: Emily Santacruz Measurements Intervals [place] Rate: 69 P: ND: QRS: 78 QRSD: 110 T: 64 QT: 402 QTc: 431 Interpretive Statements Atrial rhythm Inferior infarct, acute Lateral leads are also involved Compared to ECG 03/02/2019 17:52:32 Sinus rhythm no longer present Myocardial infarct finding still present baseline artifacts Electronically Signed On 04-02-2019 12:49:20 PDT by Emily Santacruz CM:EKGRPT:ELECTROCARDIOGRAM REPORT [id number] AMANDA FOSTER MD EPIPHANY DRAFT REPORT AMANDA FOSTER MD
--- NOTE | ~2019-04-01 | PR ---
[place], [place] PROGRESS NOTE NAME: RAFAEL RATLIFF UNIT #: [id number] ROOM: 520 DOCTOR: NANCY CARO MD BIRTHDATE: [birth year] DOS: 04/04/2019 NEPHROLOGY FOLLOWUP NOTE SUBJECTIVE: The patient was seen and examined. He is awake and alert. Denied any shortness of breath, but he does continue to have pain issues, but otherwise doing okay. Remains critically ill. PHYSICAL EXAMINATION: VITAL SIGNS: Temperature 98.3, pulse 89, respiratory rate 13, blood pressure 131/57. HEENT: Shows no JVD. LUNGS: Diminished breath sounds. No wheeze. HEART: S1, S2. No rub. ABDOMEN: Soft, nontender. EXTREMITIES: No edema. LABORATORY DATA: Sodium 124, potassium 4.9, CO2 of 35, albumin 3.2, BUN 14, creatinine 0.7, glucose 129. ASSESSMENT AND PLAN: 1. Hyponatremia with an unclear etiology. Most likely, this is related to syndrome of inappropriate antidiuretic hormone based off his high urine osmolality. Would continue a 2 liter fluid restriction. Increase protein and oral intake of salt and protein. Avoid thiazide diuretics. No need for 3% saline at this time. 2. Hypertension. Continue medications. As mentioned avoid thiazides. Loop diuretics will be appropriate to increase free water excretion if needed. 3. Anemia. Transfuse as felt needed. NANCY CARO MD CM:PNTRANS [id number] NANCY CARO MD 04/05/19 1229 interface
--- NOTE | ~2019-04-01 | EKG ---
[place], [place] ELECTROCARDIOGRAM REPORT NAME: RAAFEL RATLIFF UNIT #: [id number] ROOM: [facility] DOCTOR: JP DRAFT REPORT BIRTHDATE: [birth year] [facility] Test Date: 2019-04-01 Test Time: 22:54:27 Pat Name: RAFAEL RATLIFF Department: Room: [facility] Gender: M Hod Carrier: : 1955 Requested By: AMANDA FOSTER Order Number: [id number] Reading MD: Emily Santacruz Measurements Intervals [place] Rate: 72 P: 49 [place]: 161 QRS: 67 QRSD: 103 T: 69 QT: 394 QTc: 432 Interpretive Statements Sinus rhythm ST elevation, consider inferior injury Compared to ECG 03/02/2019 17:52:32 No significant changes Electronically Signed On 04-02-2019 12:50:49 PDT by Emily Santacruz CM:EKGRPT:ELECTROCARDIOGRAM REPORT 1250 AMANDA TRAMMELL DRAFT REPORT AMANDA FOSTER MD
--- NOTE | ~2019-04-01 | EKG ---
[place], [place] ELECTROCARDIOGRAM REPORT NAME: RAFAEL RATLIFF UNIT #: [id number] ROOM: [facility] DOCTOR: JP DRAFT REPORT BIRTHDATE: [birth year] [facility] Test Date: 2019-04-02 Test Time: 02:02:08 Pat Name: RAFAEL RATLIFF Department: Room: [facility] Gender: M Fha Underwriter: : 1955 Requested By: AMANDA FOSTER Order Number: [id number] Reading MD: Emily Santacruz Measurements Intervals [place] Rate: 66 P: 36 SC: 164 QRS: 66 QRSD: 103 T: 70 QT: 416 QTc: 436 Interpretive Statements Sinus rhythm Probable left atrial enlargement Minimal ST elevation, inferior leads Compared to ECG 03/02/2019 17:52:32 Myocardial infarct finding no longer present ST (T wave) deviation still present Electronically Signed On 04-02-2019 12:51:21 PDT by Emily Santacruz CM:EKGRPT:ELECTROCARDIOGRAM REPORT [id number] AMANDA CARDOZAANY DRAFT REPORT AMANDA FOSTER MD
--- NOTE | ~2019-04-01 | PR ---
[place], [place] PROGRESS NOTE NAME: RAFAEL RATLIFF UNIT #: [id number] ROOM: [facility] DOCTOR: WISAM WHITE,SUKH Kang BIRTHDATE: [birth year] DOS: 04/03/2019 SUBJECTIVE: The patient complaining of significant lower back pains, shortness of breath. PHYSICAL EXAMINATION: VITAL SIGNS: Blood pressure 145/70, heart rate 88 beats per minute, breathing 22 times per minute, temperature 100.1 degrees Fahrenheit, morbidly obese. IMPRESSION: 1. The patient with chronic respiratory failure and chronic obstructive pulmonary disease with chronic respiratory failure, receiving oxygen, bronchodilators and being watched closely in the ICU. 2. Severe hyponatremia, sodium of 121 today and improving. 3. Large abdominal aortic aneurysm, which requires surgery when he is stable. 4. Moderate protein-calorie malnutrition, poor health. The patient is working with Dietary. 5. Benign essential hypertension, treated and controlled. 6. Mixed hyperlipidemia, treated with atorvastatin. 7. Benign prostatic hypertrophy and urine retention. The patient remains on Flomax. 8. Major depression, recurrent, moderate, treated with Cymbalta. 9. Nephrology is following. SUKH JOEL MD CM:PNTRANS [phone] SUKH JOEL MD 04/04/19 0021 interface
--- NOTE | ~2019-04-01 | PR ---
[place], [place] PROGRESS NOTE [id number] #: [id number] ROOM: 520 DOCTOR: SUKH JOEL MD BIRTHDATE: [birth year] DOS: 04/07/2019 SUBJECTIVE: The patient is feeling better except for chronic shortness of breath and chronic pain complaints. He has been smoking against medical advice at the hospital and outside. Case management is trying to get his discharge planning performed and discharge to either assisted living or a [place] [facility] facility. PHYSICAL EXAMINATION: VITAL SIGNS: Blood pressure today was 160/88, heart rate of 71 beats per minute, breathing 18 times per minute, temperature 98 degrees Fahrenheit. GENERAL APPEARANCE: The patient is alert and oriented x 3, in no visible distress. Generalized weakness. HEENT AND NECK: Exam within normal limits. CARDIOVASCULAR SYSTEM: Heart rate is regular in rate and rhythm. S1 and S2 normally audible. LUNGS: Clear to auscultation. Decreased breath sounds. Slight expiratory wheezing all over. ABDOMEN: Soft, nontender. No obvious organomegaly. Bowel sounds are present. EXTREMITIES: Without significant cyanosis or edema. IMPRESSION: 1. The patient has severe hyponatremia, continues to improve with treatment. The patient has SIADH. Sodium was 129 today. 2. Benign essential hypertension being treated and controlled. 3. Severe lumbar spondylosis, chronic lower back pains being treated with pain medications and adjusted. 4. Chronic respiratory failure, oxygen dependence, advanced centrilobular emphysema, treated with bronchodilators and oxygen. 5. Morbid obesity. The patient working with Dietary. 6. Anemia of chronic disease. Hemoglobin stable. SUKH JOEL MD CM:PNTRANS [phone] SUKH JOEL MD 04/07/19 1548 interface
--- NOTE | ~2019-04-01 | PR ---
[place], [place] PROGRESS NOTE NAME: RAFAEL RATLIFF UNIT #: [id number] ROOM: 520 DOCTOR: SUKH JOEL MD BIRTHDATE: [birth year] DOS: 04/06/2019 SUBJECTIVE: The patient continues to improve, but he is still feeling miserable overall and continues to complain all over pains. He is also chronically short of breath. PHYSICAL EXAMINATION: VITAL SIGNS: Blood pressure 150/81, heart rate of 62 beats per minute, breathing 18 times per minute, temperature 98 degrees Fahrenheit. GENERAL APPEARANCE: The patient is alert and oriented x 3, in no visible distress. HEENT AND NECK: Exam within normal limits. CARDIOVASCULAR SYSTEM: Heart rate is regular in rate and rhythm. S1 and S2 normally audible. LUNGS: Decreased breath sounds all over, slight expiratory wheezing. ABDOMEN: Obesity. Soft, nontender. No obvious organomegaly. Bowel sounds are present. EXTREMITIES: Without significant cyanosis or edema. IMPRESSION: 1. Severe hyponatremia, continues to improve. We will discharge the patient after his sodium reaches 130 or above, according to the manufacturing production manager. 2. Inappropriate antidiuretic hormone with severe hyponatremia. 3. Benign essential hypertension, treated and controlled. 4. Morbid obesity. The patient is working with Dietary. 5. Anemia of chronic disease. 6. Advance adult failure to thrive and overall poor long-term prognosis because of his multiple health issues and chronic respiratory failure. 7. Tachycardia, improved on metoprolol. 8. Severe lumbar spondylosis and chronic lower back pains being controlled with pain medications. SUKH JOEL MD CM:PNTRANS [phone] SUKH JOEL MD 04/06/19 2344 interface
--- NOTE | ~2019-04-01 | PR ---
[place], [place] PROGRESS NOTE NAME: RAFAEL RATLIFF UNIT #: [id number] ROOM: [facility] DOCTOR: NANCY CARO MD BIRTHDATE: [birth year] DOS: 04/03/2019 NEPHROLOGY FOLLOWUP NOTE SUBJECTIVE: The patient was seen and examined. He is awake and alert in the ICU. He received 3% saline last night. He states he feels well without any major complaints to me. PHYSICAL EXAMINATION: VITAL SIGNS: Showed temperature 98.6, pulse 73, respiration rate 17, blood pressure 123/52. HEENT: Shows no JVD. LUNGS: Diminished breath sounds with no wheeze. HEART: S1, S2. No rub. ABDOMEN: Soft, nontender. EXTREMITIES: Had trace edema. SKIN: Showed no rash. LABORATORY DATA: Hemoglobin 10.5, white count of 12.2, platelets 348. Sodium is 121, potassium 4.5, CO2 32, calcium 8.6, phosphorus 3.1, magnesium 1.8, albumin 3.1, BUN 10, creatinine 0.7 and glucose 142. ASSESSMENT AND PLAN: 1. Hyponatremia an unclear etiology. The patient had severe hyponatremia that has improved with 3% saline. Question SIADH based off his high urine osmolality. We would recommend a 2 liter fluid restriction. Encourage increasing protein and oral intake of salt and protein. Avoid thiazide diuretics. If this remains a continued problem, we can add salt tablets. If his sodium drops again or he develops mental status changes, we can resume 3% saline for a few hours. We would hold on this for now, however. He does seem to be improved. We would recommend checking labs every 12 hours for now. 2. Hypertension. Continue medications. Avoid thiazide diuretics. Loop diuretics would be appropriate to increase free water excretion. 3. Anemia. Transfuse as needed. [place], [place] PROGRESS NOTE NAME: EVYRAFAEL E UNIT #: [id number] ROOM: [facility] DOCTOR: NANCY CARO MD BIRTHDATE: [birth year] NANCY CARO MD CM:PNTRANS [phone] NANCY CARO MD 04/03/19 2336 interface
--- NOTE | ~2019-04-01 | EKG ---
[place], [place] ELECTROCARDIOGRAM REPORT NAME: RAFAEL RATLIFF UNIT #: [id number] ROOM: [facility] DOCTOR: JP DRAFT REPORT BIRTHDATE: [birth year] [facility] Test Date: 2019-04-01 Test Time: 20:40:19 Pat Name: RAFAEL RATLIFF Department: Room: [facility] Gender: M Fruit Canner: : 1955 Requested By: AMANDA FOSTER Order Number: [id number] Reading MD: Emily Santacruz Measurements Intervals [place] Rate: 70 P: 52 [place]: 158 QRS: 73 QRSD: 107 T: 65 QT: 410 QTc: 443 Interpretive Statements Sinus rhythm ST elevation, consider inferior injury Compared to ECG 03/02/2019 17:52:32 No significant changes Electronically Signed On 04-02-2019 12:49:33 PDT by Emily Santacruz CM:EKGRPT:ELECTROCARDIOGRAM REPORT [id number] AMANDA TRAMMELL DRAFT REPORT AMANDA FOSTER MD
[~2019-04-01 19:51] MED LIST changes: +Ipratropium Brom3 ML INH; +MEN'S ONE DAIL1 EACH PO; +METOPROLOL SUCC25 M2 PO; +OXYGEN NAS; +SEPTDS PO; +SPIRIVA RESPIMAT4 GM INH; +SYMB160 INH; +TOPROL XL25 MG PO; +VITAMIN B-121000 MC2 PO
[2019-04-01 19:52] VITALS: BP 127/81
[2019-04-01 20:10] LABS: BASO % 0.4 % (0.0-1.0); EOS # 0.3 10*3/uL (0.0-0.4); EOS % 3.3 % (1.0-4.0); HEMATOCRIT 32.6 % (42.0-52.0); HEMOGLOBIN 10.9 g/dl (14.0-18.0); LYMPH # 2.1 10*3/uL (1.3-4.4); LYMPH % 21.4 % (27.0-41.0); MEAN CELL VOLUME 84.5 fl (80.0-94.0); MEAN CORPUSCULAR HGB 28.2 pg (27.0-31.0); MEAN CORPUSCULAR HGB CONC 33.4 g/dl (33.0-37.0); MEAN PLATELET VOLUME 9.1 fl (9.6-12.3); NEUT # 6.2 10*3/uL (2.3-7.9); NEUT % 64.6 % (47.0-73.0); PLATELET COUNT AUTOMATED 379 10*3/uL (130-400); RED BLOOD COUNT 3.86 10*6/uL (4.50-5.90); RED CELL DISTRI WIDTH 14.4 % (0-14.5); WHITE BLOOD COUNT 9.7 10*3/uL (4.8-10.8)
--- NOTE | 2019-04-01 20:22 | NUR ---
THIS RN CALLED AND SPOKE WITH STENCIL TYPIST SHON AT [facility], ADVISED PT WAS NEW ADMISSION TODAY FROM [facility] IN [place], [place].PT SENT TO THEM DUE TO HIS SKILLED TIME WAS UP AT [facility] AND PT REQUIRES ADDITIONAL PHYSICAL THERAPY.
[2019-04-01 20:25] LABS: ACT PARTIAL THROMBO TIME 26.6 SECONDS (20.0-32.1); INTERNATIONAL NORM RATIO 0.9 (2.0-3.5)
[2019-04-01] MEDS ORDERED: REFRESH PLUS1 EACH OU (20:33)
[2019-04-01] MEDS ORDERED: CYMBALTA60 MG PO (20:34)
[2019-04-01] MEDS ORDERED: PROVENTIL HFA6.7 GM INH (20:36)
[2019-04-01] MEDS ORDERED: HYDRALAZINE HYD50 MG PO (20:37)
[2019-04-01] MEDS ORDERED: HYDROXYZINE HCL50 MG PO (20:38)
[2019-04-01] MEDS ORDERED: SPIRIVA RESPIMAT4 GM INH (20:39)
[2019-04-01] MEDS ORDERED: TYLENOL325 M1 PO (20:41)
[2019-04-01] MEDS ORDERED: ZYRTEC10 MG PO (20:41)
[2019-04-01 20:45] LABS: ALBUMIN 3.4 gm/dl (3.1-4.5); ALKALINE PHOSPHATASE 105 U/L (45-117); BUN 6 mg/dl (7-24); CHLORIDE 82 mmol/L (98-107); CREATININE 0.72 mg/dL (0.70-1.30); POTASSIUM 4.4 mmol/L (3.5-5.1); SGOT/AST 14 IU/L (3-35); SGPT/ALT 23 U/L (12-78); TOTAL PROTEIN 6.2 gm/dL (6.4-8.2)
[2019-04-01 20:49] LABS: SODIUM 118 mmol/L (136-145); TROPONIN I < 0.015 ng/ml (<0.045)
--- NOTE | 2019-04-01 20:50 | NUR ---
Dr. Rahman notified of critical sodium level of 118.
[2019-04-01 21:09] LABS: ABG BASE EXCESS 4.9 mmol/L (-2.0-2.0); ABG HCO3 31.4 mmol/l (22-26); ABG O2 SATURATION 99.2 % (95-97); ARTERIAL BLOOD GAS PCO2 57.5 mmHg (35-45); ARTERIAL BLOOD GAS PH 7.353 (7.35-7.45)
[2019-04-01 21:34] VITALS: BP 165/75
--- NOTE | 2019-04-01 21:58 | NUR ---
PHOTO TAKEN OF WOUND ON LEFT BUTTOCK AND RT GREAT TOE.PT HAS MULTIPLE AREAS OF PSORIASES ON BILATERAL LEGS AND ARMS NO PHOTOS TAKEN OF AREAS OF PSORIASES.
--- NOTE | 2019-04-01 22:23 | NUR ---
PT REPORTS NAUSEA.PER MD OCAMPO VERBAL ORDER PT MEDICATED 4MG ZOFRAN IVP.
[2019-04-01 22:26] VITALS: BP 154/82
--- NOTE | 2019-04-01 22:29 | NUR ---
PT ANXIOUS AND WANTING BIPAP TO BE REMOVED.MD NOTIFIED.
--- NOTE | 2019-04-01 23:02 | NUR ---
RESPIRATORY AT BEDSIDE.PT TAKEN OFF BIPAP AT THIS TIME AND PLACED ON 4L NC.PT OFF UNIT TO CT AT THIS TIME.
--- NOTE | 2019-04-01 23:18 | NUR ---
BED ASSIGNMENT OBTAINED.REQUEST TO WAIT 20MINUTES PRIOR TO TAKING PT TO FLOOR.
--- NOTE | 2019-04-01 23:34 | NUR ---
MRSA SWAB COLLECTED LABELED AND SENT TO LAB.
[2019-04-02 00:05] VITALS: BP 160/75
--- NOTE | 2019-04-02 00:05 | NUR ---
A 63, admitted to ICCU, under the services of LEROY Garcia MD with a diagnosis of ACUTE RESP FAILURE. Chief complaint is SHORTNESS OF BREATH. Patient arrived via stretcher from ER. Monitor applied. Initial assessment completed. Vital signs taken and recorded. LEROY GARCIA MD notified of admission to the unit. Orders received. See assessment for past medical history, medications and allergies. Patient and/or family oriented to unit. [facility] visitation policy reviewed. Clothing/patient valuable form completed. SUSANNA HANDY
[2019-04-02] MEDS ORDERED: ANTI-FUNGAL CR113 GM T (00:42)
[2019-04-02] MEDS ORDERED: MICONAZOLE NIT130 GM T (00:43)
--- NOTE | 2019-04-02 01:00 | NUR ---
MEDICATED WITH TYLENOL PER PRN ORDER FOR C/O GEN PAIN.
--- NOTE | 2019-04-02 02:30 | NUR ---
TYLENOL INEFFECTIVE PER PT.
[2019-04-02 04:00] VITALS: BP 155/65
--- NOTE | 2019-04-02 04:46 | NUR ---
RAFAEL RATLIFF [id number] Please refer to the physician's history and physical for past medical history, comorbid conditions, and allergies. Diagnosis: AC RESP FAILURE W/ HYPERCAPNIA, HX OF ST ELEVATION Mp Score: 15,AT RISK WOUND DESCRIPTIONS: Wound Number: 1 Intact scars noted to right and left buttocks. No open areas noted. No drainage noted at time of assessment. Wound Number: 2 Location of the wound: Right great toe Type of wound: unstageable Thickness: Full Size: 1.5cm x 2.0cm x <0.1cm Tunneling: none Undermining: none Sinus Tract: none Presence of Exudate: none Amount: None Color: Black Odor: None Periwound Skin Appearance: Normal Wound edges: closed Pain (associated with wound): none at time of assessment How does patient state this happened? pt unable to state how this happened Surface the patient is resting on: Position Pro SKIN PREVENTION RECOMMENDATION: 1. Pressure redistribution support surface as appropriate 2. Elevate heels 3. Remove boots/TEDS every shift and reapply 4. Head of bed 30 degrees as tolerated 5. Assess nutrition and hydration 6. Manage moisture 7. Avoid the use of containment devices while in bed 8. Use absorptive products on surfaces limit layers of linens on bed 9. Turn and reposition every 1-2 hours in bed and every 1 hour in chair as tolerated 10. Weight shifts every 15 minutes while up in chair 11. Offloading with pillows or device to keep heels elevated off bed 12. Monitor skin at least every shift 13. Inspect under medical devices twice a day WOUND TREATMENT RECOMMENDATIONS: Cleanse right and left buttocks with nss and apply hydraguard every shift and prn for soiling. Wheelchair cushion when oob. Unstageable guidelines: Cleanse right great toe with nss and apply bactroban daily and cover with bandaid daily.
[2019-04-02 05:07] LABS: BUN 5 mg/dl (7-24); CHLORIDE 81 mmol/L (98-107); CREATININE 0.65 mg/dL (0.70-1.30); POTASSIUM 4.5 mmol/L (3.5-5.1)
[2019-04-02 05:08] LABS: SODIUM 117 mmol/L (136-145)
--- NOTE | 2019-04-02 05:10 | NUR ---
DR SAXENA NOTIFIED OF NA= 117. NEW ORDER FOR 3% SALINE AT 30CC/HR AND TO CONSULT DR SCHNEIDER.
--- NOTE | 2019-04-02 05:25 | NUR ---
DR SCHNEIDER NOTIFIED OF CONSULT. NEW ORDERS FOR SERUM OSMOLALITY, URINE OSMOLALITY, AND URINE LYTES. ALSO TO HOLD 3% SLINE UNTIL RESULTS BACK AND TO CALL WITH RESULTS.
[2019-04-02 05:49] LABS: HEMATOCRIT 33.5 % (42.0-52.0); HEMOGLOBIN 11.3 g/dl (14.0-18.0); MEAN CORPUSCULAR HGB 28.3 pg (27.0-31.0); MEAN CORPUSCULAR HGB CONC 33.7 g/dl (33.0-37.0); MEAN PLATELET VOLUME 9.7 fl (9.6-12.3); PLATELET COUNT AUTOMATED 378 10*3/uL (130-400); RED BLOOD COUNT 3.99 10*6/uL (4.50-5.90); RED CELL DISTRI WIDTH 14.1 % (0-14.5); WHITE BLOOD COUNT 6.8 10*3/uL (4.8-10.8)
--- NOTE | 2019-04-02 05:50 | NUR ---
DR SCHNEIDER CALLED AND ORDER FOR LASIX 20MG IV X1 NOW AND BMP IN 3 HOURS.
[2019-04-02 05:57] LABS: BILIRUBIN NEGATIVE (NEGATIVE); BLOOD NEGATIVE (NEGATIVE); CLARITY CLEAR (CLEAR); COLOR YELLOW (YELLOW); GLUCOSE NEGATIVE (NEGATIVE); KETONE NEGATIVE (NEGATIVE); LEUKO ESTERASE TRACE (NEGATIVE); NITRITE NEGATIVE (NEGATIVE); PH 6.5 (5.0-9.0); SPECIFIC GRAVITY 1.015 (1.005-1.030); UROBILINOGEN 0.2 E.U./dl (0.2-1.0)
--- NOTE | 2019-04-02 06:05 | NUR ---
DR SCHNEIDER CALLED BACK AND ORDER TO NOT GIVE LASIX BUT TO START 3% SALINE AT 30CC/HR, GIVE 100CC AND REPEAT BMP AND CALL WITH LABS.
[2019-04-02 06:07] LABS: URINE AMPHETAMINES < 1000 (1000ng/ml); URINE BARBITURATES < 200 (200ng/ml); URINE BENZODIAZEPINES < 200 (200ng/ml); URINE CANNABINOIDS (THC) < 50 (50ng/ml); URINE COCAINE < 300 (300ng/ml); URINE METHADONE < 300 (300ng/ml); URINE OPIATES < 300 (300ng/ml)
[2019-04-02 06:09] LABS: URINE PHENCYCLIDINE < 25 (25ng/ml)
--- NOTE | 2019-04-02 06:35 | NUR ---
DR SCHNEIDER NOTIFIED OF LABS AND URINE OSNOLALITY AND ORDER TO CONTINUE WITH PREVIOUS ORDERS.
[2019-04-02 07:16] LABS: PLATELET SUFFICIENCY NORMAL (NORMAL); TOTAL CELLS COUNTED 100 #CELLS
[2019-04-02 07:17] LABS: BURR CELLS FEW; OVALOCYTES FEW
[2019-04-02 08:00] VITALS: BP 145/82
--- NOTE | 2019-04-02 08:33 | NUR ---
PATIENT YELLING OUT FREQUENTLY. C/O PAIN "ALL OVER". "IM JUST HURTING. I NEED SOMETHING FOR NAUSEA. MY THROAT HURTS. AND MY EYES ARE WATERING." NOTIFED OF ALL COMPLAINTS. MEDICATED WITH ZOFRAN AND NORCO PER PRN ORDERS. WILL CONTINUE TO MONITOR.
[2019-04-02 09:54] LABS: BUN 6 mg/dl (7-24); CHLORIDE 81 mmol/L (98-107); CREATININE 0.67 mg/dL (0.70-1.30); POTASSIUM 4.3 mmol/L (3.5-5.1)
[2019-04-02 10:02] LABS: SODIUM 117 mmol/L (136-145)
--- NOTE | 2019-04-02 10:10 | NUR ---
PATIENT C/O SORE THROAT. MEDICATED WITH CEPACOL LOZENGER PER PRN ORDER.
--- NOTE | 2019-04-02 10:20 | NUR ---
#16 BILLY CATHETER INSERTED. PATIENT TOLERATED WELL. 400CC CLEAR STRAW URINE OBTAINED.
--- NOTE | 2019-04-02 10:33 | NUR ---
PATIENT CONTINUES TO YELL OUT IN PAIN. HERE. NEW ORDER RECEIVED. WILL CONTINUE TO MONITOR.
--- NOTE | 2019-04-02 10:45 | NUR ---
PATIENT YELLING OUT IN PAIN CONTINUOUSLY. MEDICATED WITH DILAUDID 1MG IV PER NEW ORDER. WILL CONTINUE TO MONITOR.
--- NOTE | 2019-04-02 11:00 | NUR ---
Home Theater Experience Expert in to see patient. He is currently on a breathing treatment. He can answer yes/no questions. Not able to make sense out of speech otherwise. Discharge plan undecided at this time.
[2019-04-02 11:56] VITALS: BP 122/56
[2019-04-02 16:00] VITALS: BP 120/61
--- NOTE | 2019-04-02 16:56 | NUR ---
PATIENT CONTINUES TO C/O PAIN "ALL OVER". MEDICATED WITH NORCO PER PRN ORDER.
[2019-04-02 20:00] VITALS: BP 114/60
--- NOTE | 2019-04-02 20:00 | NUR ---
PT RESTING IN BED WATCHING TV, MOANS OUT FREQUENTLY, PT STATES HE HURTS ALL OVER FROM NEUROPATHY. RESP NONLABORED. NO ACUTE DISTRESS NOTED. HANSEL PATENT. MARIAJOSE PATENT.
[2019-04-02 21:08] LABS: ALBUMIN 3.3 gm/dl (3.1-4.5); BUN 10 mg/dl (7-24); CHLORIDE 80 mmol/L (98-107); CREATININE 0.84 mg/dL (0.70-1.30); PHOSPHOROUS 3.6 mg/dL (2.5-4.9); POTASSIUM 4.9 mmol/L (3.5-5.1)
[2019-04-02 21:13] LABS: SODIUM 114 mmol/L (136-145)
--- NOTE | 2019-04-02 22:00 | NUR ---
DR CARROLL CALLED IN AND ORDER FOR 3% SALINE AT 30CC/HR X6 HOURS TIL 0400 AND OBTAIN LABS AT 0530.
--- NOTE | 2019-04-02 23:30 | NUR ---
ASSUMED CARE OF THIS PATIENT AT THIS TIME, RECIEVED REPORT FROM ANNABELLA PICKARD.
--- NOTE | 2019-04-02 23:40 | NUR ---
PATIENT RESTING IN BED WITH EYES CLOSED AT THIS TIME, NO SIGNS OR SYMPTOMS OF DISTRESS ON 4LNC. RESPIRATIONS ARE QUIET AND UNLABORED. EASILY AWAKENS TO VOICE, VITAL SIGNS OBTAINED AT THIS TIME. ALL WITHIN NORMAL LIMITS. PATIENT MEDICATED WITH SCHEDULED APRESOLINE DOSE AT THIS TIME. DENIES OTHER NEEDS CURRENTLY. RN WILL CONTINUE TO MONITOR
[2019-04-03] VITALS: BP 137/68
--- NOTE | 2019-04-03 01:15 | NUR ---
STILL RESTING WITHOUT SIGNS OR SYMPTOMS OF DISTRESS ON 4 LITERS NASAL CANNULA. RESPIRATIONS ARE QUIET AND UNLABORED. CALL LIGHT IS WITHIN REACH. IV FLUIDS INFUSING PER DRS ORDERS. RN WILL CONTINUE TO MONITOR
--- NOTE | 2019-04-03 03:16 | NUR ---
Shift chart check completed.24 HR chart check completed.
[2019-04-03 04:00] VITALS: BP 145/58
--- NOTE | 2019-04-03 04:15 | NUR ---
RN IN TO OBTAIN VITALS, ASKED PATIENT WHETHER HE WANTED TO GET BATHED AT THIS TIME, PATIENT STATING HE IS TIRED AND JUST WANTS TO SLEEP. PATIENT ALMOST IMMEDIATELY FALLS TO SLEEP BEFORE BLOOD PRESSURE CUFF IS DONE. RN WILL CONTINUE TO MONITOR
[2019-04-03 05:31] LABS: ALBUMIN 3.1 gm/dl (3.1-4.5); BUN 10 mg/dl (7-24); CHLORIDE 83 mmol/L (98-107); CREATININE 0.72 mg/dL (0.70-1.30); PHOSPHOROUS 3.1 mg/dL (2.5-4.9); POTASSIUM 4.5 mmol/L (3.5-5.1); SODIUM 121 mmol/L (136-145)
[2019-04-03 05:59] LABS: HEMATOCRIT 32.1 % (42.0-52.0); HEMOGLOBIN 10.5 g/dl (14.0-18.0); MEAN CELL VOLUME 84.7 fl (80.0-94.0); MEAN CORPUSCULAR HGB 27.7 pg (27.0-31.0); MEAN CORPUSCULAR HGB CONC 32.7 g/dl (33.0-37.0); MEAN PLATELET VOLUME 9.7 fl (9.6-12.3); PLATELET COUNT AUTOMATED 348 10*3/uL (130-400); RED BLOOD COUNT 3.79 10*6/uL (4.50-5.90); RED CELL DISTRI WIDTH 14.5 % (0-14.5); WHITE BLOOD COUNT 12.2 10*3/uL (4.8-10.8)
--- NOTE | 2019-04-03 06:00 | NUR ---
PATIENT HAD ORIGINALLY ASKED TO GET CLEANED UP CLOSER TO THE MORNING, NOW PATIENT IS STATING HE WANTS TO WANT UNTIL HE HAS SOME MORE COFFEE BEFORE HE GETS CLEANED UP.
--- NOTE | 2019-04-03 06:43 | NUR ---
PATIENT MEDICATED WITH NORCO FOR COMPLAINTS OF BILATERAL HAND PAIN AND NECK PAIN. RN WILL CONTINUE TO MONITOR
[2019-04-03 06:51] LABS: TOTAL CELLS COUNTED 100 #CELLS
[2019-04-03 06:52] LABS: BURR CELLS FEW; OVALOCYTES FEW; PLATELET SUFFICIENCY NORMAL (NORMAL); TARGET CELLS FEW
--- NOTE | 2019-04-03 07:14 | NUR ---
24 HR chart check completed.
[2019-04-03 08:00] VITALS: BP 105/42
--- NOTE | 2019-04-03 08:06 | NUR ---
PT SITTING UP IN BED AWAITING BREAKFAST. DENIES ANY SOB OR CHEST PAIN. VITALS STABLE.
[2019-04-03 12:00] VITALS: BP 123/52
[2019-04-03 16:00] VITALS: BP 145/70
[2019-04-03 19:52] LABS: BUN 14 mg/dl (7-24); CHLORIDE 85 mmol/L (98-107); CREATININE 0.89 mg/dL (0.70-1.30); POTASSIUM 4.8 mmol/L (3.5-5.1)
[2019-04-03 19:54] LABS: SODIUM 119 mmol/L (136-145)
[2019-04-03 20:00] VITALS: BP 104/53
--- NOTE | 2019-04-03 20:00 | NUR ---
DR. CARO NOTIFIED OF SODIUM RESULT. NO NEW ORDERS GIVEN.
--- NOTE | 2019-04-03 22:30 | NUR ---
DILAUDID GIVEN PER PT REQUEST FOR LEG AND BACK PAIN RATED 7/10 AND DESCRIBED A SHARP STABBING PAIN. CALL LIGHT WITHIN REACH.
[2019-04-04] VITALS: BP 125/69
[2019-04-04 04:00] VITALS: BP 145/93
[2019-04-04 07:44] VITALS: BP 126/49
[2019-04-04 08:24] LABS: ALBUMIN 3.2 gm/dl (3.1-4.5); ALKALINE PHOSPHATASE 80 U/L (45-117); BUN 14 mg/dl (7-24); CHLORIDE 87 mmol/L (98-107); CREATININE 0.74 mg/dL (0.70-1.30); POTASSIUM 4.9 mmol/L (3.5-5.1); SGOT/AST 10 IU/L (3-35); SGPT/ALT 23 U/L (12-78); SODIUM 124 mmol/L (136-145); TOTAL PROTEIN 5.9 gm/dL (6.4-8.2)
--- NOTE | 2019-04-04 08:27 | NUR ---
ASSISTED UP TO CHAIR FOR BREAKFAST. SLIGHT SOB WITH THIS BUT TOLERATED FAIRLY WELL. L AC HANSEL DC R/T NOT IN ARM ANYMORE. PT WANTED TO EAT BREAKFAST SO I WILL RESTART AFTER HIS MEAL. VITALS STABLE.
[2019-04-04 11:25] VITALS: BP 131/57
--- NOTE | 2019-04-04 14:54 | NUR ---
MEDICATED WITH IV DILAUDID ORDERED PER PT REQUEST FOR C/O ALL OVER PAIN RATED 10/10.
[2019-04-04 16:00] VITALS: BP 119/59
--- NOTE | 2019-04-04 17:30 | NUR ---
MEDICATION EFFECTIVE FOR PAIN.
--- NOTE | 2019-04-04 18:13 | NUR ---
PT GIVEN $40 FROM [employer], SLIP SIGNED AND WITNESSED.
--- NOTE | 2019-04-04 19:58 | NUR ---
PT MEDICATED W/NORCO FOR C/O GENERAL PAIN 06/17. PT ASSISTED TO BSC FOR BM. F/C PATENT AND DRAINING CLOUDY MEDIUM YELLOW URINE. FACE FLUSHED. PT C/O DYSPNEA AT REST. SAT 94% ON 3LNC. BILATERAL FEET RESTLESS. PT TRANSFERRED W/MINIMAL ASSIST, GAIT UNSTEADY. FALL RISK INTERVENTIONS IN PLACE. CALL LIGHT IN REACH.
[2019-04-04 20:00] VITALS: BP 121/64
--- NOTE | 2019-04-04 21:38 | NUR ---
PT MEDICATED W/DILAUDID IVP FOR C/O GENERAL PAIN 06/17. PT UNABLE TO HAVE A BM EARLIER. PT STATES HE IS PASSING GAS. DOES NOT WISH TO HAVE A STOOL SOFTNER OR LAXATIVE TONIGHT. WILL TAKE SOMETHING TOMORROW MORNING.
--- NOTE | 2019-04-04 22:30 | NUR ---
PT RESTING QUIETLY IN BED. NO S/S OF DISTRESS NOTED. PRN PAIN MED EFFECTIVE.
[2019-04-05] VITALS: BP 115/60
--- NOTE | 2019-04-05 03:24 | NUR ---
PT MEDICATED W/DILAUDID IVP FOR C/O GENERAL PAIN 05/18.
--- NOTE | 2019-04-05 04:00 | NUR ---
PT RESTING QUIETLY IN BED. PRN DILAUDID EFFECTIVE FOR PAIN RELIEF. NO S/S OF DISTRESS NOTED.
--- NOTE | 2019-04-05 04:30 | NUR ---
24 HR chart check completed.
--- NOTE | 2019-04-05 06:08 | NUR ---
PT MEDICATED W/DULCOLAX FOR C/O CONSTIPATION.
--- NOTE | 2019-04-05 06:14 | NUR ---
Upon discharge recommend patient to follow up for wound care in outpatient setting continue current wound care orders at discharging facility.
[2019-04-05 06:40] LABS: BUN 18 mg/dl (7-24); CHLORIDE 88 mmol/L (98-107); CREATININE 0.77 mg/dL (0.70-1.30); POTASSIUM 4.6 mmol/L (3.5-5.1); SODIUM 126 mmol/L (136-145)
[2019-04-05 08:00] VITALS: BP 107/53
--- NOTE | 2019-04-05 09:00 | NUR ---
Head Of Talent Management in to talk to patient. Patient states lives at [facility] with family occasionally checking in on him. There are 0 steps in the home. Physician: Dr. Sergio Chung Pharmacy: [place] [facility] Home health services: [facility] previously Patient's level of ADLs: minimal assistance Patient has working utilities: yes DME: cane, walker, seated walker, O2 @ 4L, nebulizer, O2 supplier [facility] Follow-up physician's appointment after d/c: he prefers to make his own follow up appt after discharge Does patient want to access PORTAL?: no Discharge plan discussed with patient. He lives at [facility] with his family occasionally checking in on him. He is independent in his ADLs and uses a walker or a cane for ambulation. Discussed home health care services and he denies any home needs at this time. When medically stable he will be discharged to home. His daughter or a friend will transport on discharge. ROGELIO EVERETT
[2019-04-05 12:00] VITALS: BP 127/64
--- NOTE | 2019-04-05 12:24 | NUR ---
[place] given per patient request for c/o all over achiness/pain rated 9/10. Will monitor.
[2019-04-05 16:00] VITALS: BP 138/78
--- NOTE | 2019-04-05 18:00 | NUR ---
Dilaudid given per patient request for c/o joint achiness. Will monitor.
--- NOTE | 2019-04-05 18:22 | NUR ---
[place] was removed with 300ml of urine from cath. 10ml balloon deflated. Patient tolerated well.
[2019-04-05 20:00] VITALS: BP 133/76
--- NOTE | 2019-04-05 20:21 | NUR ---
PATIENT COMPLAINED OF 9/10. PATIENT MEDICATED WITH NORCO PER ORDER. WILL MONITOR FOR EFFECTIVENESS.
[2019-04-06] VITALS: BP 152/80
--- NOTE | 2019-04-06 00:07 | NUR ---
PATIENT REPORTED 10/10 GENERALIZED PAIN. PATIENT MEDICATED WITH PRN DILAUDID. BED IN LOWEST POSITION. CALL LIGHT IN REACH. NO NEEDS VERBALIZED AT THIS TIME.
--- NOTE | 2019-04-06 05:32 | NUR ---
PATIENT REPORTED 8/10 GENERALIZED PAIN. PATIENT MEDICATED W/ NORCO PER ORDER. WILL MONITOR EFFECTIVENESS. PATIENT EDUCATED ON 2 LITER FLUID RESTRICTION. PATIENT REQUESTING MULTIPLE CUPS OF COFFEE.
[2019-04-06 06:39] LABS: ALBUMIN 3.1 gm/dl (3.1-4.5); BUN 27 mg/dl (7-24); CHLORIDE 88 mmol/L (98-107); CREATININE 0.75 mg/dL (0.70-1.30); PHOSPHOROUS 3.3 mg/dL (2.5-4.9); POTASSIUM 4.9 mmol/L (3.5-5.1); SODIUM 128 mmol/L (136-145)
[2019-04-06 06:49] LABS: THYROID STIM HORMONE (HS) 0.185 uIU/ml (0.358-4.75)
[2019-04-06 08:00] VITALS: BP 150/81
--- NOTE | 2019-04-06 11:55 | NUR ---
Faxed updates to [facility]. -BRENDA Galaviz
[2019-04-06 12:00] VITALS: BP 148/78
--- NOTE | 2019-04-06 13:10 | NUR ---
MEDICATED WITH PRN DILAUDID FOR MULTIPLE C/O PAIN ALL OVER.
--- NOTE | 2019-04-06 13:35 | NUR ---
PATIENT PUT CALL LIGHT ON REQUESTING HIS NORCO THAT IS DUE. EDUCATED JUST GAVE DILAUDID TO GIVE IT A CAHNCE. PATIENT STATES WE CAHNGE THE RULES DAY TO DAY. IT IS MARKED ON THE BOARD AND HE WANTS IT. WILL MEDICATE WHEN DUE IF DILAUDID NOT EFFECTIVE.
--- NOTE | 2019-04-06 14:33 | NUR ---
MEDICATED WITH PRN NORCO PER ORDER AND C/O OF PAIN IN BACK/LEGS/FEET/HANDS DILAUDID EARLIER HELPED SOME.
--- NOTE | 2019-04-06 14:44 | NUR ---
Spoke to Olena at [facility] regarding patient asking about an air conditioner in his room. Olena states there is a window unit. Notified patient. Spoke to Dr. Fragoso regarding Lyrica orders, orders to change Lyrica to BID and physical therapy at [facility].
--- NOTE | 2019-04-06 15:30 | NUR ---
SIOBHAN HELPED SOME.
--- NOTE | 2019-04-06 15:45 | NUR ---
PATIENT INSISTENT ON GETTING IN WC TO GO TO LOBBY, SHORT TIME LATER WAFER FABRICATOR CALLED SAID MONITOR OUT OF SIGNAL UPON SEARCHING FOR PATIENT HE WAS IN LOBBY BROUGHT BACK TO ROOM AND FOUND CIGARETTES ON FLOOR WHICH WERE THROWN AWAY.
[2019-04-06 16:00] VITALS: BP 125/81
--- NOTE | 2019-04-06 18:00 | NUR ---
PATIENT BATH ROOM SMELLS STRONGLY OF CIGARETTE SMOKE. INSTRUCTED CANNOT SMOKE HERE ESPECIALLY WITH OXYGEN. PATIENT ADAMNATLY DENIES SMOKEING STATES HE HAS NO CIGARETTES.
[2019-04-06 20:00] VITALS: BP 151/69
[2019-04-07] VITALS: BP 148/81
--- NOTE | 2019-04-07 02:33 | NUR ---
PATIENT REQUESTING SOMETHING FOR PAIN. MEDICATED WITH IV DILAUDID. RATES PAIN 10/10 ALL OVER. WILL CHECK EFFECTIVENESS.
--- NOTE | 2019-04-07 04:33 | NUR ---
Upon discharge recommend patient to follow up for wound care in outpatient setting continue current wound care orders at discharging facility.
[2019-04-07 06:43] LABS: BUN 28 mg/dl (7-24); CHLORIDE 88 mmol/L (98-107); CREATININE 0.79 mg/dL (0.70-1.30); POTASSIUM 4.4 mmol/L (3.5-5.1); SODIUM 129 mmol/L (136-145)
--- NOTE | 2019-04-07 06:45 | NUR ---
NOTIFIED DR. CONWAY OF CRITICAL CO2, 41. NO NEW ORDERS. WILL CONTINUE TO MONITOR.
--- NOTE | 2019-04-07 06:46 | NUR ---
PATIENT REQUESTING TO BE MEDICATED WITH NORCO. C/O LEG PAIN RATES 06/17. WILL CONTINUE TO MONITOR.
--- NOTE | 2019-04-07 08:40 | NUR ---
PT GIVEN DILAUDID AT THIS TIME FOR COMPLAINTS OF PAIN ALL OVER HIS BODY, RATING PAIN A "10". WILL MONITOR FOR EFFECTIVENESS. PT LYING IN BED, HOB ELEVATED. ASSESSMENT COMPLETE AT THIS TIME. NO OTHER COMPLAINTS VOICED. CALL LIGHT IN REACH.
[2019-04-07 09:04] VITALS: BP 160/88
--- NOTE | 2019-04-07 09:40 | NUR ---
DILAUDID EFFECTIVE PER PT.
--- NOTE | 2019-04-07 10:28 | NUR ---
NOTIFIED PHARMACY THAT I AM UNABLE TO FIND BACTROBAN. THEY ARE SENDING A TUBE UP.
--- NOTE | 2019-04-07 11:25 | NUR ---
BRENDA spoke with the patient about Discharge. The patient stated that his friend Patrick ([phone]) will transport him home. The patient stated that he does not have a portable O2 tank. The patient stated he recieves his O2 from [facility]. BRENDA spoke with Paula, the patient is not in their system. Spoke with the patient he stated to contact Olena at [facility] because he was only there a day then tranpsorted to our facility. BRENDA contacted Olena at [facility]. She stated she spoke with Kathleen Childers at who is a [facility] Dye Tub Tender ([phone]) and the patient may not be returning to their facility due to the level of care the patient may need. -BRENDA Galaviz
--- NOTE | 2019-04-07 11:51 | NUR ---
Spoke to Kathleen at [facility] regarding patient discharging back to [facility] today. She is unsure if [facility] is going to take him back as the nurse thinks he is too much care for them. Spoke to Olena at [facility] she is going to speak to the nurse to see what she thinks and return call. Awaiting return call.
--- NOTE | 2019-04-07 11:52 | NUR ---
Due to the issues with the discharge planning, PUBLIC ADMINISTRATION TEACHER reached out to [facility] ([place] they do have male beds available. -BRENDA Galaviz
[2019-04-07 12:00] VITALS: BP 158/86
--- NOTE | 2019-04-07 13:41 | NUR ---
PATIENT ATTENDANT REPORTS THAT PT IS OUTSIDE SMOKING. PT IS SEEN FROM WINDOW ON 5TH FLOOR. PATIENT ATTENDANT REPORTS THAT SECURITY HAS BEEN NOTIFIED AND WAS OUTSIDE TALKING WITH PATIENT. DR JOEL NOTIFIED AND PHYSICIAN STATES THAT HE IS GOING TO DISCHARGE PATIENT ANYWAYS. NURSING INTELLIGENCE SUPPORT OFFICER NOTIFIED. PATIENT W/C IS BEING PUSHED BY VISITOR. PT NOTIFIED THAT STAFF ARE AWARE THAT HE WAS OUTSIDE SMOKING AND THAT DR JOEL IS GOING TO DISCHARGE HIM.
--- NOTE | 2019-04-07 13:55 | NUR ---
Attempted to reach Olena at [facility] regarding whether patient is able to return to [facility] with no success. No voicemail.
--- NOTE | 2019-04-07 14:01 | NUR ---
PT GIVEN NORCO FOR C/O GENERALIZED PAIN. WILL MONITOR FOR EFFECTIVENESS. CALL LIGHT IN REACH.
[2019-04-07] MEDS ORDERED: LYRICA75 M1 PO (14:16)
[2019-04-07] MEDS ORDERED: IMDUR SA60 M1 PO (14:16)
[2019-04-07] MEDS ORDERED: HYDROCODONE-AC1 EAC1 PO (14:16)
--- NOTE | 2019-04-07 14:32 | NUR ---
Spoke to Kori at [facility] at [phone] regarding home O2. She states they have the O2 and ventilator ready to go they just need to know when and where he is going. Attempted to reach out to Olena at [facility] at [phone] with no success, unable to leave voicemail due to mailbox being full. Spoke to Dr. Fragoso regarding patient being caught outside smoking and unsure if [facility] is going to take the patient back as he is noncompliant with the building rules per the Barbara [facility] nurse. Discussed with patient the possibility of going to short term SNF for continued physical therapy. When provided with a list of facilities he [facility] as he has been there before but only if the [facility] van can pick up worker his belongings from [facility]. pipe assembly worker notified.
--- NOTE | 2019-04-07 14:44 | NUR ---
[facility] [place]. Contacted facility and faxed referral. requires PT and OT evals and precert. Will fax when available.
--- NOTE | 2019-04-07 14:46 | NUR ---
PT STATES THAT NORCO IS NOT EFFECTIVE AND REQUESTS PRN 1 MG DILAUDID. DILAUDID GIVEN AT THIS TIME. WILL MONITOR FOR EFFECTIVENESS. CALL LIGHT IN REACH.
--- NOTE | 2019-04-07 14:56 | NUR ---
Spoke to Dr. Fragoso regarding need for PT/OT for SNF auth. Per Dr. Fragoso patient can remain inpatient until tomorrow. Nurse notified.
--- NOTE | 2019-04-07 15:39 | NUR ---
DR KENNEDY GIVES OKAY FOR PT TO TAKE HEART MONITOR OFF TO TAKE SHOWER. WILL NOTIFY PATIENT.
--- NOTE | 2019-04-07 15:46 | NUR ---
DILAUDID EFFECTIVE PER PT.
[2019-04-07 16:00] VITALS: BP 148/76
--- NOTE | 2019-04-07 16:00 | NUR ---
PHYSICAL THERAPY Physical therapy evaluation complete, 5E. Full details to follow. Moderate complexity evaluation via chart review and evaluation. Continue per POC to increase LE strength, endurance, and gait. Recommend SNF at discharge. Thank you. Daly Mendez,PT,DPT.
[2019-04-07 20:00] VITALS: BP 150/77
--- NOTE | 2019-04-07 20:10 | NUR ---
PATIENT IV LEAKING AT SITE. IV REMOVED. NEW 22G IV STARTED IN LAC AFTER ONE OTHER ATTMEPT. PT. TOLERATED WELL. WILL CONTINUE TO MONITOR
--- NOTE | 2019-04-07 20:44 | NUR ---
PATIENT MEDICATED WITH IV DILAUDID FOR C/O FEET/LEGS/KNEE PAIN PER REQUEST. RATES 06/17. WILL CHECK EFFECTIVENESS.
--- NOTE | 2019-04-07 23:12 | NUR ---
PATIENT REQUESTING TO BE MEDICATED WITH PO NORCO AT THIS TIME. STILL C/O OF HIS FEET/LEGS/KNEES HURTING HIM. RATES 04/17. WILL CHECK EFFECTIVENESS.
[2019-04-08] VITALS: BP 153/77
--- NOTE | 2019-04-08 01:00 | NUR ---
PATIENT SLEEPING. MEDICATION EFFECTIVE.
--- NOTE | 2019-04-08 05:12 | NUR ---
PATIENT MEDICATED WITH DILAUDID FOR GENERALIZED PAIN. RATES 06/17. WILL CHECK EFFECTIVENESS.
[2019-04-08 08:00] VITALS: BP 170/70
--- NOTE | 2019-04-08 09:20 | NUR ---
PT REQUESTED AND WAS MEDICATED WITH NORCO FOR C/O GENERALIZED PAIN. WILL MONITOR
[2019-04-08 12:00] VITALS: BP 157/74
--- NOTE | 2019-04-08 12:00 | NUR ---
PT UPSET AND SWEARING, WANTING TO TALK WITH SOCIAL SERVICE. SS CALLED AND SPOKE TO PT MULTIPLE TIMES. WILL MONITOR
--- NOTE | 2019-04-08 12:22 | NUR ---
TERMINAL GAUGER faxed over PT updates to [facility]. Completed the HENS. -BRENDA Galaviz
--- NOTE | 2019-04-08 13:02 | NUR ---
PHYSICAL THERAPY Patient is eating lunch at this time. Will check back later. SHADE CALDERA TEST CLERK
--- NOTE | 2019-04-08 13:49 | NUR ---
Occupational THerapy evaluation completed on 5 with full eval to follow. Precautions include fall risk d/t dystonic movements/LE>UE tremors, impulsivity,obesity, oxygen use @ 5LPM, moderate complexity level 22151 via chart review, testing and evaluation, SOB w/ min exertion. Recommend OT per pOC and return to SNF. Thank you. Madeline Hedrick OTR/L
--- NOTE | 2019-04-08 14:19 | NUR ---
Supervisor Cured Meats in to see patient. He is requesting an O2 tank for transport to [place]. Spoke to Karol at [facility] , regarding portable tank for transport. Karol states they are not able to provide portable O2 for the patient as he is going to a SNF. Explained to patient and he verbalized an understanding after a few choice words.
--- NOTE | 2019-04-08 15:18 | NUR ---
PHYSICAL THERAPY Patient gives informed consent for treatment. Patient is on 4 liters of spO2 VIA NASAL CANULA. Patient has no compalints. Patient was supine in bed with head of bed elevated upon this MECHANICAL DRAWING TEACHER arriving in the patient's room for treatment. Patient performed supine to sitting at EOB with SBA. Patient performed sit to stand transfer with SBA. Patient ambulated 40' x 1 with Wh Walker and CGA X 1 with 3 episodes of LOB to the rear because patient rolls back on heels at times and becomes retrograde. Patient corrected the retrograde LOB his self. Patient then sat on EOB and performed seated bilateral LE THER EX 2 x 10 reps each in all planes of movement in order to improve patient's functional mobility. Patient transferred back to supine in bed with SBA. Patient was left in bed with head of bed elevated, call light within reach, and visitor in room. Patient was connected to wall outlet with 4 liters of spO2. Patient was 1:1 with this MECHANICAL DRAWING TEACHER for 24 MINUTES TOTAL. Bed alarm was not on when this MECHANICAL DRAWING TEACHER entered room and patient has been getting out of bed on his own to use bedside commode. SHADE CALDERA MECHANICAL DRAWING TEACHER
--- NOTE | 2019-04-08 15:33 | NUR ---
Norbert from [facility] called, they have received auth. They do not have transportation tonight. Spoke to patient. Friend, Patrick, is here and can bring patient to [facility] but patient will need a loner O2 tank. Nurse notified.
--- NOTE | 2019-04-08 16:00 | NUR ---
PT ABLE TO GO TO [facility] TODAY. PT HAS NO HOME OXYGEN HERE. PT FRIEND AGREES TO RETURN TANK IF BORROWED FROM HERE. LAURA, NURSING TIME STUDY OBSERVER CALLED AND NOTIFIED AND OK'D. O2 TANK BORROW SHEET FILLED OUT AND SIGNED BY PT AND THIS NURSE.
--- NOTE | 2019-04-08 16:14 | NUR ---
PT REFUSED DISCHARGE WOUND PIC OF HIS TOE. PT UPSET AND SWEARING.
--- NOTE | 2019-04-08 16:17 | NUR ---
Discharge instructions reviewed with patient/family. Patient receptive and verbalizes understanding. Follow-up care arranged. Written instructions given to patient/family. DILAN CHAVEZ
--- NOTE | 2019-04-08 16:28 | NUR ---
Faxed discharge packet to [facility] at [phone]. Notified Norbert at [facility] patient was being transported by a friend and would be on his way shortly.
--- NOTE | 2019-04-08 16:29 | NUR ---
REPORT CALLED TO EWELINA AT [facility].
--- NOTE | 2019-04-09 14:46 | NUR ---
PHYSICAL THERAPY CO-SIGN I approve of the Physical Therapy notes written above. ROGELIO HERNANDEZ PT,DPT
== END 2019-04-08 16:17 | disposition other institution (70) | DRG 643 ==
LOC: ED 19:51 → EDHOLD 23:06 → ICCU 23:06 → 5E 23:06 → ICCU 23:12 → 5E 04-04 14:18
PROVIDERS: Emergency Medicine Emergency Medical Services; Internal Medicine; Internal Medicine Nephrology; ADMIT Internal Medicine
PROC: 5A09357 Assistance with Respiratory Ventilation, Less than 24 Consecutive Hours, Continuous Positive Airway Pressure (ICD-10-PCS; principal; 2019-04-01)
DX: E22.2 Syndrome of inappropriate secretion of antidiuretic hormone (principal); J96.22 Acute and chronic respiratory failure with hypercapnia; J96.21 Acute and chronic respiratory failure with hypoxia; E44.0 Moderate protein-calorie malnutrition; F33.1 Major depressive disorder, recurrent, moderate; E66.01 Morbid (severe) obesity due to excess calories; I71.4 Abdominal aortic aneurysm, without rupture; R62.7 Adult failure to thrive; I11.0 Hypertensive heart disease with heart failure; M81.0 Age-related osteoporosis without current pathological fracture; G89.29 Other chronic pain; I25.10 Atherosclerotic heart disease of native coronary artery without angina pectoris; F17.210 Nicotine dependence, cigarettes, uncomplicated; I50.812 Chronic right heart failure; I27.20 Pulmonary hypertension, unspecified; J43.2 Centrilobular emphysema; N40.1 Benign prostatic hyperplasia with lower urinary tract symptoms; R33.8 Other retention of urine; M47.896 Other spondylosis, lumbar region; D63.8 Anemia in other chronic diseases classified elsewhere; K57.90 Diverticulosis of intestine, part unspecified, without perforation or abscess without bleeding; K21.9 Gastro-esophageal reflux disease without esophagitis; E78.2 Mixed hyperlipidemia; G62.9 Polyneuropathy, unspecified; Z87.01 Personal history of pneumonia (recurrent); I25.2 Old myocardial infarction; Z85.46 Personal history of malignant neoplasm of prostate; Z92.3 Personal history of irradiation; Z98.52 Vasectomy status; Z91.81 History of falling; Z86.711 Personal history of pulmonary embolism; Z79.899 Other long term (current) drug therapy; Z79.82 Long term (current) use of aspirin

== ENCOUNTER 2019-06-21 17:29 | Inpatient (IN) | payer MEDICARE ==
[~2019-06-21] VITALS: Ht 177.8 cm; Wt 123.0 kg
[2019-06-21] VITALS (7 sets, daily range): BP systolic 116–152; BP diastolic 60–102
[~2019-06-21 17:29] MED LIST changes: +ANTI-FUNGAL CR113 GM T; +CYMBALTA60 MG PO; +HYDROXYZINE HCL50 MG PO; +IMDUR SA60 M1 PO; +LYRICA75 M1 PO; +MICONAZOLE NIT130 GM T; +PROVENTIL HFA6.7 GM INH; +REFRESH PLUS1 EACH OU; +TYLENOL325 M1 PO; +ZYRTEC10 MG PO
[2019-06-21 18:01] LABS: HEMATOCRIT 38.6 % (42.0-52.0); MEAN CELL VOLUME 90.4 fl (80.0-94.0); MEAN CORPUSCULAR HGB 28.1 pg (27.0-31.0); MEAN CORPUSCULAR HGB CONC 31.1 g/dl (33.0-37.0); MEAN PLATELET VOLUME 9.3 fl (9.6-12.3); PLATELET COUNT AUTOMATED 315 10*3/uL (130-400); RED BLOOD COUNT 4.27 10*6/uL (4.50-5.90); RED CELL DISTRI WIDTH 20.2 % (0-14.5); WHITE BLOOD COUNT 26.3 10*3/uL (4.8-10.8)
[2019-06-21 18:18] LABS: ALBUMIN 3.4 gm/dl (3.1-4.5); ALKALINE PHOSPHATASE 71 U/L (45-117); BUN 8 mg/dl (7-24); CHLORIDE 89 mmol/L (98-107); CREATININE 0.63 mg/dL (0.70-1.30); POTASSIUM 4.3 mmol/L (3.5-5.1); SGOT/AST 11 IU/L (3-35); SGPT/ALT 21 U/L (12-78); SODIUM 132 mmol/L (136-145); TOTAL PROTEIN 6.7 gm/dL (6.4-8.2)
--- NOTE | 2019-06-21 18:24 | NUR ---
PULSE OX DROPPED TO 88% ON 4L NC. INCREASED WORK OF BREATHING, ACCESSORY MUSCLE USE. RESPIRATORY CALLED FOR A BI-PAP.
[2019-06-21 18:25] LABS: TROPONIN I 0.089 ng/ml (<0.045)
--- NOTE | 2019-06-21 18:37 | NUR ---
PT PLACED ON BIPAP 16/8 50%. SPOKE WITH DR. HARVEY. ONE HOUR AFTER BIPAP START, DRAW AN ABG.
[2019-06-21 18:53] LABS: BURR CELLS FEW; OVALOCYTES FEW; PLATELET SUFFICIENCY NORMAL (NORMAL); TOTAL CELLS COUNTED 100 #CELLS
[2019-06-21 18:56] LABS: ACT PARTIAL THROMBO TIME 26.8 SECONDS (20.0-32.1); INTERNATIONAL NORM RATIO 0.8 (2.0-3.5)
--- NOTE | 2019-06-21 19:01 | NUR ---
PT STATES THAT HIS SOB IS BETTER NOW THAT HE IS ON BI-PAP.
[2019-06-21 19:57] LABS: ABG HCO3 39.8 mmol/l (22-26); ABG O2 SATURATION 98.4 % (95-97); ARTERIAL BLOOD GAS PH 7.253 (7.35-7.45)
[2019-06-21 19:59] LABS: ARTERIAL BLOOD GAS PCO2 93.4 mmHg (35-45)
[2019-06-21 21:25] LABS: BILIRUBIN NEGATIVE (NEGATIVE); BLOOD NEGATIVE (NEGATIVE); CLARITY SL CLOUDY (CLEAR); COLOR YELLOW (YELLOW); GLUCOSE NEGATIVE (NEGATIVE); KETONE NEGATIVE (NEGATIVE); LEUKO ESTERASE TRACE (NEGATIVE); NITRITE NEGATIVE (NEGATIVE); UROBILINOGEN 0.2 E.U./dl (0.2-1.0)
[2019-06-21 21:35] LABS: BACTERIA 4+; EPITHELIAL CELLS 0-2; WBC 21-30 wbc/hpf (0-5)
--- NOTE | 2019-06-21 22:15 | NUR ---
ABGS ATTEMPTED. THEY WERE NOT OBTAINED. PT REFUSED TO LET US TRY AFTER 2 ATTEMPTS. AWARE. PT IS ALERT, ORIENTED. ACTIVE. PT STATES HE IS FEELING BETTER, WANTS COFFEE AND A SANDWICH. VBG IS DRAWN. DR ANDERSON SAID TO LEAVE HIM ON BIPAP
[2019-06-21 22:54] LABS: VENOUS BLOOD GAS O2 SAT 72.1 % (40-85); VENOUS PH 7.249 (7.32-7.43)
[2019-06-22 00:33] VITALS: BP 133/78
[2019-06-22 01:42] VITALS: BP 154/91
--- NOTE | 2019-06-22 02:41 | NUR ---
A 63, admitted to [facility], under the services of Dr. WISAM WHITE,SUKH Kang with a diagnosis of HYPERCAPNIC RESP FAILURE. Chief complaint is SOB COUGH DIAPHORETIC. Patient arrived via stretcher from ER. Monitor applied. Initial assessment completed. Vital signs taken and recorded. DR. WISAM WHITE,SUKH Kang notified of admission to the unit. Orders received. See assessment for past medical history, medications and allergies. Patient and/or family oriented to unit. [facility] visitation policy reviewed. Clothing/patient valuable form completed. MIGUELANGEL BUCKNER
[2019-06-22 04:00] VITALS: BP 138/75
--- NOTE | 2019-06-22 06:24 | NUR ---
ROSA MARIA HAD LARGE FORMED BM THIS MORNING. PATIENT INFORMED THAT WHEN HE COUGHED THERE WAS BLOOD IN HIS SPUTUM. PATIENT HAS COME OFF OF BIPAP FOR CRACKERS AND A DRINK HE IS CURRENTLY ON 5 LITERS NC AND IS 98%.
[2019-06-22] MEDS ORDERED: LYRICA150 M1 PO (07:31)
[2019-06-22] MEDS ORDERED: FERROUS GLUCON324 M2 PO (07:39)
[2019-06-22 08:00] VITALS: BP 134/61
--- NOTE | 2019-06-22 08:30 | NUR ---
Bond Writer in to talk to patient. Patient states he is currently living with his daughter in [place]. He states is supposed to be getting a place of his own and can move in July 11. There are 5 steps in the home. Physician: Dr. Liban Fragoso Pharmacy: [place] or [facility] Home health services: [facility] previously Patient's level of ADLs: minimal assistance Patient has working utilities: yes DME: cane, walker, seated walker, O2 @ 4L, nebulizer, O2 supplier [facility] Follow-up physician's appointment after d/c: he prefers to make his own follow up appt after discharge Does patient want to access PORTAL?: no Discharge plan discussed with patient. He is currently living with his daughter in [place]. He states he will be getting his own place July 11 in [place]. He is independent in his ADLs and uses a walker or a cane for ambulation. Discussed home health care services and he denies any home needs at this time. When medically stable he will be discharged to home. His daughter or a friend will transport on discharge. ROGELIO EVERETT
--- NOTE | 2019-06-22 09:39 | NUR ---
DIRECTOR OF SPEECH PATHOLOGY LAURA Benavides NOTIFIED THAT PT HAS BEEN DOWNGRADED TO TELEMETRY PT.
[2019-06-22] MEDS ORDERED: NORCO 7.5-3251 EACH PO (09:46)
--- NOTE | 2019-06-22 11:23 | NUR ---
PT MEDICATED WITH NORCO 1 TAB FOR GENERALIZED BODY PAIN PER PT. STATES HE TAKES THEM TID AT HOME DAILY FOR CHRONIC PAIN.
[2019-06-22 16:00] VITALS: BP 100/60
--- NOTE | 2019-06-22 18:28 | NUR ---
PT TRANSFERED TO 521 AT THIS TIME. REPORT GIVEN TO JOSE JUAN PICKARD.
[2019-06-22 20:00] VITALS: BP 131/78
--- NOTE | 2019-06-22 21:56 | NUR ---
PT TAKEN ON BIPAP AT THIS TIME. O2 APPLIED AT 4L NC. PT REQUESTING TO LEAVE BIPAP OFF TO EAT SNACK.
[2019-06-23] VITALS (7 sets, daily range): BP systolic 121–138; BP diastolic 62–80
[2019-06-23 07:23] LABS: HEMATOCRIT 34.7 % (42.0-52.0); HEMOGLOBIN 10.6 g/dl (14.0-18.0); MEAN CELL VOLUME 89.7 fl (80.0-94.0); MEAN CORPUSCULAR HGB 27.4 pg (27.0-31.0); MEAN CORPUSCULAR HGB CONC 30.5 g/dl (33.0-37.0); PLATELET COUNT AUTOMATED 302 10*3/uL (130-400); RED BLOOD COUNT 3.87 10*6/uL (4.50-5.90); RED CELL DISTRI WIDTH 20.4 % (0-14.5)
[2019-06-23 07:44] LABS: OVALOCYTES FEW; PLATELET SUFFICIENCY NORMAL (NORMAL); TOTAL CELLS COUNTED 100 #CELLS
[2019-06-23 07:49] LABS: CHLORIDE 92 mmol/L (98-107); CREATININE 0.81 mg/dL (0.70-1.30); POTASSIUM 4.2 mmol/L (3.5-5.1); SODIUM 134 mmol/L (136-145)
[2019-06-23 07:52] LABS: BUN 19 mg/dl (7-24)
--- NOTE | 2019-06-23 07:58 | NUR ---
CEPACOL GIVEN PER PATIENT REQUEST FOR COMPLAINTS OF SORE THROAT. WILL ASSESS EFFECTIVENESS.
--- NOTE | 2019-06-23 09:00 | NUR ---
PATIENT STATED CEPACOL WAS EFFECTIVE.
--- NOTE | 2019-06-23 10:30 | NUR ---
Bibliographic Services Specialist in to see patient. No new needs or request at this time. Patient is currently wearing bipap. He states he does have a c-pap at home. He denies any home needs. When medically stable he will be discharged to home.
--- NOTE | 2019-06-23 16:00 | NUR ---
ASSUMED CARE FOR THIS PT AT THIS TIME. CALL LIGHT IN REACH.
--- NOTE | 2019-06-23 23:15 | NUR ---
PATIENT ON BIPAP FOR THE NIGHT
[2019-06-24 07:01] LABS: HEMOGLOBIN 11.2 g/dl (14.0-18.0); LYMPH # 0.7 10*3/uL (1.3-4.4); MEAN CELL VOLUME 88.5 fl (80.0-94.0); MEAN CORPUSCULAR HGB 27.5 pg (27.0-31.0); MEAN CORPUSCULAR HGB CONC 31.1 g/dl (33.0-37.0); MEAN PLATELET VOLUME 9.5 fl (9.6-12.3); MONO # 0.8 10*3/uL (0.1-1.0); MONO % 7.2 % (3.0-9.0); NEUT # 9.7 10*3/uL (2.3-7.9); NEUT % 86.1 % (47.0-73.0); PLATELET COUNT AUTOMATED 308 10*3/uL (130-400); RED BLOOD COUNT 4.07 10*6/uL (4.50-5.90); RED CELL DISTRI WIDTH 20.5 % (0-14.5); WHITE BLOOD COUNT 11.3 10*3/uL (4.8-10.8)
[2019-06-24 07:23] LABS: BUN 22 mg/dl (7-24); CHLORIDE 91 mmol/L (98-107); CREATININE 0.75 mg/dL (0.70-1.30); POTASSIUM 4.3 mmol/L (3.5-5.1); SODIUM 134 mmol/L (136-145)
[2019-06-24 08:00] VITALS: BP 116/78
--- NOTE | 2019-06-24 10:44 | NUR ---
Spoke to Rosio from [facility]. She states patient has a non-invasive ventilator at home. Notified Dr. Hannah.
[2019-06-24 12:00] VITALS: BP 101/52
--- NOTE | 2019-06-24 12:27 | NUR ---
After School Coordinator in to see patient. No new needs or request at this time. Spoke to patient regarding having his non-invasive ventilator brought to the hospital. He is going to check with his daughter to see if she can bring it. Notified Dr. Hannah.
[2019-06-24 16:00] VITALS: BP 104/53
[2019-06-24 20:00] VITALS: BP 138/69
[2019-06-25] VITALS: BP 124/63
[2019-06-25 06:52] LABS: HEMATOCRIT 38.9 % (42.0-52.0); HEMOGLOBIN 11.6 g/dl (14.0-18.0); LYMPH # 0.4 10*3/uL (1.3-4.4); LYMPH % 5.5 % (27.0-41.0); MEAN CELL VOLUME 90.9 fl (80.0-94.0); MEAN CORPUSCULAR HGB 27.1 pg (27.0-31.0); MEAN CORPUSCULAR HGB CONC 29.8 g/dl (33.0-37.0); MEAN PLATELET VOLUME 9.5 fl (9.6-12.3); MONO # 0.4 10*3/uL (0.1-1.0); MONO % 5.1 % (3.0-9.0); NEUT # 6.3 10*3/uL (2.3-7.9); PLATELET COUNT AUTOMATED 311 10*3/uL (130-400); RED BLOOD COUNT 4.28 10*6/uL (4.50-5.90); RED CELL DISTRI WIDTH 20.4 % (0-14.5); WHITE BLOOD COUNT 7.1 10*3/uL (4.8-10.8)
[2019-06-25 07:03] LABS: BUN 22 mg/dl (7-24); CHLORIDE 94 mmol/L (98-107); CREATININE 0.79 mg/dL (0.70-1.30); POTASSIUM 4.9 mmol/L (3.5-5.1); SODIUM 134 mmol/L (136-145)
[2019-06-25 08:00] VITALS: BP 153/73
--- NOTE | 2019-06-25 08:30 | NUR ---
Assembler Wet Wash in to see patient. No new needs or request at this time. His daughter was not able to bring his home c-pap in to have the settings checked by Dr. Hannah. Dr. Hannah notified. When medically stable he will be discharged to home.
[2019-06-25 12:00] VITALS: BP 153/70
--- NOTE | 2019-06-25 13:15 | NUR ---
NORCO GIVEN FOR C/O GENERALIZED DISCOMFORT. WILL MONITOR.
--- NOTE | 2019-06-25 14:25 | NUR ---
SIOBHAN EFFECTIVE PER PT.
[2019-06-25 16:00] VITALS: BP 126/61
[2019-06-25 20:00] VITALS: BP 146/64
--- NOTE | 2019-06-25 22:25 | NUR ---
PATIENT MEDICATED WITH NORCO PER DRS ORDERS FOR COMPLAINTS OF GENERALIZED ALL OVER PAIN. RN WILL MONITOR FOR EFFECTIVENESS
[2019-06-26] VITALS: BP 101/54
--- NOTE | 2019-06-26 00:42 | NUR ---
24HR CHART CHECK COMPLETED.
[2019-06-26 05:40] VITALS: BP 132/84
--- NOTE | 2019-06-26 06:13 | NUR ---
PRN NORCO GIVEN FOR COMPLAINTS OF RIGHT LEG PAIN RATED 10/10. WILL MONITOR FOR EFFECTIVENESS.
[2019-06-26 08:00] VITALS: BP 130/81
[2019-06-26 12:00] VITALS: BP 134/76
[2019-06-26 16:00] VITALS: BP 136/79
--- NOTE | 2019-06-26 16:07 | NUR ---
NORCO GIVEN FOR C/O GENERALIZED DISCOMFORT. WILL MONITOR.
--- NOTE | 2019-06-26 17:10 | NUR ---
SIOBHAN EFFECTIVE PER PT.
[2019-06-26 20:00] VITALS: BP 145/76
--- NOTE | 2019-06-26 20:00 | NUR ---
ASSESSMENT COMPLETE ON PT AT THIS TIME. RESPIRATIONS UNLABORED ON 4L NC. PT SITTING UP IN BED, HOB ELEVATED. LUNGS DIMINISHED T/O. NO SOB AT REST. ALL SAFETY MEASURES IN PLACE. CALL LIGHT IN REACH.
--- NOTE | 2019-06-26 21:19 | NUR ---
PT GIVEN CEPACOL FOR COUGH. WILL MONITOR.
--- NOTE | 2019-06-26 23:34 | NUR ---
PT GIVEN NORCO 7.5-325 MG TAB FOR C/O GENERALIZED PAIN, RATES PAIN A "9". WILL MONITOR FOR EFFECTIVENESS. SAFETY MEASURES IN PLACE. SUPPLEMENTAL OXYGEN IN TACT.NO SOB AT REST. CALL LIGHT IN REACH.
[2019-06-27] VITALS: BP 121/55
[2019-06-27 07:44] LABS: BASO % 0.1 % (0.0-1.0); EOS % 0.3 % (1.0-4.0); HEMATOCRIT 36.5 % (42.0-52.0); LYMPH # 1.3 10*3/uL (1.3-4.4); LYMPH % 13.6 % (27.0-41.0); MEAN CELL VOLUME 91.9 fl (80.0-94.0); MEAN CORPUSCULAR HGB 27.7 pg (27.0-31.0); MEAN CORPUSCULAR HGB CONC 30.1 g/dl (33.0-37.0); MEAN PLATELET VOLUME 10.4 fl (9.6-12.3); MONO # 0.6 10*3/uL (0.1-1.0); MONO % 6.1 % (3.0-9.0); NEUT # 7.4 10*3/uL (2.3-7.9); NEUT % 79.4 % (47.0-73.0); PLATELET COUNT AUTOMATED 270 10*3/uL (130-400); RED BLOOD COUNT 3.97 10*6/uL (4.50-5.90); RED CELL DISTRI WIDTH 19.7 % (0-14.5); WHITE BLOOD COUNT 9.3 10*3/uL (4.8-10.8)
[2019-06-27 08:00] VITALS: BP 116/61
[2019-06-27 08:07] LABS: BUN 20 mg/dl (7-24); CHLORIDE 89 mmol/L (98-107); CREATININE 0.74 mg/dL (0.70-1.30); POTASSIUM 4.4 mmol/L (3.5-5.1); SODIUM 132 mmol/L (136-145)
[2019-06-27 12:00] VITALS: BP 117/58
--- NOTE | 2019-06-27 15:57 | NUR ---
PT ON BIPAP AT THIS TIME
[2019-06-27 16:00] VITALS: BP 122/60
[2019-06-27 20:00] VITALS: BP 147/69
[2019-06-27] MEDS ORDERED: OMEPRAZOLE40 MG PO (20:44)
--- NOTE | 2019-06-27 20:49 | NUR ---
PATIENT REQUESTING CEPACHOL FOR C/O SORE THROAT/RAW. CEPACHOL GIVEN PER ORDER. PATIENT PROCEEDS TO PUT HIMSELF ON BIPAP. RN STOPPED PATIENT AND EDUCATED HIM ABOUT NOT HAVING ANYTHING IN HIS MOUTH WHILE WEARING BIPAP DUE TO ASPIRATION RISK. PATIENT STATES "IT'S FINE." RN ONCE AGAIN URGED PATIENT NOT TO WEAR BIPAP. PATIENT REPLIES "GO AWAY THEN, MOM." RESPIRATORY NOTIFIED.
--- NOTE | 2019-06-27 21:56 | NUR ---
PT TOOK HIMSELF OFF BIPAP AT THIS TIME. REQUESTED & RECEIVED PO NORCO PER PRN ORDER FOR C/O BLL PAIN RATED 10/10. WILL MONITOR EFFECTIVENESS. CALL LIGHT IN REACH.
--- NOTE | 2019-06-27 23:39 | NUR ---
PT REQUESTING HOME PRILOSEC. HOME MED REC UPDATED. NOTIFIED. NEW ORDER FOR PRILOSEC.
[2019-06-28] VITALS: BP 128/57
[2019-06-28 07:10] LABS: BASO % 0.1 % (0.0-1.0); EOS # 0.1 10*3/uL (0.0-0.4); EOS % 0.8 % (1.0-4.0); HEMOGLOBIN 10.9 g/dl (14.0-18.0); LYMPH # 1.5 10*3/uL (1.3-4.4); LYMPH % 17.8 % (27.0-41.0); MEAN CELL VOLUME 89.3 fl (80.0-94.0); MEAN CORPUSCULAR HGB CONC 30.3 g/dl (33.0-37.0); MEAN PLATELET VOLUME 9.8 fl (9.6-12.3); MONO # 0.7 10*3/uL (0.1-1.0); MONO % 8.7 % (3.0-9.0); NEUT # 6.1 10*3/uL (2.3-7.9); PLATELET COUNT AUTOMATED 277 10*3/uL (130-400); RED BLOOD COUNT 4.03 10*6/uL (4.50-5.90); RED CELL DISTRI WIDTH 19.6 % (0-14.5); WHITE BLOOD COUNT 8.5 10*3/uL (4.8-10.8)
[2019-06-28 07:22] LABS: BUN 19 mg/dl (7-24); CHLORIDE 90 mmol/L (98-107); CREATININE 0.66 mg/dL (0.70-1.30); POTASSIUM 4.5 mmol/L (3.5-5.1); SODIUM 133 mmol/L (136-145)
--- NOTE | 2019-06-28 07:39 | NUR ---
CRITICAL CO2 OF 41. CALLED PLACED TO DR JOEL. AWAITING CALL BACK.
--- NOTE | 2019-06-28 07:45 | NUR ---
DR JOEL RETURNED PHONECALL WITH A NEW ORDER FOR DIAMOX. SEE ORDER.
[2019-06-28 08:00] VITALS: BP 160/83
--- NOTE | 2019-06-28 10:30 | NUR ---
Uniform Maker in to see patient. No new needs or request at this time. CO2 critically elevated, Diamox started. He denies any home needs. When medically stable he will be discharged to home.
[2019-06-28 12:00] VITALS: BP 136/64
--- NOTE | 2019-06-28 13:43 | NUR ---
NORCO PO GIVEN DUE TO PATIENT REQUESTING IT FOR PAIN THAT IS RATED A 10/10 IN HIS LEFT FOOT.
--- NOTE | 2019-06-28 14:40 | NUR ---
PT REFUSES NEW IV SITE. IV SITE OUTDATED AND PT EDUCATED REGARDING RISKS.
[2019-06-28 16:00] VITALS: BP 113/61
[2019-06-28 20:00] VITALS: BP 124/64
--- NOTE | 2019-06-29 04:27 | NUR ---
PT TOOK SELF OFF BIPAP. MEDICATED WITH PO NORCO FOR PAIN IN BLL RATED 9/10. WILL MONITOR EFFECTIVENESS. 0600 MEDICATIONS GIVEN AT THIS TIME PT REQUESTING TO TAKE SHOWER AFTER HIS ABX ARE DONE.
--- NOTE | 2019-06-29 05:56 | NUR ---
PT REFUSING TO WRAP IV SITE IN LAC BEFORE SHOWERING. STATES "I WANT IT OUT." RN EXPLAINED TO PT THAT HE SHOULD KEEP IT IN UNTIL DISCHARGED OR LET RN START ANOTHER SITE. PT STATES "I'M NOT WRAPPING IT. & YOU'RE NOT POKING ME AGAIN."
[2019-06-29 08:00] VITALS: BP 126/62
--- NOTE | 2019-06-29 10:00 | NUR ---
Nursing supervisor throwing department and physician notified of patient leaving AMA.
== END 2019-06-29 10:00 | disposition left against medical advice (07) | DRG 291 ==
LOC: ED 17:29 → 5E 06-22 00:39 → EDHOLD 06-22 00:39 → ICCU 06-22 01:07 → 5E 06-22 17:30
PROVIDERS: Emergency Medicine; Internal Medicine; Internal Medicine Critical Care Medicine; ADMIT Internal Medicine
PROC: 5A09357 Assistance with Respiratory Ventilation, Less than 24 Consecutive Hours, Continuous Positive Airway Pressure (ICD-10-PCS; principal; 2019-06-22)
PROC: 5A09357 Assistance with Respiratory Ventilation, Less than 24 Consecutive Hours, Continuous Positive Airway Pressure (ICD-10-PCS; 2019-06-23)
PROC: 5A09357 Assistance with Respiratory Ventilation, Less than 24 Consecutive Hours, Continuous Positive Airway Pressure (ICD-10-PCS; 2019-06-26)
PROC: 5A09357 Assistance with Respiratory Ventilation, Less than 24 Consecutive Hours, Continuous Positive Airway Pressure (ICD-10-PCS; 2019-06-27)
PROC: 5A09357 Assistance with Respiratory Ventilation, Less than 24 Consecutive Hours, Continuous Positive Airway Pressure (ICD-10-PCS; 2019-06-28)
DX: I13.2 Hypertensive heart and chronic kidney disease with heart failure and with stage 5 chronic kidney disease, or end stage renal disease (principal); J96.22 Acute and chronic respiratory failure with hypercapnia; I50.23 Acute on chronic systolic (congestive) heart failure; N18.6 End stage renal disease; J96.21 Acute and chronic respiratory failure with hypoxia; F33.1 Major depressive disorder, recurrent, moderate; N39.0 Urinary tract infection, site not specified; Z16.12 Extended spectrum beta lactamase (ESBL) resistance; I24.8 Other forms of acute ischemic heart disease; E87.1 Hypo-osmolality and hyponatremia; E44.0 Moderate protein-calorie malnutrition; N40.0 Benign prostatic hyperplasia without lower urinary tract symptoms; G89.29 Other chronic pain; M54.9 Dorsalgia, unspecified; I25.10 Atherosclerotic heart disease of native coronary artery without angina pectoris; K57.90 Diverticulosis of intestine, part unspecified, without perforation or abscess without bleeding; J43.9 Emphysema, unspecified; K21.9 Gastro-esophageal reflux disease without esophagitis; E78.2 Mixed hyperlipidemia; E66.01 Morbid (severe) obesity due to excess calories; F17.210 Nicotine dependence, cigarettes, uncomplicated; I27.20 Pulmonary hypertension, unspecified; G62.9 Polyneuropathy, unspecified; R62.7 Adult failure to thrive; F41.1 Generalized anxiety disorder; J20.9 Acute bronchitis, unspecified; G47.33 Obstructive sleep apnea (adult) (pediatric); Z53.21 Procedure and treatment not carried out due to patient leaving prior to being seen by health care provider; M47.816 Spondylosis without myelopathy or radiculopathy, lumbar region; D63.8 Anemia in other chronic diseases classified elsewhere; I87.2 Venous insufficiency (chronic) (peripheral); B96.20 Unspecified Escherichia coli [E. coli] as the cause of diseases classified elsewhere; Z86.711 Personal history of pulmonary embolism; I25.2 Old myocardial infarction; Z85.46 Personal history of malignant neoplasm of prostate; Z79.899 Other long term (current) drug therapy; Z79.82 Long term (current) use of aspirin; Z98.52 Vasectomy status; Z99.81 Dependence on supplemental oxygen; Z71.6 Tobacco abuse counseling; Z22.321 Carrier or suspected carrier of Methicillin susceptible Staphylococcus aureus; Z68.37 Body mass index [BMI] 37.0-37.9, adult

== ENCOUNTER 2019-07-08 17:20 | Inpatient (IN) | payer MEDICARE ==
[~2019-07-08] VITALS: Ht 177.8 cm; Wt 128.4 kg
[~2019-07-08 17:20] MED LIST changes: +FERROUS GLUCON324 M2 PO; +NORCO 7.5-3251 EACH PO; +OMEPRAZOLE40 MG PO
[2019-07-08 17:27] VITALS: BP 182/86
[2019-07-08 17:54] LABS: ABG BASE EXCESS 4.1 mmol/L (-2.0-2.0); ABG HCO3 32.1 mmol/l (22-26); ABG O2 SATURATION 94.7 % (95-97); ARTERIAL BLOOD GAS PCO2 69.5 mmHg (35-45); ARTERIAL BLOOD GAS PH 7.282 (7.35-7.45); ARTERIAL BLOOD GAS PO2 69.7 mmHg (80-90)
[2019-07-08 17:56] LABS: BASO % 0.3 % (0.0-1.0); EOS # 0.2 10*3/uL (0.0-0.4); EOS % 2.8 % (1.0-4.0); HEMOGLOBIN 10.4 g/dl (14.0-18.0); LYMPH # 1.2 10*3/uL (1.3-4.4); LYMPH % 14.9 % (27.0-41.0); MEAN CELL VOLUME 88.5 fl (80.0-94.0); MEAN CORPUSCULAR HGB 27.1 pg (27.0-31.0); MEAN CORPUSCULAR HGB CONC 30.6 g/dl (33.0-37.0); MEAN PLATELET VOLUME 9.5 fl (9.6-12.3); MONO # 0.7 10*3/uL (0.1-1.0); MONO % 8.4 % (3.0-9.0); NEUT # 5.9 10*3/uL (2.3-7.9); NEUT % 73.3 % (47.0-73.0); PLATELET COUNT AUTOMATED 226 10*3/uL (130-400); RED BLOOD COUNT 3.84 10*6/uL (4.50-5.90); RED CELL DISTRI WIDTH 20.6 % (0-14.5)
[2019-07-08 18:13] LABS: ALBUMIN 3.3 gm/dl (3.1-4.5); ALKALINE PHOSPHATASE 74 U/L (45-117); BUN 4 mg/dl (7-24); CHLORIDE 95 mmol/L (98-107); CREATININE 0.57 mg/dL (0.70-1.30); POTASSIUM 4.6 mmol/L (3.5-5.1); SGOT/AST 16 IU/L (3-35); SGPT/ALT 29 U/L (12-78); SODIUM 131 mmol/L (136-145); TOTAL PROTEIN 6.4 gm/dL (6.4-8.2)
[2019-07-08 18:16] LABS: TROPONIN I < 0.015 ng/ml (<0.045)
--- NOTE | 2019-07-08 18:16 | NUR ---
IV INFILTRATED UPON RECIEVING SOLU-MEDROL
[2019-07-08 18:19] LABS: ACT PARTIAL THROMBO TIME 27.3 SECONDS (20.0-32.1); INTERNATIONAL NORM RATIO 0.9 (2.0-3.5)
--- NOTE | 2019-07-08 19:12 | NUR ---
IN ROOM FOR ASSESSMENT AND TAVERN CAR ATTENDANT. PATIENT ON BIPAP AND AWARE HE IS ADMITTED. REFUSES WOUND ASSESSMENT - THEREFORE NOT DONE. UNKNOWN IF PATIENT HAS ANY WOUNDS REQUIRING TREATMENT.
--- NOTE | 2019-07-08 19:30 | NUR ---
AWAKE, ALERT AND ORIENTED. TOLERATING BIPAP WITHOUT DIFFICULTY. NO DISTRESS NOTED. VITAL SIGNS ARE STABLE. NO VOICED NEEDS/COMPLAINTS AT THIS TIME.
[2019-07-08 20:41] VITALS: BP 90/68
--- NOTE | 2019-07-08 21:00 | NUR ---
I WAS TAKING PATIENT OUT OF ER ROOM FOR TRANSPORT TO ICCU. HE BECAME ANGRY STATING " YOU AREN'T TAKING ME TO THE ICU. THEY DON'T FEED ME THERE" I INFORMED PATIENT HE COULD TELL THEM HIS CONCERNS WHEN HE GETS UP THERE. GABBIE, BLOOD BANK TECHNICIAN DOWN HERE IN ER AND AWARE. IN ROOM TO SPEAK WITH PATIENT. PATIENT AGREEABLE TO GO TO ICCU. RESPIRATORY AT BEDSIDE FOR BIPAP.
[2019-07-08 21:10] VITALS: BP 145/63
--- NOTE | 2019-07-08 21:10 | NUR ---
PT LEGS VERY EDEMATOUS, RED AND WARM TO TOUCH. NO OPEN WOUNDS NOTED.
--- NOTE | 2019-07-08 21:10 | NUR ---
DR ZUNIGA NOTIFIED OF CONSULT. ORDER FOR BIPAP 29/08 AND ABG'S IN AM.
--- NOTE | 2019-07-08 21:10 | NUR ---
A 63, admitted to ICCU, under the services of Dr. WISAM WHITE,SUKH Kang with a diagnosis of EXACERBATION W/ COPD, ACUTE AND CHRONIC RESP FAILURE. Chief complaint is CHEST PAIN AND SOB. Patient arrived via stretcher from ER. Monitor applied. Initial assessment completed. Vital signs taken and recorded. DR. WISAM WHITE,SUKH Kang notified of admission to the unit. Orders received. See assessment for past medical history, medications and allergies. Patient and/or family oriented to unit. [facility] ICCU visitation policy reviewed. Clothing/patient valuable form completed. SOCRATES DEGROOT
[2019-07-08] MEDS ORDERED: PROTONIX40 MG PO (22:12)
[2019-07-08] MEDS ORDERED: ACETAZOLAMIDE250 MG PO (22:16)
[2019-07-08] MEDS ORDERED: COLACE100 MG PO (22:17)
[2019-07-08] MEDS ORDERED: CETIRIZINE10 MG PO (22:19)
[2019-07-09] VITALS: BP 147/72
[2019-07-09 04:00] VITALS: BP 156/72
--- NOTE | 2019-07-09 05:08 | NUR ---
RAFAEL RATLIFF [id number] Please refer to the physician's history and physical for past medical history, comorbid conditions, and allergies. Diagnosis: COPD W/ EXACERBATION, AC AND CHRONIC RESP FAILURE Mp Score: 16,AT RISK WOUND DESCRIPTIONS: Patient bilateral lower extremities bright red, warm to touch. No open areas at time of assessment. Pitting edema noted to bilateral lower extremities. Very tender to touch at time of assessment. Surface the patient is resting on: XPRT SKIN PREVENTION RECOMMENDATION: 1. Pressure redistribution support surface as appropriate 2. Elevate heels 3. Remove boots/TEDS every shift and reapply 4. Head of bed 30 degrees as tolerated 5. Assess nutrition and hydration 6. Manage moisture 7. Avoid the use of containment devices while in bed 8. Use absorptive products on surfaces limit layers of linens on bed 9. Turn and reposition every 1-2 hours in bed and every 1 hour in chair as tolerated 10. Weight shifts every 15 minutes while up in chair 11. Offloading with pillows or device to keep heels elevated off bed 12. Monitor skin at least every shift 13. Inspect under medical devices twice a day WOUND TREATMENT RECOMMENDATIONS: Venous and arterial studies to bilateral lower extremities. Consult podiatry for BLE's. Heel raiser pro boots to bilateral feet while in bed.
--- NOTE | 2019-07-09 05:30 | NUR ---
MEDICATED WITH NORCO PER PRN ORDER FOR C/O PAIN.
--- NOTE | 2019-07-09 07:20 | NUR ---
Patient off BiPAP and placed on 6l/m NC. Spo2 98% hr 84.
[2019-07-09 07:39] LABS: ABG BASE EXCESS 10.2 mmol/L (-2.0-2.0); ABG HCO3 36.5 mmol/l (22-26); ABG O2 SATURATION 97.1 % (95-97); ARTERIAL BLOOD GAS PCO2 58.8 mmHg (35-45); ARTERIAL BLOOD GAS PH 7.406 (7.35-7.45); ARTERIAL BLOOD GAS PO2 86.1 mmHg (80-90)
[2019-07-09 08:00] VITALS: BP 160/110
--- NOTE | 2019-07-09 08:00 | NUR ---
awake, alert, gruff and demanding resp slightly labored but in no distress royal patent, encouraged pt to get oob-refused 3+ pitting to lower legs right>left right with old intact scabbing with no drainage
--- NOTE | 2019-07-09 08:30 | NUR ---
vistaril for anxiety
--- NOTE | 2019-07-09 10:00 | NUR ---
UP TO BSC WITH MINIMAL ASSIST
--- NOTE | 2019-07-09 10:20 | NUR ---
REFUSES TO SIT UP IN RECLINER BACK TO BED
[2019-07-09 12:00] VITALS: BP 106/52
--- NOTE | 2019-07-09 13:26 | NUR ---
Nursing screen received and chart reviewed. Patient admitetd with COPD exacerbation and acute respiratory failure to ICCU. At this time no OT indicated d/t medical status. If patient should have a decline in ADLs or safety in mobility then refer to Occupational Therapy. Thank you. Madeline Hedrick OTR/l
[2019-07-09 16:00] VITALS: BP 128/64
--- NOTE | 2019-07-09 17:30 | NUR ---
ID SERVICE CALLED WITH NEW CONSULT
[2019-07-09 20:00] VITALS: BP 129/64
[2019-07-09 20:03] LABS: BILIRUBIN NEGATIVE (NEGATIVE); BLOOD NEGATIVE (NEGATIVE); CLARITY CLEAR (CLEAR); COLOR YELLOW (YELLOW); GLUCOSE NEGATIVE (NEGATIVE); KETONE NEGATIVE (NEGATIVE); LEUKO ESTERASE NEGATIVE (NEGATIVE); NITRITE NEGATIVE (NEGATIVE); UROBILINOGEN 0.2 E.U./dl (0.2-1.0)
--- NOTE | 2019-07-09 20:28 | NUR ---
PT ON BIPAP. WAS MEDICATED WITH NORCO AT 1999 FOR C/O GENERALIZED PAIN. APPEARS TO BE EFFECTIVE. EYES CLOSED, BODY RELAXED.
--- NOTE | 2019-07-09 23:05 | NUR ---
PT OFF OF BIPAP TO NC5. EATING.
[2019-07-10] VITALS: BP 133/74
--- NOTE | 2019-07-10 01:02 | NUR ---
BACK ON BIPAP 29/08 40%.
--- NOTE | 2019-07-10 03:10 | NUR ---
CONTINUES TO WEAR BIPAP. SLEEPING.
[2019-07-10 04:00] VITALS: BP 149/89
--- NOTE | 2019-07-10 04:43 | NUR ---
PT OFF BIPAP PER PT REQUEST AT 5455. NC 4L PLACED. DOUBLE TUBI LOAN COLLECTOR APPLIED BILATERALLY. SNACK AND PO ATIVAN PROVIDED AT 5420.
[2019-07-10 05:40] LABS: ALBUMIN 3.1 gm/dl (3.1-4.5); ALKALINE PHOSPHATASE 64 U/L (45-117); CHLORIDE 95 mmol/L (98-107); CREATININE 0.76 mg/dL (0.70-1.30); SGOT/AST 13 IU/L (3-35); SGPT/ALT 24 U/L (12-78); SODIUM 132 mmol/L (136-145); TOTAL PROTEIN 6.2 gm/dL (6.4-8.2)
[2019-07-10 05:41] LABS: BUN 16 mg/dl (7-24)
[2019-07-10 06:02] LABS: EOS # 0.1 10*3/uL (0.0-0.4); EOS % 1.7 % (1.0-4.0); HEMATOCRIT 35.7 % (42.0-52.0); HEMOGLOBIN 10.8 g/dl (14.0-18.0); LYMPH # 0.5 10*3/uL (1.3-4.4); LYMPH % 5.6 % (27.0-41.0); MEAN CELL VOLUME 89.5 fl (80.0-94.0); MEAN CORPUSCULAR HGB 27.1 pg (27.0-31.0); MEAN CORPUSCULAR HGB CONC 30.3 g/dl (33.0-37.0); MONO # 0.3 10*3/uL (0.1-1.0); MONO % 3.2 % (3.0-9.0); NEUT # 7.2 10*3/uL (2.3-7.9); NEUT % 89.1 % (47.0-73.0); PLATELET COUNT AUTOMATED 254 10*3/uL (130-400); RED BLOOD COUNT 3.99 10*6/uL (4.50-5.90); RED CELL DISTRI WIDTH 20.5 % (0-14.5)
--- NOTE | 2019-07-10 06:15 | NUR ---
ATIVAN AT 0430 EFFECTIVE FOR ANXIETY...PT DOZING. BODY RELAXED.
--- NOTE | 2019-07-10 07:19 | NUR ---
Shift chart check completed.24 HR chart check completed.
--- NOTE | 2019-07-10 07:52 | NUR ---
ON ASSESSMENT PATIENT IS ALERT AND ORIENTED, IN NO ACUTE DISTRESS. DR SAXENA HAS VISITED. DIMINISHED LUNG SOUNDS WITH WHEEZE. BILATERAL LOWER LEG EDEMA PERSISTS WITH RT > LT. BED IN LOW POSITION WITH WHEELS LOCKED, CALL LIGHT IN REACH. SEE ALL APPROPRIATE INTERVENTIONS.
[2019-07-10 08:00] VITALS: BP 128/70
--- NOTE | 2019-07-10 10:16 | NUR ---
ON BIPAP PER HIS REQUEST. PREVIOUS SETTINGS.
[2019-07-10 12:00] VITALS: BP 151/80
--- NOTE | 2019-07-10 12:03 | NUR ---
DR ZUNIGA HAS VISITED.
--- NOTE | 2019-07-10 13:36 | NUR ---
LORTAB 7.5MG GIVEN BY MOUTH FOR PAIN "10"/10 "ALL OVER".
--- NOTE | 2019-07-10 13:43 | NUR ---
PT PLACED BACK ON BIPAP AT HIS REQUEST WITH THE PREVIOUS SETTINGS.
--- NOTE | 2019-07-10 14:37 | NUR ---
SLEEPING SINCE THE EARLIER BIPAP APPLIED AND LORTAB FOR PAIN.
--- NOTE | 2019-07-10 15:19 | NUR ---
CONTINUES TO SLEEP EASILY.
--- NOTE | 2019-07-10 15:53 | NUR ---
PATIENT PLACED BACK ON NASAL CANNULA AT 6L/M POST AERSOL TREATMENT PER PATIENT REQUEST. HR 78 SPO2 98%.
[2019-07-10 16:00] VITALS: BP 112/65
--- NOTE | 2019-07-10 18:19 | NUR ---
UP TO BSC FOR LARGE MUSHY BROWN BM. INCREASED SHORTNESS OF BREATH WITH MINIMAL ACTIVITY.
[2019-07-10 20:00] VITALS: BP 123/64
--- NOTE | 2019-07-10 20:10 | NUR ---
Pt placed back on BIPap 22/10 and 40% FiO2. Alarms on and audible. 4L NC is at bedside if patient would like to come off.
--- NOTE | 2019-07-10 22:34 | NUR ---
PT WAS ON BIPAP FROM 2009 TO 2214 AND REQUESTED TO BE OFF TO EAT A BOXED LUNCH. MEDICATED WITH NORCO AT 2029 AND ATIVAN AT THAT TIME WELL FOR GENERALIZED PAIN AND RELAXATION. PT ADMITS EFFECTIVENESS OF BOTH.
--- NOTE | 2019-07-10 22:40 | NUR ---
BACK ON BIPAP POST PM MEAL.
[2019-07-11] VITALS: BP 117/67
--- NOTE | 2019-07-11 02:50 | NUR ---
OFF BIPAP PER PT REQUEST. EATING SNACK OF CRACKERS AND ANNA SHY.
[2019-07-11 04:00] VITALS: BP 122/66
[2019-07-11 04:30] LABS: HEMOGLOBIN 10.7 g/dl (14.0-18.0); MEAN CELL VOLUME 90.9 fl (80.0-94.0); MEAN CORPUSCULAR HGB 27.8 pg (27.0-31.0); MEAN CORPUSCULAR HGB CONC 30.6 g/dl (33.0-37.0); PLATELET COUNT AUTOMATED 232 10*3/uL (130-400); RED BLOOD COUNT 3.85 10*6/uL (4.50-5.90); RED CELL DISTRI WIDTH 19.6 % (0-14.5); WHITE BLOOD COUNT 8.5 10*3/uL (4.8-10.8)
[2019-07-11 04:46] LABS: ALBUMIN 2.9 gm/dl (3.1-4.5); ALKALINE PHOSPHATASE 59 U/L (45-117); BUN 21 mg/dl (7-24); CHLORIDE 95 mmol/L (98-107); CREATININE 0.89 mg/dL (0.70-1.30); POTASSIUM 3.9 mmol/L (3.5-5.1); SGOT/AST 13 IU/L (3-35); SGPT/ALT 24 U/L (12-78); SODIUM 130 mmol/L (136-145); TOTAL PROTEIN 5.8 gm/dL (6.4-8.2)
--- NOTE | 2019-07-11 04:50 | NUR ---
BACK ON BIPAP.
[2019-07-11 04:52] LABS: OVALOCYTES FEW; PLATELET SUFFICIENCY NORMAL (NORMAL); TOTAL CELLS COUNTED 100 #CELLS
[2019-07-11 04:53] LABS: BURR CELLS FEW
[2019-07-11 08:00] VITALS: BP 115/77
--- NOTE | 2019-07-11 11:30 | NUR ---
NORCO AND ATIVAN PER REQUEST
[2019-07-11 12:00] VITALS: BP 124/70
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
--- NOTE | 2019-07-11 12:52 | NUR ---
PATIENT TRANSFERRED FROM ICU AT APPROX 1210. ORIENTED TO ROOM AND CALL LIGHT. INSTRUCTED TO ASK FOR HELP PRIOR TO AMBULATION. PT STATES UNDERSTANDING. PATIENT HAS BEEN ASSESSED AND IS CURRENTLY EATING LUNCH.
[2019-07-11 16:00] VITALS: BP 150/71
[2019-07-11 20:00] VITALS: BP 139/72
--- NOTE | 2019-07-11 20:06 | NUR ---
PT MEDICATED WITH PO NORCO FOR C/O "ALL OVER PAIN" RATED 10/10. WILL MONITOR. CALL LIGHT IN REACH.
--- NOTE | 2019-07-11 22:59 | NUR ---
CONTINOUS POX APPLIED PER POLICY. BIPAP IN USE.
[2019-07-12] VITALS: BP 133/76
[2019-07-12 06:25] VITALS: BP 131/67
--- NOTE | 2019-07-12 06:29 | NUR ---
PO NORCO ADMINISTERED PER PRN ORDER FOR C/O BLL PAIN RATED 10/10. WILL MONITOR EFFECTIVENESS. CALL LIGHT IN REACH.
[2019-07-12 06:32] LABS: HEMATOCRIT 35.5 % (42.0-52.0); MEAN CELL VOLUME 90.3 fl (80.0-94.0); MEAN PLATELET VOLUME 9.7 fl (9.6-12.3); PLATELET COUNT AUTOMATED 253 10*3/uL (130-400); RED BLOOD COUNT 3.93 10*6/uL (4.50-5.90); RED CELL DISTRI WIDTH 19.6 % (0-14.5); WHITE BLOOD COUNT 7.7 10*3/uL (4.8-10.8)
[2019-07-12 07:05] LABS: ALBUMIN 2.9 gm/dl (3.1-4.5); ALKALINE PHOSPHATASE 53 U/L (45-117); BUN 25 mg/dl (7-24); CHLORIDE 93 mmol/L (98-107); CREATININE 0.83 mg/dL (0.70-1.30); POTASSIUM 4.4 mmol/L (3.5-5.1); SGOT/AST 8 IU/L (3-35); SGPT/ALT 22 U/L (12-78); SODIUM 128 mmol/L (136-145); TOTAL PROTEIN 5.8 gm/dL (6.4-8.2)
[2019-07-12 08:00] VITALS: BP 98/58
[2019-07-12 08:17] LABS: PLATELET SUFFICIENCY NORMAL (NORMAL); TOTAL CELLS COUNTED 100 #CELLS
[2019-07-12 10:00] VITALS: BP 132/70
--- NOTE | 2019-07-12 10:30 | NUR ---
Vehicle Painter in to talk to patient. Patient states he is currently living with his daughter in [place]. He states is supposed to be getting a place of his own and could have moved in yesterday. There are 5 steps in the home. Physician: Dr. Liban Fragoso Pharmacy: [place] or [facility] Home health services: [facility] previously Patient's level of ADLs: minimal assistance Patient has working utilities: yes DME: cane, walker, seated walker, O2 @ 4L, nebulizer, O2 supplier [facility] Follow-up physician's appointment after d/c: he prefers to make his own follow up appt after discharge Does patient want to access PORTAL?: no Discharge plan discussed with patient. He is currently living with his daughter in [place]. He is independent in his ADLs and uses a walker or a cane for ambulation. Discussed home health care services and he denies any home needs at this time. When medically stable he will be discharged to home. His daughter or a friend will transport on discharge. He states he needs to be discharged today as he is scheduled for cataract surgery tomorrow with Dr. Shipman in [place]. Dr. Fragoso notified. ROGELIO EVERETT
[2019-07-12 12:00] VITALS: BP 124/73
--- NOTE | 2019-07-12 13:38 | NUR ---
Patient signed out AMA. Patient encouraged to stay and advised of possible consequences of premature discharge. Physician and supervisor molding notified. Patient instructed what to do regarding care post-departure from the hospital; emergency phone numbers provided. Patent was accompanied by HIS DAUGHTER. IV TAKEN OUT, MONITOR TAKEN OFF AND ACCOUNTED FOR, BILLY TAKEN OUT. HIEU GUZMAN
--- NOTE | 2019-07-12 13:42 | NUR ---
DR JOEL NOTIFIED PT LEAVING AMA.
== END 2019-07-12 13:42 | disposition left against medical advice (07) | DRG 291 ==
LOC: ED 17:20 → ICCU 18:52 → EDHOLD 18:52 → ICCU 19:11 → 5E 07-11 12:00
PROVIDERS: Emergency Medicine; Internal Medicine Critical Care Medicine; ADMIT Internal Medicine
DX: I11.0 Hypertensive heart disease with heart failure (principal); J96.21 Acute and chronic respiratory failure with hypoxia; J96.22 Acute and chronic respiratory failure with hypercapnia; L03.116 Cellulitis of left lower limb; E22.2 Syndrome of inappropriate secretion of antidiuretic hormone; E66.2 Morbid (severe) obesity with alveolar hypoventilation; E44.0 Moderate protein-calorie malnutrition; F33.1 Major depressive disorder, recurrent, moderate; I50.33 Acute on chronic diastolic (congestive) heart failure; J43.9 Emphysema, unspecified; Z53.29 Procedure and treatment not carried out because of patient's decision for other reasons; E11.65 Type 2 diabetes mellitus with hyperglycemia; Z68.37 Body mass index [BMI] 37.0-37.9, adult; F17.210 Nicotine dependence, cigarettes, uncomplicated; F10.20 Alcohol dependence, uncomplicated; Y90.9 Presence of alcohol in blood, level not specified; I25.10 Atherosclerotic heart disease of native coronary artery without angina pectoris; M47.816 Spondylosis without myelopathy or radiculopathy, lumbar region; G89.29 Other chronic pain; M54.5 Low back pain; D63.8 Anemia in other chronic diseases classified elsewhere; I27.20 Pulmonary hypertension, unspecified; E11.51 Type 2 diabetes mellitus with diabetic peripheral angiopathy without gangrene; E11.40 Type 2 diabetes mellitus with diabetic neuropathy, unspecified; I87.2 Venous insufficiency (chronic) (peripheral); R62.7 Adult failure to thrive; N40.0 Benign prostatic hyperplasia without lower urinary tract symptoms; K57.90 Diverticulosis of intestine, part unspecified, without perforation or abscess without bleeding; E78.2 Mixed hyperlipidemia; K21.0 Gastro-esophageal reflux disease with esophagitis; J20.9 Acute bronchitis, unspecified; I50.810 Right heart failure, unspecified; B35.1 Tinea unguium; Z71.6 Tobacco abuse counseling; Z99.81 Dependence on supplemental oxygen; Z79.899 Other long term (current) drug therapy; Z79.82 Long term (current) use of aspirin; Z86.711 Personal history of pulmonary embolism; I25.2 Old myocardial infarction; Z85.46 Personal history of malignant neoplasm of prostate; Z79.51 Long term (current) use of inhaled steroids; Z98.52 Vasectomy status; Z68.39 Body mass index [BMI] 39.0-39.9, adult

== ENCOUNTER 2019-07-23 17:22 | Inpatient (IN) | payer MEDICARE ==
[~2019-07-23] VITALS: Ht 177.8 cm; Wt 123.9 kg
[~2019-07-23 17:22] MED LIST changes: +ACETAZOLAMIDE250 MG PO; +CETIRIZINE10 MG PO; +COLACE100 MG PO; +PROTONIX40 MG PO
[2019-07-23 17:32] VITALS: BP 128/94
--- NOTE | 2019-07-23 17:52 | NUR ---
Patient placed on NIV @ 40%. Patient states he is feeling better. spo2: 96%. Will continue to monitor.
[2019-07-23 18:00] LABS: ABG O2 SATURATION 98.6 % (95-97); ARTERIAL BLOOD GAS PH 7.321 (7.35-7.45)
[2019-07-23 18:02] LABS: ARTERIAL BLOOD GAS PCO2 75.6 mmHg (35-45)
--- NOTE | 2019-07-23 18:04 | NUR ---
PCO2 75.6. DR HARVEY AWARE.
[2019-07-23 18:15] VITALS: BP 130/86
[2019-07-23 18:25] LABS: BASO # 0.1 10*3/uL (0.0-0.1); BASO % 0.4 % (0.0-1.0); EOS # 0.2 10*3/uL (0.0-0.4); EOS % 1.6 % (1.0-4.0); HEMATOCRIT 35.7 % (42.0-52.0); HEMOGLOBIN 10.8 g/dl (14.0-18.0); LYMPH # 1.2 10*3/uL (1.3-4.4); MEAN CORPUSCULAR HGB 28.1 pg (27.0-31.0); MEAN CORPUSCULAR HGB CONC 30.3 g/dl (33.0-37.0); MEAN PLATELET VOLUME 9.2 fl (9.6-12.3); MONO # 0.8 10*3/uL (0.1-1.0); MONO % 6.7 % (3.0-9.0); NEUT # 9.4 10*3/uL (2.3-7.9); NEUT % 80.9 % (47.0-73.0); PLATELET COUNT AUTOMATED 272 10*3/uL (130-400); RED BLOOD COUNT 3.84 10*6/uL (4.50-5.90); RED CELL DISTRI WIDTH 20.1 % (0-14.5); WHITE BLOOD COUNT 11.6 10*3/uL (4.8-10.8)
[2019-07-23 18:39] LABS: ACT PARTIAL THROMBO TIME 25.4 SECONDS (20.0-32.1); INTERNATIONAL NORM RATIO 0.9 (2.0-3.5)
[2019-07-23 18:42] LABS: ALBUMIN 3.3 gm/dl (3.1-4.5); ALKALINE PHOSPHATASE 72 U/L (45-117); BUN 3 mg/dl (7-24); CHLORIDE 93 mmol/L (98-107); CREATININE 0.72 mg/dL (0.70-1.30); POTASSIUM 4.5 mmol/L (3.5-5.1); SGOT/AST 15 IU/L (3-35); SGPT/ALT 27 U/L (12-78); SODIUM 135 mmol/L (136-145); TOTAL PROTEIN 6.3 gm/dL (6.4-8.2)
[2019-07-23 18:43] LABS: TROPONIN I < 0.015 ng/ml (<0.045)
--- NOTE | 2019-07-23 19:11 | NUR ---
EXCORIATION NOTED TO GROIN AREA, NOTHING OPEN. SUPERFICIAL SCRATCHES NOTED TO THIGHS BILAT FROM PT'S WHEELCHAIR PER PT. NO OPEN AREAS.
[2019-07-23 20:00] VITALS: BP 140/75
--- NOTE | 2019-07-23 20:00 | NUR ---
A 63, admitted to 5E, under the services of LEROY Garcia MD with a diagnosis of ACUTE RESPIRATORY FAILURE. Chief complaint is SOB. Patient arrived via bed from ER. Monitor applied. Initial assessment completed. Vital signs taken and recorded. LEROY GARCIA MD notified of admission to the unit. Orders received. See assessment for past medical history, medications and allergies. Patient and/or family oriented to unit. [address] visitation policy reviewed. Clothing/patient valuable form completed. PT VACCINATED FOR FLU/PNEUMONIA THIS SEASON. NO OPEN WOUNDS. SCRATCHES TO BLE, SCABBED. REDNESS TO GROIN/FOLDS. MULTIPLE BRUISES. MAJOR,NITIN
[2019-07-23 20:01] VITALS: BP 142/88; BP 175/92
--- NOTE | 2019-07-23 20:51 | NUR ---
DR SAXENA NOTIFIED OF ADMISSION. ORDER TAKEN TO CONTINUE HOME MEDICATIONS, REGULAR DIET, DUONEBS Q4H, OXYGEN, AND BIPAP.
--- NOTE | 2019-07-23 21:59 | NUR ---
20:00 PT ON BIPAP IN [facility]. PT PLACED ON 4 L NC. PT TRANSPORTED FROM [facility] TO ROOM 518 VIA 4 L NC. PT TOLERATED WELL. PT AMBULATED FROM RNEY TO BED WITHOUT DIFFICULTY. PT PLACED ON BIPAP OF 22/16 AND 40% PER PT REQUEST. RESPS REGUALR AND UNLABORED. SYSTEM CHECKED AND FUNCTIONING.
[2019-07-24] VITALS: BP 141/73
--- NOTE | 2019-07-24 05:59 | NUR ---
NORCO ADMINISTERED FOR PT C/O "PAIN ALL OVER. PAIN IN RIBS AND BACK FROM COUGHING, LEGS, KNEES, FEET, AND HEAD". WILL CONTINUE TO MONITOR AND REASSESS. NO OTHER COMPLAINTS AT THIS TIME. PT OFF OF BIPAP AND ON 4LNC. COUGHING A GOOD BIT THIS MORNING, WHITE SPUTUM BEING BROUGHT UP AT TIMES. PT IN NO DISTRESS. RESPIRATIONS EASY.
--- NOTE | 2019-07-24 08:00 | NUR ---
IN TO ROOM. PT IS ANGRY THAT THERE IS NO DIET IN. PT AWAKE, ALERT AND ORIENTED. NO OTHER STATED COMPLAINTS. NO S/S OF DISTRESS. NO SOB NOTED ON 4L NC. DR. SAXENA NOTIFIED OF LACK OF DIET. ORDERS OBTAINED. BED IN LOWEST LOCKED POSITION. CALL LIGHT WITHIN REACH.
--- NOTE | 2019-07-24 09:26 | NUR ---
DR. ZUNIGA NOTIFIED OF CONSULT
[2019-07-24 12:00] VITALS: BP 126/68
--- NOTE | 2019-07-24 14:44 | NUR ---
PT COMPLAINS OF ALL OVER PAIN RATED AT A 10. PRN NORCO ADMINISTERED AT THIS TIME. WILL CONTINUE TO MONITOR.
[2019-07-24 16:00] VITALS: BP 111/60
[2019-07-24 20:00] VITALS: BP 128/65
[2019-07-25] VITALS: BP 123/65
--- NOTE | 2019-07-25 00:11 | NUR ---
24 HR chart check completed.
--- NOTE | 2019-07-25 00:28 | NUR ---
IV started left antecubital with #22 protective cath after 1 attempts. Site prepped with Chloroprep. Sterile dressing applied. Patient tolerated procedure well. HA GLOVER
--- NOTE | 2019-07-25 00:28 | NUR ---
Hep Lock discontinued. Site asymptomatic. Pressure applied. Sterile dressing applied. HA GLOVER
--- NOTE | 2019-07-25 06:09 | NUR ---
PATIENT COMPLAINS OF 8/10 "ALL OVER" PAIN. MEDICATED PER ORDER. WILL MONITOR FOR RELIEF. VOICES NO OTHER CONCERNS AT THIS TIME. RESTING IN BED. CALL LIGHT WITHIN REACH
[2019-07-25 08:00] VITALS: BP 142/82
--- NOTE | 2019-07-25 08:26 | NUR ---
PT RESTING IN BED./ NO DISTRESS NOTED. WILL MONITOR
--- NOTE | 2019-07-25 08:28 | NUR ---
PT NOT ON BIPAP AT THIS TIME
[2019-07-25 12:00] VITALS: BP 156/86
[2019-07-25 16:00] VITALS: BP 111/52
--- NOTE | 2019-07-25 19:36 | NUR ---
PATIENT COMPLAINS OF 8/10 'ALL OVER' PAIN. MEDICATED PER ORDER. WILL CONTINUE TO MONITOR FOR RELIEF. VOICES NO OTHER CONCERNS AT THIS TIME. RESTING IN BED. CALL LIGHT WITHIN REACH
[2019-07-25 20:00] VITALS: BP 137/74
--- NOTE | 2019-07-25 20:35 | NUR ---
NORCO EFFECTIVE PER PT
--- NOTE | 2019-07-25 22:03 | NUR ---
PT COMPLAINING OF SORE THROAT. SPOKE WITH DR SAXENA WHO STATED TO GO AHEAD AND ORDER COUGH DROPS Q6H.
--- NOTE | 2019-07-25 22:57 | NUR ---
24 HR chart check completed.
[2019-07-26] VITALS (9 sets, daily range): BP systolic 101–157; BP diastolic 50–113
--- NOTE | 2019-07-26 00:44 | NUR ---
Patient resting quietly with no c/o discomfort. Respirations easy and regular. Vital signs stable. No overt distress. call light within reach HISSOM,HA
--- NOTE | 2019-07-26 04:08 | NUR ---
Patient sleeping. Respirations relaxed and easy. Siderails up . [place] on.CALL LIGHT WITHIN REACH HISSOM,HA
--- NOTE | 2019-07-26 05:03 | NUR ---
SOCIOLOGY TEACHER APPROACHED THIS NURSE AND STATED THEY FOUND 4 UNOPENED CANS OF BEERS,ONE PACK OF CIGARETTES AND ONE SERVICE CREW SUPERVISOR IN PATIENTS BOTTOM DRAWER. INSTRUCTOR OF SOCIOLOGY NOTIFIED AT THIS TIME.
--- NOTE | 2019-07-26 05:48 | NUR ---
SHIFT DIRECTOR IN TO TALK TO PT. PT AGREEABLE TO LET HER LOCK BELONGINGS UP UNTIL DISCHARGE.
--- NOTE | 2019-07-26 05:50 | NUR ---
Informed by staff that patient had cans of beer and cigarettes in his drawer. I approached patient and asked if he would allow me to lock his beer and cigarettes in a lock-box. Patient cheerfully gave permission. Loli Pinto RN witnessed the conversation. Lock-box form completed and items taken to nursing office to be locked up/
--- NOTE | 2019-07-26 06:19 | NUR ---
BLOOD SUGAR 151
[2019-07-26 07:36] LABS: HEMATOCRIT 38.5 % (42.0-52.0); HEMOGLOBIN 11.5 g/dl (14.0-18.0); MEAN CELL VOLUME 95.1 fl (80.0-94.0); MEAN CORPUSCULAR HGB 28.4 pg (27.0-31.0); MEAN CORPUSCULAR HGB CONC 29.9 g/dl (33.0-37.0); MEAN PLATELET VOLUME 9.7 fl (9.6-12.3); PLATELET COUNT AUTOMATED 275 10*3/uL (130-400); RED BLOOD COUNT 4.05 10*6/uL (4.50-5.90); RED CELL DISTRI WIDTH 19.9 % (0-14.5); WHITE BLOOD COUNT 12.1 10*3/uL (4.8-10.8)
[2019-07-26 07:43] LABS: ALBUMIN 3.3 gm/dl (3.1-4.5); ALKALINE PHOSPHATASE 58 U/L (45-117); BUN 17 mg/dl (7-24); CHLORIDE 98 mmol/L (98-107); CREATININE 0.84 mg/dL (0.70-1.30); POTASSIUM 4.1 mmol/L (3.5-5.1); SGOT/AST 13 IU/L (3-35); SGPT/ALT 25 U/L (12-78); SODIUM 134 mmol/L (136-145); TOTAL PROTEIN 6.5 gm/dL (6.4-8.2)
[2019-07-26 08:02] LABS: POLYCHROMASIA SLIGHT; TOTAL CELLS COUNTED 100 #CELLS
[2019-07-26 08:03] LABS: OVALOCYTES FEW; PLATELET SUFFICIENCY NORMAL (NORMAL)
--- NOTE | 2019-07-26 09:30 | NUR ---
PATIENT OFF FLOOR FOR SCHEDULED BRONCH.
--- NOTE | 2019-07-26 11:33 | NUR ---
PATIENT RETURNED TO ROOM AT THIS TIME.
--- NOTE | 2019-07-26 13:00 | NUR ---
Manufacturing Management Associate in to talk to patient. Patient states he is currently living with his friend, Patrick. There are 0 steps in the home. Physician: Dr. Liban Fragoso Pharmacy: [place] or [facility] Home health services: [facility] previously Patient's level of ADLs: minimal assistance Patient has working utilities: yes DME: cane, walker, seated walker, O2 @ 4L, nebulizer, O2 supplier [employer] Follow-up physician's appointment after d/c: he prefers to make his own follow up appt after discharge Does patient want to access PORTAL?: no Discharge plan discussed with patient. He is on bipap. He is currently living with his friend, Patrick. His O2 concentrator is at Patrick's house and needs a piece on the front fixed. He states he has the piece to fix it. He is independent in his ADLs and uses a walker or a cane for ambulation. Discussed short term SNF and he would like to think about it. He had a bronchoscopy this morning. He states his SS check is going to [employer] and he doesn't have any money to pay for an apartment. His daughter moved back to [place] and he is unable to stay with her. He did stay in his truck one night. duralumin metalworker following. ROGELIO EVERETT
--- NOTE | 2019-07-26 13:12 | NUR ---
AS400 DEVELOPER spoke with the patient about him being homeless. Patient stated that he is "Maritza" homeless. Patient stated that he has no funds. He stated that the [facility] took his check. Patient gave this AS400 DEVELOPER the okay to reach out to the [facility]. Patient stated that he was residing with his daughter in [place] but she recently moved to . Patient stated he only spent one night in his truck. Patient stated that he has also been staying with his friend Patrick. Patient stated that he is having trouble with his portable Oxygen concentrator and is not sure what is wrong with it. Patient also stated that he has not been able to plug in his CPAP machine. AS400 DEVELOPER explained to the patient that this AS400 DEVELOPER could provide the patient with a Homeless Residential List. AS400 DEVELOPER also explained the patient could apply with [employer] low income housing but there would be a possible wait list. Patient was very short of breathe at this time. AS400 DEVELOPER explained would stop back in to see the patient when he is feeling better. AS400 DEVELOPER reached out to the [employer] [facility] at [facility]. This V Belt Builder asked for clarification on the situation with the patients funds. The V Belt Builder at [facility] stated that the patient was residing at their facility pending Medicaid and they became the payee through the patient SSI/Disability dept. Since the patient left while pending Medicaid, they recieve the patients check and then forward the check to the address the patient has provided. The V Belt Builder at [facility] stated this is the second month they have had to mail the check to the patient. The address they have for the patient is the one we currently have on file in [place]. AS400 DEVELOPER has left a message for the Business Office at [facility] to see when the patients check was forwarded to the patient. Since the patients and his daughter is no longer at this address this AS400 DEVELOPER reached out to [place] [employer] [facility]. They were unable to tell this AS400 DEVELOPER if there is a forwarding address on file. AS400 DEVELOPER spoke with the patients Rotary Drum Tanner Daly about this situation. Valeria stated the patient will be returning to his friend Lorie after his stay at this facility per her conversation with the patient. AS400 DEVELOPER to follow.
--- NOTE | 2019-07-26 14:41 | NUR ---
PT REQUESTED AND RECEIVED PO NORCO PER PRN ORDER FOR C/O ALL OVER PAIN/DISCOMFORT. CHRONIC PER PT. WILL MONITOR EFFECTIVENESS.
--- NOTE | 2019-07-26 16:00 | NUR ---
SIOBHAN EFFECTIVE PER PT.
--- NOTE | 2019-07-26 21:21 | NUR ---
PATIENT RESTING WITH EYES CLOSED ON BIPAP. WOKEN TO GIVE SCHEDULED MEDICATIONS. PATIENT REQUESTING PAIN MEDICATION AND ANXIETY MEDICATION. HAS NO OTHER COMPLAINTS AT THIS TIME. SCHEDULED AND PRN MEDICATION TAKEN WITH NO PROBLEMS. PATIENT PLACED HIMSELF BACK ON BIPAP ORDERED. WILL MONITOR.
--- NOTE | 2019-07-26 21:21 | NUR ---
PATIENT REQUESTING PAIN MEDICATION FOR ALL OVER DISCOMFORT AND MEDICATION FOR ANXIETY TO HELP HIM SLEEP. NORCO AND VISTARIL ADMINISTERED PRESCRIBED. WILL MONITOR FOR EFFECTIVENESS.
--- NOTE | 2019-07-26 22:21 | NUR ---
PATIENT RESTING WITH EYES CLOSED ON BIPAP AT THIS TIME. RESPIRATIONS EASY AND UNLABORED. CALL CHAVEZ WITHIN REACH. WILL MONITOR.
--- NOTE | 2019-07-26 23:48 | NUR ---
24 HR chart check completed.
--- NOTE | 2019-07-26 23:58 | NUR ---
PATIENT RESTING WITH EYES CLOSED ON BIPAP. RESPIRATIONS EASY AND UNLABORED. CALL LIGHT WITHIN REACH. WILL MONITOR.
[2019-07-27] VITALS: BP 122/66
--- NOTE | 2019-07-27 05:33 | NUR ---
PATIENT AWAKE AND ALET, SITTING IN BED WATCHING TV. PT FALLS ASLEEP EASILY. 4LNC. PATIENT TOOK SCHEDULED MEDICATIONS WITH NO PROBLEMS. PATIENT HAS NO COMPLAINTS AT THIS TIME. WILL MONITOR.
[2019-07-27 06:37] LABS: ALBUMIN 3.1 gm/dl (3.1-4.5); ALKALINE PHOSPHATASE 57 U/L (45-117); BUN 25 mg/dl (7-24); CHLORIDE 97 mmol/L (98-107); CREATININE 0.86 mg/dL (0.70-1.30); POTASSIUM 4.1 mmol/L (3.5-5.1); SGOT/AST 12 IU/L (3-35); SGPT/ALT 23 U/L (12-78); SODIUM 133 mmol/L (136-145); TOTAL PROTEIN 6.1 gm/dL (6.4-8.2)
[2019-07-27 06:39] LABS: HEMATOCRIT 38.2 % (42.0-52.0); HEMOGLOBIN 11.6 g/dl (14.0-18.0); LYMPH # 0.5 10*3/uL (1.3-4.4); LYMPH % 5.7 % (27.0-41.0); MEAN CORPUSCULAR HGB 27.7 pg (27.0-31.0); MEAN CORPUSCULAR HGB CONC 30.4 g/dl (33.0-37.0); MEAN PLATELET VOLUME 9.6 fl (9.6-12.3); MONO # 0.2 10*3/uL (0.1-1.0); MONO % 2.9 % (3.0-9.0); NEUT # 7.6 10*3/uL (2.3-7.9); NEUT % 90.7 % (47.0-73.0); PLATELET COUNT AUTOMATED 270 10*3/uL (130-400); RED BLOOD COUNT 4.19 10*6/uL (4.50-5.90); RED CELL DISTRI WIDTH 19.5 % (0-14.5); WHITE BLOOD COUNT 8.4 10*3/uL (4.8-10.8)
[2019-07-27 07:30] LABS: MEAN CELL VOLUME 91.2 fl (80.0-94.0)
--- NOTE | 2019-07-27 07:43 | NUR ---
Shift chart check completed.
--- NOTE | 2019-07-27 07:48 | NUR ---
VERY DIM BREATH SOUNDS BILAT, EX WHEEZE, SC RHONCHI, - NC4L ON 99%.. NO EDEMA CO-OPERATIVE
[2019-07-27 07:49] VITALS: BP 138/64
--- NOTE | 2019-07-27 10:30 | NUR ---
Pharmacy Assistant in to see patient. No new needs or request at this time. He attempted to call his daughter with no response yet as to find out where his SS check is. He plans to stay with his friend, Patrick, on discharge. When medically stable he will be discharged to home. Per multidisciplinary discharge planning meeting he is requiring bipap and Dr. Hannah is following.
[2019-07-27 13:00] VITALS: BP 102/62
--- NOTE | 2019-07-27 14:19 | NUR ---
BIPAP PLACED ON PER PT REQUEST AFTER NORCO FOR GEN ACHES 01/15
[2019-07-27 16:00] VITALS: BP 110/42
[2019-07-27 18:07] LABS: ACID FAST SPEC PROCESSING Concentration (.)
[2019-07-27 21:14] VITALS: BP 102/52; BP 95/37
--- NOTE | 2019-07-27 23:15 | NUR ---
Pt places on BiPap 22/16 and FiO2 40%. Alarms on and audible. SpO2 96%
[2019-07-28] VITALS: BP 114/76
--- NOTE | 2019-07-28 03:21 | NUR ---
PATIENT RESTING WITH EYES CLOSED. RESPIRATIONS EASY AND UNLABORED ON BIPAP. CALL LIGHT WITHIN REACH. WILL MONITOR.
--- NOTE | 2019-07-28 03:38 | NUR ---
24 HR chart check completed.
--- NOTE | 2019-07-28 05:23 | NUR ---
PATIENT REQUESTING PAIN MEDICATION FOR GENERALIZED PAIN. NORCO ADMINISTERED PRESCRIBED. WILL MONITOR FOR EFFECTIVENESS.
--- NOTE | 2019-07-28 06:01 | NUR ---
PATIENT RESTING WITH EYES CLOSED. STATES THAT NORCO WAS EFFECTIVE FOR GENERALIZED PAIN. WILL MONITOR.
[2019-07-28 06:38] LABS: ALBUMIN 2.9 gm/dl (3.1-4.5); ALKALINE PHOSPHATASE 51 U/L (45-117); BUN 29 mg/dl (7-24); CHLORIDE 98 mmol/L (98-107); CREATININE 0.97 mg/dL (0.70-1.30); SGOT/AST 8 IU/L (3-35); SGPT/ALT 23 U/L (12-78); SODIUM 134 mmol/L (136-145); TOTAL PROTEIN 5.7 gm/dL (6.4-8.2)
[2019-07-28 06:40] LABS: HEMOGLOBIN 11.3 g/dl (14.0-18.0); MEAN CELL VOLUME 92.5 fl (80.0-94.0); MEAN CORPUSCULAR HGB 28.3 pg (27.0-31.0); MEAN CORPUSCULAR HGB CONC 30.5 g/dl (33.0-37.0); MEAN PLATELET VOLUME 9.8 fl (9.6-12.3); PLATELET COUNT AUTOMATED 256 10*3/uL (130-400); RED CELL DISTRI WIDTH 19.8 % (0-14.5)
[2019-07-28 07:35] LABS: PLATELET SUFFICIENCY NORMAL (NORMAL); TOTAL CELLS COUNTED 100 #CELLS
--- NOTE | 2019-07-28 07:37 | NUR ---
PT NOT ON BIPAP AT THIS TIME
[2019-07-28 08:00] VITALS: BP 114/44
--- NOTE | 2019-07-28 08:40 | NUR ---
IN TO SEE PATIENT.
--- NOTE | 2019-07-28 11:43 | NUR ---
Coal Pipeline Operator in to see patient. No new needs or request at this time. Discussed short term SNF and he refuses. Asked him if he has spoken to his daughter regarding his SS check and he states no but he did talk to his friend, Patrick, yesterday about it. When medically stable he will be discharged to home. He plans on staying with Patrick until he is able to get an apartment of his own.
[2019-07-28 12:00] VITALS: BP 111/48
--- NOTE | 2019-07-28 14:50 | NUR ---
PT MEDICATED WITH PO NORCO PER PRN ORDER FOR C/O GENERALIZED PAIN/DISCOMFORT. WILL MONITOR EFFECTIVENESS.
--- NOTE | 2019-07-28 15:18 | NUR ---
Called to patient's room. He states daughter has his SS check and will bring it to him here in the hospital. Upon discharge he plans on going to stay with his friend, Patrick, until he is able to get an apartment of his own.
[2019-07-28 16:00] VITALS: BP 120/52
--- NOTE | 2019-07-28 16:00 | NUR ---
EARLIER NORCO EFFECTIVE PER PT.
[2019-07-28 20:00] VITALS: BP 122/58
--- NOTE | 2019-07-28 23:25 | NUR ---
Pt placed on BiPap 22/16 and an FiO2 of 40%. Alarms are on and audible.
[2019-07-29] VITALS: BP 110/54
--- NOTE | 2019-07-29 07:05 | NUR ---
ARRIVED ON SHIFT, INTRODUCED TO PATIENT, BEDSIDE REPORT RECEIVED. WHITE BOARD UPDATED, NO MEEDS VOICED AT THIS TIME.
--- NOTE | 2019-07-29 07:36 | NUR ---
Shift chart check completed.
[2019-07-29 08:00] VITALS: BP 120/64
--- NOTE | 2019-07-29 09:00 | NUR ---
Internet Programmer in to see patient. No new needs or request at this time. Discussed short term SNF and he refuses. Discharge planning discussed with Dr. Odell. Plan is to discharge patient to home tomorrow. When medically stable he will be discharged to home. He plans on staying with Patrick until he is able to get an apartment of his own.
--- NOTE | 2019-07-29 09:45 | NUR ---
CALL PLACED TO DR. SAXENA, ADVISED SEVERAL ATTEMPTS MADE TO RESTART IV, DR. SAXENA CHANGED MEDICATIONS TO
[2019-07-29 12:00] VITALS: BP 110/57
[2019-07-29 16:00] VITALS: BP 115/60
[2019-07-29 20:00] VITALS: BP 100/52
--- NOTE | 2019-07-29 22:00 | NUR ---
NORCO GIVEN AT PATIENT REQUEST FOR C/O NECK PAIN. RATED PAIN A 8/10 WITH 10 BEING THE WORST.
--- NOTE | 2019-07-29 23:47 | NUR ---
24 HR chart check completed.
[2019-07-30] VITALS: BP 119/58
--- NOTE | 2019-07-30 07:15 | NUR ---
ARRIVED ON SHIFT, INTRODUCED TO PATIENT, BEDSIDE REPORT RECEVED. NO NEEDS VOICED AT THIS, WHITE BOARD UPDATED.
--- NOTE | 2019-07-30 07:47 | NUR ---
VITALS STABLE. HEART SOUNDS NORMAL. LUNG SOUNDS DIMINISHED BILATERALLY WITH WHEEZE UPON EXPIRATION. BSX4, NON TENDER NON DISTENDED. SKIN WARM DRY AND INTACT. 1+ PITTING EDEMA ON BOTH LOWER LEGS. SKIN TURGUR NON TENTING, PPP <3 CAPILLARY REFILL. A&OX3, DARYL, EQUAL INBOUND SALES REPRESENTATIVE. PT IS COMPLAINING OF "SHARP PAIN, 9.5/10" IN NECK AND LEGS. ADMINISTERED NORCO 1 TAB PO. WILL CONTINUE TO ASSESS. CATRINA CHANDCC
[2019-07-30 08:00] VITALS: BP 100/62
--- NOTE | 2019-07-30 08:13 | NUR ---
Shift chart check completed.
--- NOTE | 2019-07-30 08:20 | NUR ---
NORCO EFFECTIVE. PT HAS NO COMPLAINTS OF PAIN AT THIS TIME. SANGITA CHAMBERLAIN [facility]
--- NOTE | 2019-07-30 09:00 | NUR ---
Director Of Rehabilitation in to see patient. No new needs or request at this time. Discussed short term SNF and he refuses. Discharge planning discussed with Dr. Odell. Dr. Hannah on consult, patient is slowly improving, continue IV Merrem, solumedrol, mucinex, and duonebs. When medically stable he will be discharged to home. He plans on staying with Patrick until he is able to get an apartment of his own.
--- NOTE | 2019-07-30 10:15 | NUR ---
PT. RESTING, QUIET. VITALS STABLE. NO PAIN AT THIS TIME. CATRINA CHANDCC
[2019-07-30 12:00] VITALS: BP 98/56
--- NOTE | 2019-07-30 13:02 | NUR ---
VITALS STABLE. HEART NORMAL. LUNG SOUNDS DIMINISHED BILATERALLY WITH WHEEZE ON EXPIRATION THROUGHOUT. PRODUCTIVE COUGH WITH TENACIOUS YELLOW SPUTUM. ACTIVE BSX4, PT STATES ABD IS "SORE FROM COUGHING". I INSTRUCTED PT TO HOLD PILLOW TO CHEST WHILE COUGHING. <3 CAP REFILL, PPP. 2+ PITTING EDEMA ON BOTH LOWER EXTREMITIES. SMALL OPEN DIME SIZED SKIN TEAR ON RIGHT FOREARM, NO DRAINAGE. PT REFUSED DRESSING, STATED HE WANTED THE TEAR TO "GET SOME AIR FOR A WHILE". OBTAINED CONSENT FOR PICC LINE. NO COMPLAINTS OF PAIN AT THIS TIME. 0/10 ON PAIN SCALE. DARYL. A&OX3. EQUAL TAILOR MEN'S READY TO WEAR. PT PLEASENT AND RESTING IN BED WATCHING TV. SANGITA CHAMBERLAIN [facility]
--- NOTE | 2019-07-30 14:31 | NUR ---
Federal Appellate Law Clerk in to speak to patient. He states he will be going to his friend, Carter, on discharge. His SS check is a 2 constitution party check and had to be sent back to [facility] for their signature. Notified Dr. Odell of patient's plan to stay with his friend on discharge.
[2019-07-30 16:00] VITALS: BP 116/55
[2019-07-30 20:00] VITALS: BP 108/48
[2019-07-31] VITALS: BP 106/50
--- NOTE | 2019-07-31 03:02 | NUR ---
LOZENGE ADMINISTERED AT THIS TIME.
--- NOTE | 2019-07-31 10:38 | NUR ---
Notified Dr. Fragoso that pt had accu cath placed and now has iv access for iv antibiotics. States to consult ID for this. Called ID answering service. States Dr. Nguyen is science liaison.
[2019-07-31 12:00] VITALS: BP 93/61
--- NOTE | 2019-07-31 14:48 | NUR ---
[place] given per prn order for complaints of generalized pain.
--- NOTE | 2019-07-31 15:45 | NUR ---
States that norco helped pain.
[2019-07-31 16:00] VITALS: BP 111/69
--- NOTE | 2019-07-31 17:43 | NUR ---
ANSWERING SERVICE WAS NOTIFIED OF DR. Soriano consult CONSULT. RESPONSE OF NOTIFICATION WAS mucker operator states she will page Dr. Nguyen who is condemnation engineer. AKIN MOSQUERA
--- NOTE | 2019-07-31 18:06 | NUR ---
Notified Dr. Fragoso that ID had not returned call regarding antibiotics. Notified him that pt had been or merrem. States to resume as prior and to dc augmentin.
[2019-07-31 20:00] VITALS: BP 117/48
--- NOTE | 2019-07-31 21:54 | NUR ---
PT GIVEN NORCO AT THIS TIME FOR C/O PAIN TO BILATERAL HANDS AND FEET. WILL MONITOR FOR EFFECTIVENESS. PT SITTING UP IN BED, WATCHING TELEVISION. IV ATB INFUSING AT THIS TIME. IV SITE IS PATENT. RESPIRATIONS EASY AND UNLABORED ON 4L NC. NO OTHER COMPLAINTS ARE VOICED. SAFETY MEASURES IN PLACE. CALL LIGHT IN REACH.
--- NOTE | 2019-07-31 22:54 | NUR ---
SIOBHAN EFFECTIVE PER PT.
--- NOTE | 2019-07-31 23:00 | NUR ---
DR WATKINS CALLS BACK REGARDING CALL PLACED VIA ANSWERING SERVICE EARLIER IN DAY. ORDERS GIVEN TO KEEP PT ON MERROPENEM AT THIS TIME AND THAT INFECTIOUS DISEASE WILL SEE PATIENT SOMETIME TOMORROW.
[2019-08-01] VITALS: BP 115/54
--- NOTE | 2019-08-01 01:44 | NUR ---
24 HR chart check completed.
--- NOTE | 2019-08-01 06:33 | NUR ---
NORCO GIVEN PER ORDER FOR COMPLAINTS OF BILAT HAND AND FEET PAIN 9.01/15. WILL MONITOR.
[2019-08-01 08:00] VITALS: BP 111/92
[2019-08-01 12:00] VITALS: BP 110/85
[2019-08-01 16:00] VITALS: BP 114/64
[2019-08-01 20:00] VITALS: BP 115/54
[2019-08-02] VITALS: BP 123/50; BP 129/69
--- NOTE | 2019-08-02 02:29 | NUR ---
PATIENT RESTING IN BED WITH EYES CLOSED. AROUSES TO VERBAL STIMULI. NO SIGNS OR SYMPTOMS OF DISTRESS NOTED. RESPIRATIONS REGULAR AND NON-LABORED ON O2 AT4L VIA N/C. 1+ PITTING EDEMA TO BILATERAL LOWER EXTREMITIES. WILL CONTINUE TO MONITOR. CALL LIGHT IN REACH.
--- NOTE | 2019-08-02 02:35 | NUR ---
24 HR chart check completed.
--- NOTE | 2019-08-02 06:31 | NUR ---
PATIENT MEDICATED WITH NORCO FOR COMPLAINTS OF GENERALIZED DISCOMFORT. WILL CONTINUE TO MONITOR. CALL LIGHT IN REACH.
--- NOTE | 2019-08-02 07:26 | NUR ---
PT NOT ON BIPAP AT THIS TIME
[2019-08-02 08:00] VITALS: BP 120/70
--- NOTE | 2019-08-02 08:22 | NUR ---
BARBECUE COOK informed the patient was wanting to go to [facility]. BARBECUE COOK faxed new referral to [facility]. -BRENDA Galaviz
--- NOTE | 2019-08-02 08:36 | NUR ---
VS STABLE- A&O X3, DARYL, HEART SOUNDS NORMAL, PULSE 64, LUNGS SOUNS WHEEZE ON EXPIRATORY, RESP 16, PO2 99% ON 4L NASAL CANNULA, ENCOURAGED TO COUGH AND DEEP BREATH, SKIN WARM DRY AND INTACT, SKIN TURGOR IS NON-TENTING, CAP REFILL <3, 1+ PITTING EDEMA TO BILATERAL LOWER EXTREMITIES, ABD IS SOFT NON-DISTENDED NON-TENDER, BS X4, COMPLAINS OF 8/10 PAIN TOO EARLY TO REMEDICATE, IV SITE INTACT. NO S/S OF INFECTION, PT PLEASANT AND COOPERATIVE RESTING IN BED, NO OTHER COMPLAINTS WILL CONTINUE TO ASSESS. PRIYANKA DODSON SPCC
--- NOTE | 2019-08-02 10:10 | NUR ---
PAIN MEDS WERE EFFECTIVE. REASSESSED PT, ASKED HER LEVEL OF PAIN SHE STATED "IT FEELS BETTER." WILL CONTINUE TO ASSESS. GABRIEL MCPHERSON
[2019-08-02 12:00] VITALS: BP 114/60
--- NOTE | 2019-08-02 12:54 | NUR ---
Corporate Ethics Officer in to see patient. Discussed short term SNF and he is agreeable. When provided with a list of facilities he chose [facility] where Dr. Odell can follow him. spool worker notified.
--- NOTE | 2019-08-02 13:50 | NUR ---
[facility] They will not be able to get it until tomorrow. Once it arrives the patient can go to [facility]. -BRENDA Galaviz
--- NOTE | 2019-08-02 14:19 | NUR ---
BAND RIPSAW OPERATOR completed HENs. -BRENDA Galaviz
[2019-08-02 16:00] VITALS: BP 130/63
[2019-08-02 20:00] VITALS: BP 99/79
--- NOTE | 2019-08-02 23:07 | NUR ---
Pt placed on BiPap 22/16 with an FiO2 of 40%. Alarms on and audible.
[2019-08-03] VITALS: BP 123/50
--- NOTE | 2019-08-03 02:06 | NUR ---
PATIENT MEDICATED WITH NORCO FOR COMPLAINTS OF BACK PAIN AND GENERALIZED PAIN ALL OVER. RESPIRATIONS REGULAR AND NON-LABORED ON O2 AT 4LN/C. PATIENT SITTING UP IN BED ON PHONE. NO SIGNS OR SYMPTOMS OF DISTRESS NOTED. WILL CONTINUE TO MONITOR. CALL LIGHT IN REACH.
[2019-08-03 08:00] VITALS: BP 120/54
[2019-08-03] MEDS ORDERED: PREDNISONE5 MG PO (08:29)
[2019-08-03] MEDS ORDERED: MERREM IV1 GM IV (08:29)
--- NOTE | 2019-08-03 10:20 | NUR ---
PT REQUESTED AND WAS MEDICATED WITH NORCO FOR C/O GENERALIZED PAIN. CALL LIGHT IN REACH. WILL MONITOR
--- NOTE | 2019-08-03 10:25 | NUR ---
FOOD TRADES ASSISTANTS spoke with the patient about being discharged to [facility]. Patient stated that his kids are bringing his truck to him and he will drive himself. Patient stated that is unsure how much gas will be in it and he only has $5.00 to his name. FOOD TRADES ASSISTANTS explained if needed we could have [facility] come get him and he could leave his truck here for the time being. Patient stated he " I don't know about all that". Patient stated that his Concentrator is at his friend [facility] but he is not able to get ahold of him. Patient stated he brought his own oxygen tank with him and it is in this facility somewhere. Patient stated there should be one in his truck as well. FOOD TRADES ASSISTANTS to follow. -BRENDA Galaviz
--- NOTE | 2019-08-03 11:30 | NUR ---
Discharge instructions reviewed with patient/family. Patient receptive and verbalizes understanding. Follow-up care arranged. Written instructions given to patient/family. DILAN CHAVEZ
--- NOTE | 2019-08-03 12:00 | NUR ---
ATTEMPTED TO CALL REPORT MULTIPLE TIMES, SENT TO LINE WITH ERROR MESSAGE. CALLED AGAIN LEFT THIS NURSES NAME AND NUMBER FOR CALL BACK FOR REPORT.
--- NOTE | 2019-08-03 12:12 | NUR ---
BAGGAGE SECURITY CHECKER faxed discharge orders to [facility]. BAGGAGE SECURITY CHECKER unaware patient has left this facility. BAGGAGE SECURITY CHECKER contacted [facility] to see if patient has arrived there. Patient has not. BAGGAGE SECURITY CHECKER reached out to the patient who stated he would try and get there within the hour. BAGGAGE SECURITY CHECKER notified [facility]. -BRENDA Galaviz
--- NOTE | 2019-08-03 13:16 | NUR ---
CARMEN BARRETT CALLED AND REPORT WAS GIVEN TO NURSE.
== END 2019-08-03 11:30 | disposition other institution (70) | DRG 189 ==
LOC: ED 17:22 → 5E 18:58 → EDHOLD 18:58 → 5E 19:44
PROVIDERS: Emergency Medicine; Internal Medicine Critical Care Medicine; ADMIT Internal Medicine
PROC: 0BC48ZZ Extirpation of Matter from Right Upper Lobe Bronchus, Via Natural or Artificial Opening Endoscopic (ICD-10-PCS; principal; 2019-07-26)
PROC: 0BC78ZZ Extirpation of Matter from Left Main Bronchus, Via Natural or Artificial Opening Endoscopic (ICD-10-PCS; principal; 2019-07-26)
PROC: 5A09357 Assistance with Respiratory Ventilation, Less than 24 Consecutive Hours, Continuous Positive Airway Pressure (ICD-10-PCS; principal; 2019-07-26)
PROC: 0BCB8ZZ Extirpation of Matter from Left Lower Lobe Bronchus, Via Natural or Artificial Opening Endoscopic (ICD-10-PCS; principal; 2019-07-26)
PROC: 0BC88ZZ Extirpation of Matter from Left Upper Lobe Bronchus, Via Natural or Artificial Opening Endoscopic (ICD-10-PCS; principal; 2019-07-26)
PROC: 0BC18ZZ Extirpation of Matter from Trachea, Via Natural or Artificial Opening Endoscopic (ICD-10-PCS; principal; 2019-07-26)
PROC: 0BC68ZZ Extirpation of Matter from Right Lower Lobe Bronchus, Via Natural or Artificial Opening Endoscopic (ICD-10-PCS; principal; 2019-07-26)
PROC: 0BC98ZZ Extirpation of Matter from Lingula Bronchus, Via Natural or Artificial Opening Endoscopic (ICD-10-PCS; principal; 2019-07-26)
PROC: 0BC58ZZ Extirpation of Matter from Right Middle Lobe Bronchus, Via Natural or Artificial Opening Endoscopic (ICD-10-PCS; principal; 2019-07-26)
PROC: 0BC38ZZ Extirpation of Matter from Right Main Bronchus, Via Natural or Artificial Opening Endoscopic (ICD-10-PCS; principal; 2019-07-26)
PROC: 5A09357 Assistance with Respiratory Ventilation, Less than 24 Consecutive Hours, Continuous Positive Airway Pressure (ICD-10-PCS; 2019-07-28)
PROC: 5A09357 Assistance with Respiratory Ventilation, Less than 24 Consecutive Hours, Continuous Positive Airway Pressure (ICD-10-PCS; 2019-07-29)
PROC: 5A09357 Assistance with Respiratory Ventilation, Less than 24 Consecutive Hours, Continuous Positive Airway Pressure (ICD-10-PCS; 2019-08-01)
PROC: 5A09357 Assistance with Respiratory Ventilation, Less than 24 Consecutive Hours, Continuous Positive Airway Pressure (ICD-10-PCS; 2019-08-02)
PROC: 02HV33Z Insertion of Infusion Device into Superior Vena Cava, Percutaneous Approach (ICD-10-PCS; 2019-08-02)
PROC: 5A09357 Assistance with Respiratory Ventilation, Less than 24 Consecutive Hours, Continuous Positive Airway Pressure (ICD-10-PCS; 2019-08-03)
DX: J96.22 Acute and chronic respiratory failure with hypercapnia (principal); I50.33 Acute on chronic diastolic (congestive) heart failure; E87.3 Alkalosis; E87.1 Hypo-osmolality and hyponatremia; M54.9 Dorsalgia, unspecified; J96.21 Acute and chronic respiratory failure with hypoxia; J20.9 Acute bronchitis, unspecified; J34.2 Deviated nasal septum; I11.0 Hypertensive heart disease with heart failure; G89.29 Other chronic pain; I25.10 Atherosclerotic heart disease of native coronary artery without angina pectoris; F32.9 Major depressive disorder, single episode, unspecified; K57.90 Diverticulosis of intestine, part unspecified, without perforation or abscess without bleeding; J43.9 Emphysema, unspecified; K21.9 Gastro-esophageal reflux disease without esophagitis; E78.2 Mixed hyperlipidemia; E66.01 Morbid (severe) obesity due to excess calories; G47.33 Obstructive sleep apnea (adult) (pediatric); F17.210 Nicotine dependence, cigarettes, uncomplicated; I27.20 Pulmonary hypertension, unspecified; R62.7 Adult failure to thrive; N40.1 Benign prostatic hyperplasia with lower urinary tract symptoms; R33.8 Other retention of urine; E11.65 Type 2 diabetes mellitus with hyperglycemia; T38.0X5A Adverse effect of glucocorticoids and synthetic analogues, initial encounter; Y92.89 Other specified places as the place of occurrence of the external cause; Z85.46 Personal history of malignant neoplasm of prostate; Z86.711 Personal history of pulmonary embolism; Z79.4 Long term (current) use of insulin; Z91.19 Patient's noncompliance with other medical treatment and regimen; Z99.81 Dependence on supplemental oxygen; I25.2 Old myocardial infarction; Z98.52 Vasectomy status; Z98.49 Cataract extraction status, unspecified eye; Z68.38 Body mass index [BMI] 38.0-38.9, adult

== ENCOUNTER 2019-09-08 11:43 | Inpatient (IN) | payer MEDICARE ==
[~2019-09-08] VITALS: Ht 175.3 cm; Wt 129.7 kg
[~2019-09-08 11:43] MED LIST changes: +MERREM IV1 GM IV
[2019-09-08 11:45] VITALS: BP 112/70
[2019-09-08 12:45] VITALS: BP 134/58
[2019-09-08 12:55] LABS: BASO % 0.4 % (0.0-1.0); EOS # 0.1 10*3/uL (0.0-0.4); EOS % 0.8 % (1.0-4.0); HEMOGLOBIN 12.4 g/dl (14.0-18.0); LYMPH # 1.7 10*3/uL (1.3-4.4); LYMPH % 16.6 % (27.0-41.0); MEAN CORPUSCULAR HGB 28.7 pg (27.0-31.0); MEAN CORPUSCULAR HGB CONC 32.6 g/dl (33.0-37.0); MEAN PLATELET VOLUME 9.2 fl (9.6-12.3); MONO # 0.6 10*3/uL (0.1-1.0); MONO % 5.4 % (3.0-9.0); NEUT # 7.8 10*3/uL (2.3-7.9); NEUT % 76.4 % (47.0-73.0); PLATELET COUNT AUTOMATED 379 10*3/uL (130-400); RED BLOOD COUNT 4.32 10*6/uL (4.50-5.90); RED CELL DISTRI WIDTH 16.5 % (0-14.5); WHITE BLOOD COUNT 10.1 10*3/uL (4.8-10.8)
[2019-09-08 13:03] LABS: ACT PARTIAL THROMBO TIME 25.3 SECONDS (20.0-32.1); INTERNATIONAL NORM RATIO 0.9 (2.0-3.5)
[2019-09-08 13:11] LABS: ALBUMIN 3.4 gm/dl (3.1-4.5); ALKALINE PHOSPHATASE 71 U/L (45-117); BUN 9 mg/dl (7-24); CHLORIDE 89 mmol/L (98-107); POTASSIUM 4.7 mmol/L (3.5-5.1); SGOT/AST 24 IU/L (3-35); SGPT/ALT 34 U/L (12-78); SODIUM 127 mmol/L (136-145); TOTAL PROTEIN 6.8 gm/dL (6.4-8.2)
[2019-09-08 13:15] LABS: TROPONIN I < 0.015 ng/ml (<0.045)
[2019-09-08 14:41] LABS: ABG BASE EXCESS 3.5 mmol/L (-2.0-2.0); ARTERIAL BLOOD GAS PH 7.357 (7.35-7.45)
[2019-09-08 15:50] VITALS: BP 134/77
[2019-09-08 16:00] VITALS: BP 134/77
[2019-09-08 16:15] LABS: BILIRUBIN NEGATIVE (NEGATIVE); BLOOD NEGATIVE (NEGATIVE); CLARITY CLEAR (CLEAR); COLOR YELLOW (YELLOW); GLUCOSE NEGATIVE (NEGATIVE); KETONE NEGATIVE (NEGATIVE); LEUKO ESTERASE NEGATIVE (NEGATIVE); NITRITE NEGATIVE (NEGATIVE); SPECIFIC GRAVITY 1.025 (1.005-1.030); UROBILINOGEN 0.2 E.U./dl (0.2-1.0)
[2019-09-08 16:24] LABS: URINE AMPHETAMINES < 1000 (1000ng/ml); URINE BARBITURATES < 200 (200ng/ml); URINE BENZODIAZEPINES < 200 (200ng/ml); URINE CANNABINOIDS (THC) < 50 (50ng/ml); URINE COCAINE > 300 (300ng/ml); URINE METHADONE < 300 (300ng/ml); URINE OPIATES > 300 (300ng/ml)
[2019-09-08 16:28] LABS: URINE PHENCYCLIDINE < 25 (25ng/ml)
[2019-09-08] MEDS ORDERED: COLACE100 MG PO (18:34)
[2019-09-08 20:00] VITALS: BP 124/79
[2019-09-09] VITALS: BP 109/47
[2019-09-09 04:00] VITALS: BP 127/67
[2019-09-09 07:16] LABS: ABG BASE EXCESS 2.7 mmol/L (-2.0-2.0); ARTERIAL BLOOD GAS PH 7.347 (7.35-7.45)
[2019-09-09 08:00] VITALS: BP 130/50
[2019-09-09 12:00] VITALS: BP 108/53
[2019-09-09 16:00] VITALS: BP 99/50
[2019-09-09 20:00] VITALS: BP 98/60
[2019-09-10] VITALS (10 sets, daily range): BP systolic 100–116; BP diastolic 54–72
[2019-09-11] VITALS: BP 98/64
[2019-09-11 08:00] VITALS: BP 108/68
[2019-09-11 12:00] VITALS: BP 94/53
[2019-09-11 16:00] VITALS: BP 97/55
[2019-09-11 16:04] LABS: ACID FAST SPEC PROCESSING Concentration (.)
[2019-09-11 20:00] VITALS: BP 106/55; BP 106/58
[2019-09-12] VITALS: BP 103/59
[2019-09-12] MEDS ORDERED: AUGMENTIN 875875 MG PO (06:50)
[2019-09-12] MEDS ORDERED: PREDNISONE5 MG PO (06:50)
== END 2019-09-12 12:44 | disposition other institution (70) | DRG 189 ==
LOC: ED 11:43 → EDHOLD 14:31 → ICCU 14:31 → 4E 09-10 15:24
PROVIDERS: Emergency Medicine; Internal Medicine Critical Care Medicine; ADMIT Internal Medicine
PROC: 5A09357 Assistance with Respiratory Ventilation, Less than 24 Consecutive Hours, Continuous Positive Airway Pressure (ICD-10-PCS; principal; 2019-09-08)
PROC: 5A09357 Assistance with Respiratory Ventilation, Less than 24 Consecutive Hours, Continuous Positive Airway Pressure (ICD-10-PCS; 2019-09-09)
PROC: 5A09357 Assistance with Respiratory Ventilation, Less than 24 Consecutive Hours, Continuous Positive Airway Pressure (ICD-10-PCS; 2019-09-10)
PROC: 0BJ08ZZ Inspection of Tracheobronchial Tree, Via Natural or Artificial Opening Endoscopic (ICD-10-PCS; 2019-09-10)
PROC: 5A09357 Assistance with Respiratory Ventilation, Less than 24 Consecutive Hours, Continuous Positive Airway Pressure (ICD-10-PCS; 2019-09-11)
DX: J96.22 Acute and chronic respiratory failure with hypercapnia (principal); J44.1 Chronic obstructive pulmonary disease with (acute) exacerbation; F33.1 Major depressive disorder, recurrent, moderate; T17.890A Other foreign object in other parts of respiratory tract causing asphyxiation, initial encounter; J44.0 Chronic obstructive pulmonary disease with (acute) lower respiratory infection; I50.32 Chronic diastolic (congestive) heart failure; E22.2 Syndrome of inappropriate secretion of antidiuretic hormone; E44.0 Moderate protein-calorie malnutrition; J96.21 Acute and chronic respiratory failure with hypoxia; J20.9 Acute bronchitis, unspecified; F14.10 Cocaine abuse, uncomplicated; E11.42 Type 2 diabetes mellitus with diabetic polyneuropathy; G89.29 Other chronic pain; I11.0 Hypertensive heart disease with heart failure; I25.10 Atherosclerotic heart disease of native coronary artery without angina pectoris; K21.0 Gastro-esophageal reflux disease with esophagitis; E66.01 Morbid (severe) obesity due to excess calories; M47.816 Spondylosis without myelopathy or radiculopathy, lumbar region; I27.20 Pulmonary hypertension, unspecified; R62.7 Adult failure to thrive; F10.20 Alcohol dependence, uncomplicated; Y90.9 Presence of alcohol in blood, level not specified; K59.09 Other constipation; G47.33 Obstructive sleep apnea (adult) (pediatric); F17.210 Nicotine dependence, cigarettes, uncomplicated; X58.XXXA Exposure to other specified factors, initial encounter; Y93.89 Activity, other specified; Y92.89 Other specified places as the place of occurrence of the external cause; Y99.8 Other external cause status; I25.2 Old myocardial infarction; Z86.711 Personal history of pulmonary embolism; Z79.01 Long term (current) use of anticoagulants; Z79.82 Long term (current) use of aspirin; Z85.46 Personal history of malignant neoplasm of prostate; Z98.52 Vasectomy status; Z98.62 Peripheral vascular angioplasty status; Z99.81 Dependence on supplemental oxygen; Z91.14 Patient's other noncompliance with medication regimen; Z79.4 Long term (current) use of insulin; Z68.37 Body mass index [BMI] 37.0-37.9, adult

== ENCOUNTER 2019-09-22 00:59 | Inpatient (IN) | payer MEDICARE ==
[~2019-09-22] VITALS: Ht 182.9 cm; Wt 129.4 kg
[2019-09-22] VITALS (84 sets, daily range): BP systolic 53–170; BP diastolic 19–144
[~2019-09-22 00:59] MED LIST changes: +AUGMENTIN 875875 MG PO
--- NOTE | 2019-09-22 01:02 | NUR ---
MD ANDERSON AT BEDSIDE TO ASSESS PT.
--- NOTE | 2019-09-22 01:15 | NUR ---
Pt intubated by . Size #8 tube and 26 at the lip. CO2 color change and bilateral breath sounds heard. Initial vent settings are [id number]+ ABG will be sent to the lab. HR 82 SpO2 98% No complications.
[2019-09-22 01:22] LABS: HEMATOCRIT 38.8 % (42.0-52.0); HEMOGLOBIN 11.8 g/dl (14.0-18.0); MEAN CORPUSCULAR HGB 29.3 pg (27.0-31.0); MEAN CORPUSCULAR HGB CONC 30.4 g/dl (33.0-37.0); MEAN PLATELET VOLUME 9.4 fl (9.6-12.3); PLATELET COUNT AUTOMATED 358 10*3/uL (130-400); RED BLOOD COUNT 4.03 10*6/uL (4.50-5.90); RED CELL DISTRI WIDTH 17.7 % (0-14.5)
[2019-09-22 01:24] LABS: MEAN CELL VOLUME 96.3 fl (80.0-94.0)
[2019-09-22 01:25] LABS: WHITE BLOOD COUNT 40.5 10*3/uL (4.8-10.8)
[2019-09-22 01:33] LABS: ACT PARTIAL THROMBO TIME 29.5 SECONDS (20.0-32.1); INTERNATIONAL NORM RATIO 0.9 (2.0-3.5)
[2019-09-22 01:40] LABS: ALBUMIN 3.3 gm/dl (3.1-4.5); ALKALINE PHOSPHATASE 77 U/L (45-117); CHLORIDE 99 mmol/L (98-107); CREATININE 2.38 mg/dL (0.70-1.30); SGOT/AST 13 IU/L (3-35); SGPT/ALT 23 U/L (12-78); SODIUM 133 mmol/L (136-145); TOTAL PROTEIN 6.7 gm/dL (6.4-8.2)
[2019-09-22 01:42] LABS: PLATELET SUFFICIENCY NORMAL (NORMAL); TOTAL CELLS COUNTED 100 #CELLS
[2019-09-22 01:43] LABS: BURR CELLS FEW; OVALOCYTES FEW
[2019-09-22 01:44] LABS: BUN 21 mg/dl (7-24); POTASSIUM 4.9 mmol/L (3.5-5.1); TROPONIN I < 0.015 ng/ml (<0.045)
[2019-09-22 02:01] LABS: ABG BASE EXCESS -7.3 mmol/L (-2.0-2.0)
[2019-09-22 02:02] LABS: ARTERIAL BLOOD GAS PH 7.076 (7.35-7.45)
--- NOTE | 2019-09-22 02:05 | NUR ---
CHANGED RR TO 24 AFTER ABG RESULT.
--- NOTE | 2019-09-22 06:00 | NUR ---
A 63, admitted to ICCU, under the services of Dr. WISAM WHITE,SUKH Kang with a diagnosis of SURESH,HYPERCAPNIC RESPIRATORY FAILURE,SEPSIS. Chief complaint is FROM LONG-TERM SHORT OF BREATH. Patient arrived via stretcher from ER. Monitor applied. Initial assessment completed. Vital signs taken and recorded. DR. WISAM WHITE,SUKH Kang notified of admission to the unit. Orders received. See assessment for past medical history, medications and allergies. Patient and/or family oriented to unit. [facility] ICCU visitation policy reviewed. Clothing/patient valuable form completed. HOLLIS GONZALES
[2019-09-22] MEDS ORDERED: PREDNISONE10 M1 PO (06:31)
[2019-09-22] MEDS ORDERED: OCEAN104 ML NAS (06:33)
[2019-09-22] MEDS ORDERED: PRED FORTE5 ML OP (06:34)
[2019-09-22] MEDS ORDERED: REFRESH TEARS15 ML OP (06:36)
[2019-09-22] MEDS ORDERED: CETIRIZINE10 MG PO (06:37)
--- NOTE | 2019-09-22 07:07 | NUR ---
EVYRAFAEL Glenroy [id number] Please refer to the physician's history and physical for past medical history, comorbid conditions, and allergies. Diagnosis: SURESH,HYPERCAPNIC RESP FAILURE, LEUKOCYTOSIS, SEPSIS Mp Score: 15,AT RISK WOUND DESCRIPTIONS: Wound Number: 1 Location of the wound: left forearm Type of wound: skin tear Thickness: Partial Size: 0.7cm x 1.5cm x 0.1cm Tunneling: none Undermining: none Sinus Tract: none Presence of Exudate: Serosanguineous Amount: Light Color: Red Odor: None Periwound Skin Appearance: Ecchymotic Wound edges: approximated Pain (associated with wound): none at time of assessment How does patient state this happened? pt unable to state how this happened Surface the patient is resting on: XPRT SKIN PREVENTION RECOMMENDATION: 1. Pressure redistribution support surface as appropriate 2. Elevate heels 3. Remove boots/TEDS every shift and reapply 4. Head of bed 30 degrees as tolerated 5. Assess nutrition and hydration 6. Manage moisture 7. Avoid the use of containment devices while in bed 8. Use absorptive products on surfaces limit layers of linens on bed 9. Turn and reposition every 1-2 hours in bed and every 1 hour in chair as tolerated 10. Weight shifts every 15 minutes while up in chair 11. Offloading with pillows or device to keep heels elevated off bed 12. Monitor skin at least every shift 13. Inspect under medical devices twice a day WOUND TREATMENT RECOMMENDATIONS: Skin tear guidelines: Cleanse left forearm with nss and apply sureprep around the wound hydrogel to wound bed and cover with optifoam gentle every 2 days and prn for soiling.
[2019-09-22 07:49] LABS: ABG BASE EXCESS -6.9 mmol/L (-2.0-2.0); ARTERIAL BLOOD GAS PH 7.136 (7.35-7.45)
--- NOTE | 2019-09-22 10:30 | NUR ---
Vision Therapist in to see patient. He is currently intubated. Will follow up at a later time. He is short term at [facility]. load planner following.
[2019-09-22 10:59] LABS: ABG BASE EXCESS -6.4 mmol/L (-2.0-2.0); ARTERIAL BLOOD GAS PH 7.179 (7.35-7.45)
--- NOTE | 2019-09-22 11:08 | NUR ---
>VT TO 700, < FIO2 TO 30%
--- NOTE | 2019-09-22 11:45 | NUR ---
ART LINE PLACED IN LEFT RADIAL ARTERY BY DR RUFF.
--- NOTE | 2019-09-22 12:13 | NUR ---
[facility] OFFICE NOTIFIED OF URGENT CONSULT.
[2019-09-22 13:10] LABS: BILIRUBIN 1+ (NEGATIVE); BLOOD 3+ (NEGATIVE); CLARITY CLOUDY (CLEAR); COLOR YELLOW (YELLOW); GLUCOSE NEGATIVE (NEGATIVE); KETONE TRACE (NEGATIVE); LEUKO ESTERASE NEGATIVE (NEGATIVE); NITRITE NEGATIVE (NEGATIVE); SPECIFIC GRAVITY >= 1.030 (1.005-1.030)
[2019-09-22 13:23] LABS: BACTERIA 4+; RBC TNTC rbc/hpf (0-2)
[2019-09-22 13:28] LABS: URINE AMPHETAMINES < 1000 (1000ng/ml); URINE BARBITURATES < 200 (200ng/ml); URINE BENZODIAZEPINES > 200 (200ng/ml); URINE CANNABINOIDS (THC) < 50 (50ng/ml); URINE COCAINE < 300 (300ng/ml); URINE METHADONE < 300 (300ng/ml); URINE OPIATES > 300 (300ng/ml)
[2019-09-22 13:29] LABS: URINE PHENCYCLIDINE < 25 (25ng/ml)
[2019-09-22 13:48] LABS: ABG BASE EXCESS -8.5 mmol/L (-2.0-2.0)
[2019-09-22 13:49] LABS: ARTERIAL BLOOD GAS PH 7.155 (7.35-7.45)
[2019-09-22 16:55] LABS: ARTERIAL BLOOD GAS PH 7.181 (7.35-7.45)
[2019-09-22 16:56] LABS: ABG BASE EXCESS -6.1 mmol/L (-2.0-2.0)
--- NOTE | 2019-09-22 17:12 | NUR ---
CHAITANYA-SYNEPHRINE TITRATED DOWN TO 100MCG AT THIS TIME. BP STABLE AT THIS TIME.
--- NOTE | 2019-09-22 17:31 | NUR ---
CHAITANYA-SYNEPHRINE TURNED OFF AT THIS TIME. PATIENT BLOOD PRESSURES ARE ADEQUATE. MOST RECENTLY 124/67 PER ART. WILL CONTINUE TO MONITOR.
--- NOTE | 2019-09-22 19:30 | NUR ---
55MG RESIDUAL NOTED OG TUBE. TUBE FEEDING HELD FOR ONE HOUR. RN TO REASSESS. LEVOPHED REDUECED TO 10MCG OR 37.5ML/HR. PT TOLERATING WELL.
[2019-09-22 19:46] LABS: ARTERIAL BLOOD GAS PH 7.258 (7.35-7.45)
[2019-09-22 19:47] LABS: ABG BASE EXCESS -5.5 mmol/L (-2.0-2.0)
--- NOTE | 2019-09-22 20:00 | NUR ---
PT RESTING QUIETLY AT THIS TIME. NO DISTRESS NOTED. DIPROVAN INFUSING 19.5MCG, LEVOPHED WAS REDUCED TO 10MCG OR 37.5ML/HR AND VASOPRESSION 3ML/HR OR 0.02UNITS. BILLY CATHETER PATENT CLEAR YELLOW URINE. OG TUBE PLACEMENT CONFIRMED. ET TUBE BALLOON PATENT. ART LINE PATENT WITH GOOD WAVE FORM. PT REPOSITIONED FOR COMFORT.
--- NOTE | 2019-09-22 21:00 | NUR ---
LEVOPHED REDUCED TO 8 MCG AT 30ML/HR. VASOPRESSIN REDUCED TO 0.01 UNIT AT 1/5ML/HR. BLOOD PRESSURE STABLE PER ART LINE. NO DISTRESS NOTED.
--- NOTE | 2019-09-22 21:45 | NUR ---
TUBE FEEDING RESTARTED AT 20ML/HR. MINIMAL RESIDUAL NOTED.
--- NOTE | 2019-09-22 22:15 | NUR ---
ART LINE SITE NOTED TO HAVE RED BLOOD ON DRESSING. DRESSING REMOVED. ART LINE PATENT WITH NO ACUTE BLEEDING NOTED. NEW DRESSING APPLIED. LINE SECURED WITH TAPE. ART LINE ZERO COMPLETED. GOOD WAVE FORM. BED BATH GIVEN.
--- NOTE | 2019-09-22 22:20 | NUR ---
DIPROVAN INCREASED TO 35 MCG OR 27.3ML/HR DUE TO RESTLESSNESS DURING BED BATH AND LINEN CHANGE. PT TOLERATING WELL.
[2019-09-23] VITALS (95 sets, daily range): BP systolic 84–168; BP diastolic 43–105
--- NOTE | 2019-09-23 | NUR ---
DRESSING TO ART LINE AGAIN CHANGED AT THIS TIME D/T SEEPING OF BLOOD AT INSERTION SITE. SITE IS NOT ACTIVELY BLEEDING BUT CONTINUES TO SOAK THE DRESSINGS. NEW DRESSING APPLIED. PATIENT TOLERATED WELL. RN WILL MONITOR THE SITE FOR ADDITIONAL BLEEDING.
--- NOTE | 2019-09-23 00:15 | NUR ---
VASOPRESSIN TITRATED OFF AT THIS TIME, BLOOD PRESSURE REMAINS STABLE,A DN MAP REMAINS ABOVE >65. RN WILL MONITOR
--- NOTE | 2019-09-23 01:00 | NUR ---
LEVOPHED TITRATED TO 6MCG BASED ON MAP >65. BLOOD PRESSURES STABLE.
--- NOTE | 2019-09-23 01:23 | NUR ---
ETOMIDATE NOT ADMINISTERED PER DR. ANDERSON. WAS UNABLE TO RETURN TO [facility] TUBED TO PHARMACY.
--- NOTE | 2019-09-23 02:35 | NUR ---
SPOKE WITH DAUGHTER BRIDGETTE AGAIN, SET UP PASSWORD RAFAEL.
--- NOTE | 2019-09-23 03:45 | NUR ---
LEVOPHED AGAIN TITRATED FOR MAP OF >65 CONTINUALLY, CURRENTLY INFUSING AT 4MCG. BLOOD PRESSURE REMAINS STABLE
--- NOTE | 2019-09-23 04:49 | NUR ---
PATIENT REMAINS ADEQUATELY SEDATED WITH DIPROVAN AT 25MCG. BED IN ROTATION MODE. DRESSING TO LEFT EYE INTAT WELL DRESSINGS TO SKIN TEARS ON LEFT ARM AND ALSO DRESSING TO WAS APPLIED TO THE LEFT RADIAL ART LINE. NO FURTHER SIGNS OF BLEEDING. RN WILL CONTINUE TO MONITOR
--- NOTE | 2019-09-23 04:52 | NUR ---
Upon discharge recommend patient to follow up for wound care in outpatient setting continue current wound care orders at discharging facility
--- NOTE | 2019-09-23 05:17 | NUR ---
EVYRAFAEL Glenroy [id number] Please refer to the physician's history and physical for past medical history, comorbid conditions, and allergies. Diagnosis: SURESH,HYPERCAPNIC RESP FAILURE, LEUKOCYTOSIS, SEPSIS Mp Score: 15,AT RISK WOUND DESCRIPTIONS: Wound Number: 2 Location of the wound: left ac Type of wound: skin tear Thickness: Partial Size: 3.5cm x 5.0cm x 0.1cm Tunneling: none Undermining: none Sinus Tract: none Presence of Exudate: Serosanguineous Amount: Light Color: Red Odor: None Periwound Skin Appearance: Normal Wound edges: approximated Pain (associated with wound): none at time of assessment How does patient state this happened? pt unable to state how this happened Surface the patient is resting on: XPRT SKIN PREVENTION RECOMMENDATION: 1. Pressure redistribution support surface as appropriate 2. Elevate heels 3. Remove boots/TEDS every shift and reapply 4. Head of bed 30 degrees as tolerated 5. Assess nutrition and hydration 6. Manage moisture 7. Avoid the use of containment devices while in bed 8. Use absorptive products on surfaces limit layers of linens on bed 9. Turn and reposition every 1-2 hours in bed and every 1 hour in chair as tolerated 10. Weight shifts every 15 minutes while up in chair 11. Offloading with pillows or device to keep heels elevated off bed 12. Monitor skin at least every shift 13. Inspect under medical devices twice a day WOUND TREATMENT RECOMMENDATIONS: Continue skin tear guidelines
--- NOTE | 2019-09-23 05:36 | NUR ---
LEVOPHED TITRATED UP TO 5MCG, BLOOD PRESSURE SYS IN 80'S, MAP 60. WILL MONITOR
[2019-09-23 06:29] LABS: HEMATOCRIT 31.9 % (42.0-52.0); HEMOGLOBIN 10.1 g/dl (14.0-18.0); MEAN CORPUSCULAR HGB 28.6 pg (27.0-31.0); MEAN CORPUSCULAR HGB CONC 31.7 g/dl (33.0-37.0); MEAN PLATELET VOLUME 9.7 fl (9.6-12.3); PLATELET COUNT AUTOMATED 271 10*3/uL (130-400); RED BLOOD COUNT 3.53 10*6/uL (4.50-5.90); RED CELL DISTRI WIDTH 17.2 % (0-14.5)
[2019-09-23 06:30] LABS: MEAN CELL VOLUME 90.4 fl (80.0-94.0)
[2019-09-23 06:40] LABS: ALBUMIN 2.4 gm/dl (3.1-4.5); CREATININE 1.97 mg/dL (0.70-1.30); POTASSIUM 4.2 mmol/L (3.5-5.1); TOTAL PROTEIN 5.3 gm/dL (6.4-8.2)
[2019-09-23 06:48] LABS: OVALOCYTES MODERATE; PLATELET SUFFICIENCY NORMAL (NORMAL); SCHISTOCYTES FEW; TOTAL CELLS COUNTED 100 #CELLS
[2019-09-23 06:49] LABS: SPHEROCYTES FEW
[2019-09-23 07:09] LABS: ARTERIAL BLOOD GAS PH 7.201 (7.35-7.45)
[2019-09-23 07:10] LABS: ABG BASE EXCESS -13.7 mmol/L (-2.0-2.0)
--- NOTE | 2019-09-23 08:00 | NUR ---
ASSESSMENT DONE - PATIENT SUCTIONED & HME CHANGED AGAIN & TUBING EMPTIED OF THICK FROTHY YELLOW/WHITE SPUTUM. PATIENT RESTLESS WITH CARE & ATTEMPTS TO OPEN EYES BUT ISN'T ABLE AT THIS TIME. OGT PLACEMENT CHECKED WITH AIR BOLUS. TUBE FEEDING AT 20ml/hr. BILLY PATENT FOR STRAW URINE W/ SEDIMENT. SCD PLACED ON..TRACE EDEMA..UNABLE TO WEAR RADHA HOSE D/T SIZE & THEY CUT INTO HIM..RESTRAINTS ON BILAT WRISTS. ART LINE PATENT/ZERO'D & NO SIGNS OF BLEEDING AT PRESENT..HOB AT 30 DEGREES...
--- NOTE | 2019-09-23 08:38 | NUR ---
Patient comes from [facility]. Facility is stating patient is ok to return without precert when medically stable for discharge.
--- NOTE | 2019-09-23 09:15 | NUR ---
DR ZUNIGA HERE AND PATIENT EXAMINED & VENT CHANGES MADE/ RESP THERAPY AT BEDSIDE.
--- NOTE | 2019-09-23 10:00 | NUR ---
DR JOEL HERE AND PATIENT EXAMINED
--- NOTE | 2019-09-23 10:15 | NUR ---
LEVOPHED DRIP INCREASED TO 8mcg/min...
--- NOTE | 2019-09-23 10:30 | NUR ---
Director Of Consumer Affairs in to see patient. He is currently intubated. Will follow up at a later time. He is short term at [facility]. digital media planner following.
--- NOTE | 2019-09-23 11:22 | NUR ---
ABG DRAWN VIA RESP THERAPY AND PATIENT PLACED ON AC.
[2019-09-23 11:25] LABS: ARTERIAL BLOOD GAS PH 7.298 (7.35-7.45)
[2019-09-23 13:05] LABS: ABG BASE EXCESS -0.7 mmol/L (-2.0-2.0); ARTERIAL BLOOD GAS PH 7.32 (7.35-7.45)
--- NOTE | 2019-09-23 13:15 | NUR ---
ABG DONE BY RESP THERAPY PER ORDERS.. DR ZUNIGA CALLED AND UPDATED ON CONDITION... LEVOPHED DRIP DECREASED TO 7mcg/min ORDER TO LEAVE VENT ON AC
--- NOTE | 2019-09-23 15:54 | NUR ---
DR ZUNIGA AWARE OF SPUTUM RESULTS - ORDER TO DC VANCOMYCIN...
--- NOTE | 2019-09-23 16:00 | NUR ---
VERSED GIVEN AFTER REMAINING RESTLESS POST ASSESSMENTS & TREATMENTS. VSS. DIPRIVAN & LEVOPHED DRIPS CONTINUE
--- NOTE | 2019-09-23 20:14 | NUR ---
VERSED GIVEN AT 1930 FOR AGITATION/BITING ETT EFFECTIVE... PT CALMER.
--- NOTE | 2019-09-23 21:05 | NUR ---
COMPLETE BATH AND BED LINEN CHANGE DONE. PT HAD SMALL BROWN MUSHY BM ALSO.
--- NOTE | 2019-09-23 21:41 | NUR ---
PROPOFOL WAS TITRATED UP TO 30 MCG FOR AGITATION, GAGGING AND BITING ETT. LEVOPHED TITRATED DOWN TO 4MCG/MIN AND BP/MAP HOLDING STEADY.
--- NOTE | 2019-09-23 23:48 | NUR ---
LEVOPHED HAS BEEN TITRATED 1 MCG/MIN AT A TIME TO OFF AT 2330.
[2019-09-24] VITALS (11 sets, daily range): BP systolic 104–197; BP diastolic 64–92
[2019-09-24 04:34] LABS: ABG BASE EXCESS -2.7 mmol/L (-2.0-2.0); ARTERIAL BLOOD GAS PH 7.356 (7.35-7.45)
[2019-09-24 05:04] LABS: ALBUMIN 2.2 gm/dl (3.1-4.5); ALKALINE PHOSPHATASE 65 U/L (45-117); BUN 21 mg/dl (7-24); CHLORIDE 106 mmol/L (98-107); CREATININE 1.27 mg/dL (0.70-1.30); POTASSIUM 3.9 mmol/L (3.5-5.1); SGOT/AST 17 IU/L (3-35); SGPT/ALT 16 U/L (12-78); SODIUM 138 mmol/L (136-145); TOTAL PROTEIN 5.4 gm/dL (6.4-8.2)
[2019-09-24 06:10] LABS: BASO % 0.2 % (0.0-1.0); EOS # 0.1 10*3/uL (0.0-0.4); EOS % 0.4 % (1.0-4.0); HEMATOCRIT 30.3 % (42.0-52.0); HEMOGLOBIN 9.8 g/dl (14.0-18.0); LYMPH # 0.7 10*3/uL (1.3-4.4); LYMPH % 6.1 % (27.0-41.0); MEAN CELL VOLUME 88.9 fl (80.0-94.0); MEAN CORPUSCULAR HGB 28.7 pg (27.0-31.0); MEAN CORPUSCULAR HGB CONC 32.3 g/dl (33.0-37.0); MEAN PLATELET VOLUME 10.4 fl (9.6-12.3); MONO # 1.2 10*3/uL (0.1-1.0); MONO % 10.9 % (3.0-9.0); NEUT # 9.1 10*3/uL (2.3-7.9); NEUT % 81.9 % (47.0-73.0); PLATELET COUNT AUTOMATED 254 10*3/uL (130-400); RED BLOOD COUNT 3.41 10*6/uL (4.50-5.90); RED CELL DISTRI WIDTH 17.5 % (0-14.5); WHITE BLOOD COUNT 11.1 10*3/uL (4.8-10.8)
--- NOTE | 2019-09-24 10:30 | NUR ---
Debate Director in to see patient. He is currently intubated. Will follow up at a later time. 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 logistics planner following.
--- NOTE | 2019-09-24 19:09 | NUR ---
CHART CHECK COMPLETE. VERSED FOR AGITATION.
--- NOTE | 2019-09-24 20:25 | NUR ---
VERSED AT 1910 WAS EFFECTIVE FOR AGITATION.
--- NOTE | 2019-09-24 23:48 | NUR ---
CONTINUING TO SUCTION ETT FREQUENTLY FOR LG AMTS OF THICK WHITISH YELLOW SECRETIONS. VERSED GIVEN FOR AGITATION/BITING ETT/GAGGING.
[2019-09-25] VITALS (12 sets, daily range): BP systolic 114–180; BP diastolic 60–87
--- NOTE | 2019-09-25 00:43 | NUR ---
COMPLETE BATH WITH HIBICLENS AND BED LINEN CHANGE DONE.
--- NOTE | 2019-09-25 04:02 | NUR ---
VERSED AT 0335 EFFECTIVE FOR AGITATION, BITING ETT, GAGGING/COUGHING.
[2019-09-25 05:46] LABS: ALBUMIN 2.3 gm/dl (3.1-4.5); BUN 18 mg/dl (7-24); CHLORIDE 105 mmol/L (98-107); CREATININE 1.04 mg/dL (0.70-1.30); PHOSPHOROUS 3.7 mg/dL (2.5-4.9); POTASSIUM 3.8 mmol/L (3.5-5.1); SGOT/AST 18 IU/L (3-35); SGPT/ALT 16 U/L (12-78); SODIUM 138 mmol/L (136-145); TOTAL PROTEIN 5.5 gm/dL (6.4-8.2)
[2019-09-25 05:49] LABS: ALKALINE PHOSPHATASE 63 U/L (45-117)
--- NOTE | 2019-09-25 05:59 | NUR ---
VERSED GIVEN AT 0550 FOR AGITATION EFFECTIVE. PT CALM, BODY RELAXED.
[2019-09-25 06:06] LABS: BASO % 0.4 % (0.0-1.0); EOS # 0.1 10*3/uL (0.0-0.4); EOS % 1.1 % (1.0-4.0); HEMATOCRIT 30.5 % (42.0-52.0); HEMOGLOBIN 9.8 g/dl (14.0-18.0); LYMPH # 0.9 10*3/uL (1.3-4.4); LYMPH % 11.3 % (27.0-41.0); MEAN CELL VOLUME 88.2 fl (80.0-94.0); MEAN CORPUSCULAR HGB 28.3 pg (27.0-31.0); MEAN CORPUSCULAR HGB CONC 32.1 g/dl (33.0-37.0); MEAN PLATELET VOLUME 10.2 fl (9.6-12.3); MONO % 13.4 % (3.0-9.0); NEUT # 5.5 10*3/uL (2.3-7.9); NEUT % 73.3 % (47.0-73.0); PLATELET COUNT AUTOMATED 267 10*3/uL (130-400); RED BLOOD COUNT 3.46 10*6/uL (4.50-5.90); RED CELL DISTRI WIDTH 17.3 % (0-14.5); WHITE BLOOD COUNT 7.5 10*3/uL (4.8-10.8)
--- NOTE | 2019-09-25 07:27 | NUR ---
24 HR chart check completed.
[2019-09-25 07:37] LABS: ABG BASE EXCESS 1.9 mmol/L (-2.0-2.0); ARTERIAL BLOOD GAS PH 7.433 (7.35-7.45)
--- NOTE | 2019-09-25 08:17 | NUR ---
PT RESTING QUIETLY ON BED AT THIS TIME. NO DISTRESS NOTED. PT NPO STATUS AT THIS TIME PENDING BRONCH PROCEDURE. ET TUBE PATENT AND SECURE. 26 AT LIP. ET TUBE BALLOON PATENT. AIR BOLUS NOTED VIA OG TUBE VERIFYING PLACEMENT. NO RESIDUAL. DIPROVAN INFUSING AT 23.4ML OR 30MCG. PT AROSABLE TO VOICE OR STIMULI. BILLY CATHETER PATENT. HEEL RISERS IN PLACED WITH SCDS. VITALS STABLE.
--- NOTE | 2019-09-25 10:11 | NUR ---
PT RESTING QUIETLY. MODERATE THICK MUCOUS SUCTIONED FROM CLOSED SYSTEM. CLEAR SECRETIONS FROM MOUTH. RESPIRATIONS EASY AND NON LABORED. NO ACUTE DISTRESS. CONTINUE TO MONITOR.
--- NOTE | 2019-09-25 12:25 | NUR ---
PT RESTING QUIETLY NO DISTRESS. RESPIRATIONS EASY AND NON LABORED. LOW GRADE TEMPERATURE NOTED WITH SLIGHT ELEVATION IN HEART RATE. DIPROVAN INFUSION CONTINUES. CONTINUE TO MONITOR.
--- NOTE | 2019-09-25 12:44 | NUR ---
PT TRANSPORTED TO OR FOR BRONCH PROCEDURE. STABLE UPON LEAVING DEPARTMENT. BAG VALVE MASK USED TO MAINTAIN CONCENTRATIONS.
--- NOTE | 2019-09-25 13:18 | NUR ---
PT BACK FROM OR. BRONCH COMPLETED. PT PLACED BACK ON VENTILATOR. TOLERATING TREATMENT WELL NO ACUTE DISTRESS.
--- NOTE | 2019-09-25 13:30 | NUR ---
TUBE FEEDING RESUMED AT 20ML/HR WITH PULMOCARE PER MD ORDERS. PT TOLERATING WELL. NO ACUTE DISTRESS NOTED. SLIGHT BLOOD TINGED SPUTUM NOTED ON CLOSED SUCTIONING.
--- NOTE | 2019-09-25 14:31 | NUR ---
VERSED GIVEN IVP PER ORDER DUE TO INCREASED AGITATION. DIPROVAN CONTINUES AT 30MCG OR 23.4ML/HR
--- NOTE | 2019-09-25 14:52 | NUR ---
VERSED EFFECTIVE. PT RESTING QUIELTY. NO DISTRESS NOTED.
--- NOTE | 2019-09-25 19:41 | NUR ---
1939 VERSED 5MG IV FOR AGITATION. EFFECTIVE.
--- NOTE | 2019-09-25 20:13 | NUR ---
1950 RESTING IN BED ON RIGHT SIDE. HOB ELEVATED. SIDE RAILS UP X'S 2. REMAINS NPO. ORAL AND EYE CARE DONE. LARGE AMOUNT ORAL SECRETIONS CONT. ET SECURE TO VENT. PULSE OX 97%. HEP LOCK'S INTACT X'S 2. RA. RF MLC INTACT. DIPRIVAN MAINTAINED AT 3OMICS. SEE INTERVENTION SCREEN FOR Q2H BP'S. BILLY PATENT AND DRAINING CLEAR YELLOW URINE. SL TEMP NOTED OF 100.5 TYMPANIC. NO DISTRESS NOTED.
--- NOTE | 2019-09-25 22:04 | NUR ---
2129 INCONTINENT OF LARGE AMOUNT LIQUID, BROWN BM. HAD 2 OTHER LIQUID BM'S WHILE TURNING DURING BATH. REPOSITIONED. COMPLETE BED BATH GIVEN AND LINENS CHANGED.
--- NOTE | 2019-09-25 23:12 | NUR ---
VERSED FOR AGITATION AND RESTLESSNESS AND IMMEDIATELY EFFECTIVE. SUCITIONED ORALLY AND VIA ET FOR LARGE AMOUNT SECRETIONS.
[2019-09-26] VITALS (12 sets, daily range): BP systolic 100–176; BP diastolic 46–88
--- NOTE | 2019-09-26 02:24 | NUR ---
0215 RESTLESS AND COUGHING. SUCTIONED. VERSED IV FOR RESTLESSNESS AND EFFECTIVE.
[2019-09-26 04:59] LABS: BASO % 0.2 % (0.0-1.0); EOS # 0.2 10*3/uL (0.0-0.4); EOS % 1.9 % (1.0-4.0); HEMATOCRIT 30.9 % (42.0-52.0); HEMOGLOBIN 10.1 g/dl (14.0-18.0); LYMPH # 1.3 10*3/uL (1.3-4.4); LYMPH % 14.9 % (27.0-41.0); MEAN CORPUSCULAR HGB 28.8 pg (27.0-31.0); MEAN CORPUSCULAR HGB CONC 32.7 g/dl (33.0-37.0); MEAN PLATELET VOLUME 9.6 fl (9.6-12.3); MONO # 1.1 10*3/uL (0.1-1.0); MONO % 13.5 % (3.0-9.0); NEUT # 5.8 10*3/uL (2.3-7.9); PLATELET COUNT AUTOMATED 228 10*3/uL (130-400); RED BLOOD COUNT 3.51 10*6/uL (4.50-5.90); RED CELL DISTRI WIDTH 17.2 % (0-14.5); WHITE BLOOD COUNT 8.5 10*3/uL (4.8-10.8)
[2019-09-26 05:16] LABS: ALBUMIN 2.4 gm/dl (3.1-4.5); BUN 16 mg/dl (7-24); CHLORIDE 106 mmol/L (98-107); CREATININE 1.08 mg/dL (0.70-1.30); PHOSPHOROUS 3.6 mg/dL (2.5-4.9); POTASSIUM 3.7 mmol/L (3.5-5.1); SGOT/AST 13 IU/L (3-35); SGPT/ALT 15 U/L (12-78); SODIUM 140 mmol/L (136-145); TOTAL PROTEIN 5.7 gm/dL (6.4-8.2)
[2019-09-26 05:17] LABS: ALKALINE PHOSPHATASE 63 U/L (45-117)
--- NOTE | 2019-09-26 06:07 | NUR ---
ET SECURE TO VENT. PULSE OX 95%, WRIST RESTRAINTS INTACT BILATERALLY. BILLY PATENT. OGT INTACT. CONDITION GUARDED.
--- NOTE | 2019-09-26 07:06 | NUR ---
Shift chart check completed.24 HR chart check completed.
--- NOTE | 2019-09-26 07:49 | NUR ---
ON ASSESSMENT PATIENT AROUSES TO HIS NAME ON CURRENT DOSE OF DIPRIVAN 30MCG/KG/MIN. REMAINS ORALLY INTUBATED, ON VENTILATOR. BILLY PATENT MERVAT URINE. PULMOCARE TUBE FEEDINGS AT 20/HR. SOFT RESTRAINTS IN PLACE. DR SAXENA HAS VISITED. EYE PATCH IN PLACE TO LEFT EYE. BED IN ROTATION MODE. MLC INTACT RT FEMEROL. SEE ALL APPROPRIATE INTERVENTIONS.
[2019-09-26 08:03] LABS: ABG BASE EXCESS 2.7 mmol/L (-2.0-2.0); ARTERIAL BLOOD GAS PH 7.415 (7.35-7.45)
--- NOTE | 2019-09-26 10:56 | NUR ---
WOUND CARE TO TWO SKIN TEARS LEFT ARM. THE OPTIFOAMS WERE VERY DIFFICULT TO REMOVE TO FRAGILITY OF THE SKIN. VERSATEL/HYDROGEL APPLIED WITH NON-STICK PADS. ENTIRE ARM WRAPPED WITH A VISHNU TO AVOID TAPE, OPTIFOAMS NOT REAPPLIED. TUBI-MARINE REPORTER THEN APPLIED OVER THAT TO FURTHER PROTECT THE ARM AND TO AVOID ADHESIVE TAPE.
--- NOTE | 2019-09-26 13:05 | NUR ---
SEDATION VACATION DONE. DR ZUNIGA VISITED. PT GRASPED MY HAND ON COMMAND. NO PLANS FOR EXTUBATION TODAY. DIPRIVAN RESUMED AT 30MCG/KG/MIN.
--- NOTE | 2019-09-26 16:27 | NUR ---
INCONTINENT LOOSE BM. IV VERSED GIVEN TO FACILITATE CLEAN UP.
--- NOTE | 2019-09-26 19:49 | NUR ---
PT. GIVEN VERSED FOR CHOKING AND ELEV B/P. IMMEDIATELY EFFECTIVE.
--- NOTE | 2019-09-26 20:16 | NUR ---
PT. RESTING COMFORTABLY. DIPROVAN INFUSING VIA MEDIAL PORT OF RIGHT FEMORAL MLC. ALL PORTS PATENT AND MLC SITE ASYMPT. LUNGS HAVE SCATTERED RHONCHI BILAT BUT DIMINISHED, PULSE OX 98% ON 30% FIO2. ABDOMEN SOFTLY DISTENDED AND NORMO, PT. OBESE. DEPENDENT EDEMA NOTED OF EXTREMITIES MOSTLY UPPER, ARMS AND HANDS. BILLY DRAINING A CLEAR YELLOW URINE. OGT HAS PULMOCARE TF INFUSING, PLACEMENT CONFIRMED WITH AIR BOLUS AND NO RESIDUAL WAS NOTED. PT. GIVEN ORAL MOUTH CARE AND SUCTIONED ORALLY AND VIA ENDO FOR MODERATE AND LARGE AMTS OF MUCOUS. LEFT EYE PATCH INTACT. DRESSINGS TO LEFT ARM COVERED WITH TUBI CAR CONSTRUCTION SUPERINTENDENT AND REMAINS ASYMPT. SOFT WRIST RESTRAINTS BILAT TO PREVENT ACCIDENTAL SELF-EXTUBATION. SUSANNA HANDY RN
--- NOTE | 2019-09-26 22:14 | NUR ---
VERSED GIVEN FOR RESTLESSNESS AT 1487, IMMEDIATELY EFFECTIVE. SUSANNA HANDY RN
--- NOTE | 2019-09-26 23:48 | NUR ---
PT. GIVEN BED BATH AND BED LINEN CHANGED, TOLERATED WELL. INCONTINENT FOR SMALL BROWN LIQUID BM. RIGHT FEMORAL MLC DRESSING CHANGED PER POLICY.
[2019-09-27] VITALS (12 sets, daily range): BP systolic 106–195; BP diastolic 55–97
--- NOTE | 2019-09-27 01:03 | NUR ---
PT. GIVEN VERSED AT 0057 FOR RESTLESSNESS, IMMEDIATELY EFFECTIVE. SUSANNA HANDY RN
--- NOTE | 2019-09-27 03:39 | NUR ---
PT. GIVEN VERSED AT 0301 FOR RESTLESSNESS AND COUGHING. IMMEDIATELY EFFECTIVE.
[2019-09-27 07:17] LABS: ABG BASE EXCESS 5.8 mmol/L (-2.0-2.0); ARTERIAL BLOOD GAS PH 7.435 (7.35-7.45)
--- NOTE | 2019-09-27 09:00 | NUR ---
Air Hole Driller in to see patient. He is currently intubated. Will follow up at a later time. 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 train planner following.
--- NOTE | 2019-09-27 09:09 | NUR ---
I spoke with Dr Curtis, the ophthamologist who performed his cataract surgery on the , and he stated he did not see any problem with pt wearing bipap mask as long as the mask did not push on the pt's affected eye.
--- NOTE | 2019-09-27 09:24 | NUR ---
DR ZUNIGA IN TO SEE PT. SEDATION TURNED OFF AND RESPIRATORY THERAPY NOTIFIED THAT PT NEEDS PLACED ON C-PAP WHEN AWAKE. CURRENT VITALS NSR RATE 90'S. POX 96%. BP 139/73. RESPIRATORY RATE 23.
--- NOTE | 2019-09-27 09:30 | NUR ---
Placed patient in CPAP / per 's orders. Patient's RR 26, SPO2 95%, HR 98. Vent parameters charted. Will continue to monitor.
--- NOTE | 2019-09-27 09:33 | NUR ---
PT AWAKE. PLACED ON C-PAP AT THIS TIME.
--- NOTE | 2019-09-27 09:58 | NUR ---
Patient placed back on previous settings per Dr. Hannah.
--- NOTE | 2019-09-27 09:59 | NUR ---
PT TACHYCARDIC AT 100-110. RESPIRATORY RATE 30-40. POX DROPPING TO LOW 80'S ON 30% O2. O2 INCREASED TO 40%. PT HAVING LARGE AMOUNT OF SECRETIONS. SUCTIONED NUMEROUS TIMES ORALLY AND DEEP SUCTION VIA ENDOTUBE. DR ZUNIGA AWARE OF PT DISTRESS AND ORDER TO PLACE PT BACK ON VENTILATOR AC MODE. PT AWAKE FOLLOWING WITH EYES BUT NOT FOLLOWING COMMANDS. DIPRIVAN GTT RESTARTED FOR SEDATION.
--- NOTE | 2019-09-27 10:06 | NUR ---
Nutritional Support Services Note: Pt remains on vent. Ht.6' Wt.285# IBW 178# He is approx. 107# above upper limit of IBW range. He requires approx. 2500cal daily. He is receiving Pulmocare via OGT at 40cc/hr providing pt with 960cc/46117mzg daily. Will follow for advancement of diet. Elizabeth Strauss Rdn Ld
--- NOTE | 2019-09-27 10:10 | NUR ---
PT RESPIRATORY RATE DOWN TO 18. HR 106. POX 95% ON 30% FI02.
--- NOTE | 2019-09-27 14:14 | NUR ---
Spoke with Axel regarding this patient and LTACH> She stated this patients insurance has a 21/ rule. 21 days on the vent with 7 documented failed attempts. Patients insurance will not approve LTACH at this time.
[2019-09-27 14:47] LABS: BASO % 0.3 % (0.0-1.0); EOS # 0.3 10*3/uL (0.0-0.4); EOS % 4.2 % (1.0-4.0); HEMATOCRIT 32.1 % (42.0-52.0); HEMOGLOBIN 10.4 g/dl (14.0-18.0); LYMPH # 1.2 10*3/uL (1.3-4.4); LYMPH % 15.8 % (27.0-41.0); MEAN CELL VOLUME 88.7 fl (80.0-94.0); MEAN CORPUSCULAR HGB 28.7 pg (27.0-31.0); MEAN CORPUSCULAR HGB CONC 32.4 g/dl (33.0-37.0); MEAN PLATELET VOLUME 9.2 fl (9.6-12.3); MONO # 0.9 10*3/uL (0.1-1.0); MONO % 12.1 % (3.0-9.0); NEUT # 5.1 10*3/uL (2.3-7.9); NEUT % 67.1 % (47.0-73.0); PLATELET COUNT AUTOMATED 197 10*3/uL (130-400); RED BLOOD COUNT 3.62 10*6/uL (4.50-5.90); RED CELL DISTRI WIDTH 16.7 % (0-14.5); WHITE BLOOD COUNT 7.6 10*3/uL (4.8-10.8)
[2019-09-27 15:02] LABS: ALBUMIN 2.5 gm/dl (3.1-4.5); ALKALINE PHOSPHATASE 62 U/L (45-117); BUN 18 mg/dl (7-24); CHLORIDE 105 mmol/L (98-107); CREATININE 1.19 mg/dL (0.70-1.30); PHOSPHOROUS 3.8 mg/dL (2.5-4.9); POTASSIUM 3.3 mmol/L (3.5-5.1); SGOT/AST 16 IU/L (3-35); SGPT/ALT 22 U/L (12-78); SODIUM 142 mmol/L (136-145)
--- NOTE | 2019-09-27 17:54 | NUR ---
PT BECOMES AGITATED WITH ANY NURSING CARE. PT MEDICATED WITH VERSED 5MG DUE TO TRYING TO SWING HIS FIST AT NURSE WE WERE TRYING TO DO INCONTINENCE CARE.
--- NOTE | 2019-09-27 19:39 | NUR ---
VERSED GIVEN ORDERED AT 1936 FOR RESTLESSNESS AND CHOKEY COUGH. SUSANNA HANDY RN
--- NOTE | 2019-09-27 23:38 | NUR ---
VERSED IMMEDIATELY EFFECTIVE FOR SHORT PERIODS.
--- NOTE | 2019-09-27 23:38 | NUR ---
PT. GIVEN VERSED AT 2340 ORDERED FOR RESTLESSNESS.
[2019-09-28] VITALS (8 sets, daily range): BP systolic 119–187; BP diastolic 64–99
--- NOTE | 2019-09-28 03:56 | NUR ---
VERSED GIVEN FOR RESTLESSNESS WITH IMMEDIATE RESULTS.
--- NOTE | 2019-09-28 05:33 | NUR ---
PT.. GIVEN VERSED ORDERED AT 0528 FOR RESTLESSNESS AND GAGGING. IMMEDIATELY EFFECTIVE.
[2019-09-28 06:18] LABS: BASO % 0.2 % (0.0-1.0); EOS # 0.4 10*3/uL (0.0-0.4); EOS % 4.5 % (1.0-4.0); HEMATOCRIT 33.8 % (42.0-52.0); HEMOGLOBIN 10.7 g/dl (14.0-18.0); LYMPH # 1.4 10*3/uL (1.3-4.4); MEAN CELL VOLUME 88.7 fl (80.0-94.0); MEAN CORPUSCULAR HGB 28.1 pg (27.0-31.0); MEAN CORPUSCULAR HGB CONC 31.7 g/dl (33.0-37.0); MONO # 0.9 10*3/uL (0.1-1.0); MONO % 11.3 % (3.0-9.0); NEUT # 5.4 10*3/uL (2.3-7.9); NEUT % 66.3 % (47.0-73.0); PLATELET COUNT AUTOMATED 219 10*3/uL (130-400); RED BLOOD COUNT 3.81 10*6/uL (4.50-5.90); RED CELL DISTRI WIDTH 16.8 % (0-14.5); WHITE BLOOD COUNT 8.2 10*3/uL (4.8-10.8)
[2019-09-28 06:22] LABS: ALBUMIN 2.7 gm/dl (3.1-4.5); ALKALINE PHOSPHATASE 65 U/L (45-117); BUN 20 mg/dl (7-24); CHLORIDE 108 mmol/L (98-107); CREATININE 1.09 mg/dL (0.70-1.30); POTASSIUM 3.5 mmol/L (3.5-5.1); SGPT/ALT 25 U/L (12-78); SODIUM 144 mmol/L (136-145); TOTAL PROTEIN 6.2 gm/dL (6.4-8.2)
[2019-09-28 06:23] LABS: SGOT/AST 23 IU/L (3-35)
[2019-09-28 07:06] LABS: ABG BASE EXCESS 6.8 mmol/L (-2.0-2.0); ARTERIAL BLOOD GAS PH 7.449 (7.35-7.45)
[2019-09-28 11:39] LABS: ABG BASE EXCESS 7.1 mmol/L (-2.0-2.0); ARTERIAL BLOOD GAS PH 7.417 (7.35-7.45)
[2019-09-28 13:05] LABS: ACID FAST SPEC PROCESSING Concentration (.)
--- NOTE | 2019-09-28 13:07 | NUR ---
Process Improvement Consultant in to see patient. He is currently on bipap. 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 He uses a walker/cane to ambulate. Has O2 at the facility. master planner following.
--- NOTE | 2019-09-28 15:50 | NUR ---
PATIENT MEDICATED WITH CEPACOL TAYLOR PER PRN ORDER FOR C/O SORE THROAT.
--- NOTE | 2019-09-28 20:05 | NUR ---
PT. RESTING IN BED. RIGHT FEMORAL MLC INTACT. LUNGS DIMINISHED BILAT, PULSE OX 93% ON BIPAP 30%. ABDOMEN SOFTLY DISTENDED AND NORMO. BILLY DRAINING A DARK YELLOW URINE. UPPER EXTREMITY EDEMA NOTED. RESP. EASY AND REG AT REST, NO DISTRESS. SUSANNA HANDY RN
--- NOTE | 2019-09-28 23:11 | NUR ---
PT. ON BED CORTÉS REQUESTING TYLENOL FOR HEADACHE. AFTER STATING NURSE WOULD GET TYLENOL AFTER REMOVING PT FROM BED PAIN. PT. PULLED OUT BED PAIN WITH BM IN IT AND TOSSED IT ON THE BED AND STATED "NOW I WANT TYLENOL". PT. CLEANED UP AND PULLED UP IN BED AND REPOSITIONED. EXPLAINED TO PATIENT THAT BEHAVIOR WAS UNACCEPTABLE. SUSANNA HANDY RN
--- NOTE | 2019-09-28 23:30 | NUR ---
TYLENOL GIVEN PER PT REQUEST FOR GENERAL ACHES AND PAINS.
[2019-09-29] VITALS: BP 112/80
--- NOTE | 2019-09-29 00:08 | NUR ---
PT. STATES TYLENOL MINIMALLY EFFECTIVE. SUSANNA HANDY RN
[2019-09-29 04:00] VITALS: BP 102/56
--- NOTE | 2019-09-29 04:40 | NUR ---
PT. RIPPED OFF BIPAP AND IS YELLING AND CARRYING ON. UNABLE TO GET PT. TO WEAR NASAL CANNULA OR BIPAP. RESP. CALLED FOR ASSIST. SUSANNA HANDY RN
[2019-09-29 04:58] LABS: ALBUMIN 2.7 gm/dl (3.1-4.5); ALKALINE PHOSPHATASE 63 U/L (45-117); BUN 20 mg/dl (7-24); CHLORIDE 105 mmol/L (98-107); CREATININE 1.07 mg/dL (0.70-1.30); PHOSPHOROUS 3.8 mg/dL (2.5-4.9); POTASSIUM 3.3 mmol/L (3.5-5.1); SGOT/AST 16 IU/L (3-35); SGPT/ALT 25 U/L (12-78); SODIUM 144 mmol/L (136-145)
[2019-09-29 06:14] LABS: BASO % 0.4 % (0.0-1.0); EOS # 0.5 10*3/uL (0.0-0.4); HEMATOCRIT 32.8 % (42.0-52.0); HEMOGLOBIN 10.1 g/dl (14.0-18.0); LYMPH # 1.4 10*3/uL (1.3-4.4); LYMPH % 19.3 % (27.0-41.0); MEAN CELL VOLUME 91.4 fl (80.0-94.0); MEAN CORPUSCULAR HGB 28.1 pg (27.0-31.0); MEAN CORPUSCULAR HGB CONC 30.8 g/dl (33.0-37.0); MEAN PLATELET VOLUME 10.1 fl (9.6-12.3); MONO # 0.6 10*3/uL (0.1-1.0); MONO % 8.4 % (3.0-9.0); NEUT # 4.7 10*3/uL (2.3-7.9); PLATELET COUNT AUTOMATED 210 10*3/uL (130-400); RED BLOOD COUNT 3.59 10*6/uL (4.50-5.90); RED CELL DISTRI WIDTH 16.6 % (0-14.5); WHITE BLOOD COUNT 7.4 10*3/uL (4.8-10.8)
[2019-09-29 08:00] VITALS: BP 139/83
--- NOTE | 2019-09-29 08:14 | NUR ---
PT AAOX3. VSS. PT RESTING. EXP. WHEEZING NOTED IN LUNG PEREZ. PT STATES HE HAS AN OCCASSIONAL COUGH PRODUCTIVE OF GREEN SPUTUM. ABD. SOFT WITH ACTIVE BOWEL SOUNDS. BILLY CATH PATENT FOR CLEAR YELLOW URINE. NO PERIPHERAL EDEMA NOTED AT THIS TIME. BILATERAL TUBI GROWTH HACKER ON PT. BREAKFAST ORDERED. PT DENIES COMPLAINTS AT THIS TIME. WILL CONTINUE TO MONITOR PT.
--- NOTE | 2019-09-29 09:00 | NUR ---
Metalizer in to see patient. Patient states "Daly get me out of here." Explained patient was in the hospital. He states "Take me to [place]." Explained he is in [facility]. He [place] thought [place] the country [place] 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 operations planner following.
--- NOTE | 2019-09-29 09:25 | NUR ---
RAFAEL RATLIFF [id number] Please refer to the physician's history and physical for past medical history, comorbid conditions, and allergies. Diagnosis: SURESH,HYPERCAPNIC RESP FAILURE, LEUKOCYTOSIS, SEPSIS Mp Score: 12,HIGH RISK WOUND DESCRIPTIONS: Wound Number: 1 Location of the wound: left forearm Type of wound: skin tear Thickness: Partial Size: 0.5cm x 1.0cm x 0.1cm Tunneling: none Undermining: none Sinus Tract: none Presence of Exudate: Serosanguineous Amount: Light Color: Red Odor: None Periwound Skin Appearance: Normal Wound edges: approximated Pain (associated with wound): none at time of assessment How does patient state this happened? pt unable to state how this happened Wound Number: 2 Location of the wound: left arm Type of wound: skin tear Thickness: Partial Size: 0.8cm x 4.0cm x 0.1cm Tunneling: none Undermining: none Sinus Tract: none Presence of Exudate: Serosanguineous Amount: Light Color: Red Odor: None Periwound Skin Appearance: Normal Wound edges: approximated Pain (associated with wound): none at time of assessment How does patient state this happened? pt unable to state how this happened Surface the patient is resting on: XPRT SKIN PREVENTION RECOMMENDATION: 1. Pressure redistribution support surface as appropriate 2. Elevate heels 3. Remove boots/TEDS every shift and reapply 4. Head of bed 30 degrees as tolerated 5. Assess nutrition and hydration 6. Manage moisture 7. Avoid the use of containment devices while in bed 8. Use absorptive products on surfaces limit layers of linens on bed 9. Turn and reposition every 1-2 hours in bed and every 1 hour in chair as tolerated 10. Weight shifts every 15 minutes while up in chair 11. Offloading with pillows or device to keep heels elevated off bed 12. Monitor skin at least every shift 13. Inspect under medical devices twice a day WOUND TREATMENT RECOMMENDATIONS: Continue skin tear guidelines to left forearm and left arm.
--- NOTE | 2019-09-29 10:05 | NUR ---
Occupational therapy orders received and OT evaluation completed in full on the ICCU. Patient precautions include fall risk, 5LO2, ICCU, heart monitor, SOB, B/L UE edema, increased pain. Per OT jazz, OT recommends SNF. Patient would benefit from continued OT treatment to maximize strength and independence for ADL completion, transfers, and mobility. Patient complexity is high, [id number]. Thank you for the referral. Jesusita Carbajal, OTR/L
--- NOTE | 2019-09-29 10:22 | NUR ---
Nutritional Support Services Note: Pt no longer on the vent. Ordered a regular diet po. Skin tears noted to arms. Ht.6' Wt.285#. Will monitor for po intake. Protein calorie malnutrition noted. Pt may require supplement if po intake is not good. Will continue to monitor. Elizabeth Strauss Rdn Ld
--- NOTE | 2019-09-29 10:25 | NUR ---
PHYSICAL THERAPY Eval completed at the bedside in ICU pt high complexity level [id number] recomend SNF at discharge. PT to work on transfers, amb w fww, strengthening/balance and safety. Full report to follow Helen Reyna PT
--- NOTE | 2019-09-29 11:20 | NUR ---
DR JOEL IN TO SEE PT.
--- NOTE | 2019-09-29 15:32 | NUR ---
TRANSFERRED TO [facility] FROM [facility]. REPORT REC'D FROM NEERAJ HARRIS. S.
--- NOTE | 2019-09-29 15:49 | NUR ---
PT TRANSFERED TO 427 VIA BED. PT REPORT GIVEN TO RECEIVNG NURSE.
[2019-09-29 16:00] VITALS: BP 126/59
[2019-09-29 20:00] VITALS: BP 144/67
--- NOTE | 2019-09-29 20:23 | NUR ---
1954 C/O GENERALIZED DISCOMFORT. TYLENOL 2 PO FOR THIS. WILL MONITOR. RESTING IN BED WATCHING TV. HOB ELEVATED. SIDE RAILS UP X'S 2. CALL LIGHT IN REACH. PULSE OX 93% WITH 02 INTACT. NO DISTRESS NOTED.
--- NOTE | 2019-09-29 21:31 | NUR ---
INCONTINENT OF LARGE AMOUNT URINE. CORINE CARE DONE AND LINENS CHANGED.
--- NOTE | 2019-09-29 22:12 | NUR ---
EARLIER TYLENOL ONLY SL EFFECTIVE.
[2019-09-30] VITALS: BP 120/70
--- NOTE | 2019-09-30 01:01 | NUR ---
RESTING IN BED WITH EYES CLOSED. APPEARS TO BE SLEEPING. BIPAP INTACT. PULE OX 93%
[2019-09-30 06:06] LABS: BASO % 0.4 % (0.0-1.0); EOS # 0.5 10*3/uL (0.0-0.4); EOS % 6.2 % (1.0-4.0); HEMATOCRIT 33.9 % (42.0-52.0); HEMOGLOBIN 10.3 g/dl (14.0-18.0); LYMPH # 1.3 10*3/uL (1.3-4.4); LYMPH % 16.8 % (27.0-41.0); MEAN CELL VOLUME 93.1 fl (80.0-94.0); MEAN CORPUSCULAR HGB 28.3 pg (27.0-31.0); MEAN CORPUSCULAR HGB CONC 30.4 g/dl (33.0-37.0); MEAN PLATELET VOLUME 10.3 fl (9.6-12.3); MONO # 0.6 10*3/uL (0.1-1.0); MONO % 7.7 % (3.0-9.0); NEUT # 5.2 10*3/uL (2.3-7.9); NEUT % 68.2 % (47.0-73.0); PLATELET COUNT AUTOMATED 253 10*3/uL (130-400); RED BLOOD COUNT 3.64 10*6/uL (4.50-5.90); RED CELL DISTRI WIDTH 16.3 % (0-14.5); WHITE BLOOD COUNT 7.6 10*3/uL (4.8-10.8)
--- NOTE | 2019-09-30 06:16 | NUR ---
BACK ON 02 VIA NC. RESTING IN BED WITH EYES CLOSED. APPEARS TO BE SLEEPING. CONDITION GUARDED.
[2019-09-30 06:35] LABS: ALBUMIN 2.7 gm/dl (3.1-4.5); BUN 21 mg/dl (7-24); CHLORIDE 105 mmol/L (98-107); CREATININE 0.99 mg/dL (0.70-1.30); PHOSPHOROUS 3.7 mg/dL (2.5-4.9); POTASSIUM 3.4 mmol/L (3.5-5.1); SGOT/AST 15 IU/L (3-35); SODIUM 143 mmol/L (136-145)
[2019-09-30 06:37] LABS: ALKALINE PHOSPHATASE 47 U/L (45-117); SGPT/ALT 28 U/L (12-78); TOTAL PROTEIN 6.1 gm/dL (6.4-8.2)
[2019-09-30 08:00] VITALS: BP 122/72
--- NOTE | 2019-09-30 08:24 | NUR ---
Updated clinicals faxed to [facility] for review. patient is ok to return when medically stable for discharge.
--- NOTE | 2019-09-30 08:47 | NUR ---
PT. WORE HIS BIPAP FOR APPRX 2 HOURS LAST NIGHT. BIPAP OFF AT THIS TIME.
--- NOTE | 2019-09-30 10:30 | NUR ---
Garnetter in to see patient. No new needs or request at this time. 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 funeral planner following.
--- NOTE | 2019-09-30 11:40 | NUR ---
NORCO 7.5/325 MG GIVEN FOR C/O GENERALIZED PAIN,06/17.
[2019-09-30 12:00] VITALS: BP 128/73
--- NOTE | 2019-09-30 12:50 | NUR ---
OT NOTE Pt was seen this P.M. 1:1 for 18 minute OT session. Upon arrival pt was supine in bed. Pt identified by name and and had no complaints at this time. Pt presented to therapy with continuous 4L-O2 via NC which he remained on throughout the entire session. Pt transferred supine to sit EOB with modA X 2. While sitting EOB challenged pt's dynamic sitting balance needed for increased I and enhanced safety. Pt was able to maintain F+ sitting balance throughout. Sit to stand then completed from the EOB with modA X 2 OUTREACH ANALYST followed by standing pivot from the EOB to the recliner. There he was left sitting upright with call light in hand, tray table in place, and body alarm activated for safety. Continue with POC as able. HELGA Tomlinson/Khurram
--- NOTE | 2019-09-30 13:05 | NUR ---
PHYSICAL THERAPY Patient seen this pm 1:1 for therapy visit and was resting supine in bed upon therapist arrival. Patient identified by name / and presented with continuos O2-4L via NC. Patient reports generalized global pain / weakness, but otherwise was quite pleasant. Patient transfered supine to sit EOB with MOD A x 2, tolerating static EOB sit x several minutes to collect himself. Patient c/o of mild dizziness upon intial rise and instructed on visual fixation technique. Patient reported no new c/o's after a minute or so and was able to perform seated B LE therex, all planes, x 10 reps each, demonstrating decreased AROM with marching / LAQ's. Patient instructed on safe SPT and completed sit to stand LEAF TINNER/MOD A x 2, then SPT to bedside chair without c/o. Patient remained in chair with call light, telephone and tray table. Patient declined body alarm stating he will not get up without using his call light for assistance. Will continue per POC as tolerated, total treatment time 17 minutes. Brando Franz, VICE PRESIDENT NETWORK DEVELOPMENT
[2019-09-30 16:00] VITALS: BP 138/77
--- NOTE | 2019-09-30 17:37 | NUR ---
TYLENOL 650 MG GIVEN FOR C/O PAIN,06/17.
--- NOTE | 2019-09-30 19:55 | NUR ---
1940 UP IN CHAIR AT BEDSIDE EATING SUPPER. MEDICATED WITH NORCO PO FOR C/O'S GENERALIZED PAIN. RATES PAIN AN "8". WILL MONITOR.
[2019-09-30 20:00] VITALS: BP 134/57
--- NOTE | 2019-09-30 21:40 | NUR ---
EARLIER PAIN MED EFFECTIVE.
--- NOTE | 2019-09-30 22:17 | NUR ---
REMAINS SITTING UP IN RECLINER CHAIR AT BEDSIDE.
[2019-10-01] VITALS: BP 92/56
--- NOTE | 2019-10-01 00:03 | NUR ---
Patient placed on NIV for the evening. Patient in no distress.
--- NOTE | 2019-10-01 02:10 | NUR ---
SLEEPING IN RECLINER CHAIR WITH BIPAP ON. NO DISTRESS NOTED.
--- NOTE | 2019-10-01 03:51 | NUR ---
0320 NORCO PO FOR C/O'S GENERALIZED DISCOMFORT. WILL MONITOR.
--- NOTE | 2019-10-01 06:19 | NUR ---
EARLIER PAIN MED EFFECTIVE. REMAINS IN RECLINER CHAIR. NO DISTRESS NOTED. CONDITION GUARDED.
[2019-10-01 08:00] VITALS: BP 108/50; BP 108/61
--- NOTE | 2019-10-01 10:16 | NUR ---
PHYSICAL THERAPY TREATMENT TIME: 09:50 AM - 10:10 AM 20 MINUTES TOTAL. Patient presented to therapy in sitting in bedside chair with 4 liters of spO2 and LATER INCREASED to 5 liters by NEERAJ FRANCO during therapy session. Patient reports 10/10 pain in tbe cervical spine. Patient reports some fatigue. Patient gives informed consent for treatment. Patient was identified by name and on wristband. Patient O2 SAT recorded as 92% initially and pulse 115. Patient performed seated therapeutic exercises 2 x 10 reps each LE in all planes of movement for strengthening the LEs in all planes of movement in order to improve functional mobility. Patient's O2 SATS recorded as ranging between 86% - 97% and staying right around 93%. Patient will drop to as low as 86% and with verbal instructions for purse-lip breathing which quickly increased O2 SATs to 94% - 97%. Patient did not attempt standing due to unstable O2 STATS. Patient sleeps in chair at night. Patient was left in sitting in bedside chair with call light within reachn chair alarm attached and tray rable in front of patient. Patient was 1:1 with this FARROWING WORKER for 20 minutes total. JULIEN CALDERA FARROWING WORKER
--- NOTE | 2019-10-01 10:29 | NUR ---
OT NOTE PATIENT SEEN OT THIS DATE 18 MINUTES. PATIENT IDENTIFIED BY NAME AND DATE OF THIS DATE. PATIENT COMPLAIN SOB WITH 02 SATS 94 AT REST ON 5 L 02. PATIENT SEATED IN RECLINER AND COMPLETED BUE STRENGTHENING AROM 3 EXERCISES 2 SETS X 5 REPS WITH MAX REST BREAKS WITH 02 SATS DECREASE TO 83-88 % AND QUICKLY INCREASING TO 93-94 % ON 5 02 SEATED WITH REST BREAK AND PURSE LIP BREATHING TECHNIQUES WITH FREQUENT VERBAL CUES PROPER TECHIQUE. NURSING NOTIFIED OF PATIENT'S SOB THIS DATE. COMPLETED ACTIVITY TO TOLERANCE THIS DATE. CONTINUE TOWARDS PLAN OF CARE. JOLEEN BLANCHARD
--- NOTE | 2019-10-01 11:00 | NUR ---
Histology Specialist in to see patient. No new needs or request at this time. 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 data processing systems project planner following. Discharge planning discussed with Dr. Fragoso. Plan is to discharge patient to [facility] on Friday.
[2019-10-01 12:00] VITALS: BP 96/50; BP 96/52
--- NOTE | 2019-10-01 12:30 | NUR ---
PT. REMOVED BIPAP. O2 IS ON VIA NC AT 4L. NO C/O SHORTNESS OF BREATH. RESPIRATIONS EASY.
--- NOTE | 2019-10-01 13:40 | NUR ---
NORCO 5/325 MG GIVEN FOR C/O PAIN,06/17.PT PREVIOUSLY AMBULATED FROM CHAIR BACK TO BED. SPO2 85% ON 5LNC.DEEP BREATHING TECHNIQUE EDUCATION PROVIDED.SPO2 NOW 100% ON 5LNC. VOICES NO OTHER NEEDS AT THIS TIME.CALL LIGHT IN REACH.
--- NOTE | 2019-10-01 13:42 | NUR ---
NORCO 7.5/325MG GIVEN FOR C.O PAIN,06/17.
--- NOTE | 2019-10-01 15:35 | NUR ---
PHYSICAL THERAPY CO-SIGN I approve of the Physical Therapy notes written above. Helen Reyna PT
[2019-10-01 16:00] VITALS: BP 94/58
[2019-10-01 20:00] VITALS: BP 107/53
--- NOTE | 2019-10-01 22:44 | NUR ---
PT MEDICATED W/NORCO FOR C/O GENERAL PAIN 06/17. RESP PUTTING BIPAP ON PT AT THIS TIME.
[2019-10-02] VITALS: BP 113/58
--- NOTE | 2019-10-02 03:13 | NUR ---
24 HR chart check completed.
--- NOTE | 2019-10-02 04:55 | NUR ---
PT BATHED AT THIS TIME. FEMORAL DRSG CHANGED D/T DRSG WAS NOT INTACT. PT SITTING UP IN RECLINER. CALL LIGHT IN REACH.
--- NOTE | 2019-10-02 05:56 | NUR ---
PT MEDICATED W/CEPACOL THROAT LOZENGER FOR C/O SORE THROAT.
[2019-10-02 08:00] VITALS: BP 90/50
--- NOTE | 2019-10-02 08:27 | NUR ---
PT MEDICATED WITH NORCO AT THIS TIME UPON REQUEST & PER ORDER FOR COMPLAINTS OF PAIN IN BACK & LEGS 03/17. WILL MONITOR FOR EFFECTIVENESS.
--- NOTE | 2019-10-02 08:56 | NUR ---
NOTIFIED OF BP 90/50; HE STATES OK TO STILL GIVE METOPROLOL.
--- NOTE | 2019-10-02 09:37 | NUR ---
PER PATIENT, PRN NORCO WAS EFFECTIVE. NO FURTHER COMPLAINTS AT THIS TIME.
[2019-10-02 12:00] VITALS: BP 98/64
--- NOTE | 2019-10-02 13:01 | NUR ---
PHYSICAL THERAPY Patient supine in bed at time of arrival. Patient identified by name/ and provided informed consent. Patient said he has been up in the bedside chair all day and would rather just perform exercises. Patient performed supine B LE ther-ex, AROM, for strength, endurance and improved ROM; ankle PF/DF, quad sets with 5 sec holds, hip ABD/ADD, glute sets 2x10 reps. CHILD CARE CENTRE DIRECTOR monitoring patient O2 sats throughout with patient dropping to 85% on 5 L continuous O2 via NC; requiring pursed lip breathing technique to recover. Patient tends to hold breath whie performing exercises, requiring cues for breathing techniques. Patient supine in bed at session end with call light and tray table within reach. Luci Macedo, CHILD CARE CENTRE DIRECTOR
[2019-10-02 16:00] VITALS: BP 110/65
--- NOTE | 2019-10-02 16:45 | NUR ---
PT MEDICATED WITH PRN NORCO FOR COMPLAINTS OF 7/10 PAIN GENERALIZED. WILL MONITOR FOR EFFECTIVENESS.
[2019-10-02 20:00] VITALS: BP 116/72
[2019-10-03] VITALS: BP 113/59
[2019-10-03 08:00] VITALS: BP 118/62
--- NOTE | 2019-10-03 08:02 | NUR ---
PERCOCET GIVEN FOR C/O BACK PAIN OF 05/18. WILL CONT TO MONITOR. CALL LIGHT IN REACH.
--- NOTE | 2019-10-03 09:02 | NUR ---
PERCOCET EFF. WILL CONT TO MONITOR. CALL LIGHT IN REACH.
[2019-10-03 12:00] VITALS: BP 100/62
[2019-10-03 16:00] VITALS: BP 132/72
--- NOTE | 2019-10-03 16:43 | NUR ---
PERCOCET GIVEN FOR C/O BACK PAIN OF 05/18. WILL CONT TO MONITOR. CALL LIGHT IN REACH.
--- NOTE | 2019-10-03 17:02 | NUR ---
PER DR JOEL REMOVE FEMORAL LINE AND CHANGE LEVAQUIN TO PO.
--- NOTE | 2019-10-03 17:26 | NUR ---
RIGHT FEMORAL MULTILUMEN REMOVED AT THIS TIME. TIP SENT FOR CULTURE. PT TOLERATED WELL. PRESSURE APPLIED AND MAITAINED FOR 5MINS. DRESSING APPLIED. AREA AROUND INSERTION SITE REDDENED PER DR JOEL SEND FOR CULTURE.
--- NOTE | 2019-10-03 17:43 | NUR ---
PERCOCET EFF. WILL CONT TO MONITOR. CALL LIGHT IN REACH.
--- NOTE | 2019-10-03 19:59 | NUR ---
19:30 SPO2 ON 6 L NC RANGING 84-89% O2 CHANGED TO 8 L HFNC SPO2 INCREASED TO 94%. RESPS REGUALR AND UNLABORED.
[2019-10-03 20:00] VITALS: BP 133/65
[2019-10-04] VITALS: BP 108/60
--- NOTE | 2019-10-04 00:42 | NUR ---
24 HR chart check completed.
--- NOTE | 2019-10-04 07:45 | NUR ---
PT ASSESSMENT DONE AT THIS TIME. PT STATES THAT HE IS IN PAIN WHICH IS LOCATED ALL OVER HIS BODY RATING IT A 10/10. I TOLD HIM THAT I WILL BRING A PAIN PILL WITH ME WHEN HIS MEDICATIONS ARE BROUGHT IN, HE AGREES WITH THIS. CALL LIGHT WITHIN REACH, WILL CONTINUE TO MONITOR
[2019-10-04 08:00] VITALS: BP 148/73
--- NOTE | 2019-10-04 09:00 | NUR ---
Ict Trainer in to see patient. No new needs or request at this time. When medically stable he will be discharged to [facility] where [facility]. management planner following. Discharge planning discussed with Dr. Fragoso. Plan is to discharge patient to [facility] today.
--- NOTE | 2019-10-04 09:09 | NUR ---
PT STATES HE IS HAVING PAIN ALL OVER HIS BODY RATING IT A 10/10 AND IS REQUESTING SOMETHING FOR PAIN. PRN PO NORCO IS GIVEN AT THIS TIME. WILL CONTINUE TO MONITOR THE PATIENT
--- NOTE | 2019-10-04 09:55 | NUR ---
ATTEMPTED TO CALL DR JOEL PER THE PATIENT REQUEST FOR NASAL SPRAY AND THERE WAS NO ANSWER. WILL CALL BACK
[2019-10-04 11:19] LABS: BASO # 0.1 10*3/uL (0.0-0.1); BASO % 0.5 % (0.0-1.0); EOS # 0.4 10*3/uL (0.0-0.4); EOS % 4.5 % (1.0-4.0); HEMATOCRIT 29.7 % (42.0-52.0); HEMOGLOBIN 8.9 g/dl (14.0-18.0); LYMPH # 1.2 10*3/uL (1.3-4.4); LYMPH % 12.3 % (27.0-41.0); MEAN CELL VOLUME 95.5 fl (80.0-94.0); MEAN CORPUSCULAR HGB 28.6 pg (27.0-31.0); MEAN PLATELET VOLUME 9.9 fl (9.6-12.3); MONO % 10.1 % (3.0-9.0); NEUT # 6.9 10*3/uL (2.3-7.9); NEUT % 72.1 % (47.0-73.0); PLATELET COUNT AUTOMATED 301 10*3/uL (130-400); RED BLOOD COUNT 3.11 10*6/uL (4.50-5.90); RED CELL DISTRI WIDTH 16.3 % (0-14.5); WHITE BLOOD COUNT 9.6 10*3/uL (4.8-10.8)
[2019-10-04 12:00] VITALS: BP 123/71
[2019-10-04] MEDS ORDERED: LYRICA150 M1 PO (13:29)
[2019-10-04] MEDS ORDERED: NORCO 7.5-3251 EACH PO (13:29)
--- NOTE | 2019-10-04 13:29 | NUR ---
ATTEMPTED TO CALL PT DAUGHTER TO INFORM HIM OF DISCHARGE, NO ANSWER WILL CALL BACK
--- NOTE | 2019-10-04 14:23 | NUR ---
[facility] CALLED TO SAY THAT THEY ARE SENDING A AMBULANCE TO GET THE PATIENT AT THIS TIME.
--- NOTE | 2019-10-04 14:29 | NUR ---
IN TO PT ROOM TO DISCUSS DISCHARGE, HE AGREES ON GOING BACK TO [facility]. PRODUCTION TRUCK DRIVER IS REMOVED AT THIS TIME. PT DOES NOT HAVE AN IV. PT HAS NO QUESTIONS AT THIS TIME, HAS ALL PAPERWORK AND PRESCRIPTIONS WITH HIM
--- NOTE | 2019-10-04 15:45 | NUR ---
[facility] HERE AND TAKING THE PATIENT OUT BY AMBULANCE. PT HAS ALL OF HIS BELONGINGS AND SCRIPTS, PAPERS. REPORT WAS CALLED OVER TO NURSE QUEVEDO AT [facility]. PT HAS NO QUESTIONS AT THIS TIME
--- NOTE | 2019-10-05 07:31 | NUR ---
PHYSICAL THERAPY CO-SIGN I approve of the Physical Therapy notes written above. Helen Reyna PT
--- NOTE | 2019-10-05 07:44 | NUR ---
OCCUPATIONAL THERAPY CO-SIGN I approve of the Occupational Therapy notes written above. REX GONZALEZ, OTR/L
== END 2019-10-04 17:47 | disposition other institution (70) | DRG 870 ==
LOC: ED 00:59 → EDHOLD 03:25 → ICCU 03:25 → 4E 09-29 14:12
PROVIDERS: Emergency Medicine; Internal Medicine Critical Care Medicine; ADMIT Internal Medicine
PROC: 03HY32Z Insertion of Monitoring Device into Upper Artery, Percutaneous Approach (ICD-10-PCS; principal; 2019-09-22)
PROC: 5A1955Z Respiratory Ventilation, Greater than 96 Consecutive Hours (ICD-10-PCS; principal; 2019-09-22)
PROC: 4A133B1 Monitoring of Arterial Pressure, Peripheral, Percutaneous Approach (ICD-10-PCS; principal; 2019-09-22)
PROC: B54MZZA Ultrasonography of Right Upper Extremity Veins, Guidance (ICD-10-PCS; principal; 2019-09-22)
PROC: 0BH17EZ Insertion of Endotracheal Airway into Trachea, Via Natural or Artificial Opening (ICD-10-PCS; principal; 2019-09-22)
PROC: 05HY33Z Insertion of Infusion Device into Upper Vein, Percutaneous Approach (ICD-10-PCS; principal; 2019-09-22)
PROC: 4A133J1 Monitoring of Arterial Pulse, Peripheral, Percutaneous Approach (ICD-10-PCS; principal; 2019-09-22)
PROC: 0B998ZZ Drainage of Lingula Bronchus, Via Natural or Artificial Opening Endoscopic (ICD-10-PCS; 2019-09-25)
PROC: 0B928ZZ Drainage of Carina, Via Natural or Artificial Opening Endoscopic (ICD-10-PCS; 2019-09-25)
PROC: 0B938ZZ Drainage of Right Main Bronchus, Via Natural or Artificial Opening Endoscopic (ICD-10-PCS; 2019-09-25)
PROC: 0B9B8ZZ Drainage of Left Lower Lobe Bronchus, Via Natural or Artificial Opening Endoscopic (ICD-10-PCS; 2019-09-25)
PROC: 0B918ZZ Drainage of Trachea, Via Natural or Artificial Opening Endoscopic (ICD-10-PCS; 2019-09-25)
PROC: 0B968ZZ Drainage of Right Lower Lobe Bronchus, Via Natural or Artificial Opening Endoscopic (ICD-10-PCS; 2019-09-25)
PROC: 0B988ZZ Drainage of Left Upper Lobe Bronchus, Via Natural or Artificial Opening Endoscopic (ICD-10-PCS; 2019-09-25)
PROC: 0B958ZZ Drainage of Right Middle Lobe Bronchus, Via Natural or Artificial Opening Endoscopic (ICD-10-PCS; 2019-09-25)
PROC: 0B9D8ZZ Drainage of Right Middle Lung Lobe, Via Natural or Artificial Opening Endoscopic (ICD-10-PCS; 2019-09-25)
PROC: 0B978ZZ Drainage of Left Main Bronchus, Via Natural or Artificial Opening Endoscopic (ICD-10-PCS; 2019-09-25)
PROC: 0B948ZZ Drainage of Right Upper Lobe Bronchus, Via Natural or Artificial Opening Endoscopic (ICD-10-PCS; 2019-09-25)
PROC: 5A09357 Assistance with Respiratory Ventilation, Less than 24 Consecutive Hours, Continuous Positive Airway Pressure (ICD-10-PCS; 2019-09-28)
PROC: 5A09357 Assistance with Respiratory Ventilation, Less than 24 Consecutive Hours, Continuous Positive Airway Pressure (ICD-10-PCS; 2019-09-29)
PROC: 5A09357 Assistance with Respiratory Ventilation, Less than 24 Consecutive Hours, Continuous Positive Airway Pressure (ICD-10-PCS; 2019-10-02)
PROC: 5A09357 Assistance with Respiratory Ventilation, Less than 24 Consecutive Hours, Continuous Positive Airway Pressure (ICD-10-PCS; 2019-10-03)
PROC: 5A09357 Assistance with Respiratory Ventilation, Less than 24 Consecutive Hours, Continuous Positive Airway Pressure (ICD-10-PCS; 2019-10-04)
DX: A41.9 Sepsis, unspecified organism (principal); J18.9 Pneumonia, unspecified organism; J96.22 Acute and chronic respiratory failure with hypercapnia; J96.21 Acute and chronic respiratory failure with hypoxia; I50.33 Acute on chronic diastolic (congestive) heart failure; R65.21 Severe sepsis with septic shock; J44.1 Chronic obstructive pulmonary disease with (acute) exacerbation; E44.1 Mild protein-calorie malnutrition; E22.2 Syndrome of inappropriate secretion of antidiuretic hormone; N17.9 Acute kidney failure, unspecified; J44.0 Chronic obstructive pulmonary disease with (acute) lower respiratory infection; E87.3 Alkalosis; F33.1 Major depressive disorder, recurrent, moderate; T17.590A Other foreign object in bronchus causing asphyxiation, initial encounter; R62.7 Adult failure to thrive; E66.01 Morbid (severe) obesity due to excess calories; I25.10 Atherosclerotic heart disease of native coronary artery without angina pectoris; E87.6 Hypokalemia; K59.09 Other constipation; F17.210 Nicotine dependence, cigarettes, uncomplicated; F10.20 Alcohol dependence, uncomplicated; Y90.9 Presence of alcohol in blood, level not specified; I11.0 Hypertensive heart disease with heart failure; M47.896 Other spondylosis, lumbar region; G89.29 Other chronic pain; I27.20 Pulmonary hypertension, unspecified; E11.42 Type 2 diabetes mellitus with diabetic polyneuropathy; K21.9 Gastro-esophageal reflux disease without esophagitis; J20.9 Acute bronchitis, unspecified; B96.3 Hemophilus influenzae [H. influenzae] as the cause of diseases classified elsewhere; G47.33 Obstructive sleep apnea (adult) (pediatric); D64.9 Anemia, unspecified; Z96.652 Presence of left artificial knee joint; Z91.19 Patient's noncompliance with other medical treatment and regimen; Z98.52 Vasectomy status; I25.2 Old myocardial infarction; Z98.42 Cataract extraction status, left eye; Z68.38 Body mass index [BMI] 38.0-38.9, adult; Z98.41 Cataract extraction status, right eye; Z79.899 Other long term (current) drug therapy; Z85.46 Personal history of malignant neoplasm of prostate; X58.XXXA Exposure to other specified factors, initial encounter; Y93.89 Activity, other specified

== ENCOUNTER 2019-10-17 19:52 | Emergency (ER) | payer MEDICARE ==
[~2019-10-17] VITALS: Ht 182.8 cm; Wt 127.9 kg
[~2019-10-17 19:52] MED LIST changes: +OCEAN104 ML NAS; +PRED FORTE5 ML OP; +PREDNISONE10 M1 PO; +REFRESH TEARS15 ML OP
[2019-10-17 20:18] LABS: BASO % 0.3 % (0.0-1.0); EOS # 0.1 10*3/uL (0.0-0.4); EOS % 0.9 % (1.0-4.0); HEMATOCRIT 37.9 % (42.0-52.0); HEMOGLOBIN 11.3 g/dl (14.0-18.0); LYMPH # 1.4 10*3/uL (1.3-4.4); LYMPH % 9.8 % (27.0-41.0); MEAN CELL VOLUME 96.2 fl (80.0-94.0); MEAN CORPUSCULAR HGB 28.7 pg (27.0-31.0); MEAN CORPUSCULAR HGB CONC 29.8 g/dl (33.0-37.0); MONO # 0.9 10*3/uL (0.1-1.0); MONO % 6.4 % (3.0-9.0); NEUT # 11.4 10*3/uL (2.3-7.9); NEUT % 81.8 % (47.0-73.0); PLATELET COUNT AUTOMATED 319 10*3/uL (130-400); RED BLOOD COUNT 3.94 10*6/uL (4.50-5.90); RED CELL DISTRI WIDTH 15.8 % (0-14.5); WHITE BLOOD COUNT 13.9 10*3/uL (4.8-10.8)
[2019-10-17 20:29] LABS: ACT PARTIAL THROMBO TIME 24.5 SECONDS (20.0-32.1); INTERNATIONAL NORM RATIO 0.9 (2.0-3.5)
[2019-10-17 20:46] LABS: ALBUMIN 3.5 gm/dl (3.1-4.5); ALKALINE PHOSPHATASE 88 U/L (45-117); BUN 12 mg/dl (7-24); CHLORIDE 107 mmol/L (98-107); CREATININE 1.04 mg/dL (0.70-1.30); POTASSIUM 3.7 mmol/L (3.5-5.1); SGOT/AST 16 IU/L (3-35); SGPT/ALT 24 U/L (12-78); SODIUM 143 mmol/L (136-145); TOTAL PROTEIN 7.2 gm/dL (6.4-8.2)
[2019-10-17 20:52] LABS: TROPONIN I 0.061 ng/ml (<0.045)
[2019-10-17 21:58] LABS: ABG BASE EXCESS 3.9 mmol/L (-2.0-2.0); ARTERIAL BLOOD GAS PH 7.328 (7.35-7.45)
== END 2019-10-18 03:50 | disposition short-term general hospital (02) ==
LOC: ED 19:52
PROVIDERS: Emergency Medicine
DX: I21.4 Non-ST elevation (NSTEMI) myocardial infarction (principal); J96.90 Respiratory failure, unspecified, unspecified whether with hypoxia or hypercapnia; R79.89 Other specified abnormal findings of blood chemistry; I25.10 Atherosclerotic heart disease of native coronary artery without angina pectoris; I10 Essential (primary) hypertension; K21.9 Gastro-esophageal reflux disease without esophagitis; E78.2 Mixed hyperlipidemia; E66.01 Morbid (severe) obesity due to excess calories; G62.9 Polyneuropathy, unspecified; J44.9 Chronic obstructive pulmonary disease, unspecified; I25.2 Old myocardial infarction; G89.29 Other chronic pain; Z79.899 Other long term (current) drug therapy; Z79.82 Long term (current) use of aspirin; Z87.891 Personal history of nicotine dependence

== ENCOUNTER 2019-11-01 23:26 | Inpatient (IN) | payer MEDICARE ==
[~2019-11-01] VITALS: Ht 177.8 cm; Wt 122.2 kg
[2019-11-01 23:28] VITALS: BP 139/69
--- NOTE | 2019-11-01 23:30 | NUR ---
PLACED ON BIPAP 18/8, 100%, BUR 8. HR 103, SpO2 99%, RR 26, VT 620. ALARMS ON AND AUDIBLE.
[2019-11-01 23:48] LABS: ABG BASE EXCESS 2.9 mmol/L (-2.0-2.0); ARTERIAL BLOOD GAS PH 7.237 (7.35-7.45)
[2019-11-02] VITALS (7 sets, daily range): BP systolic 96–150; BP diastolic 63–84
[2019-11-02 00:43] LABS: BASO % 0.1 % (0.0-1.0); EOS # 0.4 10*3/uL (0.0-0.4); EOS % 2.7 % (1.0-4.0); HEMOGLOBIN 9.6 g/dl (14.0-18.0); LYMPH # 0.9 10*3/uL (1.3-4.4); LYMPH % 6.4 % (27.0-41.0); MEAN CELL VOLUME 98.2 fl (80.0-94.0); MEAN CORPUSCULAR HGB 29.4 pg (27.0-31.0); MEAN PLATELET VOLUME 10.1 fl (9.6-12.3); MONO # 0.8 10*3/uL (0.1-1.0); MONO % 5.9 % (3.0-9.0); NEUT # 11.3 10*3/uL (2.3-7.9); NEUT % 84.5 % (47.0-73.0); PLATELET COUNT AUTOMATED 268 10*3/uL (130-400); RED BLOOD COUNT 3.26 10*6/uL (4.50-5.90); RED CELL DISTRI WIDTH 16.4 % (0-14.5); WHITE BLOOD COUNT 13.4 10*3/uL (4.8-10.8)
[2019-11-02 00:52] LABS: INTERNATIONAL NORM RATIO 0.9 (2.0-3.5)
[2019-11-02 00:59] LABS: ALBUMIN 3.3 gm/dl (3.1-4.5); ALKALINE PHOSPHATASE 58 U/L (45-117); BUN 8 mg/dl (7-24); CHLORIDE 100 mmol/L (98-107); CREATININE 1.02 mg/dL (0.70-1.30); POTASSIUM 4.1 mmol/L (3.5-5.1); SGOT/AST 12 IU/L (3-35); SGPT/ALT 23 U/L (12-78); SODIUM 139 mmol/L (136-145); TOTAL PROTEIN 6.4 gm/dL (6.4-8.2)
[2019-11-02 01:03] LABS: TROPONIN I < 0.015 ng/ml (<0.045)
--- NOTE | 2019-11-02 02:30 | NUR ---
RR: 19, VT: 720, FIO2: .35, SPO2: 96%, Leak: 22 Patient asleep and comfortable.
--- NOTE | 2019-11-02 10:25 | NUR ---
PHARMACY AWARE OF PT NOT IN THE PYXIS WITH NO MEDICATIONS.
--- NOTE | 2019-11-02 11:00 | NUR ---
[facility] , under the services of LEROY Garcia MD with a diagnosis of RESP. FAILURE. Chief complaint is SOB. Patient arrived via bed from ER. Monitor applied. Initial assessment completed. Vital signs taken and recorded. LEROY GARCIA MD notified of admission to the unit. Orders received. See assessment for past medical history, medications and allergies. Patient and/or family oriented to unit. [facility] visitation policy reviewed. Clothing/patient valuable form completed. JANI POST
--- NOTE | 2019-11-02 11:30 | NUR ---
PT REFUSING WOUND CARE PHOTO'S AT THIS TIME.
--- NOTE | 2019-11-02 12:00 | NUR ---
Unit Control Worker in to see patient. He is currently not in his room. Will follow up at a later time.
--- NOTE | 2019-11-02 18:13 | NUR ---
NORCO GIVEN FOR C/O BACK PAIN. RATES 10/10 ON PAIN SCALE. WILL MONITOR.
[2019-11-03] VITALS: BP 126/67
--- NOTE | 2019-11-03 02:57 | NUR ---
24 HOUR CHART CHECK COMPLETE.
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
[2019-11-03 08:00] VITALS: BP 144/80
[2019-11-03 12:00] VITALS: BP 150/74
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
--- NOTE | 2019-11-03 12:37 | NUR ---
Nutritional Support Services Note: Appetite is good for meals, He receives a regular diet as ordered. Ht.5'10 Wt.270#. IBW 166#. He is approximately 104# above upper limit of IBW range. Skin tear noted to right hand. No nutrition intervention needed at this time. Will follow. Elizabeth Strauss Rdn Ld
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
--- NOTE | 2019-11-03 13:35 | NUR ---
CALLED [facility] ABOUT TRILOGY FOR MR. RATLIFF. HE NO LONGER HAS SERVICE WITH [facility]. MUKUL FROM CASE MANAGEMENT NOTIFIED.
[2019-11-03 16:00] VITALS: BP 108/49
--- NOTE | 2019-11-03 18:41 | NUR ---
MEDICATED WITH NORCO FOR COMPLAINTS OF PAIN ALL OVER. RATES PAIN A 10 ON A PAIN SCALE OF 1-10
[2019-11-03 20:00] VITALS: BP 133/57
--- NOTE | 2019-11-03 20:18 | NUR ---
SKIN TEAR TO RIGHT HAND CLEANSED AND DRESSING CHANGED AT THIS TIME.
[2019-11-04] VITALS: BP 147/66
--- NOTE | 2019-11-04 04:38 | NUR ---
Recommend follow up for wound care in outpatient setting patient refused at this time.
--- NOTE | 2019-11-04 04:47 | NUR ---
24 HOUR CHART CHECK COMPLETE.
--- NOTE | 2019-11-04 07:12 | NUR ---
Received social service message patient needs a vent at home or to be placed in a snf. Respiratory is stating patient was already given a trilogy but states he doesn't know where it is, he thinks its in his friends garlu[place] but he no longer has access to it. Spoke with Norbert from [place] and Kori from [facility]. Patient is out of snf days, he has used all 100 days and [facility] states they will not take patient back. Notified case management specialist
--- NOTE | 2019-11-04 07:56 | NUR ---
PATIENT C/O RIGHT SHOULDER PAIN. MEDICATED WITH NORCO PER PRN ORDER. WILL CONTINUE TO MONITOR.
[2019-11-04 08:00] VITALS: BP 122/82
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
--- NOTE | 2019-11-04 10:15 | NUR ---
PHYSICAL THERAPY Arline completed moderate level of complexity [id number] pt states he will go home does not want any placement and has his own apartment. Agreeable to home health full report to follow recomend home w family/friend support as able and home health. Helen Reyna PT
[2019-11-04 12:00] VITALS: BP 125/76
[2019-11-04 16:00] VITALS: BP 122/68
--- NOTE | 2019-11-04 17:45 | NUR ---
PT. reported 10/10 pain and requested pain med. Administered as ordered pt is sitting up in bed, Resperations are easy, A&Ox3, Verbalized relief, Skin is warm and dry to touch.
[2019-11-04 20:00] VITALS: BP 126/46
--- NOTE | 2019-11-04 21:49 | NUR ---
SPOKE WITH DR JOEL REGARDING PATIENT REQUEST FOR COUGH DROPS. T.O. TAKEN FOR CEPACOL QID PRN.
[2019-11-05] VITALS: BP 148/84
[2019-11-05 06:21] LABS: BASO % 0.1 % (0.0-1.0); HEMATOCRIT 31.4 % (42.0-52.0); HEMOGLOBIN 9.3 g/dl (14.0-18.0); LYMPH % 10.2 % (27.0-41.0); MEAN CELL VOLUME 97.2 fl (80.0-94.0); MEAN CORPUSCULAR HGB 28.8 pg (27.0-31.0); MEAN CORPUSCULAR HGB CONC 29.6 g/dl (33.0-37.0); MEAN PLATELET VOLUME 10.7 fl (9.6-12.3); MONO # 0.7 10*3/uL (0.1-1.0); MONO % 6.8 % (3.0-9.0); NEUT # 8.1 10*3/uL (2.3-7.9); NEUT % 82.4 % (47.0-73.0); PLATELET COUNT AUTOMATED 293 10*3/uL (130-400); RED BLOOD COUNT 3.23 10*6/uL (4.50-5.90); RED CELL DISTRI WIDTH 16.1 % (0-14.5); WHITE BLOOD COUNT 9.8 10*3/uL (4.8-10.8)
[2019-11-05 06:44] LABS: BUN 20 mg/dl (7-24); CHLORIDE 107 mmol/L (98-107); CREATININE 0.83 mg/dL (0.70-1.30); POTASSIUM 4.2 mmol/L (3.5-5.1); SODIUM 143 mmol/L (136-145)
--- NOTE | 2019-11-05 07:15 | NUR ---
ARRIVED ON SHIFT, PATIENT IN BED WITH BIPAP IN PLACE, PATIENT DID NOT AWAKEN FOR ME TO INTRODUCE SELF, BED IN LOW POSITION, WHEEL LOCKS ENGAGED, CALL LIGHT WITHIN REACH, WHITE BOARD UPDATED.
[2019-11-05 08:00] VITALS: BP 170/84
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
--- NOTE | 2019-11-05 09:00 | NUR ---
DR. ZUNIGA IN ADVISED OF NEW REFERRAL.
--- NOTE | 2019-11-05 09:35 | NUR ---
PHYSICAL THERAPY Patient was on BiPap this am when approached for therapy visit and unable to participate at this time. Will continue per POC as able. Brando Franz, PROCESS CONTROLLER
--- NOTE | 2019-11-05 09:37 | NUR ---
PATIENT C/O OF GENERAL PAIN 02/15 MEDICATED WITH NORCO ORDERED PRN.
--- NOTE | 2019-11-05 10:37 | NUR ---
PATIENT REPORTS MODERATE RELIEF FROM NORCO GIVEN X 1 HOUR AGO PAIN NOW 11/15
[2019-11-05 12:00] VITALS: BP 132/84
--- NOTE | 2019-11-05 13:17 | NUR ---
PHYSICAL THERAPY TREATMENT TIME: 1:05 PM - 1:20 PM 15 MINUTES TOTAL Patient presented to therapy in supine with 4 liters of spO2 via nasal canula and report of feeling tired. Patient gives informed consent for treatment. Patient was identified by name and on wristband. Patient performed supine to sitting at EOB with SBA. Patient sat on EOB SBA. Patient completed sit to stand transfer from EOB with SBA. Patient ambulated with Wh Walker and Close Supervision for 110' x 1 with no LOB and mild SOB. Patient O2 sat was recorded as 94% and pulse at 95 post ambulating 110'. Patient's initial O2 sat was recorded as 93% and pulse at 92. Patient transferred back to supine in bed SBA. Patient was left with head of bed elevated and call light within reach. Patient was 1:1 with this CHIEF DATA OFFICER for 15 minutesw total. SHADE CALDERA CHIEF DATA OFFICER
--- NOTE | 2019-11-05 15:04 | NUR ---
Spoke to respiratory regarding home trilogy. [facility] and [facility] have fired the patient and picked up his O2 from home. Respiratory working with [facility] to see if they are able to take the patient. Notified Dr. Odell and patient. New order received for home O2 assessment.
--- NOTE | 2019-11-05 15:42 | NUR ---
ASSESS FOR HOME OXYGEN SPO2 @ REST ON ROOM AIR 84% HR 108 SPO2 @ REST ON 2L NC 86% HR 98 SPO2 @ REST ON 3L NC 87% HR 104 SPO2 @ REST ON 4L NC 94% HR 92 SPO2 ON 4L NC WITH EXERTION 91-93% PT REQUIRES 4L OF SUPPLEMENTAL OXGEN VIA NC TO KEEP SPO2 GREATER THAN OR EQUAL TO 88%. RN NOTIFIED.
--- NOTE | 2019-11-05 15:52 | NUR ---
Spoke to respiratory [facility] is willing to take patient for his home O2 and NIV. Will get scripts from Dr. Odell in the am. Dr. Odell, patient, and nurse notified.
[2019-11-05 16:00] VITALS: BP 121/64
--- NOTE | 2019-11-05 16:55 | NUR ---
PT GIVEN NORCO AT THIS TIME FOR GENERALIZED PAIN. WILL MONITOR FOR EFFECTIVENESS. CALL LIGHT IN REACH.
[2019-11-05 20:00] VITALS: BP 137/74
[2019-11-06] VITALS: BP 155/82
--- NOTE | 2019-11-06 07:49 | NUR ---
PT GIVEN NORCO AT THIS TIME FOR LEG PAIN. WILL MONITOR FOR EFFECTIVENESS. CALL LIGHT IN REACH.
--- NOTE | 2019-11-06 07:51 | NUR ---
Received prescription from Dr. Odell for continuous O2 @ 4L nc and NIV for use at home. Informed Dr. Odell respiratory [place] [facility] [place] [facility] didn't take patient's insurance. Faxed prescriptions to respiratory.
[2019-11-06 08:00] VITALS: BP 156/84
[2019-11-06 08:17] VITALS: BP 158/80
--- NOTE | 2019-11-06 10:20 | NUR ---
HOME O2 ASSESSMENT: PRE BP: 130/57, HR 110, RR 18, PULSE OX 92% ON ROOM AIR AT REST. AMBULATED PATIENT IN HALLWAY WITH WALKER AND 1 ASSIST, PULSE OX 95% ON ROOM AIR WHILE AMBULATING. POST BP: 151/71, HR 125, RR 20, PULSE OX 93% ON ROOM AIR AT REST. RN NOTIFIED.
[2019-11-06 12:00] VITALS: BP 157/85
--- NOTE | 2019-11-06 12:00 | NUR ---
PT SLEEPING IN BED. BIPAP IN PLACE. NO S/S OF DISTRESS. CALL LIGHT IN REACH.
[2019-11-06 16:00] VITALS: BP 126/63
--- NOTE | 2019-11-06 16:45 | NUR ---
PT GIVEN [place] FOR PAIN. WILL MONITOR. CALL LIGHT IN REACH.
--- NOTE | 2019-11-06 18:37 | NUR ---
PT DRESSING CHANGED TO RIGHT HAND. TOLERATED WELL. CALL LIGHT IN REACH.
[2019-11-06 20:00] VITALS: BP 149/69
--- NOTE | 2019-11-06 20:06 | NUR ---
24 HR CHART CHECK COMPLETE.
[2019-11-07] VITALS: BP 135/52
[2019-11-07 06:44] LABS: HEMATOCRIT 31.5 % (42.0-52.0); HEMOGLOBIN 9.5 g/dl (14.0-18.0); LYMPH # 1.1 10*3/uL (1.3-4.4); LYMPH % 10.6 % (27.0-41.0); MEAN CELL VOLUME 96.6 fl (80.0-94.0); MEAN CORPUSCULAR HGB 29.1 pg (27.0-31.0); MEAN CORPUSCULAR HGB CONC 30.2 g/dl (33.0-37.0); MEAN PLATELET VOLUME 10.5 fl (9.6-12.3); MONO # 0.8 10*3/uL (0.1-1.0); MONO % 8.3 % (3.0-9.0); NEUT # 7.9 10*3/uL (2.3-7.9); NEUT % 80.3 % (47.0-73.0); PLATELET COUNT AUTOMATED 303 10*3/uL (130-400); RED BLOOD COUNT 3.26 10*6/uL (4.50-5.90); RED CELL DISTRI WIDTH 15.7 % (0-14.5); WHITE BLOOD COUNT 9.9 10*3/uL (4.8-10.8)
[2019-11-07 07:22] LABS: ALBUMIN 2.9 gm/dl (3.1-4.5); BUN 24 mg/dl (7-24); CHLORIDE 102 mmol/L (98-107); CREATININE 0.89 mg/dL (0.70-1.30); POTASSIUM 4.1 mmol/L (3.5-5.1); SGOT/AST 9 IU/L (3-35); SGPT/ALT 23 U/L (12-78); SODIUM 141 mmol/L (136-145); TOTAL PROTEIN 5.7 gm/dL (6.4-8.2)
[2019-11-07 07:23] LABS: ALKALINE PHOSPHATASE 43 U/L (45-117)
--- NOTE | 2019-11-07 08:00 | NUR ---
IN TO ROOM, PATIENT AWAKE, ALERT AND ORIENTED. NO STATED COMPLAINTS AT THIS TIME. DENIES HAVING ANY PAIN. RESPIRATIONS ARE EASY AND REGULAR ON 4L NC. HARSH COUGH NOTED. BED IN LOWEST LOCKED POSITION AND CALL LIGHT WITHIN REACH.
--- NOTE | 2019-11-07 10:10 | NUR ---
PATIENT COMPLAINS OF PAIN AND A COUGH. PRN NORCO AND A COUGH DROP ADMINISTERED. WILL MONITOR FOR EFFECTIVNESS.
[2019-11-07 12:00] VITALS: BP 111/64
--- NOTE | 2019-11-07 12:00 | NUR ---
PT ASLEEP. PRN NORCO CONSIDERED EFFECTIVE.
[2019-11-07 16:00] VITALS: BP 117/68
--- NOTE | 2019-11-07 18:11 | NUR ---
PATIENT COMPLAINS OF ALL OVER PAIN RATED AT A 10. PRN NORCO ADMINISTERED. WILL MONITOR FOR EFFECTIVENESS.
--- NOTE | 2019-11-07 19:31 | NUR ---
24 HR CHART CHECK COMPLETE.
[2019-11-07 20:00] VITALS: BP 133/56
[2019-11-08] VITALS: BP 96/45
[2019-11-08 06:56] LABS: ALBUMIN 2.8 gm/dl (3.1-4.5); ALKALINE PHOSPHATASE 44 U/L (45-117); BUN 26 mg/dl (7-24); CHLORIDE 100 mmol/L (98-107); CREATININE 0.87 mg/dL (0.70-1.30); POTASSIUM 4.2 mmol/L (3.5-5.1); SGOT/AST 12 IU/L (3-35); SGPT/ALT 28 U/L (12-78); SODIUM 141 mmol/L (136-145)
[2019-11-08 06:57] LABS: TOTAL PROTEIN 5.6 gm/dL (6.4-8.2)
--- NOTE | 2019-11-08 08:00 | NUR ---
IN TO ROOM. PATIENT AWAKE, ALERT AND ORIENTED. NO STATED COMPLAINTS AT THIS TIME. DENIES PAIN. RESPIRATIONS ARE EASY AND REGULAR ON 4L NC. NO SOB NOTED AT REST. PT MOVES ALL EXTREMITIES AND SPEAKS WITH CLEAR APPROPRIATE SPEECH. BED IN LOWEST LOCKED POSITION AND CALL LIGHT WITHIN REACH. WILL CONTINUE TO MONITOR.
--- NOTE | 2019-11-08 08:19 | NUR ---
Discussed discharge planning with Dr. Odell. Helga Jasso has taken on the patient's O2 and Trilogy needs. Respiratory working on.
[2019-11-08] MEDS ORDERED: SEPTDS PO (08:29)
[2019-11-08] MEDS ORDERED: FUROSEMIDE20 M1 PO (08:29)
[2019-11-08] MEDS ORDERED: PREDNISONE5 MG PO (08:30)
--- NOTE | 2019-11-08 10:30 | NUR ---
PHYSICAL THERAPY Patient seen this am 1:1 for therapy visit and was sitting up on EOB upon therapist arrival. Patient identified by name / and presented with continuous O2-4L via NC. Patient transfers sit to stand CGA and ambulates with use of wh walker, 20'x 1 to bathroom. Patient demonstrates slow, steady juan, no LOB and Fair+ safety awareness. Patient returned to EOB sit 20'x 1 and remained with mild fatigue, call light, tray table and cell phone. Will continue per POC as tolerated, total treatment time 16 minutes. Brando Franz, PLATER HOT DIP
--- NOTE | 2019-11-08 10:30 | NUR ---
PATIENT COMPLAINS OF ALL OVER PAIN RATED AT A 10. PRN NORCO ADMINSTERED.
[2019-11-08 12:00] VITALS: BP 117/62
--- NOTE | 2019-11-08 15:24 | NUR ---
patient qualified for home oxygen. at rest on room air-88-89% blood pressure-117/62 respiratory rate- 24 heart rate- 78at rest on 2l nasal cannula spo2:90-91% ambulation on 2l nasal cannula spo2:88-89% ambulation on 3lnasal cannula spo2:92-94% ambulation on 4 l n justin cannula spo2:94-95%
[2019-11-08 16:00] VITALS: BP 123/68
--- NOTE | 2019-11-08 17:41 | NUR ---
PT COMPLAINS OF ALL OVER PAIN RATED AT A 10. PRN NORCO ADMINSTERED. WILL MONITOR FOR EFFECTIVENESS.
--- NOTE | 2019-11-08 19:00 | NUR ---
ASSUMED CARE FOR THIS PT AT THIS TIME. PT AWAKE IN BED, NO C/O VOICED. CALL LIGHT IN REACH.
[2019-11-08 20:00] VITALS: BP 129/62
--- NOTE | 2019-11-08 22:09 | NUR ---
PT MEDICATED W/NORCO FOR C/O GENERAL CHRONIC PAIN AND CEPACOL FOR C/O COUGH. PT REFUSING CONTINUOUS PULSE OX WHILE ON BIPAP. CALL LIGHT IN REACH.
[2019-11-09] VITALS: BP 134/68
--- NOTE | 2019-11-09 01:44 | NUR ---
24 HR chart check completed.
--- NOTE | 2019-11-09 03:36 | NUR ---
PT MEDICATED W/NORCO FOR C/O BILATERAL HAND/WRIST PAIN 06/17. PT STATES IT FEELS LIKE TINGLING/NUMBNESS LIKE PAREKH BITE. PT ABLE TO MOVE ALL FINGERS AND FINGERS WARM TO TOUCH W/FEELING INTACT. WILL CONTINUE TO MONITOR.
--- NOTE | 2019-11-09 05:49 | NUR ---
PT'S IV OUT. PT REFUSING NEW IV. PT STATES HE IS GOING HOME TODAY SO HE DOESN'T NEED ONE. PT TEACHING GIVEN ON AM DOSE OF IV SOLUMEDROL. PT STATES HE DOESN'T NEED IT.
[2019-11-09 07:12] LABS: ALBUMIN 2.8 gm/dl (3.1-4.5); BUN 28 mg/dl (7-24); CHLORIDE 98 mmol/L (98-107); CREATININE 0.91 mg/dL (0.70-1.30); POTASSIUM 4.3 mmol/L (3.5-5.1); SGOT/AST 10 IU/L (3-35); SGPT/ALT 30 U/L (12-78); SODIUM 140 mmol/L (136-145); TOTAL PROTEIN 5.6 gm/dL (6.4-8.2)
[2019-11-09 07:14] LABS: ALKALINE PHOSPHATASE 36 U/L (45-117)
--- NOTE | 2019-11-09 07:53 | NUR ---
NORCO GIVEN FOR C/O GENERALIZED DISCOMFORT. WILL MONITOR.
--- NOTE | 2019-11-09 08:25 | NUR ---
PHYSICAL THERAPY Patient is eating breakfast at 8:20 am. Will check back later with patient. SHADE CALDERA NAME PLATE STAMPING MACHINE OPERATOR
--- NOTE | 2019-11-09 09:00 | NUR ---
SIOBHAN EFFECTIVE PER PT.
--- NOTE | 2019-11-09 09:00 | NUR ---
Geospatial Information Scientist in to see patient. No new needs or request at this time. Discussed waiting on respiratory for his home O2 needs and Trilogy. He verbalized an understanding. When medically stable and home O2 is set up he will be discharged to home.
--- NOTE | 2019-11-09 11:49 | NUR ---
Medical services are en route for O2 and Trilogy delivery per respiratory.
[2019-11-09 12:00] VITALS: BP 122/62
--- NOTE | 2019-11-09 13:19 | NUR ---
Editor School Photograph in to see patient. Discussed payment for NIV. He states he is not paying his co-pay of $400 for it. He wants to know when his O2 is going to be here. Explained O2 supplier called about 11am and stated they were on their way. They are coming from [place]. Discussed SNF and he refuses. Discussed group home care in a facility and he refuses.
--- NOTE | 2019-11-09 13:25 | NUR ---
Spoke to respiratory. [employer] and the insurance company have worked out a deal where the patient will not have to pay. They are in the process of bringing an O2 tank here to the hospital then will set up his O2 at home and drop off his Trilogy. Notified patient.
--- NOTE | 2019-11-09 14:02 | NUR ---
[facility] Discharge instructions reviewed with patient/family. Patient receptive and verbalizes understanding. Follow-up care arranged. Written instructions given to patient/family. JANI POST
--- NOTE | 2019-11-09 15:01 | NUR ---
Spoke to patient on his cell phone [phone] regarding he has prescriptions at the hospital. He states right now they are setting up his home O2. When he gets a chance he will come back down to pick them up. Instructed to pick them up from the nurse's station and he verbalized an understanding. Nurse notified.
--- NOTE | 2019-11-10 07:20 | NUR ---
PHYSICAL THERAPY CO-SIGN I approve of the Physical Therapy notes written above. Helen Reyna PT
[2019-11-10] MEDS ORDERED: LYRICA150 M1 PO (15:04)
== END 2019-11-09 14:02 | disposition home or self-care (01) | DRG 291 ==
LOC: ED 23:26 → 4E 11-02 01:45 → EDHOLD 11-02 01:45 → 4E 11-02 03:23
PROVIDERS: Emergency Medicine; Internal Medicine Critical Care Medicine; ADMIT Internal Medicine
PROC: 5A09357 Assistance with Respiratory Ventilation, Less than 24 Consecutive Hours, Continuous Positive Airway Pressure (ICD-10-PCS; principal; 2019-11-02)
PROC: 5A09357 Assistance with Respiratory Ventilation, Less than 24 Consecutive Hours, Continuous Positive Airway Pressure (ICD-10-PCS; 2019-11-07)
PROC: 5A09357 Assistance with Respiratory Ventilation, Less than 24 Consecutive Hours, Continuous Positive Airway Pressure (ICD-10-PCS; 2019-11-08)
PROC: 5A09357 Assistance with Respiratory Ventilation, Less than 24 Consecutive Hours, Continuous Positive Airway Pressure (ICD-10-PCS; 2019-11-09)
DX: I11.0 Hypertensive heart disease with heart failure (principal); J96.21 Acute and chronic respiratory failure with hypoxia; J96.22 Acute and chronic respiratory failure with hypercapnia; E46 Unspecified protein-calorie malnutrition; Z68.41 Body mass index [BMI] 40.0-44.9, adult; I50.33 Acute on chronic diastolic (congestive) heart failure; F17.210 Nicotine dependence, cigarettes, uncomplicated; N40.0 Benign prostatic hyperplasia without lower urinary tract symptoms; G89.29 Other chronic pain; F32.9 Major depressive disorder, single episode, unspecified; I25.10 Atherosclerotic heart disease of native coronary artery without angina pectoris; J43.9 Emphysema, unspecified; E11.42 Type 2 diabetes mellitus with diabetic polyneuropathy; I27.20 Pulmonary hypertension, unspecified; R62.7 Adult failure to thrive; J20.8 Acute bronchitis due to other specified organisms; M54.5 Low back pain; Z96.652 Presence of left artificial knee joint; Z96.1 Presence of intraocular lens; G47.33 Obstructive sleep apnea (adult) (pediatric); E78.2 Mixed hyperlipidemia; E66.01 Morbid (severe) obesity due to excess calories; K57.90 Diverticulosis of intestine, part unspecified, without perforation or abscess without bleeding; K21.9 Gastro-esophageal reflux disease without esophagitis; I25.2 Old myocardial infarction; Z86.711 Personal history of pulmonary embolism; Z85.46 Personal history of malignant neoplasm of prostate; Z92.3 Personal history of irradiation; Z98.52 Vasectomy status; Z91.19 Patient's noncompliance with other medical treatment and regimen; Z98.61 Coronary angioplasty status; Z98.42 Cataract extraction status, left eye; Z98.41 Cataract extraction status, right eye

== ENCOUNTER 2019-11-10 11:58 | Inpatient (IN) | payer MEDICARE ==
[~2019-11-10] VITALS: Ht 177.8 cm; Wt 133.8 kg
[2019-11-10] VITALS (7 sets, daily range): BP systolic 102–131; BP diastolic 42–75
[~2019-11-10 11:58] MED LIST changes: +FUROSEMIDE20 M1 PO
--- NOTE | 2019-11-10 12:16 | NUR ---
PATIENT BROUGHT IN BY AMBULANCE WITH EXCESSIVE WORK OF BREATHING ON A PORTABLE CPAP. PLACED ON BIPAP AT 16IPAP/10EPAP WITH 35% OXYGEN. SPO2:97% HEART [id number]. RESPIRATORY RATE :20, TIDAL VOLUME 615ML, WITH A LEAK OF 18. ABG'S DRAWN AND AWAITING RESULTS.
[2019-11-10 12:25] LABS: ABG BASE EXCESS 7.8 mmol/L (-2.0-2.0); ARTERIAL BLOOD GAS PH 7.39 (7.35-7.45)
[2019-11-10 12:59] LABS: BASO % 0.1 % (0.0-1.0); EOS # 0.4 10*3/uL (0.0-0.4); HEMATOCRIT 39.7 % (42.0-52.0); LYMPH # 1.6 10*3/uL (1.3-4.4); LYMPH % 8.9 % (27.0-41.0); MEAN CELL VOLUME 94.7 fl (80.0-94.0); MEAN CORPUSCULAR HGB 28.6 pg (27.0-31.0); MEAN CORPUSCULAR HGB CONC 30.2 g/dl (33.0-37.0); MEAN PLATELET VOLUME 9.7 fl (9.6-12.3); MONO % 5.7 % (3.0-9.0); NEUT # 14.9 10*3/uL (2.3-7.9); NEUT % 82.6 % (47.0-73.0); PLATELET COUNT AUTOMATED 371 10*3/uL (130-400); RED BLOOD COUNT 4.19 10*6/uL (4.50-5.90); RED CELL DISTRI WIDTH 15.6 % (0-14.5)
[2019-11-10 13:09] LABS: ACT PARTIAL THROMBO TIME 20.9 SECONDS (20.0-32.1); INTERNATIONAL NORM RATIO 0.9 (2.0-3.5)
[2019-11-10 13:17] LABS: ALBUMIN 3.6 gm/dl (3.1-4.5); ALKALINE PHOSPHATASE 53 U/L (45-117); CHLORIDE 92 mmol/L (98-107); CREATININE 0.92 mg/dL (0.70-1.30); SGOT/AST 19 IU/L (3-35); SGPT/ALT 39 U/L (12-78); SODIUM 136 mmol/L (136-145); TOTAL PROTEIN 6.6 gm/dL (6.4-8.2)
[2019-11-10 13:18] LABS: TROPONIN I 0.022 ng/ml (<0.045)
[2019-11-10 13:25] LABS: BUN 18 mg/dl (7-24)
--- NOTE | 2019-11-10 15:00 | NUR ---
A 63, admitted to ICCU, under the services of Dr. WISAM WHITE,SUKH Kang with a diagnosis of RESPIRATORY FAILURE. Chief complaint is INCREASING SHORTNESS OF BREATH. Patient arrived via stretcher from ER. Monitor applied. Initial assessment completed. Vital signs taken and recorded. DR. WISAM WHITE,SUKH Kang notified of admission to the unit. Orders received. See assessment for past medical history, medications and allergies. Patient and/or family oriented to unit. [facility] visitation policy reviewed. Clothing/patient valuable form completed. ROYCE PAVON
[2019-11-10] MEDS ORDERED: LYRICA150 M1 PO (15:04)
[2019-11-10 16:09] LABS: BILIRUBIN NEGATIVE (NEGATIVE); BLOOD NEGATIVE (NEGATIVE); CLARITY CLEAR (CLEAR); COLOR YELLOW (YELLOW); EPITHELIAL CELLS 0-2; GLUCOSE NEGATIVE (NEGATIVE); KETONE NEGATIVE (NEGATIVE); LEUKO ESTERASE NEGATIVE (NEGATIVE); NITRITE NEGATIVE (NEGATIVE); PH 6.5 (5.0-9.0); SPECIFIC GRAVITY 1.015 (1.005-1.030); UROBILINOGEN 0.2 E.U./dl (0.2-1.0); WBC 0-2 wbc/hpf (0-5)
[2019-11-10 16:10] LABS: URINE AMPHETAMINES < 1000 (1000ng/ml); URINE BARBITURATES < 200 (200ng/ml); URINE BENZODIAZEPINES < 200 (200ng/ml); URINE CANNABINOIDS (THC) < 50 (50ng/ml); URINE COCAINE < 300 (300ng/ml); URINE METHADONE < 300 (300ng/ml); URINE OPIATES > 300 (300ng/ml)
[2019-11-10 16:20] LABS: URINE PHENCYCLIDINE < 25 (25ng/ml)
[2019-11-10 18:06] LABS: ABG BASE EXCESS 13.4 mmol/L (-2.0-2.0); ARTERIAL BLOOD GAS PH 7.448 (7.35-7.45)
--- NOTE | 2019-11-10 19:25 | NUR ---
Pt taken off BiPap and placed on home use of 4L NC. SpO2 remained steady at 95%. Pt given time to eat Jello. Pt was SOB depsite a good SpO2. Pt placed back on after about 10 minutes off. BiPap 26/12 FiO2 35%. Alarms on and audible.
[2019-11-11] VITALS: BP 108/54
--- NOTE | 2019-11-11 00:24 | NUR ---
PT. GIVEN NORCO ORDERED AT 2339 PER PT REQUEST FOR PAIN MED FOR GENERALIZED ACHES AND PAINS. STATES RIGHT ARM IS PAINFUL, ARMS IS REDDENED AND WARM TO TOUCH. VENOUS U/S NEGATIVE. WILL CONTINUE TO MONITOR. SUSANNA HANDY RN
--- NOTE | 2019-11-11 01:00 | NUR ---
PT. STATED NORCO EFFECTIVE.
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
[2019-11-11 04:00] VITALS: BP 104/49
--- NOTE | 2019-11-11 04:31 | NUR ---
Recommend follow up for wound care in outpatient setting patient refused at this time.
--- NOTE | 2019-11-11 07:30 | NUR ---
BIPAP OFF. PT PLACED ON 4L NC.
[2019-11-11 08:00] VITALS: BP 119/62
--- NOTE | 2019-11-11 08:00 | NUR ---
Paint Department Supervisor in to talk to patient. Patient states lives at home alone with his family/friend checking in on him. There are 0 steps in the home. Physician: Dr. Liban Fragoso [facility]acy: [facility] health services: [facility] previously Patient's level of ADLs: MINIMAL ASSIST Patient has working utilities: yes DME: cane, walker, seated walker, O2 @ 4L nc, nebulizer, Trilogy, O2 supplier [facility] Follow-up physician's appointment after d/c: he prefers to make his own follow up appt after discharge Does patient want to access PORTAL?: no Discharge plan discussed with patient. He lives at home alone with his family/friends checking in on him. He is independent in his ADLs and uses a walker or a cane for ambulation. Discussed home health care services and he denies any home needs. He feels like he wasn't getting enough air through his Trilogy. Asked patient to bring Trilogy in from home and have it checked out here, her verbalized an understanding. Discussed short term SNF and he refuses. When medically stable he will be discharged to home. He states his friend will provide transportation on discharge. ROGELIO EVERETT
[2019-11-11 12:00] VITALS: BP 118/55
--- NOTE | 2019-11-11 15:00 | NUR ---
PATIENT UP TO BSC WITH MINIMAL ASSISTANCE. PATIENT DENIES SHORTNESS OF BREATHE, DIZZINESS OR PAIN UPON AMBULATING. CALL LIGHT WITHIN REACH. SEE ASSESSMENT.
[2019-11-11 16:00] VITALS: BP 118/62
[2019-11-11 20:00] VITALS: BP 106/57
--- NOTE | 2019-11-11 20:00 | NUR ---
PT SITTING UP IN BED WATCHING TV, A&OX3, PLEASANT AND COOPERATIVE WITH STAFF. RESP NONLABORED. NO ACUTE DISTRESS NOTED. REQUESTING A PAIN PILL AND INFORMED PT IT WAS STILL TO EARLY. HANSEL PATENT.
--- NOTE | 2019-11-11 23:15 | NUR ---
MEDICATED WITH NORCO PER PRN ORDER FOR C/O PAIN.
[2019-11-12] VITALS: BP 95/52
[2019-11-12 04:00] VITALS: BP 142/58
[2019-11-12 05:58] LABS: BASO % 0.1 % (0.0-1.0); EOS # 0.2 10*3/uL (0.0-0.4); EOS % 3.1 % (1.0-4.0); HEMATOCRIT 30.4 % (42.0-52.0); LYMPH # 1.2 10*3/uL (1.3-4.4); LYMPH % 15.2 % (27.0-41.0); MEAN CORPUSCULAR HGB 28.1 pg (27.0-31.0); MEAN CORPUSCULAR HGB CONC 29.6 g/dl (33.0-37.0); MEAN PLATELET VOLUME 10.4 fl (9.6-12.3); MONO # 0.6 10*3/uL (0.1-1.0); MONO % 7.9 % (3.0-9.0); NEUT # 5.6 10*3/uL (2.3-7.9); NEUT % 72.5 % (47.0-73.0); PLATELET COUNT AUTOMATED 268 10*3/uL (130-400); RED CELL DISTRI WIDTH 15.8 % (0-14.5); WHITE BLOOD COUNT 7.7 10*3/uL (4.8-10.8)
[2019-11-12 05:59] LABS: ALBUMIN 2.7 gm/dl (3.1-4.5); ALKALINE PHOSPHATASE 44 U/L (45-117); BUN 19 mg/dl (7-24); CHLORIDE 102 mmol/L (98-107); CREATININE 0.89 mg/dL (0.70-1.30); POTASSIUM 4.7 mmol/L (3.5-5.1); SGOT/AST 9 IU/L (3-35); SGPT/ALT 27 U/L (12-78); SODIUM 140 mmol/L (136-145); TOTAL PROTEIN 5.5 gm/dL (6.4-8.2)
[2019-11-12 08:00] VITALS: BP 148/55
--- NOTE | 2019-11-12 08:51 | NUR ---
PATIENT C/O PAIN "ALL OVER". MEDICATED WITH NORCO PER PRN ORDER. WILL CONTINUE TO MONITOR.
--- NOTE | 2019-11-12 11:00 | NUR ---
Celebrity Chef Entrepreneur Media Personality and social worker health services in to see patient. Discussed hospice and he is agreeable. When provided with a list of hospice companies he would like [facility], [facility], and [facility]. immigration case worker following. Discussed buckler and lacer at a facility and he is not agreeable. When medically stable he will be discharged to home.
--- NOTE | 2019-11-12 11:22 | NUR ---
Attempted to reach case management coordinator, Zoey, at [facility] with no success. Voicemail left. Awaiting return call.
[2019-11-12 12:00] VITALS: BP 99/54
--- NOTE | 2019-11-12 12:00 | NUR ---
Notified [facility]U nurse hospice will be coming at 12:30 pm, 1:30 pm, and 2:30 pm as patient wanted to have 3 companies come to speak with him.
--- NOTE | 2019-11-12 12:33 | NUR ---
SCREEN MACHINE OPERATOR made a BSV on this date to discuss the possibility of patient electing the Hospice Benefit. SCREEN MACHINE OPERATOR provided psycho educational information, reflective listening, and NE. Client responded appropriately and expressed he would be interested in talking to three different companies to see which one he would like to start working with. Patient identified no further questions at time of BSV. SCREEN MACHINE OPERATOR setup three consultations with local Hospice. SCREEN MACHINE OPERATOR will continue to follow up and provide support as needed.
--- NOTE | 2019-11-12 12:52 | NUR ---
Received call back from Zoey at [facility]. She is not his pillowcase folder. She has not seen him in about a year and a half when he moved to [place] from [place]. She said then he lost his waiver services due to being in the hospital so much.
[2019-11-12 16:00] VITALS: BP 100/56
--- NOTE | 2019-11-12 18:46 | NUR ---
NORCO 7.5 MG GIVEN FOR C/O GENERALIZED PAIN,06/17.
--- NOTE | 2019-11-12 19:59 | NUR ---
IN TO COMPLETE PT ASSESSMENT. PT HAS NO COMPLAINTS AT THIS TIME. PT IS COOPERATIVE AND PLEASANT. CALL LIGHT IS WITHIN REACH, WILL CONTINUE TO MONITOR
[2019-11-12 20:00] VITALS: BP 127/78
[2019-11-13] VITALS: BP 115/61
--- NOTE | 2019-11-13 | NUR ---
INFORMED PT THAT HE NEEDS TO HAVE HIS CONTINUOUSLY WHEN HAVING HIS BIPAP MACHINE ON AT NIGHT, PT REFUSING TO WEAR THE PULSE OX STATING "HE DOESNT NEED IT, IT GETS IN THE WAY". CALL LIGHT WITHIN REACH, WILL CONTINUE TO MONITOR
--- NOTE | 2019-11-13 00:41 | NUR ---
24 HR chart check completed.
--- NOTE | 2019-11-13 06:37 | NUR ---
PT REQUESTING PAIN PILL, PRN NORCO PO GIVEN AT THIS TIME. WILL MONITOR FOR EFFECTIVENESS. CALL LIGHT WITHIN REACH
[2019-11-13 06:39] LABS: BASO % 0.1 % (0.0-1.0); EOS # 0.3 10*3/uL (0.0-0.4); EOS % 3.2 % (1.0-4.0); HEMATOCRIT 30.5 % (42.0-52.0); HEMOGLOBIN 9.1 g/dl (14.0-18.0); LYMPH # 1.4 10*3/uL (1.3-4.4); LYMPH % 17.8 % (27.0-41.0); MEAN CORPUSCULAR HGB 28.3 pg (27.0-31.0); MEAN CORPUSCULAR HGB CONC 29.8 g/dl (33.0-37.0); MEAN PLATELET VOLUME 10.3 fl (9.6-12.3); MONO # 0.6 10*3/uL (0.1-1.0); MONO % 7.1 % (3.0-9.0); NEUT # 5.7 10*3/uL (2.3-7.9); NEUT % 70.8 % (47.0-73.0); PLATELET COUNT AUTOMATED 249 10*3/uL (130-400); RED BLOOD COUNT 3.21 10*6/uL (4.50-5.90); RED CELL DISTRI WIDTH 15.8 % (0-14.5)
[2019-11-13 06:54] LABS: ALKALINE PHOSPHATASE 44 U/L (45-117); BUN 18 mg/dl (7-24); CHLORIDE 104 mmol/L (98-107); CREATININE 0.77 mg/dL (0.70-1.30); POTASSIUM 4.3 mmol/L (3.5-5.1); SGOT/AST 11 IU/L (3-35); SGPT/ALT 24 U/L (12-78); SODIUM 140 mmol/L (136-145); TOTAL PROTEIN 5.9 gm/dL (6.4-8.2)
[2019-11-13 08:00] VITALS: BP 100/66
[2019-11-13 12:00] VITALS: BP 107/54
[2019-11-13 16:00] VITALS: BP 129/68
--- NOTE | 2019-11-13 19:30 | NUR ---
IN PT ROOM TO COMPLETE ASSESMENT AT THIS TIME, PT COMPLAINS OF BEING SOB TODAY. HE STATES THAT EARLIER TODAY WHILE HIS ANTIBIOTIC WAS RUNNING HE HAD SOME PAIN IN HIS IV, BUT AFTER IT WAS DONE IT STOPPED, AND HE DID NOT WANT A NEW IV STARTED I WILL CONTINUE TO ASSES THE SITE. CALL LIGHT IS WITHIN REACH, WILL CONTINUE TO MONITOR. PT REQUESTIN PAIN MEDICATION WELL
[2019-11-13 20:00] VITALS: BP 120/58
--- NOTE | 2019-11-13 20:07 | NUR ---
PT RATES HIS PAIN A 10/10 IN HIS FOOT, ANKLE AND KNEE. PRN NORCO PO IS GIVEN AT THIS TIME. WILL CONTINUE TO MONITOR FOR EFFECTIVENESS
--- NOTE | 2019-11-13 21:10 | NUR ---
PT STATES THAT HE WILL WEAR THE CONTINUOUS PULSE OX BUT NOT SURE HOW LONG HE WILL KEEP IT ON
[2019-11-14] VITALS: BP 113/65
--- NOTE | 2019-11-14 01:11 | NUR ---
24 HR chart check completed.
[2019-11-14 06:07] LABS: BASO % 0.1 % (0.0-1.0); EOS # 0.2 10*3/uL (0.0-0.4); EOS % 3.1 % (1.0-4.0); HEMATOCRIT 29.5 % (42.0-52.0); HEMOGLOBIN 8.9 g/dl (14.0-18.0); LYMPH # 1.1 10*3/uL (1.3-4.4); MEAN CELL VOLUME 95.2 fl (80.0-94.0); MEAN CORPUSCULAR HGB 28.7 pg (27.0-31.0); MEAN CORPUSCULAR HGB CONC 30.2 g/dl (33.0-37.0); MEAN PLATELET VOLUME 9.7 fl (9.6-12.3); MONO # 0.7 10*3/uL (0.1-1.0); MONO % 8.8 % (3.0-9.0); NEUT # 5.4 10*3/uL (2.3-7.9); NEUT % 71.3 % (47.0-73.0); PLATELET COUNT AUTOMATED 223 10*3/uL (130-400); RED CELL DISTRI WIDTH 15.9 % (0-14.5); WHITE BLOOD COUNT 7.6 10*3/uL (4.8-10.8)
[2019-11-14 06:24] LABS: ALBUMIN 2.7 gm/dl (3.1-4.5); ALKALINE PHOSPHATASE 41 U/L (45-117); BUN 17 mg/dl (7-24); CHLORIDE 105 mmol/L (98-107); CREATININE 0.76 mg/dL (0.70-1.30); POTASSIUM 4.2 mmol/L (3.5-5.1); SGOT/AST 9 IU/L (3-35); SGPT/ALT 24 U/L (12-78); SODIUM 138 mmol/L (136-145); TOTAL PROTEIN 5.5 gm/dL (6.4-8.2)
[2019-11-14 08:00] VITALS: BP 146/63
--- NOTE | 2019-11-14 09:16 | NUR ---
MEDICATED WITH PRN NORCO FOR C/O OF ALL OVER PAIN.
[2019-11-14 12:00] VITALS: BP 148/67
[2019-11-14 16:00] VITALS: BP 111/43
--- NOTE | 2019-11-14 17:18 | NUR ---
MEDICATED WITH PRN NORCO PER ORDER AND REQUEST.
--- NOTE | 2019-11-14 19:36 | NUR ---
IN PT ROOM TO COMPLETE ASSESSMENT, PT HAS NO COMPLAINTS AT THIS TIME. HE STATES THAT HIS SOB IS BETTER COMPARED TO YESTERDAY. PT RELAXING COMFORTABLY IN HIS BED WATCHING TV, PLEASANT AND COOPERATIVE. CALL LIGHT WITHIN REACH, WILL CONTINUE TO MONITOR
[2019-11-14 20:00] VITALS: BP 121/57
[2019-11-15] VITALS: BP 112/59
--- NOTE | 2019-11-15 01:49 | NUR ---
24 HR chart check completed.
--- NOTE | 2019-11-15 05:52 | NUR ---
PT STATES HE IS IN PAIN RATING IT A 10/10. PRN NORCO PO IS GIVEN AT THIS TIME, WILL CONTINUE TO MONITOR FOR EFFECTIVENESS
--- NOTE | 2019-11-15 08:21 | NUR ---
DR HEMANTH HADDAD FOR PT TO TAKE OFF HEART MONITOR AND TO GET A SHOWER, PER PT REQUEST.
--- NOTE | 2019-11-15 09:00 | NUR ---
Paid Search Specialist in to see patient. No new needs or request at this time. When medically stable he will be discharged to home with [facility]. yarn worker following.
[2019-11-15 12:00] VITALS: BP 121/53
--- NOTE | 2019-11-15 12:00 | NUR ---
PT RESTING IN BED, RESPIRATIONS UNLABORED ON 4L NC. NO COMPLAINTS ARE VOICED BY PT AT THIS TIME. SAFETY MEASURES IN PLACE. CALL LIGHT IN REACH.
[2019-11-15 16:00] VITALS: BP 133/57
--- NOTE | 2019-11-15 18:45 | NUR ---
DR JOEL GIVES OKAY FOR ORDERS FOR PT TO HAVE NASAL SPRAY, PER PT REQUEST. DR JOEL ALSO NOTIFIED OF PT IV SITE GOING BACK DURING PT ROCEPHIN INFUSION. PHYSICIAN STATES THAT WE CAN RESUME ROCEPHIN IN THE MORNING AT THE NEXT SCHEDULED DOSE.
[2019-11-15 20:00] VITALS: BP 124/51
[2019-11-16] VITALS: BP 119/60
--- NOTE | 2019-11-16 05:28 | NUR ---
PO NORCO ADMINISTERED FOR PATIENT C/O PAIN IN ARMS, LEGS, HANDS, "EVERYWHERE" RATED 10/10. PO CEPACHOL LOZENGE ADMINISTERED FOR C/O COUGH & DRY/SORE THROAT. SALINE NASAL SPRAY ADMINISTERED FOR C/O CONGESTION. COFFEE PROVIDED PER PT REQUEST. WILL MONITOR EFFECTIVENESS OF MEDICATIONS. CALL LIGHT LEFT IN REACH.
--- NOTE | 2019-11-16 09:00 | NUR ---
Discussed discharge planning with Dr. Hannah. Dr. Hannah said it was ok to discharge patient home with [facility]. Notified Dr. Fragoso. wafer production worker following.
--- NOTE | 2019-11-16 11:19 | NUR ---
Patient is discharged to return home with [facility] @ 1300. DC informaiton faxed, NH, nursing/forward air controller/air officer and Hospice all notified.
--- NOTE | 2019-11-16 11:40 | NUR ---
Nutritional Support Services Note: Pt is on a regular diet. Intakes are good (100%). Dx of acute and chronic resp failure. Skin tears noted to hand. CBW: 285# Ht: 5'10". Continue to encourage good PO intakes. No other nutrition intervention needed. Will follow if needed. MELITON Turner internist
--- NOTE | 2019-11-16 13:35 | NUR ---
[facility] Discharge instructions reviewed with patient/family. Patient receptive and verbalizes understanding. Follow-up care arranged. Written instructions given to patient/family. JANI POST
== END 2019-11-16 13:10 | disposition hospice, home (50) | DRG 189 ==
LOC: ED 11:58 → EDHOLD 14:01 → 4E 14:01 → ICCU 14:04 → 4E 11-12 14:10
PROVIDERS: Emergency Medicine; Internal Medicine Critical Care Medicine; ADMIT Internal Medicine
PROC: 5A09357 Assistance with Respiratory Ventilation, Less than 24 Consecutive Hours, Continuous Positive Airway Pressure (ICD-10-PCS; principal; 2019-11-10)
PROC: 5A09357 Assistance with Respiratory Ventilation, Less than 24 Consecutive Hours, Continuous Positive Airway Pressure (ICD-10-PCS; 2019-11-12)
PROC: 5A09357 Assistance with Respiratory Ventilation, Less than 24 Consecutive Hours, Continuous Positive Airway Pressure (ICD-10-PCS; 2019-11-13)
PROC: 5A09357 Assistance with Respiratory Ventilation, Less than 24 Consecutive Hours, Continuous Positive Airway Pressure (ICD-10-PCS; 2019-11-15)
PROC: 5A09357 Assistance with Respiratory Ventilation, Less than 24 Consecutive Hours, Continuous Positive Airway Pressure (ICD-10-PCS; 2019-11-16)
DX: J96.21 Acute and chronic respiratory failure with hypoxia (principal); J44.0 Chronic obstructive pulmonary disease with (acute) lower respiratory infection; Z68.41 Body mass index [BMI] 40.0-44.9, adult; F33.1 Major depressive disorder, recurrent, moderate; I50.32 Chronic diastolic (congestive) heart failure; E87.3 Alkalosis; J44.1 Chronic obstructive pulmonary disease with (acute) exacerbation; J96.22 Acute and chronic respiratory failure with hypercapnia; J20.9 Acute bronchitis, unspecified; E78.2 Mixed hyperlipidemia; R62.7 Adult failure to thrive; F41.1 Generalized anxiety disorder; I25.10 Atherosclerotic heart disease of native coronary artery without angina pectoris; N40.1 Benign prostatic hyperplasia with lower urinary tract symptoms; R33.9 Retention of urine, unspecified; G89.29 Other chronic pain; K21.9 Gastro-esophageal reflux disease without esophagitis; K57.90 Diverticulosis of intestine, part unspecified, without perforation or abscess without bleeding; I11.0 Hypertensive heart disease with heart failure; K59.09 Other constipation; E66.01 Morbid (severe) obesity due to excess calories; M54.5 Low back pain; B96.89 Other specified bacterial agents as the cause of diseases classified elsewhere; M19.90 Unspecified osteoarthritis, unspecified site; G47.33 Obstructive sleep apnea (adult) (pediatric); Z79.82 Long term (current) use of aspirin; Z79.899 Other long term (current) drug therapy; I25.2 Old myocardial infarction; Z86.711 Personal history of pulmonary embolism; Z79.01 Long term (current) use of anticoagulants; Z85.46 Personal history of malignant neoplasm of prostate; Z98.52 Vasectomy status

== ENCOUNTER 2019-11-26 16:38 | Inpatient (IN) | payer MEDICARE ==
[2019-11-26 16:52] VITALS: BP 153/46
[2019-11-26 17:15] VITALS: BP 128/77
[2019-11-26] MEDS ORDERED: TUSSIN400 MG PO (18:33)
[2019-11-26] MEDS ORDERED: HYDROCODONE-AC1 EAC2 PO (18:36)
[2019-11-26] MEDS ORDERED: MIRAPEX0.5 MG PO (18:40)
[2019-11-26] MEDS ORDERED: VENTOLIN 02.5 MG/3 M INH (18:42)
[2019-11-26] MEDS ORDERED: PULMICORT RES0.25 M1 INH (18:44)
[2019-11-26] MEDS ORDERED: ATIVAN2 M1 PO (18:45)
[2019-11-26 20:00] VITALS: BP 111/62
[2019-11-27] VITALS: BP 90/48
[2019-11-27 08:00] VITALS: BP 106/72
== END 2019-11-27 10:45 | disposition expired | DRG 189 ==
LOC: ED 16:38 → EDHOLD 16:51 → 4E 17:04
PROVIDERS: ADMIT Internal Medicine
DX: J96.20 Acute and chronic respiratory failure, unspecified whether with hypoxia or hypercapnia (principal); Z66 Do not resuscitate; Z51.5 Encounter for palliative care; N40.0 Benign prostatic hyperplasia without lower urinary tract symptoms; G89.29 Other chronic pain; M54.9 Dorsalgia, unspecified; J44.9 Chronic obstructive pulmonary disease, unspecified; I25.10 Atherosclerotic heart disease of native coronary artery without angina pectoris; F32.9 Major depressive disorder, single episode, unspecified; I10 Essential (primary) hypertension; K21.9 Gastro-esophageal reflux disease without esophagitis; F17.210 Nicotine dependence, cigarettes, uncomplicated; Z86.711 Personal history of pulmonary embolism; Z79.01 Long term (current) use of anticoagulants; I25.2 Old myocardial infarction; Z85.46 Personal history of malignant neoplasm of prostate; Z98.52 Vasectomy status; Z98.62 Peripheral vascular angioplasty status